=== PATIENT | male | born 1940 | race Caucasian/White ===

== ENCOUNTER 2018-01-30 00:08 | Outpatient (CLI) | payer MEDICARE, SELFPAY ==
--- NOTE | 2018-01-30 07:15 | MERGEMPI_ITS ---
*[facility]* *[facility]* [address] [place] [address] Myocardial Perfusion Imaging - SPECT Ifeanyi protocol Date of study: 01/30/2018 *PATIENT PRESENTATION* Height: 185.4cm (73in) Blood Pressure: Weight: 108.6kg (239lb) BSA: 2.39m^2 Referring physician: Antoni Esparza MD Ordering physician: Yovany Nichols Impressions: Normal perfusion by Tc99m Sestamibi Imaging. Summary: 1. Myocardial perfusion imaging: No myocardial perfusion defects noted. 2. The calculated left ventricular ejection fraction after stress: 54%. No left ventricular regional motion abnormality. 3. Stress: The target heart rate was achieved. Indication: R06.02. History: REASON FOR TESTING: SHORTNESS OF BREATH INCREASING OVER THE PAST MONTH WITH CHEST PRESSURE, DESCRIBED A BABY ELEPHANT ON CHEST. PAST MEDICAL HISTORY: HYPERTENSION, HYPERLIPIDEMIA, VALVE INSUFFICIENCY ASTHMA, COPD, RIGHT TOTAL KNEE X2, LEFT ANKLE SURGERY X2. FAMILY HISTORY: NONE SMOKIN PPD, QUIT 1981 EXERCISE: NONE OTHER THAN DAILY ACTIVITIES. PMH: COPD. Asthma. Risk factors: Hypertension. Cholesterol: 190mg/dl. HDL: 50mg/dl. LDL: 127mg/dl. Triglycerides: 118mg/dl. ALLERGIES: ATORVASTATIN. SIMVASTATIN. MEDICATIONS: CYANOCOBALAMIN DOSE UNKNOWN DAILY. ALBUTERAL SULFATE 2 PUFF IH Q4H PRN. ASPIRIN 325 MG DAILY. FERROUS SULFATE DOSE UNKNOWN DAILY. MULTIVITAMIN DOSE UNKNOWN DAILY. IBUPROFEN 600 MG PRN. BREO ELLIPTA IH DAILY. LORAZEPAM DOSE UNKNOWN PRN. STIOLTO RESPIMAT DAILY. IPRATROPIUM-ALBUTEROL UPD PRN. MECLIZINE DOSE UNKNOWN PRN.TRAZODONE DOSE UNKNOWN HS.FLUTICASONE 2 SPRAYS DAILY. HYDROCHLOROTHIAZIDE DOSE UNKNOWN DAILY. POTASSIUM CHLORIDE 10 MEQ THREE TIMES A WEEK.SERTRALINE 50 MG DAILY. LORATADINE 10 MG DAILY. OMEPRAZOLE 20 MG DAILY. TAMULOSIN DOSE UNKNOWN HS. PREDNISONE 10 MG DAILY. Imaging Technique: Protocol: Ifeanyi protocol. Acquisition: Gated SPECT; 1 day - rest/stress. The patient was imaged in the supine position. Attenuation correction used. Isotope administration: - Rest. Tc[99m]-sestamibi. Dose: 10.6mCi. Injection time: 11:20 AM. Injection to stress time: 00:45. - Stress. Tc[99m]-sestamibi. Dose: 33.1mCi. Injection time: 01:45 PM. 1-2 min before end of exercise Baseline ECG: FIRST DEGREE AV BLOCK. HEART RATE=65 BPM. Stress protocol: + +---+ + !Stage !HR !BP (mmHg) ! + +---+ + !Baseline supine !65 !142/70 (94) ! + +---+ + !Baseline standing !72 !140/68 (92) ! + +---+ + !Stage I; 1.7mph, 10degrees; 3 min !100!162/78 (106)! + +---+ + !Stage II; 2.5mph, 12degrees; 3 min!124!162/80 (107)! + +---+ + !Peak stress !130! ! + +---+ + !Recovery; 1 min !102!186/82 (117)! + +---+ + !Recovery; 3 min !92 !190/80 (117)! + +---+ + !Recovery; 6 min !75 !140/78 (99) ! + +---+ + * Stress results: Maximal heart rate during stress was 130bpm (90% of maximal predicted heart rate). The maximal predicted heart rate was 145bpm. The target heart rate was achieved. The rate-pressure product for the peak heart rate and blood pressure was 89540xm Hg/min. Stress ECG: EXERCISE TESTING ENDED IN 6 MINUTES 29 SECONDS DUE TO SHORTNESS OF BREATH AND FATIGUE. NORMAL HEART RATE RESPONSE. NORMAL BLOOD PRESSURE RESPONSE. MAX HEART RATE WAS 130 BPM. 89% OF TARGET. ECTOPY: OCCASIONAL PVC'S. OCCASIONAL COUPLETS. BIGEMINY PATTERN NOTED AT 2 MINUTES RECOVERY, RESOLVED BY 4 MINUTES RECOVERY. MET'S: 7.05 3/10 CHEST PAIN AT 1 MINUTE RECOVERY, RESOLVED BY [address] SEGMENT CHANGES. FUNCTIONAL CAPACITY: MILDLY DIMINISHED CAPACITY. Myocardial perfusion: Imaging information: gated. No myocardial perfusion defects noted. Ventricular Function (Wall Motion): The calculated left ventricular ejection fraction after stress: 54%. No left ventricular regional motion abnormality. Study data: Antoni Esparza MD supervised and was readily available during the procedure. This study was interpreted by [facility]. Study status: Routine. Consent: The risks, benefits, and alternatives to the procedure were explained to the patient and informed consent was obtained. Procedure: Initial setup. A baseline ECG was recorded. Surface ECG leads and manual cuff blood pressure measurements were monitored. Heart sounds: Normal. Lung sounds: Normal. Treadmill exercise testing was performed using the Ifeanyi protocol. Study completion: All catheters inserted during the procedure were removed. The patient tolerated the procedure well and was discharged from the lab. Discharge: The patient left the laboratory in stable condition. Birthdate: Patient birthdate: 1940. Sex: Gender: male. Study date: Study date: 01/30/2018. Study time: 07:15 AM. Electronically signed by Antoni Esparza MD 01/30/2018 17:54
== END 2018-01-30 00:28 ==
PROVIDERS: PCP Family Medicine; Visit Provider Family Medicine
DX: R06.02 Shortness of breath (principal); R07.89 Other chest pain; I10 Essential (primary) hypertension; E78.5 Hyperlipidemia, unspecified
CPT/HCPCS: 78452; 93016; 93018; 93017

== ENCOUNTER 2018-02-02 01:30 | Outpatient (CLI) | payer MEDICARE, SELFPAY ==
--- NOTE | 2018-02-02 07:30 | MERGE_ITS ---
*[facility]* *[facility]* [address] [place] [address] Date of study: 02/02/2018 Transthoracic Echocardiography M-mode, complete 2D, complete spectral Doppler, and color Doppler *STUDY CONCLUSIONS* Summary: 1. Left ventricle: The cavity size was normal. Wall thickness was increased in a pattern of mild LVH. Systolic function was normal. The estimated ejection fraction was 60-65%. Diastolic parameters were normal. There was no evidence of elevated ventricular filling pressure by Doppler parameters. 2. Ventricular septum: Septal motion showed paradoxical motion. 3. Mitral valve: There was mild regurgitation. 4. Pulmonary arteries: Pulmonary systolic pressure was >= 25mm Hg. 5. Inferior vena cava: Poorly visualized. *PATIENT PRESENTATION* Height: 182.9cm ((72in) ) S/D Pressure: 123 / 62 Weight: 108.4kg ((238.5lb) ) BSA: 2.38m^2 Test start time: 07:40 AM. Test stop time: 08:40 AM. ORDERING Ginny Raymundo REFERRING Ginny Raymundo PERFORMING Unknown PERFORMING [facility] LIVESTOCK SPECULATOR RT Hernandez RDCS (R CT) *PROCEDURE DATA* Procedure information: This study was interpreted by [facility]. Pertinent images and digital data are archived for permanent storage and are available for subsequent review. Comparison was made to the study of 07/09/2013. Study status: Routine. Transthoracic echocardiography. M-mode, complete 2D, complete spectral Doppler, and color Doppler. A Transthoracic Echocardiogram was performed. Scanning was performed from the parasternal, apical, subcostal, and suprasternal notch acoustic windows. Images were obtained using an [id number] cardiac ultrasound machine. Image quality was adequate. Study completion: The patient tolerated the procedure well. *CARDIAC ANATOMY* Left ventricle: The cavity size was normal. Wall thickness was increased in a pattern of mild LVH. Systolic function was normal. The estimated ejection fraction was 60-65%. The tissue Doppler parameters were normal. Diastolic parameters were normal. There was no evidence of elevated ventricular filling pressure by Doppler parameters. Aortic valve: Trileaflet. Doppler: There was no stenosis. There was no regurgitation. VTI ratio of LVOT to aortic valve: 0.45. Valve area (VTI): 2cm^2. Indexed valve area (VTI): 0.8cm^2/m^2. Peak velocity ratio of LVOT to aortic valve: 0.35. Valve area (Vmax): 1.6cm^2. Indexed valve area (Vmax): 0.7cm^2/m^2. Mean velocity ratio of LVOT to aortic valve: 0.42. Valve area (Vmean): 1.9cm^2. Indexed valve area (Vmean): 0.8cm^2/m^2. Mean gradient (S): 13.7mm Hg. Peak gradient (S): 28.4mm Hg. Aorta: Aortic root: The aortic root was normal in size. Ascending aorta: The ascending aorta was mildly dilated. Mitral valve: Doppler: There was no evidence for stenosis. There was mild regurgitation. Valve area by pressure half-time: 2.1cm^2. Indexed valve area by pressure half-time: 0.9cm^2/m^2. Left atrium: The atrium was normal in size. Atrial septum: Poorly visualized. Right ventricle: Poorly visualized. Ventricular septum: Septal motion showed paradoxical motion. Pulmonic valve: Doppler: There was no evidence for stenosis. There was mild regurgitation. Peak gradient (S): 6.9mm Hg. Tricuspid valve: Doppler: There was mild regurgitation. Pulmonary artery: Poorly visualized. Pulmonary systolic pressure was >= 25mm Hg. Right atrium: The atrium was normal in size. Pericardium: There was no significant pericardial effusion. Systemic veins: Inferior vena cava: Poorly visualized. The vessel was patent and mildly dilated. Baseline ECG: Normal sinus rhythm. Measurements Left ventricle Value Reference LV ID, ED, PLAX 5.9 cm 3.5 - 6.0 LV ID, ES, PLAX 4.0 cm 2.1 - 4.0 LV PW thickness, ED, PLAX 1.1 cm LV end-diastolic volume, 1-p A2C 144 ml LV ejection fraction, 1-p A2C 66 % LV end-diastolic volume, 1-p A4C 147 ml LV ejection fraction, 1-p A4C 61 % LV e', lateral 0.047 m/sec LV E/e', lateral 12 LV e', medial 0.051 m/sec LV E/e', medial 11 LV e', average 0.049 m/sec LV E/e', average 12 Ventricular septum Value Reference IVS thickness, ED, PLAX 1.1 cm LVOT Value Reference LVOT ID, A-P 2.4 cm LVOT area 4.4 cm^2 LVOT peak velocity, S 0.94 m/sec LVOT mean velocity, S 0.74 m/sec LVOT VTI, S 21.8 cm LVOT peak gradient, S 3.5 mm Hg LVOT mean gradient, S 2.3 mm Hg Stroke volume (SV), LVOT DP 96 ml Stroke index (SV/bsa), LVOT DP 41 ml/m^2 Aortic valve Value Reference Aortic valve peak velocity, S 2.7 m/sec Aortic valve mean velocity, S 1.75 m/sec Aortic valve VTI, S 49.0 cm Aortic mean gradient, S 13.7 mm Hg Aortic peak gradient, S 28.4 mm Hg VTI ratio, LVOT/AV 0.45 Aortic valve area, VTI 2 cm^2 Velocity ratio, peak, LVOT/AV 0.35 Aortic valve area, peak velocity 1.6 cm^2 Velocity ratio, mean, LVOT/AV 0.42 Aortic valve area, mean velocity 1.9 cm^2 Aortic valve area/bsa, mean velocity 0.8 cm^2/m^2 Aorta Value Reference Aortic root ID, ED 4.0 cm Ascending aorta ID, A-P, S 3.9 cm RVOT Value Reference RVOT VTI, S 18.2 cm Left atrium Value Reference LA ID, A-P, ES 3.7 cm LA ID/bsa, A-P 1.6 cm/m^2 <=2.2 LA area, ES, A4C 21.3 cm^2 8.8 - 23.4 LA area, ES, A2C 19 cm^2 LA volume/bsa, ES, 1-p A4C 30 ml/m^2 LA volume, ES, 2-p 59 ml LA volume/bsa, ES, 2-p 25 ml/m^2 LA/aortic root ratio 0.93 Mitral valve Value Reference Mitral E-wave peak velocity 0.58 m/sec Mitral A-wave peak velocity 0.91 m/sec Mitral deceleration time (H) 357 ms 150 - 230 Mitral pressure half-time 104 ms Mitral E/A ratio, peak 0.64 Mitral valve area, PHT, DP 2.1 cm^2 Pulmonary veins Value Reference Pulmonary vein peak velocity, S 0.63 m/sec Pulmonary vein peak velocity, D 0.41 m/sec Pulmonary vein velocity ratio, peak, 1.55 S/D Pulmonary vein A-wave reversal peak 0.81 m/sec velocity Tricuspid valve Value Reference Tricuspid regurg peak velocity 2.1 m/sec Tricuspid peak RV-RA gradient 17.1 mm Hg Right atrium Value Reference RA area, ES, A4C 18 cm^2 8.3 - 19.5 Pulmonic valve Value Reference Pulmonic peak gradient, S 6.9 mm Hg Legend: (L) and (H) miki values outside specified reference range. I have personally reviewed the images and have reviewed and edited the reported findings. Electronically signed by Antoni Esparza MD 02/02/2018 14:00
== END 2018-02-02 01:50 ==
PROVIDERS: PCP Family Medicine; Visit Provider Internal Medicine
DX: I34.0 Nonrheumatic mitral (valve) insufficiency (principal)
CPT/HCPCS: 93306

== ENCOUNTER 2018-02-03 12:01 | Emergency (ER) | payer MEDICARE, SELFPAY ==
[2018-02-03 12:09] VITALS: BP 157/68; PULSE 66; RESP 14; TEMP 37.1; O2SAT 94
--- NOTE | 2018-02-03 12:21 | DI.RAD_ITS ---
SYMPTOMS/DIAGNOSIS: SUBJECTIVE SHORTNESS OF BREATH, RIGHT SHOULDER PAIN PA AND LATERAL CHEST: The heart is at the upper limits of normal in size. The lungs are grossly clear and hyperinflated. Old compression fracture of lower thoracic vertebral body and mid thoracic vertebral body noted. No pleural effusions seen. CONCLUSION: No evidence of acute change.
[2018-02-03] MEDS: Albuterol/Ipratropium 3 ML UPD VIAL UPD (12:27)
[2018-02-03 12:40] VITALS: RESP 16
[2018-02-03 12:40] LABS: Abs Immature Grans 0.06 k/cumm (0.0-0.09); Absolute Basophil Count 0.04 k/cumm (0.0-0.2); Absolute Eosinophil Count 0.09 k/cumm (0.0-0.7); Absolute Lymphocyte Count 1.06 k/cumm (1.2-3.4); Absolute Monocyte Count 0.63 k/cumm (0.11-0.7); Absolute Neutrophil Count 7.31 k/cumm (1.2-6.7); Basophils % 0.4; Immature Grans % 0.7; Lymphocytes % 11.5; Mean Corp. HGB Concentration 34.8 g/dL (32.0-36.0); Mean Corpuscular Hemoglobin 31.1 pg (27.0-33.0); Mean Corpuscular Volume 89.3 fL (80-95); Mean Platelet Volume 10.2 fL (8.0-11.0); Monocytes % 6.9; Neutrophils % 79.5; Platelet Count 194 x1000/uL (130-400); RBC 5.15 m/cumm (4.50-6.00); RBC Distribution Width 13.4 % (11.8-14.1); White Blood Cell Count 9.19 k/cumm (4.4-10.8)
[2018-02-03 12:53] LABS: ALT 30 U/L (12-78); AST 15 U/L (15-37); Albumin 3.4 g/dL (3.4-5.0); Alkaline Phosphatase 99 U/L (46-116); Anion Gap 7.5 mmol/L (3-11); BUN 20 mg/dL (7-18); Bilirubin, Total 0.5 mg/dL (0.2-1.0); CO2 29.5 mmol/L (21.0-32.0); CREATININE 1.21 mg/dL (0.70-1.30); Calcium 8.8 mg/dL (8.5-10.1); Chloride 102 mmol/L (98-107); Estimated GFR 58.46 (mL/min/1.73m2); Glucose 101 mg/dL (70-100); Potassium 4.4 mmol/L (3.5-5.1); Sodium 139 mmol/L (136-145); Total Protein 6.6 g/dL (6.4-8.2)
[2018-02-03 12:54] LABS: Troponin I < 0.02 ng/mL (0.00-0.06)
--- NOTE | 2018-02-03 14:22 | ED.GENADUL_ITS ---
Discharge Plan Disposition Patient Disposition: HOME Condition: Good Discharge Details Chief Complaint: SOB Clinical Impression: Asthma exacerbation in COPD, Chronic chest pain, SOB (shortness of breath) Primary Care Provider: Yovany Nichols ED Provider: Valeriy Washington Home Meds and New Rx's Prescriptions: New prednisone 50 MG tablet 50 mg PO DAILY Qty: 5 RF: 0 azithromycin 250 mg tablet See Label Instructions .ROUTE .COMPLEX Qty: 6 RF: 0 No Action cyanocobalamin (vitamin B-12) [Vitamin B-12] 1,000 MCG tablet extended release 1 tab PO DAILY RF: 0 multivitamin 1 EACH tablet 1 tab PO DAILY RF: 0 aspirin 325 MG tablet 325 mg PO DAILY RF: 0 ferrous sulfate 325 MG tablet 1 tab PO DAILY RF: 0 lorazepam [Ativan] 0.5 MG tablet 1 tab PO Q8H PRNQty: 30 RF: 0 meclizine 12.5 MG tablet 1 - 2 tab PO Q6H PRN Qty: 50 RF: 1 trazodone 100 MG tablet 1 tab PO HS Qty: 90 RF: 3 hydrochlorothiazide 12.5 MG capsule 1 cap PO DAILY Qty: 90 RF: 4 fluticasone 16 GM spray,suspension 2 spry NS DAILY Qty: 1 RF: 3 sertraline 50 MG tablet 50 mg PO DAILY Qty: 90 RF: 3 potassium chloride 10 MEQ capsule, extended release 10 meq PO 3x a week Qty: 45 RF: 4 tamsulosin 0.4 MG capsule 1 - 2 cap PO HS Qty: 60 RF: 3 omeprazole 20 MG capsule,delayed release(DR/EC) 20 mg PO DAILY Qty: 90 RF: 4 loratadine [Claritin Liqui-Gel] 10 MG capsule 10 mg PO DAILY Qty: 90 RF: 4 ibuprofen [Ibuprofen IB] 200 MG tablet 600 mg PO PRN PRNRF: 0 ipratropium-albuterol 3 ML solution for nebulization 3 ml UPD Q4H PRN PRNRF: 0 azithromycin 250 mg Tablet See Label Instructions .ROUTE .COMPLEX RF: 0 cholecalciferol (vitamin D3) [Vitamin D3] 1,000 unit Capsule 1,000 unit PO DAILY RF: 0 prednisone 10 mg tablet 5 mg PO DAILY RF: 0 Discharge Instructions Instructions: COPD (Chronic Obstructive Pulmonary Disease) (ED) Additional Instructions: Please use your home oxygen set at 2-3 L at all times. Please follow-up with your family doctor soon as possible. Please take the medication as directed. If you notice any worsening of your symptoms, or any new symptoms such as vomiting, diarrhea, fever, chills, shortness of breath, chest pain, numbness, weakness, or fainting , please return immediately to the emergency department for reevaluation. Please follow up with your primary care provider as soon as possible for reassessment and reevaluation. As always, it was a pleasure participating in your medical care today. Referrals: Yovany Nichols MD [Primary Care Provider] - Discharge Data Discharge Date/Time-TO BE ENTERED AT DEPARTURE: 02/03/18 14:37 Medical Decision Making This is a pleasant 77-year-old male who presents for evaluation of shortness of breath some mild chest pain, and very mild pain down his right arm. He does have a notable history of COPD, and used to be on 2-3 L of home oxygen at all times, however over the last few months he has tried to titrate down. He has been noticing increased need for oxygen as of late, as well as continued shortness of breath. Because of this his primary care provider did get an echo and a stress test within the past week. These demonstrate no significant abnormalities concerning for severe ischemic heart disease. Patient on presentation demonstrates normal vital signs with no signs of hypoxemia, no tachycardia, no evidence of tachypnea. Patient was given 1 breathing treatment in the emergency department to see if this did not improve his symptoms and it did improve slightly. He does have a breathing machine and inhalers at home. Patient's laboratory workup was relatively benign with no significant leukocytosis, no bandemia, no electrolyte abnormalities. Troponin was normal, and EKG showed a first-degree AV block but no other significant abnormalities. With normal vital signs, normal EKG, normal stress test within the last 5 days, benign echocardiogram within the last 24 hours, no signs of hypoxemia or respiratory distress, I do feel that his symptoms more likely secondary to chronic lung disease and worsening chronic COPD than a cardiac etiology. I feel that the patient can be safely discharged home but does require close follow-up with his primary care provider. He does have home oxygen already at home, and we do recommend this that he uses this as needed for home use. In spite of the negative workup noted at this time, I did discuss with him the importance of return if he does have a change in his symptomatology. With the improvement that the patient had with the breathing treatment, I do feel that the COPD component would benefit from short course of 5 days of steroids, and azithromycin for the anti-inflammatory component with his chronic COPD. We discussed red flags which to return as well as the importance of follow-up and the patient understands. I have extensively reviewed the treatment plan and discharge instructions with the patient and their family. I have addressed all patient concerns at this time. The patient and family was made aware of what symptoms to monitor for that would warrant a return to the emergency department. Discussed the plan with the patient and family, they demonstrate verbal understanding and agreement with our assessment and plan at this time. EKG 12: 08 Rate 66, OH 240, QTc 411, QRS 96, sinus rhythm with first-degree AV block, no ST elevations or depressions, no T wave inversions except for V1. No Q waves. PA AND LATERAL CHEST: The heart is at the upper limits of normal in size. The lungs are grossly clear and hyperinflated. Old compression fracture of lower thoracic vertebral body and mid thoracic vertebral body noted. No pleural effusions seen. CONCLUSION: No evidence of acute change. 01/30/18 exercise stress test impressions: Normal perfusion by Tc 99m sestamibi imaging. Summary: #1 myocardial perfusion imaging: No myocardial perfusion defects noted. #2 calculated left ventricular ejection fraction after stress: 54% no left ventricular regional motion abnormality. #3 stress: The target heart rate was achieved Echocardiogram performed 02/02/18 #1 left ventricle: The cavity size was normal. Wall thickness was increased in a pattern of mild LVH. Systolic function was normal. The estimated EF was 65% . Diastolic parameters were normal. There was no evidence of elevated ventricular filling pressure by Doppler parameters. 2. Ventricular septum: Septal motion showed paradoxical motion. 3. Mitral valve: There was mild regurgitation. 4. Pulmonary arteries: Pulmonary systolic pressure was greater than or equal to 25 mg of mercury. 5. Inferior vena cava: Poorly visualized. HPI General Date/Time Provider Initiated Documentation: 02/03/18 12:19 . HPI Narrative: This is a pleasant 77-year-old male with a past medical history of COPD, hypertension, obstructive sleep apnea, who uses 2 L of home oxygen on his regular CPAP, and used to use 2-3 L of home oxygen regularly but has titrated down in the last few months. Patient recently had a stress test 4 days ago and an echocardiogram yesterday. These were both relatively benign. The patient presents today for evaluation of some chest pain and shortness of breath as well as some mild right arm pain. He states that the symptoms have been present for the last few days even before his stress test, however he had slight worsening of his symptoms today. Shortness of breath seems to be brought on by exerting himself and performing activities. It is improved with rest. The arm pain is very mild, and he states that it does not seem to be related to the exertion. It is worse with movement of the arm itself. Patient does admit to a mild cough, but denies any hemoptysis, or sputum production. He denies any significant numbness, tingling, weakness, tearing sensation in his chest, neck pain. He denies any other aggravating or relieving factors. He denies any previous cardiac history. He denies any other complaints at this time. Patient does not smoke. He denies any IV or illicit drug use. He denies any recent surgeries. denies PE risk factors such as recent long car rides, immobilization, recent surgery, prior history of DVT or PE, family history of PE or DVT, morbid obesity, exogenous estrogen and smoking, hemoptysis, history of cancer. Related Data Home Medications Medication Instructions Recorded Confirmed cyanocobalamin (vitamin B-12) 1 tab PO DAILY 07/14/12 02/03/18 [Vitamin B-12] aspirin 325 mg PO DAILY tab-cap 11/12/14 02/03/18 ferrous sulfate 1 tab PO DAILY 11/12/14 02/03/18 multivitamin 1 tab PO DAILY 11/12/14 02/03/18 ibuprofen [Ibuprofen IB] 600 mg PO PRN PRN 04/12/16 02/03/18 lorazepam [Ativan] 1 tab PO Q8H PRN #30 11/16/16 02/03/18 ipratropium-albuterol 3 ml UPD Q4H PRN PRN 01/18/17 02/03/18 meclizine 1 - 2 tab PO Q6H PRN #50 tab 02/22/17 02/03/18 trazodone 1 tab PO HS #90 tab-cap 04/20/17 02/03/18 fluticasone 2 spry NS DAILY #1 inhaler 05/26/17 02/03/18 hydrochlorothiazide 1 cap PO DAILY #90 tab-cap 05/26/17 02/03/18 potassium chloride 10 meq PO 3x a week #45 tab-cap 05/26/17 02/03/18 sertraline 50 mg PO DAILY #90 tab-cap 05/26/17 02/03/18 loratadine [Claritin] 10 mg PO DAILY #90 tab-cap 12/06/17 02/03/18 omeprazole 20 mg PO DAILY #90 tab-cap 12/06/17 02/03/18 tamsulosin 1 - 2 cap PO HS #60 tab-cap 12/06/17 02/03/18 azithromycin See Label Instructions .ROUTE 02/03/18 02/03/18 .COMPLEX azithromycin See Label Instructions .ROUTE 02/03/18 .COMPLEX #6 tab cholecalciferol (vitamin D3) 1,000 unit PO DAILY 02/03/18 02/03/18 [Vitamin D3] prednisone 5 mg PO DAILY 02/03/18 02/03/18 prednisone 50 mg PO DAILY #5 tab 02/03/18 Previous Rx's Medication Instructions Recorded meclizine 1 - 2 tab PO Q6H PRN #50 tab 02/22/17 trazodone 1 tab PO HS #90 tab-cap 04/20/17 fluticasone 2 spry NS DAILY #1 inhaler 05/26/17 hydrochlorothiazide 1 cap PO DAILY #90 tab-cap 05/26/17 potassium chloride 10 meq PO 3x a week #45 tab-cap 05/26/17 sertraline 50 mg PO DAILY #90 tab-cap 05/26/17 loratadine [Claritin] 10 mg PO DAILY #90 tab-cap 12/06/17 omeprazole 20 mg PO DAILY #90 tab-cap 12/06/17 tamsulosin 1 - 2 cap PO HS #60 tab-cap 12/06/17 azithromycin See Label Instructions .ROUTE 02/03/18 .COMPLEX #6 tab prednisone 50 mg PO DAILY #5 tab 02/03/18 Allergies Allergy/AdvReac Type Severity Reaction Status Date / Time atorvastatin AdvReac Mild MUSCLE Unverified 01/26/18 13:43 FATIGUE simvastatin AdvReac Mild MUSCLE Unverified 01/26/18 13:43 FATIGUE General Stated Complaint: SOB AMERICO: 2 Review of Systems Review of Systems All systems reviewed & are unremarkable except as noted in HPI and below PFSH Family History Mother Neoplasm Father Neoplasm Grandmother Neoplasm Son No problems noted. Son No problems noted. Daughter No problems noted. 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 3.ENT: Atraumatic external nose and ears. Moist MM. Neck: Symmetric, trachea midline, No thyromegaly. 4.CVS: +S1/S2, No murmurs or gallops. Peripheral pulses 2+ and equal in all extremities. Brisk capillary refill in all extremities. Radial pulses are +2 bilaterally. 5.RESP: Unlabored respiratory effort. Minimal crackles in the bases. No significant wheezes or rhonchi 6.GI: Soft, Nontender/Nondistended, No hepatosplenomegaly. No guarding or rebound. 7.MSK: Normocephalic/Atraumatic, Extremities w/o deformity or ttp No cyanosis or clubbing, Normal movement of all extremities 8.Skin: Warm, Dry. No rashes or lesions. 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 Sensation grossly intact, no focal neurologic deficits. 10.Psych: (AAO) x3. Appropriate mood and affect Course Vital Signs Temperature 37.1 C 02/03/18 12:09 Pulse 66 02/03/18 12:09 Respiratory Rate 14 02/03/18 12:09 Blood Pressure 157/68 H 02/03/18 12:09 Pulse Oximetry 94 L 02/03/18 12:09 Temperature 37.1 C 02/03/18 12:09 Temperature Source Skin 02/03/18 12:09 Pulse 66 02/03/18 12:09 Respiratory Rate 16 10/19/18 12:40 Respiratory Effort 02/03/18 12:40 Respiratory Depth Normal 02/03/18 12:40 Respiratory Pattern Normal 02/03/18 12:40 Blood Pressure 157/68 H 02/03/18 12:09 Blood Pressure Position Sitting 02/03/18 12:09 Pulse Oximetry 94 L 02/03/18 12:09 Oxygen Delivery Method Room Air 02/03/18 12:09 Oxygen Flow Rate 0 02/03/18 12:09 Pain Level 2 02/03/18 12:09 Lab/Test Results Lab/Test Results: Laboratory Tests Range/Units 02/03/18 02/03/18 12:20 12:20 WBC (4.4-10.8) k/cumm 9.19 RBC (4.50-6.00) m/cumm 5.15 Hgb (13.5-17.5) g/dL 16.0 Hct (40.0-50.0) % 46.0 MCV (80-95) fL 89.3 MCH (27.0-33.0) pg 31.1 MCHC (32.0-36.0) g/dL 34.8 RDW (11.8-14.1) % 13.4 Plt Count (130-400) x1000/uL 194 MPV (8.0-11.0) fL 10.2 Immature Gran % 0.7 Neutrophils % 79.5 Lymphocytes % 11.5 Monocytes % 6.9 Eosinophils % 1.0 Basophils % 0.4 Absolute Neutrophils (1.2-6.7) k/cumm 7.31 H Absolute Lymphocytes (1.2-3.4) k/cumm 1.06 L Absolute Monocytes (0.11-0.7) k/cumm 0.63 Absolute Eosinophils (0.0-0.7) k/cumm 0.09 Absolute Basophils (0.0-0.2) k/cumm 0.04 Sodium (136-145) mmol/L 139 Potassium (3.5-5.1) mmol/L 4.4 Chloride (98-107) mmol/L 102 Carbon Dioxide (21.0-32.0) mmol/L 29.5 Anion Gap (3-11) mmol/L 7.5 BUN (7-18) mg/dL 20 H Creatinine (0.70-1.30) mg/dL 1.21 Estimated GFR/1.73 m2 (mL/min/1.73m2) 58.46 Glucose (70-100) mg/dL 101 H Calcium (8.5-10.1) mg/dL 8.8 Total Bilirubin (0.2-1.0) mg/dL 0.5 AST (15-37) U/L 15 ALT (12-78) U/L 30 Alkaline Phosphatase (46-116) U/L 99 Troponin I (0.00-0.06) ng/mL < 0.02 Total Protein (6.4-8.2) g/dL 6.6 Albumin (3.4-5.0) g/dL 3.4
[2018-02-03 14:35] VITALS: BP 128/87; PULSE 67; RESP 18; TEMP 37; O2SAT 94
== END 2018-02-03 14:37 | disposition home or self-care (01) ==
PROVIDERS: Emergency Provider Student in an Organized Health Care Education/Training Program; PCP Family Medicine
DX: J44.1 Chronic obstructive pulmonary disease with (acute) exacerbation (principal); R06.02 Shortness of breath; R07.9 Chest pain, unspecified; G89.29 Other chronic pain; Z99.81 Dependence on supplemental oxygen; Z87.891 Personal history of nicotine dependence; I10 Essential (primary) hypertension
CPT/HCPCS: 36415; 80053; 93005; 94640; 99285; 71046; 84484; 85025; 93010; J7620

== ENCOUNTER 2018-12-28 10:56 | Emergency (ER) | payer MEDICARE, SELFPAY ==
[2018-12-28 11:04] VITALS: BP 167/81; PULSE 69; RESP 16; TEMP 37.2; O2SAT 96
--- NOTE | 2018-12-28 11:20 | DI.CT_ITS ---
SYMPTOM/DIAGNOSIS: LT FACIAL SWELLING, REDNESS FACIAL CT: CT examination of the facial region was performed with intravenous infusion of 100 cc's of Omnipaque 350. Visualized portions of the brain are unremarkable. Intracranial vasculature and extracranial vasculature appear intact. Laryngeal structures appear intact and hypopharynx appears intact. No evidence of a tonsillar abscess. The patient reportedly has clinical symptoms suggesting parotiditis and the left parotid gland is fairly homogeneous in appearance but perhaps slightly enlarged in comparison to the right. No gross adenopathy identified on either side. There are degenerative changes of both temporomandibular joints with small apparent joint effusion of the TMJ on the right and a large joint effusion of the TMJ on the left. Infected effusion not excluded on the basis of this examination and further clinical evaluation is suggested. CONCLUSION; Findings consistent with left parotiditis. Bilateral TMJ effusions, left greater than right, infectious process not excluded. Please correlate clinically.
--- NOTE | 2018-12-28 11:21 | ED.GENADUL_ITS ---
Discharge Plan Disposition Patient Disposition: HOME Condition: Stable Discharge Details Chief Complaint: FacialProb Clinical Impression: Acute parotitis Primary Care Provider: Yovany Nichols ED Provider: Antoni Lopez Moody Meds and New Rx's Prescriptions: New amoxicillin-pot clavulanate [Augmentin] 875-125 mg tablet 1 tab PO BID Qty: 14 RF: 0 oxycodone 5 mg tablet 5 mg PO Q6H PRN (Reason: pain) Qty: 12 RF: 0 sulfamethoxazole-trimethoprim [Bactrim DS] 800-160 mg tablet 1 tab PO BID Qty: 14 RF: 0 Continued fluticasone propionate 50 mcg/actuation spray,suspension 2 spray NS DAILY Qty: 1 RF: 3 hydrochlorothiazide 12.5 mg capsule 12.5 mg PO DAILY Qty: 90 RF: 4 potassium chloride 10 mEq capsule, extended release 10 meq PO 3x a week Qty: 45 RF: 4 sertraline 50 mg tablet 50 mg PO DAILY Qty: 90 RF: 3 lorazepam [Ativan] 0.5 mg tablet 0.5 mg PO Q8H PRN (Reason: anxiety) Qty: 30 RF: 1 omeprazole 20 mg capsule,delayed release(DR/EC) 20 mg PO DAILY Qty: 90 RF: 4 cyanocobalamin (vitamin B-12) [Vitamin B-12] 1,000 MCG tablet extended release 1 tab PO DAILY RF: 0 multivitamin 1 EACH tablet 1 tab PO DAILY RF: 0 aspirin 325 MG tablet 325 mg PO DAILY RF: 0 ferrous sulfate 325 MG tablet 1 tab PO DAILY RF: 0 meclizine 12.5 MG tablet 1 - 2 tab PO Q6H PRN Qty: 50 RF: 1 loratadine [Claritin Liqui-Gel] 10 MG capsule 10 mg PO DAILY Qty: 90 RF: 4 trazodone 100 mg tablet 100 mg PO HS Qty: 90 RF: 3 ipratropium-albuterol 0.5 mg-3 mg(2.5 mg base)/3 mL solution for nebulization 3 ml UPD QID PRN (Reason: shortness of breath or wheezing) Qty: 180 RF: 4 prednisone 5 mg tablet 5 mg PO DAILY Qty: 90 RF: 2 ibuprofen [Ibuprofen IB] 200 MG tablet 600 mg PO PRN PRNRF: 0 cholecalciferol (vitamin D3) [Vitamin D3] 1,000 unit Capsule 1,000 unit PO DAILY RF: 0 Discharge Instructions Instructions: Sialoadenitis (ED) Additional Instructions: drink fluids to stay hydrated buy lemon drops to increase your secretions follow up with your primary care provider in 1-2 weeks if you feel you are becoming more ill or have severe worsening pain return to the emergency department Medical Decision Making 78 yo male comes in with left face swelling and pain since last night. HE saw his pcp and had a temp in their office of 102 so was sent here, afebrile on arrival here. His left cheek over the parotid gland is swollen and red on exam. He had right lower teeth pulled a few weeks ago but has no swelling or pain on that side. HAs no throat pain or swelling. Given location of the redness and swelling suspect parotitis. Will obtain CT to evaluate for possible abscess and monitor patient remains stable, CT shows left parotitis without abscess or evidence of spreading cellulitis. Does have bilatearl tmj effusions but has no pain, warmth in these areas and full rom of the mouth. Labs reassuring. Given reassuring lab work and imaging discussed admission vs outpatient treatment for this as he is able to swallow pills here and he feels comfortable going home. Will prescribe antibiotics and short course of pain meds and have him start sialogogues. ADvised f/u with pcp and return precautions given Differential Diagnosis Differential Diagnosis: parotitis, cellulitis Medical Records Medical records reviewed: Yes I reviewed the patient's medical records. Imaging Data Radiologic Study: Attestation: I personally reviewed and interpreted this imaging study as follows: Imaging: CT Scan Radiologist's impression: CONCLUSION; Findings consistent with left parotiditis. Bilateral TMJ effusions, left greater than right, infectious process not excluded. Please correlate clinically. Lab Data Lab results reviewed: Yes I reviewed the patient's lab results. HPI General Mode of arrival: ambulatory . Date/Time Provider Initiated Documentation: 12/28/18 11:06 . Limitations to Documentation: no limitations . Information obtained by: patient . History of Present Illness 78 year old M presents to the emergency department with the chief complaint of left face swelling/pain, described as severe, Quality is described as aching, and is localized to the face. Patient reports no radiation. Patient started experiencing this day(s) (1) and it has been constant. No relieving factors improve symptom(s), No exacerbating factors reported . Patient did receive the following treatments prior to arrival, none Related Data Home Medications Medication Instructions Recorded Confirmed cyanocobalamin (vitamin B-12) 1 tab PO DAILY 07/14/12 12/28/18 [Vitamin B-12] aspirin 325 mg PO DAILY tab-cap 11/12/14 12/28/18 ferrous sulfate 1 tab PO DAILY 11/12/14 12/28/18 multivitamin 1 tab PO DAILY 11/12/14 12/28/18 ibuprofen [Ibuprofen IB] 600 mg PO PRN PRN 04/12/16 12/28/18 meclizine 1 - 2 tab PO Q6H PRN #50 tab 02/22/17 12/28/18 loratadine [Claritin Liqui-Gel] 10 mg PO DAILY #90 tab-cap 12/06/17 12/28/18 cholecalciferol (vitamin D3) 1,000 unit PO DAILY 02/03/18 12/28/18 [Vitamin D3] trazodone 100 mg tablet 100 mg PO HS #90 tab-cap 04/20/18 12/28/18 fluticasone propionate 50 2 spray NS DAILY #1 gm 05/30/18 12/28/18 mcg/actuation nasal spray,suspension hydrochlorothiazide 12.5 mg capsule 12.5 mg PO DAILY #90 tab-cap 05/30/18 12/28/18 lorazepam 0.5 mg tablet 0.5 mg PO Q8H PRN #30 tab 05/30/18 12/28/18 omeprazole 20 mg capsule,delayed 20 mg PO DAILY #90 tab-cap 05/30/18 12/28/18 release potassium chloride 10 mEq 10 meq PO 3x a week #45 tab-cap 05/30/18 12/28/18 capsule,extended release sertraline 50 mg tablet 50 mg PO DAILY #90 tab-cap 05/30/18 12/28/18 ipratropium-albuterol 0.5 mg-3 3 ml UPD QID PRN #180 ml 06/05/18 12/28/18 mg(2.5 mg base)/3 mL nebulization soln prednisone 5 mg tablet 5 mg PO DAILY #90 tab 09/27/18 12/28/18 amoxicillin-pot clavulanate 1 tab PO BID #14 tab 12/28/18 [Augmentin] oxycodone 5 mg PO Q6H PRN #12 tab 12/28/18 sulfamethoxazole-trimethoprim 1 tab PO BID #14 tab 12/28/18 [Bactrim DS] Previous Rx's Medication Instructions Recorded meclizine 1 - 2 tab PO Q6H PRN #50 tab 02/22/17 loratadine [Claritin Liqui-Gel] 10 mg PO DAILY #90 tab-cap 12/06/17 trazodone 100 mg tablet 100 mg PO HS #90 tab-cap 04/20/18 fluticasone propionate 50 2 spray NS DAILY #1 gm 05/30/18 mcg/actuation nasal spray,suspension hydrochlorothiazide 12.5 mg capsule 12.5 mg PO DAILY #90 tab-cap 05/30/18 lorazepam 0.5 mg tablet 0.5 mg PO Q8H PRN #30 tab 05/30/18 omeprazole 20 mg capsule,delayed 20 mg PO DAILY #90 tab-cap 05/30/18 release potassium chloride 10 mEq 10 meq PO 3x a week #45 tab-cap 05/30/18 capsule,extended release sertraline 50 mg tablet 50 mg PO DAILY #90 tab-cap 05/30/18 ipratropium-albuterol 0.5 mg-3 3 ml UPD QID PRN #180 ml 06/05/18 mg(2.5 mg base)/3 mL nebulization soln prednisone 5 mg tablet 5 mg PO DAILY #90 tab 09/27/18 amoxicillin-pot clavulanate 1 tab PO BID #14 tab 12/28/18 [Augmentin] oxycodone 5 mg PO Q6H PRN #12 tab 12/28/18 sulfamethoxazole-trimethoprim 1 tab PO BID #14 tab 12/28/18 [Bactrim DS] Allergies Allergy/AdvReac Type Severity Reaction Status Date / Time atorvastatin AdvReac Mild MUSCLE Unverified 12/28/18 11:08 FATIGUE simvastatin AdvReac Mild MUSCLE Unverified 12/28/18 11:08 FATIGUE General Stated Complaint: FacialProb AMERICO: 3 Review of Systems Review of Systems ROS Unobtainable: All systems reviewed & are unremarkable except as noted in HPI and below Constitutional Constitutional: Denies weakness ENT Ears, Nose, Mouth, and Throat: Denies change in voice Cardiovascular Cardiovascular: Denies chest pain and Denies dyspnea Respiratory Respiratory: Denies dyspnea Gastrointestinal Gastrointestinal: Denies abdominal pain, Denies nausea and Denies vomiting Musculoskeletal Musculoskeletal: Denies joint swelling Neurologic Neurologic: Denies weakness [facility] Medical History (Updated 12/28/18 @ 10:43 by Yovany Nichols MD) Abnormal EKG (Chronic 07/09/13) normal echo 06/29 COPD (chronic obstructive pulmonary disease) GERD (gastroesophageal reflux disease) HTN (hypertension) MASON (obstructive sleep apnea) SCC (squamous cell carcinoma) Spinal stenosis Surgical History (Updated 11/28/18 @ 10:09 by Yovany Nichols MD) Amputation (06/01/13) LEFT 3RD DISTAL TOE Arthroplasty of knee 05/21/14; DR. CLIFTON; RIGHT KNEE Biopsy, Soft Tissue (07/19/17) skin of postauricular region, right - dermal scar, no residual squamous cell carcinoma. Cholecystectomy Extraction of cataract (~01/2017) History of nasal septoplasty (Resolved) Nasal septoplasty (~1990) Open Carpal Tunnel release (~06/2009) LEFT Replacement of total knee joint RIGHT Status post carpal tunnel release (Resolved) Status post cholecystectomy (Resolved) Status post total knee replacement (Resolved) Family History (Updated 05/31/18 @ 10:35 by Luke Chauhan) Mother Cancer Father Cancer Maternal Grandmother Cancer Son No problems noted. Son No problems noted. Daughter No problems noted. Social History (Updated 05/31/18 @ 10:34 by Luke Chauhan) Smoking/Tobacco Use Status: Former Tobacco Use Alcohol Intake: never Drug use: Never Substance use type: does not use Household members: spouse and other Details: Daughter Housing: house Pets and animals: Yes Pets and animals: cat(s) Sexually active: No Do you think of yourself as: straight/heterosexual Current gender identity: male What is your relationship status?: How often do you talk on the phone with friends or family?: decline to answer How often do you get together with friends or relatives?: decline to answer How often do you attend yazdanism or jehovah's witness services?: decline to answer Do you belong to any clubs or organized social groups?: no Panel score (0-1 are the most socially isolated patients): 1 Duration: decline to answer Frequency: decline to answer Alexandrea/Yazidi: Mosque Special alexandrea needs: No Do you feel safe at home: Yes Do you feel safe in your relationship?: Yes Exam Const General: no acute distress Orientation: alert HENMT Head: normal to inspection Ears: external ears normal General nose exam: external nose normal Mouth: moist mucous membranes Eyes General: appearance normal, both eyes and all related structures Neck Neck: normal visual inspection Resp Effort & Inspection: normal respiratory effort and able to speak in complete sentences Cardio Rate: regular rate Skin General skin exam: no rashes or lesions noted Neuro General: alert and oriented x3 Extrem General: normal to inspection Psych Mental Status: mental status grossly normal Course Vital Signs Vital signs: Vital Signs Temperature 37.2 C 12/28/18 11:04 Pulse 69 12/28/18 11:04 Respiratory Rate 16 12/28/18 11:04 Blood Pressure 167/81 H 12/28/18 11:04 Pulse Oximetry 96 12/28/18 11:04 Temperature 37.2 C 12/28/18 11:04 Temperature Source Oral 12/28/18 11:04 Pulse 69 12/28/18 11:04 Respiratory Rate 16 12/28/18 11:04 Respiratory Effort Labored 12/28/18 11:07 Blood Pressure 167/81 H 12/28/18 11:04 Blood Pressure Position Sitting 12/28/18 11:04 Pulse Oximetry 96 12/28/18 11:04 Oxygen Delivery Method Room Air 12/28/18 11:04 Oxygen Flow Rate 0 12/28/18 11:04 Pain Level 9 12/28/18 11:04 Lab/Test Results Lab/Test Results: 12/28/18 11:06 Blood Blood Culture - Pending 12/28/18 11:06 Blood Blood Culture - Pending
[2018-12-28] MEDS: Lidocaine 2% Viscous 15 ML CUP PO (11:33)
[2018-12-28 11:36] LABS: Lactate 1.3 mmol/L (0.6-1.4)
[2018-12-28 11:40] LABS: Abs Immature Grans 0.05 k/cumm (0.0-0.09); Absolute Basophil Count 0.04 k/cumm (0.0-0.2); Absolute Eosinophil Count 0.07 k/cumm (0.0-0.7); Absolute Lymphocyte Count 1.38 k/cumm (1.2-3.4); Absolute Monocyte Count 1.11 k/cumm (0.11-0.7); Absolute Neutrophil Count 7.94 k/cumm (1.2-6.7); Basophils % 0.4; Eosinophils % 0.7; HCT 49.2 % (40.0-50.0); HGB 16.7 g/dL (13.5-17.5); Immature Grans % 0.5; Mean Corp. HGB Concentration 33.9 g/dL (32.0-36.0); Mean Corpuscular Hemoglobin 30.1 pg (27.0-33.0); Mean Corpuscular Volume 88.6 fL (80-95); Mean Platelet Volume 10.2 fL (8.0-11.0); Monocytes % 10.5; Neutrophils % 74.9; Platelet Count 231 x1000/uL (130-400); RBC 5.55 m/cumm (4.50-6.00); RBC Distribution Width 13.8 % (11.8-14.1); White Blood Cell Count 10.59 k/cumm (4.4-10.8)
[2018-12-28 11:52] LABS: ALT 30 U/L (16-63); AST 18 U/L (15-37); Albumin 3.7 g/dL (3.4-5.0); Alkaline Phosphatase 122 U/L (46-116); Anion Gap 11.3 mmol/L (3-11); BUN 19 mg/dL (7-18); Bilirubin, Total 1.1 mg/dL (0.2-1.0); CO2 25.7 mmol/L (21.0-32.0); CREATININE 1.35 mg/dL (0.70-1.30); Calcium 8.9 mg/dL (8.5-10.1); Chloride 103 mmol/L (98-107); Estimated GFR 51.38 (mL/min/1.73m2); Glucose 107 mg/dL (70-100); Magnesium 1.7 mg/dL (1.8-2.4); Potassium 3.8 mmol/L (3.5-5.1); Sodium 140 mmol/L (136-145); Total Protein 7.5 g/dL (6.4-8.2)
[2018-12-28 11:55] LABS: PTT Activated 26.3 sec (21.0-31.4); Prothrombin Time 10.3 sec (9.3-11.0)
[2018-12-28] MEDS: Omnipaque 350 MG/ML 100 ML BTL IV (12:03)
[2018-12-28 12:28] LABS: Procalcitonin < 0.1 ng/mL
[2018-12-28 12:37] VITALS: TEMP 37.6
[2018-12-28] MEDS: Amoxicillin 875/Clav. 125 TAB PO (12:56)
[2018-12-28] MEDS: Sulfameth/Trimeth DS TAB 1 TAB PO (12:57)
[2018-12-28] MEDS: oxyCODONE 5 MG TAB PO (13:00)
[2018-12-28 13:35] VITALS: BP 152/74; PULSE 92; RESP 16; TEMP 37.6; O2SAT 94
== END 2018-12-28 13:35 | disposition home or self-care (01) ==
PROVIDERS: Emergency Provider Emergency Medicine; PCP Family Medicine
DX: K11.21 Acute sialoadenitis (principal); J44.9 Chronic obstructive pulmonary disease, unspecified; Z87.891 Personal history of nicotine dependence; I10 Essential (primary) hypertension
CPT/HCPCS: 36410; 36415; 80053; 84145; 87040; 99285; 70487; 83605; 83735; 85025; 85610; 85730; 99284; J3490

== ENCOUNTER 2019-04-22 07:42 | Emergency (ER) | payer MEDICARE, SELFPAY ==
[2019-04-22 07:44] VITALS: BP 131/72; PULSE 80; RESP 16; TEMP 36.5; O2SAT 97
--- NOTE | 2019-04-22 08:11 | ED.GENADUL_ITS ---
Discharge Plan Disposition Patient Disposition: HOME Discharge Details Chief Complaint: Cellulitis Clinical Impression: Tinea pedis Primary Care Provider: Yovany Nichols ED Provider: Anthony Negrete Home Meds and New Rx's Prescriptions: No Action fluticasone propionate 50 mcg/actuation spray,suspension 2 spray NS DAILY Qty: 1 RF: 3 hydrochlorothiazide 12.5 mg capsule 12.5 mg PO DAILY Qty: 90 RF: 4 potassium chloride 10 mEq capsule, extended release 10 meq PO 3x a week Qty: 45 RF: 4 sertraline 50 mg tablet 50 mg PO DAILY Qty: 90 RF: 3 lorazepam [Ativan] 0.5 mg tablet 0.5 mg PO Q8H PRN (Reason: anxiety) Qty: 30 RF: 1 omeprazole 20 mg capsule,delayed release(DR/EC) 20 mg PO DAILY Qty: 90 RF: 4 cyanocobalamin (vitamin B-12) [Vitamin B-12] 1,000 MCG tablet extended release 1 tab PO DAILY RF: 0 multivitamin 1 EACH tablet 1 tab PO DAILY RF: 0 aspirin 325 MG tablet 325 mg PO DAILY RF: 0 ferrous sulfate 325 MG tablet 1 tab PO DAILY RF: 0 meclizine 12.5 MG tablet 1 - 2 tab PO Q6H PRN Qty: 50 RF: 1 ipratropium-albuterol 0.5 mg-3 mg(2.5 mg base)/3 mL solution for nebulization 3 ml UPD QID PRN (Reason: shortness of breath or wheezing) Qty: 180 RF: 4 prednisone 5 mg tablet 5 mg PO DAILY Qty: 90 RF: 2 loratadine 10 mg tablet 10 mg PO DAILY Qty: 90 RF: 3 trazodone 100 mg tablet 100 mg PO HS Qty: 90 RF: 3 oxycodone 5 mg tablet 5 mg PO Q6H PRN (Reason: pain) Qty: 12 RF: 0 ibuprofen [Ibuprofen IB] 200 MG tablet 600 mg PO PRN PRNRF: 0 cholecalciferol (vitamin D3) [Vitamin D3] 1,000 unit Capsule 1,000 unit PO DAILY RF: 0 Discharge Instructions Instructions: Tinea Pedis (ED) Additional Instructions: Adjust any evidence of infection involving your left foot at this time. You do have evidence of athlete's foot involving the fourth and fifth digit. This can sometimes be chronic and very difficult to treat. It is recommended that you start using Lotrimin ultra cream 1% twice per day for the next 4 to 6 weeks. Applying baby powder over the foot and into your socks will also help dry area out. I have recommended that you follow-up with your national sales consultant within the next 1 to 2 weeks. Referrals: Darell Ribeiro DPM [[facility] STAFF PHYSICIAN] - 3 days Discharge Data Discharge Date/Time-TO BE ENTERED AT DEPARTURE: 04/22/19 08:38 Medical Decision Making 08:30 This is a nontoxic-appearing 78-year-old male who presents to the emergency department with symptoms concerning for tinea pedis involving the fourth and fifth interdigital space. No evidence of secondary infection at this time. He has no tenderness throughout the entire foot. There is slight erythema along the peripheral borders of the suspected athlete's foot, however this is not streaking and nontender. No fever here. He denies any antipyretics prior to arrival. The area where he claims he stepped on the tach does not show any evidence of redness or swelling. No tenderness over that area. Injury occurred roughly 4 to 6 weeks ago therefore I do not suspect cellulitis at this time. I did discuss the use of [id number]-olzkuzd antifungal cream which he appears to be using, however, not to the recommended daily dosing which is twice daily. We discussed using Lotrimin ultra 1% cream twice daily for the next 4 weeks. He does have established care with Dr. Ribeiro here at [facility] podiatry for which I recommended he follows up with in the next 2 to 3 days. We discussed worrisome features including fever with which he should be monitoring at home. If he develops significant pain or redness she should also return to the emergency department. HPI General Date/Time Provider Initiated Documentation: 04/22/19 08:06 . 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 Patient states that he stepped on attack roughly 6 weeks prior to arrival. He states that he has had pain over the plantar aspect of the foot which is slowly subsided since the initial injury 4 to 6 weeks ago. His biggest complaint right now is the area between his fourth and fifth digit has become reddened with some pruritus and pain. His has been applying a cream once daily for the last 2 to 3 weeks. He had chills and sweats last night therefore with his history of MRSA he wanted to be evaluated. He has not taken anything for fever. He denies any pain or swelling in the ankle or hand or knees. No nausea vomiting. Related Data Home Medications Medication Instructions Recorded Confirmed cyanocobalamin (vitamin B-12) 1 tab PO DAILY 07/14/12 04/22/19 [Vitamin B-12] aspirin 325 mg PO DAILY tab-cap 11/12/14 04/22/19 ferrous sulfate 1 tab PO DAILY 11/12/14 04/22/19 multivitamin 1 tab PO DAILY 11/12/14 04/22/19 ibuprofen [Ibuprofen IB] 600 mg PO PRN PRN 04/12/16 04/22/19 meclizine 1 - 2 tab PO Q6H PRN #50 tab 02/22/17 04/22/19 cholecalciferol (vitamin D3) 1,000 unit PO DAILY 02/03/18 04/22/19 [Vitamin D3] fluticasone propionate 50 2 spray NS DAILY #1 gm 05/30/18 02/27/19 mcg/actuation nasal spray,suspension hydrochlorothiazide 12.5 mg capsule 12.5 mg PO DAILY #90 tab-cap 05/30/18 04/22/19 lorazepam 0.5 mg tablet 0.5 mg PO Q8H PRN #30 tab 05/30/18 04/22/19 omeprazole 20 mg capsule,delayed 20 mg PO DAILY #90 tab-cap 05/30/18 04/22/19 release potassium chloride 10 mEq 10 meq PO 3x a week #45 tab-cap 05/30/18 04/22/19 capsule,extended release sertraline 50 mg tablet 50 mg PO DAILY #90 tab-cap 05/30/18 04/22/19 ipratropium-albuterol 0.5 mg-3 3 ml UPD QID PRN #180 ml 06/05/18 04/22/19 mg(2.5 mg base)/3 mL nebulization soln prednisone 5 mg tablet 5 mg PO DAILY #90 tab 09/27/18 04/22/19 oxycodone 5 mg PO Q6H PRN #12 tab 12/28/18 04/22/19 loratadine 10 mg tablet 10 mg PO DAILY #90 tab 01/19/19 04/22/19 trazodone 100 mg tablet 100 mg PO HS #90 tab-cap 04/20/19 04/22/19 Previous Rx's Medication Instructions Recorded meclizine 1 - 2 tab PO Q6H PRN #50 tab 02/22/17 fluticasone propionate 50 2 spray NS DAILY #1 gm 05/30/18 mcg/actuation nasal spray,suspension hydrochlorothiazide 12.5 mg capsule 12.5 mg PO DAILY #90 tab-cap 05/30/18 lorazepam 0.5 mg tablet 0.5 mg PO Q8H PRN #30 tab 05/30/18 omeprazole 20 mg capsule,delayed 20 mg PO DAILY #90 tab-cap 05/30/18 release potassium chloride 10 mEq 10 meq PO 3x a week #45 tab-cap 05/30/18 capsule,extended release sertraline 50 mg tablet 50 mg PO DAILY #90 tab-cap 05/30/18 ipratropium-albuterol 0.5 mg-3 3 ml UPD QID PRN #180 ml 06/05/18 mg(2.5 mg base)/3 mL nebulization soln prednisone 5 mg tablet 5 mg PO DAILY #90 tab 09/27/18 oxycodone 5 mg PO Q6H PRN #12 tab 12/28/18 loratadine 10 mg tablet 10 mg PO DAILY #90 tab 01/19/19 trazodone 100 mg tablet 100 mg PO HS #90 tab-cap 04/20/19 Allergies Allergy/AdvReac Type Severity Reaction Status Date / Time atorvastatin AdvReac Mild MUSCLE Unverified 04/22/19 07:49 FATIGUE simvastatin AdvReac Mild MUSCLE Unverified 04/22/19 07:49 FATIGUE General Stated Complaint: Cellulitis AMERICO: 4 Review of Systems Constitutional Constitutional: Denies body ache(s), Reports chills, Denies fatigue, Denies fever(s), Denies lethargy, Denies malaise and Reports night sweats Cardiovascular Cardiovascular: Denies pedal edema, Denies edema, Denies claudication, Denies leg ulcers and Denies leg edema Gastrointestinal Gastrointestinal: Denies nausea and Denies vomiting Musculoskeletal Musculoskeletal: Denies arthralgias, Denies joint swelling and Denies muscle cramps Integumentary/Breasts Skin/Breast: Reports pruritus, Reports lesions, Denies new lesions, Reports erythema and Reports rash Endocrine Endocrine: Denies fatigue [facility] Medical History Abnormal EKG (Chronic 07/09/13) normal echo 06/29 COPD (chronic obstructive pulmonary disease) GERD (gastroesophageal reflux disease) HTN (hypertension) MASON (obstructive sleep apnea) SCC (squamous cell carcinoma) Spinal stenosis Surgical History Amputation (06/01/13) LEFT 3RD DISTAL TOE Arthroplasty of knee 05/21/14; DR. CLIFTON; RIGHT KNEE Biopsy, Soft Tissue (07/19/17) skin of postauricular region, right - dermal scar, no residual squamous cell carcinoma. Cholecystectomy Extraction of cataract (~01/2017) History of nasal septoplasty (Resolved) Nasal septoplasty (~1990) Open Carpal Tunnel release (~06/2009) LEFT Replacement of total knee joint RIGHT Status post carpal tunnel release (Resolved) Status post cholecystectomy (Resolved) Status post total knee replacement (Resolved) Family History Mother Cancer Father Cancer Maternal Grandmother Cancer Son No problems noted. Son No problems noted. Daughter No problems noted. Social History Smoking/Tobacco Use Status: Former Tobacco Use Alcohol Intake: never Drug use: Never Substance use type: does not use Household members: spouse and other Details: Daughter Housing: house Pets and animals: Yes Pets and animals: cat(s) Sexually active: No Do you think of yourself as: straight/heterosexual Current gender identity: male What is your relationship status?: How often do you talk on the phone with friends or family?: decline to answer How often do you get together with friends or relatives?: decline to answer How often do you attend mandaeism or gnosticism services?: decline to answer Do you belong to any clubs or organized social groups?: no Panel score (0-1 are the most socially isolated patients): 1 Duration: decline to answer Frequency: decline to answer Alexandrea/Buddhism: Congregation Special alexandrea needs: No Do you feel safe at home: Yes Do you feel safe in your relationship?: Yes Course Vital Signs Vital signs: Vital Signs Temperature 36.5 C 04/22/19 07:44 Pulse 80 04/22/19 07:44 Respiratory Rate 16 04/22/19 07:44 Blood Pressure 131/72 04/22/19 07:44 Pulse Oximetry 97 04/22/19 07:44 Temperature 36.5 C 04/22/19 07:44 Temperature Source Temporal Artery Scan 04/22/19 07:44 Pulse 80 04/22/19 07:44 Respiratory Rate 16 04/22/19 07:44 Respiratory Effort Non-Labored 04/22/19 07:47 Blood Pressure 131/72 04/22/19 07:44 Blood Pressure Position Sitting 04/22/19 07:44 Pulse Oximetry 97 04/22/19 07:44 Oxygen Delivery Method Room Air 04/22/19 07:44 Oxygen Flow Rate 0 04/22/19 07:44 Pain Level 2 04/22/19 07:44
== END 2019-04-22 08:38 | disposition home or self-care (01) ==
PROVIDERS: Emergency Provider Physician Assistant; PCP Family Medicine
DX: B35.3 Tinea pedis (principal); I10 Essential (primary) hypertension; J44.9 Chronic obstructive pulmonary disease, unspecified; Z87.891 Personal history of nicotine dependence
CPT/HCPCS: 99282

== ENCOUNTER 2019-05-18 14:25 | Outpatient (CLI) | payer MEDICARE, SELFPAY | END 2019-05-18 14:45 | PROVIDERS: PCP Family Medicine; Visit Provider Internal Medicine | DX: R69 Illness, unspecified (principal) | CPT/HCPCS: 36415; 82728; 83540; 84443 ==

== ENCOUNTER 2019-05-22 11:03 | Outpatient (CLI) | payer MEDICARE, SELFPAY ==
[2019-05-22 13:25] LABS: Iron 129 ug/dL (65-175); Total Iron Binding Capacity 227 ug/dL (250-450); Transferrin Sat 57 % (20-55)
[2019-05-22 13:37] LABS: Ferritin 113 ng/mL (26-388); TSH 1.82 uIU/mL (0.36-3.74)
== END 2019-05-22 11:23 ==
PROVIDERS: PCP Family Medicine; Visit Provider Internal Medicine
DX: D64.9 Anemia, unspecified (principal)
CPT/HCPCS: 36415; 82728; 83540; 83550; 84443

== ENCOUNTER 2019-06-05 10:18 | Outpatient (CLI) | payer MEDICARE, SELFPAY ==
[2019-06-05 13:11] LABS: Anion Gap 7.4 mmol/L (3-11); BUN 20 mg/dL (7-18); CO2 30.6 mmol/L (21.0-32.0); CREATININE 1.26 mg/dL (0.70-1.30); Calcium 8.9 mg/dL (8.5-10.1); Chloride 104 mmol/L (98-107); Estimated GFR 55.64 (mL/min/1.73m2); Glucose 104 mg/dL (74-106); Potassium 3.8 mmol/L (3.5-5.1); Sodium 142 mmol/L (136-145)
== END 2019-06-05 10:38 ==
PROVIDERS: PCP Family Medicine; Visit Provider Family Medicine
DX: I10 Essential (primary) hypertension (principal)
CPT/HCPCS: 36415; 80048

== ENCOUNTER 2019-08-20 10:11 | Outpatient (CLI) | payer MEDICARE, SELFPAY ==
--- NOTE | 2019-08-20 10:30 | DI.RAD_ITS ---
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 COMPARISON: LEFT FOOT COMPLETE from 12/10/2011 FINDINGS: Status post amputation of the 1st toe. There is some soft tissue swelling around the 1st metatarsal head but no evidence of bony destruction. Hardware is seen in the foot and ankle. There is a fract ure of the fixation plate which appears unchanged. IMPRESSION: No plain film evidence of osteomyelitis.
== END 2019-08-20 10:31 ==
PROVIDERS: PCP Family Medicine; Visit Provider Nurse Practitioner Family
DX: L97.529 Non-pressure chronic ulcer of other part of left foot with unspecified severity (principal); Z89.412 Acquired absence of left great toe
CPT/HCPCS: 73630

== ENCOUNTER 2019-08-20 19:39 | Outpatient (REF) | payer MEDICARE, SELFPAY | END 2019-08-20 19:59 | LOC: LBN 19:39 | PROVIDERS: PCP Family Medicine; Visit Provider Nurse Practitioner Family | DX: L97.529 Non-pressure chronic ulcer of other part of left foot with unspecified severity (principal) | CPT/HCPCS: 87070; 87205 ==

== ENCOUNTER 2020-01-18 13:09 | Outpatient (CLI) | payer MEDICARE, SELFPAY ==
--- NOTE | 2020-01-18 | DI.US_ITS ---
EXAM: US EXTREMITY VENOUS BI CLINICAL HISTORY: DYSPNEA, R06.00, EDEMA, R60.9. TECHNIQUE: Lower extremity venous ultrasound performed using grayscale, color-flow, and spectral Dop pler analysis. COMPARISON: No exams were available for comparison FINDINGS: The common femoral, femoral and popliteal veins demonstrate normal compressibility, augmentation, and color Doppler. The posterior tibial veins are patent. The saphenous vein appears free of thrombus. There is a complex popliteal fossa cyst measuring 4.7 x 1.4 x 4 2 cm. IMPRESSION: No evidence of DVT. Tamayo's cyst. DATA REPOSITORY:
[2020-01-18 12:11] LABS: Anion Gap 1.5 mmol/L (3-11); BUN 25 mg/dL (7-18); CO2 33.5 mmol/L (21.0-32.0); CREATININE 1.25 mg/dL (0.70-1.30); Calcium 8.7 mg/dL (8.5-10.1); Chloride 105 mmol/L (98-107); Estimated GFR 56.01 (mL/min/1.73m2); Glucose 102 mg/dL (74-106); Potassium 3.9 mmol/L (3.5-5.1); Sodium 140 mmol/L (136-145)
[2020-01-18 12:35] LABS: D-Dimer 1454 ng/mlFEU (<500)
--- NOTE | 2020-01-18 12:40 | DI.CT_ITS ---
EXAM: CT CHEST PE CTA CLINICAL HISTORY: DYSPNEA, R06.00, EDEMA, R60.9. TECHNIQUE: Imaging Protocol: Axial CT angiography was performed with multi-slice acquisition and mu lti-planar and/or 3D reconstructions. CONTRAST MATERIAL: Intravenous: Omnipaque 350 Contrast volume 100 ml COMPARISON: CT CHEST FOR PULMONARY EMBOLUS from 04/12/2016 CR XR CHEST 2V PA LATERAL from 02/03/2018 FINDINGS: Pulmonary Arteries: No evidence of filling defect to suggest pulmonary emboli. Tracheobronchial tree: Patent where visualized. Mediastinum and Zaina: No dominant adenopathy or fluid collection. Pulmonary parenchyma: No consolidation or dominant measurable mass. Limited evaluation due to respira tory motion and expiratory changes. Pleura: No effusion or pneumothorax. Heart: The heart is not dilated. coronary artery calcifications are seen. Aorta: Thoracic aorta non-dilated. Upper abdomen: Status post cholecystectomy. Atrophic pancreas. Bones: Stable T8 and T11 compression fractures. IMPRESSION: No evidence of pulmonary embolism. RADIATION DOSE DELIVERED: 485.12mGy.cm Total DLP DATA REPOSITORY: All CT scans at this facility are submitted to the National Radiology Data Registry (NRDR) Dose Index Registry (DIR) with the [employer] (ACR). RADIATION OPTIMIZATION: All CT scans at this facility use at least one of these dose optimization te chniques: automated exposure control; mA and/or kV adjustment per patient size (includes targeted exa ms where dose is matched to clinical indication); or iterative reconstruction.
[2020-01-18] MEDS: Omnipaque 350 MG/ML 100 ML BTL IJ (12:56)
[2020-01-18] MEDS: Normal Saline - Diluent 50 ML VIAL IV (12:57)
== END 2020-01-18 13:29 ==
PROVIDERS: PCP Nurse Practitioner Family; Visit Provider Internal Medicine
DX: R60.9 Edema, unspecified (principal); R06.00 Dyspnea, unspecified; M71.20 Synovial cyst of popliteal space [Baker], unspecified knee
CPT/HCPCS: 36415; 71275; 80048; 85379; 93970; J3490

== ENCOUNTER 2020-03-17 13:16 | Outpatient (CLI) | payer MEDICARE, SELFPAY ==
--- NOTE | 2020-03-17 10:30 | DI.US_ITS ---
APPROVED REPORT EXAM: Comprehensive 2D, Doppler, and color-flow Echocardiogram Patient Location: [facility] Instructor: Adore De Guzman RDCS (AE) Indications: SOB Other Information Study Quality: Adequate Conclusion Normal left ventricular wall thickness and chamber size. Estimated ejection fraction is 60 to 65%. There are no segmental wall motion abnormalities Normal right ventricular size and systolic function Both atria are normal in size The aortic valve is trileaflet and sclerotic with trace regurgitation. There is no significant aorti c stenosis Mild mitral annular calcification. Trace mitral regurgitation Tricuspid valve is structurally normal with trace regurgitation. Normal estimated right ventricular systolic pressure, less than 20 mmHg Structurally normal pulmonic valve with trace regurgitation Mildly dilated ascending aorta, measuring 3.66 cm Wall motion Left Ventricle The left ventricle is normal size. The left ventricular systolic function is normal. The left ventric ular ejection fraction is within the normal range. There is normal left ventricular wall thickness. T here is normal LV segmental wall motion. There is no ventricular septal defect visualized. LVEF is 60 -65%. Right Ventricle The right ventricle is normal size. The right ventricular systolic function is normal. The RVSP is 13 .4 mmHg. Atria The left atrium size is normal. The right atrium size is normal. The interatrial septum is intact wit h no evidence for an atrial septal defect. Aortic Valve Aortic valve is calcified. Aortic valve is trileaflet. Mild aortic stenosis. Peak aortic valve gradie nt is 26.6mmHg. Highest mean aortic valve gradient is 15.7mmHg. Calculated SALENA by the continuity equa tion is 1.58cm2. Trace aortic regurgitation. Mitral Valve Mild mitral annular calcification. No evidence of mitral valve stenosis. Trace mitral regurgitation. Tricuspid Valve The tricuspid valve is normal in structure. There is no tricuspid valve stenosis. Trace tricuspid reg urgitation. Pulmonic Valve The pulmonary valve is normal in structure. There is no pulmonic valvular stenosis. Trace pulmonic re gurgitation. Great Vessels The aortic root is normal in size. The ascending aorta is mildly dilated.3.66 cm Aortic arch is ashley l in caliber. IVC is normal in size and collapses >50% with inspiration. Pericardium There is no pericardial effusion. 2D Dimensions IVSD d PLAX 1.15 cm M: 0.6-1.2 LV Vol A2C d MOD 124.4 mL LVPW d PLAX 1.13 cm M: 0.6 - 1.2 LV Vol A4C d MOD 158.4 mL LVID d PLAX 5.13 cm M: 4.2 - 5.8 LA vol/ BSA A2C s A-L 28.4 mL/m2 LVDs 3.50 cm M: 2.5 - 4.0 LA vol/ BSA A4C s A-L 21.9 mL/m2 Ao Root d 3.68 cm M: 3.1 - 3.7 LA Vol/ BSA Biplane s A-L 25.0 mL/m2 RA Area A4C 10.48 cm2 LA Area A4C s MOD 17.75 cm2 RA Vol/ BSA A4C s A-L 8.6 mL/m2 LA Area A2C s MOD 20.28 cm2 Ao Asc Diam d 3.66 cm M: 2.6 - 3.4 LV EF A4C MOD 57.6 % LV EF Teichholz 58.8 % LV EF A2C MOD 57.0 % LVEF (Barbosa's) 58.30 % M: 52 - 72 LV EF Biplane MOD 58.3 % LV Volume 103.73 mL M: 62 - 150 SV 84.46 mL LV Volume Index 44.90 mL/m2 M: 34 - 74 SV Index 36.49 mL/m2 LV Vol Biplane MOD 144.9 mL FS 31.25 % M-Mode TAPSE 2.24 cm (M/F) >1.7 LV Diastology MV E' medial 0.062 (>0.07 m/s) E/A Ratio 0.6 LV E/e MED 10.10 (<14) MV E Vmax 0.63 (0.4-1.3 m/s) MV E' lateral 0.064 (>0.1 m/s) MV A Vmax 1.00 (0.4-1.3 m/s) LV E/e LAT 9.90 (<14) MV E/A Ratio 0.60 MV E/E' medial 10.11 MV E/E' lateral 9.91 Aortic Valve LVOT Area 4.19 cm2 AoV Area Vmax 1.58 cm2 LVOT Vmax 0.97 m/s AoV Area/ BSA (Vmax) 0.68 cm2/m2 LVOT Mean Javed. 0.66 m/s SALENA Mean Javed. 1.45 cm2 LVOT Peak Grad 3.8 mmHg SALENA Mean Javed. Index 0.63 cm2/m2 LVOT Mean Grad 2.0 mmHg LVOT VTI 0.211 m LVOT Diam s 2.30 cm AoV Vmax 2.58 m/s Velocity Ratio 0.37 AoV Mean Javed. 1.91 m/s AoV Peak Grad 26.6 mmHg LVOT SV 88.29 mL AoV Mean Grad 15.7 mmHg AoV VTI 0.529 m AoV Area VTI 1.67 cm2 AoV Area/ BSA (VTI) 0.72 cm/m2 Mitral Valve MV DT 191 (160-240 msec) MV PHT 55 msec MV Area PHT 3.98 cm2 Pulmonary Valve PV Vmax 1.14 (0.5-1.5 m/s) RVOT Peak Gr. 2.70 mmHg PV Peak Grad 5.2 mmHg RVOT Mean Gr. 1.50 mmHg PV Mean Grad 2.9 mmHg RVOT VTI 0.152 m PV VTI 0.214 m RVOT Vmax 0.82 m/s Tricuspid Valve TR Peak Grad 10.4 mmHg TR Vmax 1.61 m/s RA Pressure 3.00 mmHg RVSP (TR) 13.4 mmHg
== END 2020-03-17 13:36 ==
PROVIDERS: PCP Nurse Practitioner Family; Visit Provider Internal Medicine
DX: R06.02 Shortness of breath (principal); I77.810 Thoracic aortic ectasia
CPT/HCPCS: 93306

== ENCOUNTER 2020-05-23 14:31 | Outpatient (CLI) | payer MEDICARE, SELFPAY ==
--- NOTE | 2020-05-23 14:30 | RT.EKG_ITS ---
APPROVED REPORT Exam: Resting ECG Patient Location: O HR:82 bpm ECG Measurements Heart Rate 82 AXIS WI 311 P 40 QRSd 92 QRS -14 QT 373 T 58 QTc 437 Conclusion Sinus rhythm...normal P axis, V-rate 60- 99 Prolonged WI interval...WI >220, V-rate 50- 90
== END 2020-05-23 14:32 | disposition home or self-care (01) ==
LOC: DI.CM 14:31
PROVIDERS: PCP Nurse Practitioner Family; Visit Provider Nurse Practitioner Family
DX: I47.2 Ventricular tachycardia (principal); I48.0 Paroxysmal atrial fibrillation
CPT/HCPCS: 93010

== ENCOUNTER 2020-05-27 02:29 | Outpatient (CLI) | payer MEDICARE, SELFPAY ==
[2020-05-27 08:41] LABS: Abs Immature Grans 0.06 10^3/uL (0.0-0.06); Absolute Basophil Count 0.06 10^3/uL (0.0-0.2); Absolute Eosinophil Count 0.14 10^3/uL (0.0-0.7); Absolute Lymphocyte Count 1.63 10^3/uL (1.2-3.4); Absolute Neutrophil Count 6.06 10^3/uL (1.2-6.7); Basophils % 0.7; Eosinophils % 1.6; HCT 48.8 % (40.0-50.0); HGB 16.3 g/dL (13.5-17.5); Immature Grans % 0.7; Lymphocytes % 19.1; MCH 30.4 pg (27.0-33.0); MCHC 33.4 % (32.0-36.0); Neutrophils % 70.9; Nucleated RBC 0 %; Platelet Count 191 10^3/uL (130-400); RBC 5.36 10^6/uL (4.36-5.78); RDW 12.9 % (11.8-14.1); RDW-SD 42.8 fL; WBC 8.55 10^3/uL (4.4-10.8)
[2020-05-27 09:07] LABS: Hemoglobin A1C 5.8 % (<5.7)
[2020-05-27 10:04] LABS: ALT 33 U/L (16-63); AST 20 U/L (15-37); Albumin 3.6 g/dL (3.4-5.0); Alkaline Phosphatase 102 U/L (46-116); Anion Gap 7.7 mmol/L (3-11); BUN 24 mg/dL (7-18); Bilirubin, Total 0.5 mg/dL (0.2-1.0); CO2 30.3 mmol/L (21.0-32.0); CREATININE 1.3 mg/dL (0.70-1.30); Calcium 8.9 mg/dL (8.5-10.1); Calculated LDL 129 mg/dL (<100); Chloride 104 mmol/L (98-107); Cholesterol 198 mg/dL (<200); Estimated GFR 53.53 (mL/min/1.73m2); Glucose 95 mg/dL (74-106); HDL Cholesterol 47 mg/dL (40-60); Potassium 3.7 mmol/L (3.5-5.1); Sodium 142 mmol/L (136-145); Total Protein 6.7 g/dL (6.4-8.2); Triglyceride 113 mg/dL (<150)
== END 2020-05-27 02:30 | disposition home or self-care (01) ==
LOC: LBO 02:29
PROVIDERS: PCP Nurse Practitioner Family; Visit Provider Nurse Practitioner Family
DX: R73.01 Impaired fasting glucose (principal); E78.5 Hyperlipidemia, unspecified; Z01.818 Encounter for other preprocedural examination
CPT/HCPCS: 36415; 80053; 80061; 83036; 85025

== ENCOUNTER 2020-09-08 12:55 | Outpatient (CLI) | payer MEDICARE, SELFPAY ==
--- NOTE | 2020-09-08 13:23 | DI.RAD_ITS ---
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 TECHNIQUE: 2D digital imaging was performed. COMPARISON: CR XR CHEST 2V PA LATERAL from 02/03/2018 FINDINGS: Heart size upper normal, unchanged. The mediastinum is not widened. There are no confluent infiltrates nor pleural effusions in the left lung. There is platelike atelec tasis in the right lung base. No pleural effusions. There is a 7 millimeter noncalcified nodular de nsity over the lower 3rd of the right lung field which is possibly the breast nipple. Again noted is a high-grade compression fracture of a lower thoracic vertebral body, unchanged from 2 018 IMPRESSION: Increasing markings right lung base are either atelectasis or early infiltrate. No pleural effusions . There is a 7 millimeter noncalcified nodular density over the lower 3rd of the right lung field. The re is a possibly that this represents breast nipple. Recommend repeating the frontal view with bilat eral metallic nipple markers in place. DATA REPOSITORY: RADIATION DOSE DELIVERED:
== END 2020-09-08 13:15 ==
PROVIDERS: PCP Nurse Practitioner Family; Visit Provider Nurse Practitioner Family
DX: R05 Cough (principal); J43.1 Panlobular emphysema; J98.4 Other disorders of lung
CPT/HCPCS: 71046

== ENCOUNTER 2020-09-11 01:17 | Outpatient (CLI) | payer MEDICARE, SELFPAY ==
--- NOTE | 2020-09-11 06:45 | DI.RAD_ITS ---
Exam(s) XR CHEST 2V PA LATERAL EXAM: XR CHEST 2V PA LATERAL CLINICAL HISTORY: F/U from last x-ray,COPD,J43.1 TECHNIQUE: COMPARISON: CR XR CHEST 2V PA LATERAL from 09/08/2020 FINDINGS: PA and lateral view were obtained with nipple markers. A nodular radiodensity projected over the rig ht lower lung field on prior examination of September 08 is seen to correspond to right nipple shadow. N o intrapulmonary nodule identified. Mild platelike atelectasis noted at the right lung base. No ple ural effusion seen senile pulmonary changes noted. IMPRESSION: No evidence of acute process. No pulmonary nodule by radiographic criteria. A nodular radiodensity seen overlying right lung on ex amination of September 08 is seen to correspond to nipple shadow. RADIATION DOSE DELIVERED: Total DLP
== END 2020-09-11 01:37 ==
PROVIDERS: PCP Nurse Practitioner Family; Visit Provider Nurse Practitioner Family
DX: J43.1 Panlobular emphysema (principal); J44.9 Chronic obstructive pulmonary disease, unspecified
CPT/HCPCS: 71046

== ENCOUNTER 2020-09-30 05:51 | Inpatient (IN) | payer MEDICARE, SELFPAY ==
[2020-09-30] VITALS (25 sets, daily range): BP systolic 112–137; BP diastolic 61–65; PULSE 79–122; RESP 18–33; TEMP 36.4–40.3; O2SAT 92–97
--- NOTE | 2020-09-30 | DI.CT_ITS ---
Exam(s) CT CHEST WO EXAM: CT CHEST WO CLINICAL HISTORY: cough, fever. TECHNIQUE: Imaging protocol: Axial computed tomography images were obtained and coronal and sagittal reformatted images were created and reviewed. COMPARISON: CT CHEST HIGH RESOLUTION from 08/08/2015 CT CHEST FOR PULMONARY EMBOLUS from 04/12/2016 CT CHEST FOR PULMONARY EMBOLUS from 04/12/2016 CR,XR XR PORTABLE CHEST AP from 09/30/2020 CR,XR XR PORTABLE CHEST AP from 09/30/2020 FINDINGS: Tracheobronchial tree: Patent where visualized. Pulmonary parenchyma: There are stable areas of scarring in the lower lobes, right middle lobe and le ft lingula compared to the examination from 04/12/2016. No focal areas of consolidation are seen. N o pulmonary nodules are present. The lungs appear hyperlucent suggesting air trapping. Mediastinum and Zaina: No dominant adenopathy or fluid collection. Small hiatal hernia. Pleura: No effusion or pneumothorax. Heart: The heart is not dilated. Mild coronary artery calcification. No pericardial effusion. Aorta: Thoracic aorta non-dilated. Atherosclerosis. Upper abdomen: Status post cholecystectomy. Fatty liver. Lymph nodes: Within normal limits. Soft tissues: There is fatty atrophy of the paraspinal muscles. Bones:Degenerative changes are seen in the spine. Old compression fracture deformities of T7 and T10 are noted. IMPRESSION: 1. No focal consolidating infiltrates. 2. Stable scarring in the lungs. 3. Old T7 and T10 vertebral body compression deformities. RADIATION DOSE DELIVERED: 661.26mGy.cm Total DLP 661.26mGy.cm Total DLP DATA REPOSITORY: All CT scans at this facility are submitted to the National Radiology Data Registry (NRDR) Dose Index Registry (DIR) with the [employer] (ACR). RADIATION OPTIMIZATION: All CT scans at this facility use at least one of these dose optimization te chniques: automated exposure control; mA and/or kV adjustment per patient size (includes targeted exa ms where dose is matched to clinical indication); or iterative reconstruction.
--- NOTE | 2020-09-30 05:45 | RT.EKG_ITS ---
APPROVED REPORT Exam: Resting ECG Reason for Exam: difficulty breathing Patient Location: E HR:115 bpm ECG Measurements Heart Rate 115 AXIS ND [id number] P [id number] QRSd 95 QRS -25 QT 324 T 79 QTc 450 Conclusion Atrial fibrillation...? atrial activity Anteroseptal infarct, old...Q >40mS, V1-V2
--- NOTE | 2020-09-30 06:00 | DI.RAD_ITS ---
Exam(s) XR PORTABLE CHEST AP EXAM: XR PORTABLE CHEST AP CLINICAL HISTORY: shortness of breath TECHNIQUE: 2D digital imaging was performed. COMPARISON: CR XR CHEST 2V PA LATERAL from 09/11/2020 CR XR CHEST 2V PA LATERAL from 09/11/2020 FINDINGS: MEDIASTINUM: Normal. HEART: Normal. PULMONARY VASCULATURE: Normal. LUNGS: Streaky densities in the lungs may reflect poor inspiration compared to the prior examination. Pneumonia or pulmonary edema cannot be excluded. No focal consolidating infiltrates are seen. PLEURAL SPACE: No pleural effusion or pneumothorax. BONE:Within normal limits for the patient's age. OTHER FINDINGS:Normal. IMPRESSION: 1. Poor inspiratory effort. 2. Streaky densities in the lungs which may reflect poor inspiration. Pneumonia or pulmonary edema c annot be excluded. Please correlate clinically. DATA REPOSITORY: RADIATION DOSE DELIVERED:
--- NOTE | 2020-09-30 06:01 | W.ED.GENAD ---
Discharge Plan Disposition Patient Disposition: [facility] Condition: Stable Discharge Details Chief Complaint: SOB Clinical Impression: Shortness of breath, Fever, Chronic obstructive pulmonary disease with (acute) exacerbation Primary Care Provider: Alexandrea Trevino ED Provider: Antoni Lopez Home Meds and New Rx's Prescriptions: No Action sertraline 25 mg tablet 25 mg PO DAILY Qty: 20 RF: 4 prednisone 20 mg tablet 40 mg PO DAILY Qty: 20 RF: 0 albuterol sulfate 90 mcg/actuation HFA aerosol inhaler 2 inh inhalation Q6H PRN (Reason: shortness of breath or wheezing) Qty: 3 RF: 4 polymyxin B sulf-trimethoprim 10,000 unit- 1 mg/mL drops 1 drp ophthalmic (eye) QID Qty: 10 RF: 0 Trelegy Ellipta 100-62.5-25 mcg blister with device 1 inh inhalation DAILY Qty: 90 RF: 4 multivitamin 1 EACH tablet 1 tab PO DAILY RF: 0 trazodone 100 mg tablet 100 mg PO HS Qty: 90 RF: 4 tamsulosin 0.4 mg capsule See Rx Instructions PO HS Qty: 180 RF: 4 potassium chloride 10 mEq capsule, extended release 10 meq PO 3x a week Qty: 45 RF: 4 omeprazole 20 mg capsule,delayed release(DR/EC) 20 mg PO DAILY Qty: 90 RF: 4 loratadine 10 mg tablet 10 mg PO DAILY Qty: 90 RF: 4 hydrochlorothiazide 12.5 mg capsule 12.5 mg PO DAILY Qty: 90 RF: 4 ipratropium-albuterol 0.5 mg-3 mg(2.5 mg base)/3 mL solution for nebulization 3 ml UPD QID PRN (Reason: shortness of breath or wheezing) Qty: 180 RF: 4 prednisone 5 mg tablet 5 mg PO DAILY Qty: 90 RF: 2 Medical Decision Making 80 yo male former smoker with hx of copd, hld, htn, bph, gerd, who comes in with complaints of worsening shortness of breath since Tuesday morning that has slowly been worsening. He states he had a fever last and on arrival here is noted to have a temperature of 104. He has noted general weakness as well as a productive cough, no chest pain or pressure. He arrives appearing fatigued and is tachypneic with wheezing in all lung bailey bilaterally. No jvd or leg swelling or calf tenderness. Given the dyspnea and fever I suspect copd with likely pneumonia, will treat with nebs, steroids and obtain labs including cultures along with chest xray. Will cover for the worsening cough as copd exacerbation and possible CAP with antibiotics while testing is being done. He is fully vaccinated for covid so doubt this. He is noted to be in afib on arrival which appears to be a new diagnosis for him and is likely secondary to his underlying respiratory illness pt remains stable, wbc of 7 reassuring lactate. Xray unremarkable on my read. Rojas requires further care in the hospital while cultures are pending and treatment for his copd, discussed with Dr. Morton who accepts for admission Differential Diagnosis Differential Diagnosis: copd, pneumonia, nstemi Medical Records Medical records reviewed: Yes I reviewed the patient's medical records. Imaging Data Radiologic Study: Attestation: I personally reviewed and interpreted this imaging study as follows: Imaging: X-Ray My impression: no acute findings Lab Data Lab results reviewed: Yes I reviewed the patient's lab results. ECG Data Attestation: I personally reviewed and interpreted this ECG (s) as follows: Prior ECG tracings: not available for review Interpretation: afib rate of 115, qtc 450, no acute st t wave ischemic findings HPI General Mode of arrival: wheelchair. Date/Time Provider Initiated Documentation: 09/30/20 05:52. Limitations to Documentation: no limitations. Information obtained by: patient. History of Present Illness 80 year old M presents to the emergency department with the chief complaint of shortness of breath, described as moderate, Patient started experiencing this day(s) (2) and it has been constant. Rest improves symptom(s), Movement worsens symptoms . Patient notes cough and weakness. Patient did receive the following treatments prior to arrival, none Related Data Home Medications Medication Instructions Recorded Confirmed multivitamin 1 tab PO DAILY 11/12/14 09/30/20 hydrochlorothiazide 12.5 mg capsule 12.5 mg PO DAILY #90 tab-cap 04/15/20 09/30/20 loratadine 10 mg tablet 10 mg PO DAILY #90 tab 04/15/20 09/30/20 omeprazole 20 mg capsule,delayed 20 mg PO DAILY #90 tab-cap 04/15/20 09/30/20 release potassium chloride 10 mEq 10 meq PO 3x a week #45 tab-cap 04/15/20 09/30/20 capsule,extended release tamsulosin 0.4 mg capsule See Rx Instructions PO HS #180 04/15/20 09/30/20 tab-cap trazodone 100 mg tablet 100 mg PO HS #90 tab-cap 04/15/20 09/30/20 ipratropium 0.5 mg-albuterol 3 mg 3 ml UPD QID PRN #180 ml 04/16/20 09/30/20 (2.5 mg base)/3 mL nebulization soln prednisone 5 mg tablet 5 mg PO DAILY #90 tab 05/28/20 09/30/20 sertraline 25 mg tablet 25 mg PO DAILY #20 tab-cap 08/22/20 09/30/20 albuterol sulfate 90 mcg/actuation 2 inh INHALATION Q6H PRN #3 ea 09/12/20 09/30/20 aerosol inhaler polymyxin B sulfate 10,000 1 drp OPHTHALMIC (EYE) QID #10 ml 09/12/20 09/30/20 unit-trimethoprim 1 mg/mL eye drops prednisone 20 mg tablet 40 mg PO DAILY #20 tab 09/12/20 09/30/20 fluticasone fur. 100 mcg-umeclid 1 inh INHALATION DAILY #90 ea 09/19/20 09/30/20 62.5 mcg-vilant 25 mcg inhalat.powder Previous Rx's Medication Instructions Recorded hydrochlorothiazide 12.5 mg capsule 12.5 mg PO DAILY #90 tab-cap 04/15/20 loratadine 10 mg tablet 10 mg PO DAILY #90 tab 04/15/20 omeprazole 20 mg capsule,delayed 20 mg PO DAILY #90 tab-cap 04/15/20 release potassium chloride 10 mEq 10 meq PO 3x a week #45 tab-cap 04/15/20 capsule,extended release tamsulosin 0.4 mg capsule See Rx Instructions PO HS #180 04/15/20 tab-cap trazodone 100 mg tablet 100 mg PO HS #90 tab-cap 04/15/20 ipratropium 0.5 mg-albuterol 3 mg 3 ml UPD QID PRN #180 ml 04/16/20 (2.5 mg base)/3 mL nebulization soln prednisone 5 mg tablet 5 mg PO DAILY #90 tab 05/28/20 sertraline 25 mg tablet 25 mg PO DAILY #20 tab-cap 08/22/20 albuterol sulfate 90 mcg/actuation 2 inh INHALATION Q6H PRN #3 ea 09/12/20 aerosol inhaler polymyxin B sulfate 10,000 1 drp OPHTHALMIC (EYE) QID #10 ml 09/12/20 unit-trimethoprim 1 mg/mL eye drops prednisone 20 mg tablet 40 mg PO DAILY #20 tab 09/12/20 fluticasone fur. 100 mcg-umeclid 1 inh INHALATION DAILY #90 ea 09/19/20 62.5 mcg-vilant 25 mcg inhalat.powder Allergies Allergy/AdvReac Type Severity Reaction Status Date / Time atorvastatin AdvReac Mild MUSCLE Verified 09/30/20 06:07 FATIGUE simvastatin AdvReac Mild MUSCLE Verified 09/30/20 06:07 FATIGUE General AMERICO: 4 Review of Systems All systems reviewed & are unremarkable except as noted in HPI and below Constitutional Constitutional: Denies chills Cardiovascular Cardiovascular: Denies chest pain Respiratory Respiratory: Denies cough Gastrointestinal Gastrointestinal: Denies abdominal pain, Denies nausea and Denies vomiting Musculoskeletal Musculoskeletal: Denies joint swelling Psychiatric Psychiatric: Denies depression [facility] Medical History Allergic rhinitis BPH w urinary obs/LUTS COPD (chronic obstructive pulmonary disease) Followed by [facility] Pulmonology Essential hypertension Essential tremor First degree AV block Gastroesophageal reflux disease Morris de la Tourette's syndrome History of tobacco use Insomnia Major depressive disorder MASON (obstructive sleep apnea) Osteoarthritis Osteomyelitis of left foot Status post hallux amputation Pes valgus of left foot 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 Son No problems noted. Daughter No problems noted. Paternal Grandfather No problems noted. Paternal Grandmother No problems noted. Maternal Grandfather No problems noted. Maternal Grandmother Cancer Social History Smoking/Tobacco Use Status: Former Tobacco Use Quit Date: 04/18/79 Second Hand Exposure: Yes Smoking risk assessment performed?: Yes Alcohol Intake: never Drug use: Never Substance use type: does not use Caregiver/Support person: No Household members: spouse and children Housing: house Communication Needs: Hard of Hearing Do you need help understanding health information?: Never Pets and animals: Yes Pets and animals: cat(s) Sexually active: No Do you think of yourself as: straight/heterosexual Current gender identity: male What is your relationship status?: How often do you talk on the phone with friends or family?: three or more times per week How often do you get together with friends or relatives?: once per week How often do you attend alevism or islam services?: 1-3 times per year Do you belong to any clubs or organized social groups?: no Panel score (0-1 are the most socially isolated patients): 2 What type of physical activity do you participate in: walking Duration: 15-30 minutes/day Frequency: daily Alexandrea/Synagogue: None Special alexandrea needs: No Seatbelt use: always Helmet use: No Drive intox or ride w/intox local city driver: No Do you feel safe at home: Yes Do you feel safe in your relationship?: Yes Exam Const General: no acute distress Orientation: alert HENMT Head: normal to inspection Ears: external ears normal General nose exam: external nose normal Mouth: moist mucous membranes Eyes General: appearance normal, both eyes and all related structures Neck Neck: normal visual inspection Resp Effort & Inspection: tachypneic Cardio Rate: tachycardic Skin General skin exam: no rashes or lesions noted Neuro General: patient alert and patient oriented x3 Extrem General: normal to inspection Psych Mental Status: mental status grossly normal
[2020-09-30 06:17] LABS: Abs Immature Grans 0.04 10^3/uL (0.0-0.06); Absolute Basophil Count 0.03 10^3/uL (0.0-0.2); Absolute Eosinophil Count 0.01 10^3/uL (0.0-0.7); Absolute Lymphocyte Count 0.42 10^3/uL (1.2-3.4); Absolute Monocyte Count 0.21 10^3/uL (0.1-0.8); Absolute Neutrophil Count 6.29 10^3/uL (1.2-6.7); Basophils % 0.4; Eosinophils % 0.1; HCT 47.3 % (40.0-50.0); HGB 16.2 g/dL (13.5-17.5); Immature Grans % 0.6; Lactate 1.9 mmol/L (0.6-1.4); MCH 30.2 pg (27.0-33.0); MCHC 34.2 % (32.0-36.0); MCV 88.1 fL (80-95); MPV 10.7 fL (8.0-11.0); Neutrophils % 89.9; Nucleated RBC 0 %; RBC 5.37 10^6/uL (4.36-5.78); RDW 13.4 % (11.8-14.1); RDW-SD 43.7 fL
[2020-09-30] MEDS: Albuterol/Ipratropium 3 ML UPD VIAL UPD ×2 (06:31→07:21)
[2020-09-30] MEDS: methylPREDNISolone SUCC 125 MG VIAL IVP (06:32)
[2020-09-30 06:33] LABS: INR 1.2 (0.9-1.1); PTT Activated 30.5 sec (21.0-27.5)
[2020-09-30 06:38] LABS: ALT 46 U/L (16-63); AST 42 U/L (15-37); Alkaline Phosphatase 90 U/L (46-116); Anion Gap 10.2 mmol/L (3-11); BUN 22 mg/dL (7-18); Bilirubin, Total 1.4 mg/dL (0.2-1.0); CO2 25.8 mmol/L (21.0-32.0); CREATININE 1.2 mg/dL (0.70-1.30); Calcium 8.4 mg/dL (8.5-10.1); Chloride 98 mmol/L (98-107); Estimated GFR 58.56 (mL/min/1.73m2); Glucose 181 mg/dL (74-106); Potassium 3.2 mmol/L (3.5-5.1); Sodium 134 mmol/L (136-145); Total Protein 6.9 g/dL (6.4-8.2)
[2020-09-30 06:41] LABS: Magnesium 1.7 mg/dL (1.8-2.4); Troponin I < 0.05 ng/mL (<0.06)
[2020-09-30] MEDS: cefTRIAXone 2 GM/50 ML BAG IVPB (06:41)
[2020-09-30 06:45] LABS: Diff Comment PLT Morph Reviewed; Platelet Count 71 10^3/uL (130-400); RBC Morphology Normal
[2020-09-30] MEDS: Acetaminophen 500 MG TAB 1000 MG PO (06:52)
[2020-09-30] MEDS: AZITHROMYCIN 500 MG in Normal Saline 250 ML 250 MG IVPB (06:55)
[2020-09-30 07:11] LABS: Source Nasal/Nares
--- NOTE | 2020-09-30 07:35 | HPE_ITS ---
Date of service: 09/30/20 Time of Service: 07:35 History of Present Illness History of Present Illness Chief Complaint: Shortness of breath Narrative: This is a 80 yo male with a h/o COPD, previous tobacco use, HTN, HLD, MASON, prediabetes, depression, BPH with obstruction, essential tremor, OA. allergic rhinitis. He presented to the ED with s/o shortness of breath for appx 2 days with productive cough and weakness. He describes being in a field that had been sprayed with herbicide as a possible inciting factor. He endorsed having noted a fever last week on . In the ED he had a temp of 104F. He was tachypneic and wheezing. WBC count normal. VBG lactate of 1.9. Na 134, K 3.2. Mg 1.7. BUN 22. Creatinine 1.2 (baseline). He was given Duoneb treatments and a dose of methyprednisonone 125mg IV in the ED. 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 Son No problems noted. Daughter No problems noted. Paternal Grandfather No problems noted. Paternal Grandmother No problems noted. Maternal Grandfather No problems noted. Maternal Grandmother Cancer Social History (Reviewed 09/19/20 @ 10:56 by ZACARIAS Arteaga Smoking/Tobacco Use Status: Former Tobacco Use Quit Date: 04/18/79 Second Hand Exposure: Yes Smoking risk assessment performed?: Yes Alcohol Intake: never Drug use: Never Substance use type: does not use Caregiver/Support person: No Household members: spouse and children Housing: house Communication Needs: Hard of Hearing Do you need help understanding health information?: Never Pets and animals: Yes Pets and animals: cat(s) Sexually active: No Do you think of yourself as: straight/heterosexual Current gender identity: male What is your relationship status?: How often do you talk on the phone with friends or family?: three or more times per week How often do you get together with friends or relatives?: once per week How often do you attend druze or orthodox services?: 1-3 times per year Do you belong to any clubs or organized social groups?: no Panel score (0-1 are the most socially isolated patients): 2 What type of physical activity do you participate in: walking Duration: 15-30 minutes/day Frequency: daily Alexandrea/Orthodoxy: None Special alexandrea needs: No Seatbelt use: always Helmet use: No Drive intox or 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: No Do you feel safe at home: Yes Do you feel safe in your relationship?: Yes Meds Allergies and Home Medications Allergies Allergy/AdvReac Type Severity Reaction Status Date / Time atorvastatin AdvReac Mild MUSCLE Verified 09/30/20 06:07 FATIGUE simvastatin AdvReac Mild MUSCLE Verified 09/30/20 06:07 FATIGUE Home Medications Medication Instructions Recorded Confirmed Type multivitamin 1 tab PO DAILY 11/12/14 09/30/20 History hydrochlorothiazide 12.5 mg capsule 12.5 mg PO DAILY #90 tab-cap 04/15/20 09/30/20 Rx loratadine 10 mg tablet 10 mg PO DAILY #90 tab 04/15/20 09/30/20 Rx omeprazole 20 mg capsule,delayed 20 mg PO DAILY #90 tab-cap 04/15/20 09/30/20 Rx release potassium chloride 10 mEq 10 meq PO 3x a week #45 tab-cap 04/15/20 09/30/20 Rx capsule,extended release tamsulosin 0.4 mg capsule See Rx Instructions PO HS #180 04/15/20 09/30/20 Rx tab-cap trazodone 100 mg tablet 100 mg PO HS #90 tab-cap 04/15/20 09/30/20 Rx ipratropium 0.5 mg-albuterol 3 mg 3 ml UPD QID PRN #180 ml 04/16/20 09/30/20 Rx (2.5 mg base)/3 mL nebulization soln prednisone 5 mg tablet 5 mg PO DAILY #90 tab 05/28/20 09/30/20 Rx sertraline 25 mg tablet 25 mg PO DAILY #20 tab-cap 08/22/20 09/30/20 Rx albuterol sulfate 90 mcg/actuation 2 inh INHALATION Q6H PRN #3 ea 09/12/20 09/30/20 Rx aerosol inhaler polymyxin B sulfate 10,000 1 drp OPHTHALMIC (EYE) QID #10 ml 09/12/20 09/30/20 Rx unit-trimethoprim 1 mg/mL eye drops prednisone 20 mg tablet 40 mg PO DAILY #20 tab 09/12/20 09/30/20 Rx fluticasone fur. 100 mcg-umeclid 1 inh INHALATION DAILY #90 ea 09/19/20 09/30/20 Rx 62.5 mcg-vilant 25 mcg inhalat.powder Results Labs Result diagrams: 09/30/20 06:00 09/30/20 06:00 Labs: Laboratory Results - last 24 hr 09/30/20 09/30/20 09/30/20 06:00 06:00 06:00 WBC 7.00 RBC 5.37 Hgb 16.2 Hct 47.3 MCV 88.1 MCH 30.2 MCHC 34.2 RDW 13.4 Plt Count 71 L MPV 10.7 Immature Gran % 0.6 Neutrophils % 89.9 Lymphocytes % 6.0 Monocytes % 3.0 Eosinophils % 0.1 Basophils % 0.4 Nucleated RBC % 0 Absolute Neutrophils 6.29 Absolute Lymphocytes 0.42 L Absolute Monocytes 0.21 Absolute Eosinophils 0.01 Absolute Basophils 0.03 RBC Morphology Normal PT INR APTT VBG Lactate 1.9 H Sodium Potassium Chloride Carbon Dioxide Anion Gap BUN Creatinine Estimated GFR/1.73 m2 Glucose Calcium Magnesium 1.7 L Total Bilirubin AST ALT Alkaline Phosphatase Troponin I < 0.05 Total Protein Albumin COVID-19 Source 09/30/20 09/30/20 09/30/20 06:00 06:00 07:00 WBC RBC Hgb Hct MCV MCH MCHC RDW Plt Count MPV Immature Gran % Neutrophils % Lymphocytes % Monocytes % Eosinophils % Basophils % Nucleated RBC % Absolute Neutrophils Absolute Lymphocytes Absolute Monocytes Absolute Eosinophils Absolute Basophils RBC Morphology PT 12.0 H INR 1.2 H APTT 30.5 H VBG Lactate Sodium 134 L Potassium 3.2 L Chloride 98 Carbon Dioxide 25.8 Anion Gap 10.2 BUN 22 H Creatinine 1.2 Estimated GFR/1.73 m2 58.56 Glucose 181 H Calcium 8.4 L Magnesium Total Bilirubin 1.4 H AST 42 H ALT 46 Alkaline Phosphatase 90 Troponin I Total Protein 6.9 Albumin 3.0 L COVID-19 Source Nasal/nares Last Vital Signs Temp 37.7 C H 09/30/20 07:25 Pulse 89 09/30/20 06:16 Resp 18 09/30/20 07:00 BP 112/61 09/30/20 06:16 Pulse Ox 92 09/30/20 07:00 COVID-19 Screening Have you, or household traveled for leisure in last 14 days?: No Had IN PERSON contact w/suspected or confirmed C-19 person: No
--- NOTE | 2020-09-30 08:00 | DI.VRAD_ITS ---
PROCEDURE INFORMATION: Exam: XR Chest Exam date and time: 09/30/2020 6:02 AM Age: 80 years old Clinical indication: Pain; Other: Shortness of breath TECHNIQUE: Imaging protocol: XR of the chest. Views: 1 view. COMPARISON: CR XR CHEST 2V PA LATERAL 09/11/2020 8:40 AM FINDINGS: Lungs: Patchy pulmonary opacities may reflect a nonspecific pulmonary infectious process. CT imaging could be performed as needed for more accurate characterization. Pleural spaces: Unremarkable. No pleural effusion. No pneumothorax. Heart/Mediastinum: Unremarkable. No cardiomegaly. Bones/joints: Unremarkable. IMPRESSION: Patchy pulmonary opacities may reflect a nonspecific pulmonary infectious process. CT imaging could be performed as needed for more accurate characterization. Dictated and Authenticated by: Erich Torres MD. Ordering:HUMPHREY Corrales MD
[2020-09-30] MEDS: Normal Saline 500 ML IV (08:32)
[2020-09-30] MEDS: Potassium Chloride 20 MEQ TABCR PO ×2 (09:05→19:37)
[2020-09-30] MEDS: hydroCHLOROthiazide 12.5 MG TAB PO (09:05)
[2020-09-30] MEDS: Omeprazole 20 MG CAPCR PO (09:05)
[2020-09-30] MEDS: Loratidine 10 MG TAB PO (09:05)
[2020-09-30] MEDS: Sertraline 25 MG TAB PO (09:05)
[2020-09-30] MEDS: Multivitamin TAB 1 TAB PO (09:05)
[2020-09-30] MEDS: POTASSIUM CHLORIDE 10 MEQ/100 ML BAG 100 MEQ IVPB ×2 (09:07→10:09)
--- NOTE | 2020-09-30 09:35 | INITIAL_ITS ---
- If Service Date Differs Date of service: 09/30/20 Time of Service: 09:35 Care Management Initial Assess REASON FOR HOSPITALIZATION:: COPD exacerbation. PAST MEDICAL HISTORY/PAST SURGICAL HISTORY:: Medical History: Allergic rhinitis, BPH w urinary obs/LUTS, COPD (chronic obstructive pulmonary disease) - [facility], Essential hypertension, Essential tremor, First degree AV block, Gastroesophageal reflux disease, Morris de la Tourette's syndrome, History of tobacco use,. Insomnia, Major depressive disorder, MASON (obstructive sleep apnea),. Osteoarthritis, Osteomyelitis of left foot - Status post hallux amputation,. Pes valgus of left foot - Pes valgus planus deformity, Posterior tibial tendon dysfunction, left, Prediabetes, and Squamous cell carcinoma, face. Surgical History: History of carpal tunnel surgery of left wrist, History of revision of total replacement of right knee joint, S/P cholecystectomy,. S/P nasal septoplasty, Status post amputation of great toe - Left foot,. Status post cholecystectomy, Status post left foot surgery - Flatfoot correction, and Status post total knee replacement, right. PREVIOUS FUNCTIONAL STATUS/SOCIAL/FAMILY SUPPORTS:: Ifeanyi is a 80 year old man who lives in [place] with his , Marlin. Their three adult children live locally and are a source of support for the couple. 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 Ifeanyi is independent at baseline and he occupies his time fixing things around the house, playing with his cats, and visiting with family. CURRENT FUNCTIONAL STATUS:: Ifeanyi is sitting up in bed eating his dinner when CM comes to meet with him. He is pleasant and easily engages in conversation. He talks about his 's medical issues and shares that she was a nurse at [employer] for many years before retiring. CM will continue to follow. ADVANCE DIRECTIVES:: On file, his Marlin Narvaez is appointed as Health Care Agent. Has patient been provided with info about the portal/API?: Yes Did the patient sign up for the portal?: No CODE STATUS:: Full Code INSURANCE COVERAGE / FINANCIAL ISSUES:: [employer] and Medicare. CURRENT HOME/COMMUNITY SERVICES/EQUIPMENT:: Ifeanyi has no in-home services. He has a CPAP machine, nebulizer, and uses oyxgen at night time. PRIMARY CARE PHYSICIAN:: Alexandrea Trevino NP. POTENTIAL DISCHARGE NEEDS:: Follow up appointment with PCP and discharge plan of care. PATIENT/FAMILY EDUCATION NEEDS:: Discharge instructions, limitations, and follow up plan of care, including Ask Me Three and self management. ANTICIPATED BARRIERS TO DISCHARGE:: None anticipated at this time. TRANSPORTATION:: Via private vehicle with family. PLAN:: Anticipate Ifeanyi will be discharged home with no services when medically cleared by provider. He will follow up with his PCP and discharge plan of care as directed. Family will drive him home via private vehicle when ready. CM will continue to support Ifeanyi and discharge planning needs.
[2020-09-30] MEDS: Magnesium Oxide 400 MG TAB PO ×2 (10:09→21:25)
[2020-09-30 10:22] LABS: COVID-19 PCR Negative (Negative)
[2020-09-30 10:33] LABS: Troponin I < 0.05 ng/mL (<0.06)
[2020-09-30] MEDS: Budesonide/Formoterol 80/4.5 6.9 GM 60 PUFF INH IH ×2 (11:07→19:37)
[2020-09-30] MEDS: Umeclidinium 7 CAP INHALER 1 CAP IH (11:07)
--- NOTE | 2020-09-30 13:27 | W.PM.HP.N ---
Date of service: 09/30/20 Time of Service: 13:27 Assessment and Plan Assessment and plan (1) Chronic obstructive pulmonary disease with (acute) exacerbation: Status: Acute Assessment and plan: admitted to med/surg doxy, steroids updrafts continue home inhalers (2) Fever: Status: Acute Assessment and plan: blood cultures pending, add UA received ceftriaxone in ED. will hold off for now. vital signs stable. fever work up unrevealing, ? viral. No abd pain, no gallbladder, no rashes or lesions. no joint pain or redness. (3) Essential hypertension: Status: Chronic Assessment and plan: continue home medication (4) MASON (obstructive sleep apnea): Status: Chronic Assessment and plan: home cpap (5) BPH w urinary obs/LUTS: Status: Chronic Assessment and plan: continue tamsulosin monitor for retention (6) New onset a-fib: Status: Acute Assessment and plan: rate has been controlled. likely d/t resp illness. potassium and magnesium replaced. last echo Feb 2020: Conclusion Normal left ventricular wall thickness and chamber size. Estimated ejection fraction is 60 to 65%. There are no segmental wall motion abnormalities Normal right ventricular size and systolic function Both atria are normal in size The aortic valve is trileaflet and sclerotic with trace regurgitation. There is no significant aortic stenosis Mild mitral annular calcification. Trace mitral regurgitation Tricuspid valve is structurally normal with trace regurgitation. Normal estimated right ventricular systolic pressure, less than 20 mmHg Structurally normal pulmonic valve with trace regurgitation Mildly dilated ascending aorta, measuring 3.66 cm (7) Hypokalemia: Status: Acute Assessment and plan: ? due to albuterol use repleat and follow. mag replaced as well. History of Present Illness History of Present Illness Chief Complaint: shortness of breath Narrative: This is a 80 yo male former smoker with hx of copd, hld, htn, bph, gerd, who comes in with complaints of worsening shortness of breath since Tuesday morning that has slowly been worsening. He states he had a fever last and on arrival here is noted to have a temperature of 104. He has noted general weakness as well as a productive cough, no chest pain or pressure. He arrives appearing fatigued and is tachypneic with wheezing in all lung bailey bilaterally. No jvd or leg swelling or calf tenderness. He was noted to be in afib on arrival which appears to be a new diagnosis for him and is likely secondary to his underlying respiratory illness Review of Systems All systems reviewed & are unremarkable except as noted in HPI and below Constitutional Constitutional: Denies chills Cardiovascular Cardiovascular: Denies chest pain Respiratory Respiratory: Denies cough Gastrointestinal Gastrointestinal: Denies abdominal pain, Denies nausea and Denies vomiting Musculoskeletal Musculoskeletal: Denies joint swelling Psychiatric Psychiatric: Denies depression [facility] Medical History Allergic rhinitis BPH w urinary obs/LUTS COPD (chronic obstructive pulmonary disease) Followed by [facility] Pulmonology Essential hypertension Essential tremor First degree AV block Gastroesophageal reflux disease Morris de la Tourette's syndrome History of tobacco use Insomnia Major depressive disorder MASON (obstructive sleep apnea) Osteoarthritis Osteomyelitis of left foot Status post hallux amputation Pes valgus of left foot 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 Son No problems noted. Daughter No problems noted. Paternal Grandfather No problems noted. Paternal Grandmother No problems noted. Maternal Grandfather No problems noted. Maternal Grandmother Cancer Social History Smoking/Tobacco Use Status: Former Tobacco Use Quit Date: 04/18/79 Second Hand Exposure: Yes Smoking risk assessment performed?: Yes Alcohol Intake: never Drug use: Never Substance use type: does not use Caregiver/Support person: No Household members: spouse and children Housing: house Communication Needs: Hard of Hearing Do you need help understanding health information?: Never Pets and animals: Yes Pets and animals: cat(s) Sexually active: No Do you think of yourself as: straight/heterosexual Current gender identity: male What is your relationship status?: How often do you talk on the phone with friends or family?: three or more times per week How often do you get together with friends or relatives?: once per week How often do you attend latter-day or restoration services?: 1-3 times per year Do you belong to any clubs or organized social groups?: no Panel score (0-1 are the most socially isolated patients): 2 What type of physical activity do you participate in: walking Duration: 15-30 minutes/day Frequency: daily Alexandrea/Hoahaoism: None Special alexandrea needs: No Seatbelt use: always Helmet use: No Drive intox or ride w/intox driver/guide: No Do you feel safe at home: Yes Do you feel safe in your relationship?: Yes Meds Allergies and Home Medications Allergies Allergy/AdvReac Type Severity Reaction Status Date / Time atorvastatin AdvReac Mild MUSCLE Verified 09/30/20 06:07 FATIGUE simvastatin AdvReac Mild MUSCLE Verified 09/30/20 06:07 FATIGUE Home Medications Medication Instructions Recorded Confirmed Type multivitamin 1 tab PO DAILY 11/12/14 09/30/20 History hydrochlorothiazide 12.5 mg capsule 12.5 mg PO DAILY #90 tab-cap 04/15/20 09/30/20 Rx loratadine 10 mg tablet 10 mg PO DAILY #90 tab 04/15/20 09/30/20 Rx omeprazole 20 mg capsule,delayed 20 mg PO DAILY #90 tab-cap 04/15/20 09/30/20 Rx release potassium chloride 10 mEq 10 meq PO 3x a week #45 tab-cap 04/15/20 09/30/20 Rx capsule,extended release tamsulosin 0.4 mg capsule See Rx Instructions PO HS #180 04/15/20 09/30/20 Rx tab-cap trazodone 100 mg tablet 100 mg PO HS #90 tab-cap 04/15/20 09/30/20 Rx ipratropium 0.5 mg-albuterol 3 mg 3 ml UPD QID PRN #180 ml 04/16/20 09/30/20 Rx (2.5 mg base)/3 mL nebulization soln prednisone 5 mg tablet 5 mg PO DAILY #90 tab 05/28/20 09/30/20 Rx sertraline 25 mg tablet 25 mg PO DAILY #20 tab-cap 08/22/20 09/30/20 Rx albuterol sulfate 90 mcg/actuation 2 inh INHALATION Q6H PRN #3 ea 09/12/20 09/30/20 Rx aerosol inhaler polymyxin B sulfate 10,000 1 drp OPHTHALMIC (EYE) QID #10 ml 09/12/20 09/30/20 Rx unit-trimethoprim 1 mg/mL eye drops prednisone 20 mg tablet 40 mg PO DAILY #20 tab 09/12/20 09/30/20 Rx fluticasone fur. 100 mcg-umeclid 1 inh INHALATION DAILY #90 ea 09/19/20 09/30/20 Rx 62.5 mcg-vilant 25 mcg inhalat.powder Exam Const General: no acute distress Orientation: alert HENMT Head: normal to inspection Ears: external ears normal General nose exam: external nose normal Mouth: moist mucous membranes Eyes General: appearance normal, both eyes and all related structures Neck Neck: normal visual inspection Resp Effort & Inspection: normal respiratory effort and able to speak in complete sentences Auscultation: diminished lung sounds (bases, no wheezes or rhonchi) Cardio Rate: regular rate Rhythm: regular rhythm Skin General skin exam: no rashes or lesions noted Neuro General: patient alert and patient oriented x3 Extrem General: normal to inspection Psych Mental Status: mental status grossly normal Results Labs Result diagrams: 09/30/20 06:00 09/30/20 06:00 Labs: Laboratory Results - last 24 hr 09/30/20 09/30/20 09/30/20 06:00 06:00 06:00 WBC 7.00 RBC 5.37 Hgb 16.2 Hct 47.3 MCV 88.1 MCH 30.2 MCHC 34.2 RDW 13.4 Plt Count 71 L MPV 10.7 Immature Gran % 0.6 Neutrophils % 89.9 Lymphocytes % 6.0 Monocytes % 3.0 Eosinophils % 0.1 Basophils % 0.4 Nucleated RBC % 0 Absolute Neutrophils 6.29 Absolute Lymphocytes 0.42 L Absolute Monocytes 0.21 Absolute Eosinophils 0.01 Absolute Basophils 0.03 RBC Morphology Normal PT INR APTT VBG Lactate 1.9 H Sodium Potassium Chloride Carbon Dioxide Anion Gap BUN Creatinine Estimated GFR/1.73 m2 Glucose Calcium Magnesium 1.7 L Total Bilirubin AST ALT Alkaline Phosphatase Troponin I < 0.05 Total Protein Albumin COVID-19 Source SARS-CoV-2 (PCR) 09/30/20 09/30/2009/30/21 06:00 06:00 07:00 WBC RBC Hgb Hct MCV MCH MCHC RDW Plt Count MPV Immature Gran % Neutrophils % Lymphocytes % Monocytes % Eosinophils % Basophils % Nucleated RBC % Absolute Neutrophils Absolute Lymphocytes Absolute Monocytes Absolute Eosinophils Absolute Basophils RBC Morphology PT 12.0 H INR 1.2 H APTT 30.5 H VBG Lactate Sodium 134 L Potassium 3.2 L Chloride 98 Carbon Dioxide 25.8 Anion Gap 10.2 BUN 22 H Creatinine 1.2 Estimated GFR/1.73 m2 58.56 Glucose 181 H Calcium 8.4 L Magnesium Total Bilirubin 1.4 H AST 42 H ALT 46 Alkaline Phosphatase 90 Troponin I Total Protein 6.9 Albumin 3.0 L COVID-19 Source Nasal/nares SARS-CoV-2 (PCR) Negative 09/30/20 10:10 WBC RBC Hgb Hct MCV MCH MCHC RDW Plt Count MPV Immature Gran % Neutrophils % Lymphocytes % Monocytes % Eosinophils % Basophils % Nucleated RBC % Absolute Neutrophils Absolute Lymphocytes Absolute Monocytes Absolute Eosinophils Absolute Basophils RBC Morphology PT INR APTT VBG Lactate Sodium Potassium Chloride Carbon Dioxide Anion Gap BUN Creatinine Estimated GFR/1.73 m2 Glucose Calcium Magnesium Total Bilirubin AST ALT Alkaline Phosphatase Troponin I < 0.05 Total Protein Albumin COVID-19 Source SARS-CoV-2 (PCR) Last Vital Signs Temp 37.7 C H 09/30/20 09:16 Pulse 88 09/30/20 09:16 Resp 19 09/30/20 09:16 BP 124/62 09/30/20 09:16 Pulse Ox 93 09/30/20 09:16 COVID-19 Screening Have you, or household traveled for leisure in last 14 days?: No Had IN PERSON contact w/suspected or confirmed C-19 person: No
[2020-09-30] MEDS: methylPREDNISolone SUCC 125 MG VIAL 60 MG IVP ×2 (13:38→21:24)
[2020-09-30] MEDS: Normal Saline Flush 10 ML SYR IVP ×2 (13:40→21:23)
[2020-09-30] MEDS: Normal Saline 1,000 ML 80 ML IV (16:46)
[2020-09-30] MEDS: Tamsulosin 0.4 MG CAPCR 0.8 MG PO (21:25)
[2020-09-30] MEDS: traZODone 100 MG TAB PO (21:25)
--- NOTE | 2020-09-30 22:00 | NUR.NOTE ---
pt noted that he had a tick behind his right ear- he reports that he pulls 3-4 a day off per day at home. tick was removed with removal tool from ER- it appeared to be a wood tick. Dr. Agarwal notified. Nursing Note:
[2020-10-01] VITALS (9 sets, daily range): BP systolic 102–134; BP diastolic 53–72; PULSE 74–95; RESP 18–25; TEMP 36.1–37.5; O2SAT 92–95
[2020-10-01] MEDS: methylPREDNISolone SUCC 125 MG VIAL 60 MG IVP ×3 (06:34→23:28)
[2020-10-01] MEDS: Normal Saline Flush 10 ML SYR IVP ×5 (06:35→23:28)
[2020-10-01] MEDS: Omeprazole 20 MG CAPCR PO (06:35)
[2020-10-01 07:22] LABS: HCT 43.5 % (40.0-50.0); HGB 14.9 g/dL (13.5-17.5); MCHC 34.3 % (32.0-36.0); MCV 87.5 fL (80-95); MPV 12.3 fL (8.0-11.0); Nucleated RBC 0 %; Platelet Count 51 10^3/uL (130-400); RBC 4.97 10^6/uL (4.36-5.78); RDW 13.3 % (11.8-14.1); RDW-SD 42.6 fL; WBC 8.94 10^3/uL (4.4-10.8)
[2020-10-01 07:46] LABS: ALT 42 U/L (16-63); AST 30 U/L (15-37); Albumin 2.5 g/dL (3.4-5.0); Alkaline Phosphatase 94 U/L (46-116); Anion Gap 12.1 mmol/L (3-11); BUN 25 mg/dL (7-18); Bilirubin, Total 0.7 mg/dL (0.2-1.0); CO2 22.9 mmol/L (21.0-32.0); CREATININE 1.5 mg/dL (0.70-1.30); Calcium 8.4 mg/dL (8.5-10.1); Chloride 105 mmol/L (98-107); Estimated GFR 45.26 (mL/min/1.73m2); Glucose 260 mg/dL (74-106); Magnesium 1.9 mg/dL (1.8-2.4); Potassium 3.4 mmol/L (3.5-5.1); Sodium 140 mmol/L (136-145); Total Protein 6.3 g/dL (6.4-8.2)
[2020-10-01] MEDS: Umeclidinium 7 CAP INHALER 1 CAP IH (07:48)
[2020-10-01] MEDS: Budesonide/Formoterol 80/4.5 6.9 GM 60 PUFF INH IH ×2 (07:48→20:21)
[2020-10-01 08:09] LABS: Absolute Lymphocyte Count 0.27 10^3/uL (1.2-3.4); Absolute Monocyte Count 0.36 10^3/uL (0.1-0.8); Absolute Neutrophil Count 8.31 10^3/uL (1.2-6.7); Bands % 10; Diff Comment Manual Differential; RBC Morphology Normal
[2020-10-01] MEDS: Doxycycline Hyclate 100 MG CAP PO ×2 (08:10→20:21)
[2020-10-01] MEDS: Potassium Chloride 20 MEQ TABCR PO (08:10)
[2020-10-01] MEDS: Multivitamin TAB 1 TAB PO (08:10)
[2020-10-01] MEDS: Polyethylene Glycol 3350 17 GM PACKET PO (08:11)
[2020-10-01] MEDS: Loratidine 10 MG TAB PO (08:11)
[2020-10-01] MEDS: hydroCHLOROthiazide 12.5 MG TAB PO (08:11)
[2020-10-01] MEDS: Sertraline 25 MG TAB PO (08:11)
--- NOTE | 2020-10-01 08:30 | CMPROGNOTE_ITS ---
- If Service Date Differs Date of service: 10/01/20 Time of Service: 16:42 Care Management Progress Note S/O: Ifeanyi continues to be closely monitored and treated, he was sitting up in his chair when CM met with him. 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 CM reviewed patient education binder available for COPD, [facility] was in room and reported she would be recommending Ifeanyi attend Pulmonary Rehab, which he did in the past with good result, per his report. He reported he would transport himself to and from the appointments. He spoke in depth about his 's current care needs. No change to plan at this time, CM continues to follow. A: 80 year old male admitted to [facility] 09/30/20 for COPD exacerbation. P: Anticipate Ifeanyi will be discharged home with no services when medically cleared by provider. He will follow up with his PCP, and Pulmonary Rehab. CM reviewed options for intervention regarding Ifeanyi's , Marlin including Palliative Care, Options Counseling and LTM. He will follow up with his PCP and discharge plan of care as directed. Family will drive him home via private vehicle when ready. CM will continue to support Ifeanyi and discharge planning needs.
[2020-10-01] MEDS: Potassium Chloride 20 MEQ TABCR 40 MEQ PO ×3 (09:28→20:22)
--- NOTE | 2020-10-01 11:24 | W.PM.PROGNOT ---
Date of Service Date of service: 10/01/20 Time of Service: 11:24 Assessment and Plan Assessment and plan (1) Chronic obstructive pulmonary disease with (acute) exacerbation: Status: Acute Assessment and plan: increased SOB today continue doxy, steroids updrafts continue home inhalers given lasix 40 mg IVP and will check echo (2) Shortness of breath: Status: Acute Assessment and plan: worsened today. see above will diurese and check echo last echo in feb 2020 Conclusion Normal left ventricular wall thickness and chamber size. Estimated ejection fraction is 60 to 65%. There are no segmental wall motion abnormalities Normal right ventricular size and systolic function Both atria are normal in size The aortic valve is trileaflet and sclerotic with trace regurgitation. There is no significant aortic stenosis Mild mitral annular calcification. Trace mitral regurgitation Tricuspid valve is structurally normal with trace regurgitation. Normal estimated right ventricular systolic pressure, less than 20 mmHg Structurally normal pulmonic valve with trace regurgitation Mildly dilated ascending aorta, measuring 3.66 cm (3) Fever: Status: Resolved Assessment and plan: blood cultures negative to date, no further fevers, no source of infection (4) Essential hypertension: Status: Chronic Assessment and plan: continue home medication (5) MASON (obstructive sleep apnea): Status: Chronic Assessment and plan: home cpap (6) BPH w urinary obs/LUTS: Status: Chronic Assessment and plan: continue tamsulosin monitor for retention (7) New onset a-fib: Status: Acute Assessment and plan: rate has been controlled. likely d/t resp illness. potassium and magnesium replaced. last echo Feb 2020: Conclusion Normal left ventricular wall thickness and chamber size. Estimated ejection fraction is 60 to 65%. There are no segmental wall motion abnormalities Normal right ventricular size and systolic function Both atria are normal in size The aortic valve is trileaflet and sclerotic with trace regurgitation. There is no significant aortic stenosis Mild mitral annular calcification. Trace mitral regurgitation Tricuspid valve is structurally normal with trace regurgitation. Normal estimated right ventricular systolic pressure, less than 20 mmHg Structurally normal pulmonic valve with trace regurgitation Mildly dilated ascending aorta, measuring 3.66 cm (8) Hypokalemia: Status: Acute Assessment and plan: continue to replete and follow. mag replaced as well. (9) DVT prophylaxis: Status: Acute Assessment and plan: enoxaparin (10) Discharge planning issues: Status: Acute Assessment and plan: plan to discharge home when medically stable, +/- home health case management following discussed with Dr Morton Subjective Subjective Patient reports: tolerating liquids well, tolerating a regular diet, shortness of breath and afebrile Interval history since last seen: worsening shortness of breath today, no fever, continues to cough, no chest pain, no increased edema Exam Const General: no acute distress Orientation: alert HENTX Head: normal to inspection Ears: external ears normal General nose exam: external nose normal Mouth: moist mucous membranes Eyes General: appearance normal, both eyes and all related structures Neck Neck: normal visual inspection Resp Effort & Inspection: normal respiratory effort and able to speak in complete sentences Auscultation: diminished lung sounds (bases, no wheezes or rhonchi) Cardio Rate: regular rate Rhythm: regular rhythm Skin General skin exam: no rashes or lesions noted Neuro General: patient alert and patient oriented x3 Extrem General: normal to inspection Psych Mental Status: mental status grossly normal Objective Last Vital Signs Temp 36.8 C 10/01/20 11:04 Pulse 77 10/01/20 11:04 Resp 19 10/01/20 11:04 BP 134/72 10/01/20 11:04 Pulse Ox 94 10/01/20 11:05 Laboratory Results - last 24 hr 10/01/20 10/01/20 06:33 06:33 WBC 8.94 RBC 4.97 Hgb 14.9 Hct 43.5 MCV 87.5 MCH 30.0 MCHC 34.3 RDW 13.3 Plt Count 51 L MPV 12.3 H Immature Gran % 0.0 Neutrophils % 83.0 Band Neutrophils % 10 Lymphocytes % 3.0 Monocytes % 4.0 Eosinophils % 0.0 Basophils % 0.0 Nucleated RBC % 0 Absolute Neutrophils 8.31 H Absolute Lymphocytes 0.27 L Absolute Monocytes 0.36 Absolute Eosinophils 0.00 Absolute Basophils 0.00 RBC Morphology Normal Sodium 140 Potassium 3.4 L Chloride 105 Carbon Dioxide 22.9 Anion Gap 12.1 H BUN 25 H Creatinine 1.5 H Estimated GFR/1.73 m2 45.26 Glucose 260 H Calcium 8.4 L Magnesium 1.9 Total Bilirubin 0.7 AST 30 ALT 42 Alkaline Phosphatase 94 Total Protein 6.3 L Albumin 2.5 L
[2020-10-01] MEDS: Levalbuterol HFA 15 GM INH 2 PUFF IH (11:31)
[2020-10-01] MEDS: Furosemide 40 MG/4 ML VIAL IVP (12:11)
--- NOTE | 2020-10-01 14:00 | CHAPLAIN ---
I had a brief visit with Ifeanyi as nursing arrived to check his symptoms. He said he is breathing easier and was interested in what his blood pressure and temperature were when the SENIOR OPERATIONS MANAGER took them.
[2020-10-01] MEDS: traZODone 100 MG TAB PO (21:21)
[2020-10-01] MEDS: Tamsulosin 0.4 MG CAPCR 0.8 MG PO (21:21)
[2020-10-02 03:22] VITALS: BP 125/66; PULSE 68; RESP 20; TEMP 36.2; O2SAT 94
[2020-10-02 07:28] LABS: Abs Immature Grans 0.06 10^3/uL (0.0-0.06); HCT 42.4 % (40.0-50.0); HGB 14.6 g/dL (13.5-17.5); MCHC 34.4 % (32.0-36.0); MCV 87.2 fL (80-95); MPV 13.5 fL (8.0-11.0); Nucleated RBC 0 %; RBC 4.86 10^6/uL (4.36-5.78); RDW 13.4 % (11.8-14.1); RDW-SD 43.3 fL; WBC 8.65 10^3/uL (4.4-10.8)
[2020-10-02 07:32] VITALS: BP 125/71; PULSE 72; RESP 18; TEMP 36.4; O2SAT 92
[2020-10-02 07:33] LABS: BUN 40 mg/dL (7-18); CREATININE 1.4 mg/dL (0.70-1.30); Calcium 8.4 mg/dL (8.5-10.1); Chloride 104 mmol/L (98-107); Estimated GFR 49.01 (mL/min/1.73m2); Glucose 196 mg/dL (74-106); Sodium 139 mmol/L (136-145)
[2020-10-02 07:55] LABS: Platelet Count 46 10^3/uL (130-400)
[2020-10-02 07:56] LABS: Absolute Lymphocyte Count 1.04 10^3/uL (1.2-3.4); Absolute Monocyte Count 0.43 10^3/uL (0.1-0.8); Absolute Neutrophil Count 7.18 10^3/uL (1.2-6.7); Atypical Lymphocytes % 6; Bands % 9
[2020-10-02 07:57] LABS: Diff Comment Manual Differential; RBC Morphology Normal
[2020-10-02 08:08] VITALS: PULSE 72
[2020-10-02] MEDS: Omeprazole 20 MG CAPCR PO (08:15)
[2020-10-02] MEDS: methylPREDNISolone SUCC 125 MG VIAL 60 MG IVP ×2 (08:15→14:28)
[2020-10-02] MEDS: hydroCHLOROthiazide 12.5 MG TAB PO (08:16)
[2020-10-02] MEDS: Sertraline 25 MG TAB PO (08:16)
[2020-10-02] MEDS: Loratidine 10 MG TAB PO (08:16)
[2020-10-02] MEDS: Normal Saline Flush 10 ML SYR IVP ×2 (08:16→14:28)
[2020-10-02] MEDS: Doxycycline Hyclate 100 MG CAP PO (08:16)
[2020-10-02] MEDS: Multivitamin TAB 1 TAB PO (08:16)
[2020-10-02] MEDS: Potassium Chloride 20 MEQ TABCR 40 MEQ PO ×2 (08:17→13:42)
[2020-10-02] MEDS: Budesonide/Formoterol 80/4.5 6.9 GM 60 PUFF INH IH (08:52)
[2020-10-02] MEDS: Umeclidinium 7 CAP INHALER 1 CAP IH (08:53)
--- NOTE | 2020-10-02 10:00 | CMPROGNOTE_ITS ---
- If Service Date Differs Date of service: 10/02/20 Time of Service: 16:25 Care Management Progress Note S/O: Ifeanyi remains inpatient, CM continues to follow. A: 80 year old male admitted to [facility] 09/30/20 for COPD exacerbation. P: Anticipate Ifeanyi will be discharged home with no services when medically cleared by provider. He will follow up with his PCP, and Pulmonary Rehab. CM reviewed options for intervention regarding Ifeanyi's , Marlin including Palliative Care, Options Counseling and LTM. He will follow up with his PCP and discharge plan of care as directed. Family will drive him home via private vehicle when ready. CM will continue to support Ifeanyi and discharge planning n eeds.
--- NOTE | 2020-10-02 14:04 | DSE_ITS ---
Date of service: 10/02/20 Time of Service: 14:04 DS: Diagnosis Discharge Diagnosis (1) Chronic obstructive pulmonary disease with (acute) exacerbation: Status: Acute (2) Shortness of breath: Status: Acute (3) Fever: Status: Resolved (4) Essential hypertension: Status: Chronic (5) MASON (obstructive sleep apnea): Status: Chronic (6) BPH w urinary obs/LUTS: Status: Chronic (7) Hypokalemia: Status: Acute Discharge Plan Disposition Patient Disposition: HOME Condition: Stable Discharge Details Reason For Visit: COPD Exacerbation Admit Date/Time: 09/30/20 07:13 Admit Provider: Masoud Morton Attending Provider: Masoud Morton Primary Care Provider: Alexandrea Trevino Hospital Course Hospital Course: This is a 80 yo male former smoker with hx of copd, hld, htn, bph, gerd, who comes in with complaints of worsening shortness of breath since Tuesday morning that has slowly been worsening. He states he had a fever last and on arrival here is noted to have a temperature of 104. He has noted general weakness as well as a productive cough, no chest pain or pressure. He arrives appearing fatigued and is tachypneic with wheezing in all lung bailey bilaterally. No jvd or leg swelling or calf tenderness. He was noted to be in afib on arrival which appears to be a new diagnosis for him and is likely secondary to his underlying respiratory illness. He was admitted to the med/surg unit for inpatient treatment of copd exac. he was placed on IV steroids and treated wth doxcycline. A chest CT showed no evidence of pneumonia. His symptoms improved with treatment. He remained in SR 1 degree AV block on telemetry. He is oxygenating well on room air. He remained afebrile while hospitalized. His platelets dropped, thought due to viral illness. this should be monitored outpatient with further work up if does not rebound. He had no evidence of bleeding. his potassium was replaced, initially thought due to albuterol use. an echocardiogram showed EF 60% with no WMA's, no significant valvular disease and PASP 22 mmHg. he is stable and reports his breathing has improved to the place that he would like to be discharged. He will complete 5 more days of doxycycline and a steroid burst. all other medications should be resumed as previously ordered. discharge discussed with Dr Morton. Home Meds and New Rx's Prescriptions: New doxycycline hyclate 100 mg Capsule 100 mg PO BID Qty: 11 RF: 0 Continued sertraline 25 mg tablet 25 mg PO DAILY Qty: 20 RF: 4 albuterol sulfate 90 mcg/actuation HFA aerosol inhaler 2 inh inhalation Q6H PRN (Reason: shortness of breath or wheezing) Qty: 3 RF: 4 polymyxin B sulf-trimethoprim 10,000 unit- 1 mg/mL drops 1 drp ophthalmic (eye) QID Qty: 10 RF: 0 Trelegy Ellipta 100-62.5-25 mcg blister with device 1 inh inhalation DAILY Qty: 90 RF: 4 multivitamin 1 EACH tablet 1 tab PO DAILY RF: 0 trazodone 100 mg tablet 100 mg PO HS Qty: 90 RF: 4 tamsulosin 0.4 mg capsule See Rx Instructions PO HS Qty: 180 RF: 4 omeprazole 20 mg capsule,delayed release(DR/EC) 20 mg PO DAILY Qty: 90 RF: 4 loratadine 10 mg tablet 10 mg PO DAILY Qty: 90 RF: 4 hydrochlorothiazide 12.5 mg capsule 12.5 mg PO DAILY Qty: 90 RF: 4 ipratropium-albuterol 0.5 mg-3 mg(2.5 mg base)/3 mL solution for nebulization 3 ml UPD QID PRN (Reason: shortness of breath or wheezing) Qty: 180 RF: 4 prednisone 5 mg tablet 5 mg PO DAILY Qty: 90 RF: 2 prednisone 20 mg tablet 40 mg PO DAILY Qty: 20 RF: 0 Changed potassium chloride 10 mEq capsule, extended release 20 meq PO DAILY Qty: 45 RF: 4 Discharge Instructions Instructions: COPD (Chronic Obstructive Pulmonary Disease) (DC) Stand Alone Forms: Nursing Discharge Form Referrals: Alexandrea Trevino NP [Primary Care Provider] - 10/09/20 8:40 am Activity:: Activity as Tolerated Equipment/Supplies:: No Equipment Needed Diet:: As Tolerated Discharge Orders Discharge Orders: Discharge Order (Routine); Ordered 10/02/20 Ordered By: Deb Durán DS: Summary Time Spent with Patient providing and/or coordinating discharge services: Greater than 30 minutes Status at Discharge Functional status at discharge: independent ambulation Overall status at discharge: patient is progressing back to baseline Mental Status: mental status grossly normal Speech and Movement: speech and movement normal Mood: congruent mood Affect: normal affect Exam Const General: no acute distress Orientation: alert HENMT Head: normal to inspection Ears: external ears normal General nose exam: external nose normal Mouth: moist mucous membranes Eyes General: appearance normal, both eyes and all related structures Neck Neck: normal visual inspection Resp Effort & Inspection: normal respiratory effort and able to speak in complete sentences Auscultation: diminished lung sounds (bases, no wheezes or rhonchi) Cardio Rate: regular rate Rhythm: regular rhythm Skin General skin exam: no rashes or lesions noted Neuro General: patient alert and patient oriented x3 Extrem General: normal to inspection Psych Mental Status: mental status grossly normal Speech and Movement: speech and movement normal Mood: congruent mood Affect: normal affect DS: Data Vitals/I&O Vitals and I&O: Vital Signs Temperature 36.4 C L 10/02/20 07:32 Temperature Source Tympanic 10/02/20 07:32 Pulse 72 10/02/20 08:08 Pulse Rhythm Irregular 10/02/20 08:00 Pulse 108 H 09/30/20 07:40 Respiratory Rate 18 10/02/20 07:32 Respiratory Effort Non-Labored 10/02/20 08:00 Respiratory Depth Normal 10/02/20 08:00 Respiratory Pattern Normal 10/02/20 08:00 Blood Pressure 125/71 10/02/20 07:32 Blood Pressure Mean 74 09/30/20 07:31 Pulse Oximetry 92 10/02/20 07:32 Oxygen Delivery Method Nasal Cannula 10/02/20 07:32 Oxygen Flow Rate 1 10/02/20 07:32 Fraction of Inspired Oxygen (FIO2) 21 10/01/20 20:15 Pain Level 0 10/02/20 07:32 Comment 10/02/20 03:22 Intake & Output 10/01/20 10/02/20 10/02/20 23:59 11:59 23:59 Intake Total 1230 / 1600 10 / 250 240 / 250 Output Total 1950 / 0 625 / 625 Balance -720 / -750 -615 / -375 240 / -375 Weight 105.9 kg Intake: IV Oral 1230 / 1590 240 / 240 Output: Urine 19490 625 / 625 Other: Urine Color Straw Yellow Urine Appearance Clear Clear Urine Odor None Normal Voiding Methods Urinal Toilet Urinal Data Completed and Pending Labs on day of discharge: Labs from last 24 hours 10/02/20 10/02/20 06:50 06:50 WBC 8.65 RBC 4.86 Hgb 14.6 Hct 42.4 MCV 87.2 MCH 30.0 MCHC 34.4 RDW 13.4 Plt Count 46 L MPV 13.5 H Immature Gran % 0.0 Neutrophils % 74.0 Band Neutrophils % 9 Lymphocytes % 6.0 Atypical Lymphs % 6 Monocytes % 5.0 Eosinophils % 0.0 Basophils % 0.0 Nucleated RBC % 0 Absolute Neutrophils 7.18 H Absolute Lymphocytes 1.04 L Absolute Monocytes 0.43 Absolute Eosinophils 0.00 Absolute Basophils 0.00 RBC Morphology Normal Sodium 139 Potassium 4.0 Chloride 104 Carbon Dioxide 23.0 Anion Gap 12.0 H BUN 40 H D Creatinine 1.4 H Estimated GFR/1.73 m2 49.01 Glucose 196 H Calcium 8.4 L Preliminary micro results at discharge 09/30/20 06:20 Blood Culture - Preliminary Blood NO GROWTH 48 HOURS 09/30/20 06:00 Blood Culture - Preliminary Blood NO GROWTH 48 HOURS [facility] Medical History Allergic rhinitis BPH w urinary obs/LUTS COPD (chronic obstructive pulmonary disease) [facility] Pulmonology Essential hypertension Essential tremor First degree AV block Gastroesophageal reflux disease Morris de la Tourette's syndrome History of tobacco use Insomnia Major depressive disorder MASON (obstructive sleep apnea) Osteoarthritis Osteomyelitis of left foot Status post hallux amputation Pes valgus of left foot 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 Son No problems noted. Daughter No problems noted. Paternal Grandfather No problems noted. Paternal Grandmother No problems noted. Maternal Grandfather No problems noted. Maternal Grandmother Cancer Social History Smoking/Tobacco Use Status: Former Tobacco Use Quit Date: 04/18/79 Second Hand Exposure: Yes Smoking risk assessment performed?: Yes Alcohol Intake: never Drug use: Never Substance use type: does not use Caregiver/Support person: No Household members: spouse and children Housing: house Communication Needs: Hard of Hearing Do you need help understanding health information?: Never Pets and animals: Yes Pets and animals: cat(s) Sexually active: No Do you think of yourself as: straight/heterosexual Current gender identity: male What is your relationship status?: How often do you talk on the phone with friends or family?: three or more times per week How often do you get together with friends or relatives?: once per week How often do you attend buddhism or baptist services?: 1-3 times per year Do you belong to any clubs or organized social groups?: no Panel score (0-1 are the most socially isolated patients): 2 What type of physical activity do you participate in: walking Duration: 15-30 minutes/day Frequency: daily Alexandrea/Rastafari: None Special alexandrea needs: No Seatbelt use: always Helmet use: No Drive intox or ride w/intox bus driver/monitor: No Do you feel safe at home: Yes Do you feel safe in your relationship?: Yes
[2020-10-02 14:45] VITALS: PULSE 73
== END 2020-10-02 14:59 | disposition home or self-care (01) | DRG 191 ==
LOC: ER 07:17 → MS 07:57
PROVIDERS: Nurse Practitioner Acute Care; Admitting Provider Family Medicine; Emergency Provider Emergency Medicine; PCP Nurse Practitioner Family; Visit Provider Family Medicine
DX: J44.1 Chronic obstructive pulmonary disease with (acute) exacerbation (principal); N13.8 Other obstructive and reflux uropathy; Z20.822 Contact with and (suspected) exposure to COVID-19; G47.33 Obstructive sleep apnea (adult) (pediatric); Z87.891 Personal history of nicotine dependence; I10 Essential (primary) hypertension; E78.5 Hyperlipidemia, unspecified; R73.03 Prediabetes; F32.9 Major depressive disorder, single episode, unspecified; N40.1 Benign prostatic hyperplasia with lower urinary tract symptoms; G25.0 Essential tremor; J30.9 Allergic rhinitis, unspecified; I44.0 Atrioventricular block, first degree; K21.9 Gastro-esophageal reflux disease without esophagitis; G47.00 Insomnia, unspecified; I48.91 Unspecified atrial fibrillation; E87.6 Hypokalemia
CPT/HCPCS: 36415; 71250; 80048; 80053; 87040; 87635; 93005; 94640; 96365; 96368; 96375; 99285; 71045; 83605; 83735; 84484; 85025; 85610; 85730; 93010; 93306; 99223; 99233; 99239; 99284; J0456; J1940; J2930; J3480; J7620

== ENCOUNTER 2020-10-07 10:38 | Outpatient (CLI) | payer MEDICARE, SELFPAY ==
--- NOTE | 2020-10-07 10:30 | RT.EKG_ITS ---
APPROVED REPORT Exam: Resting ECG Reason for Exam: SOB Patient Location: O HR:73 bpm ECG Measurements Heart Rate 73 AXIS MT 227 P -37 QRSd 99 QRS -17 QT 392 T 35 QTc 432 Conclusion Sinus rhythm...normal P axis, V-rate 50- 99 Prolonged MT interval...MT >220, V-rate 50- 90 Borderline left axis deviation...QRS axis (-15,-29) Low voltage, precordial leads...precordial leads <1.0mV Abnormal R-wave progression, early transition...QRS area>0 in V2
== END 2020-10-07 10:39 | disposition home or self-care (01) ==
LOC: DI.CARD 11:17
PROVIDERS: PCP Nurse Practitioner Family; Referring Provider Nurse Practitioner Family; Visit Provider Internal Medicine Cardiovascular Disease
DX: I48.91 Unspecified atrial fibrillation (principal)
CPT/HCPCS: 93010

== ENCOUNTER → 2020-10-07 10:38 | Outpatient (BNVA) | payer MEDICARE, SELFPAY ==
--- NOTE | 2020-10-27 14:53 | W.ZIOMONITOR ---
Date of service: 10/27/20 Time of Service: 14:53 14 Day Franchise Manager Referring Provider:: Jose Indications:: Palps Note: There is a 14-day monitor order for indication of palpitations. ?The patient was in normal sinus rhythm for the majority of the recording with an average heart rate of 78 bpm. ?There were frequent episodes of SVT with the longest lasting 43 beats. There were occasional (5%) PACs. ?There were 66 episodes of NSVT with the longest lasting 15 beats. There were frequent (7%) PVCs. ?There are no episodes of atrial fibrillation, no pauses greater than 3 seconds and no evidence of high degree heart block. ?There were 0 patient triggered events.
== END ==
PROVIDERS: PCP Nurse Practitioner Family; Referring Provider Nurse Practitioner Family; Visit Provider Internal Medicine Cardiovascular Disease
DX: I48.0 Paroxysmal atrial fibrillation (principal); I35.1 Nonrheumatic aortic (valve) insufficiency; J44.9 Chronic obstructive pulmonary disease, unspecified; I10 Essential (primary) hypertension; G47.33 Obstructive sleep apnea (adult) (pediatric)
CPT/HCPCS: 93005; 99203; 99214

== ENCOUNTER 2020-10-09 12:00 | Outpatient (CLI) | payer MEDICARE, SELFPAY | END 2020-10-09 12:01 | disposition home or self-care (01) | LOC: RT 10-31 12:12 | PROVIDERS: PCP Nurse Practitioner Family; Visit Provider Nurse Practitioner Family | DX: I48.0 Paroxysmal atrial fibrillation (principal) | CPT/HCPCS: 93246 ==

== ENCOUNTER 2020-10-10 09:30 | Outpatient (CLI) | payer MEDICARE, SELFPAY ==
[2020-10-10 11:51] LABS: Abs Immature Grans 0.81 10^3/uL (0.0-0.06); Absolute Monocyte Count 0.49 10^3/uL (0.1-0.8); HCT 45.8 % (40.0-50.0); MCH 29.8 pg (27.0-33.0); MCHC 32.8 % (32.0-36.0); MCV 91.1 fL (80-95); MPV 9.7 fL (8.0-11.0); Nucleated RBC 0 %; RBC 5.03 10^6/uL (4.36-5.78); RDW 14.4 % (11.8-14.1); WBC 16.26 10^3/uL (4.4-10.8)
[2020-10-10 12:08] LABS: Hemoglobin A1C 6.6 % (<5.7)
[2020-10-10 12:11] LABS: Absolute Lymphocyte Count 0.81 10^3/uL (1.2-3.4); Absolute Neutrophil Count 14.31 10^3/uL (1.2-6.7); Bands % 2; Metamyelocytes % 3; Myelocytes % 1
[2020-10-10 12:12] LABS: Diff Comment Manual Differential; Platelet Count 268 10^3/uL (130-400); Polychromasia Present
[2020-10-10 13:18] LABS: ALT 45 U/L (16-63); AST 18 U/L (15-37); Alkaline Phosphatase 121 U/L (46-116); Anion Gap 10.2 mmol/L (3-11); BUN 26 mg/dL (7-18); Bilirubin, Total 0.6 mg/dL (0.2-1.0); CO2 25.8 mmol/L (21.0-32.0); CREATININE 1.5 mg/dL (0.70-1.30); Calcium 8.8 mg/dL (8.5-10.1); Chloride 103 mmol/L (98-107); Estimated GFR 45.26 (mL/min/1.73m2); FREE T4 0.71 ng/dL (0.76-1.46); Glucose 172 mg/dL (74-106); Potassium 4.8 mmol/L (3.5-5.1); Sodium 139 mmol/L (136-145); TSH 0.79 uIU/mL (0.36-3.74); Total Protein 6.4 g/dL (6.4-8.2)
== END 2020-10-10 09:31 | disposition home or self-care (01) ==
LOC: LBO 09:32
PROVIDERS: PCP Nurse Practitioner Family; Visit Provider Nurse Practitioner Family
DX: I48.0 Paroxysmal atrial fibrillation (principal); R73.03 Prediabetes; G47.33 Obstructive sleep apnea (adult) (pediatric)
CPT/HCPCS: 36415; 80053; 83036; 84439; 84443; 85025

== ENCOUNTER 2020-10-27 14:53 | Outpatient (CLI) | payer MEDICARE, SELFPAY | END 2020-10-27 14:54 | LOC: CARDO 12-02 10:47 | PROVIDERS: PCP Nurse Practitioner Family; Referring Provider Nurse Practitioner Family; Visit Provider Internal Medicine Cardiovascular Disease | DX: I48.0 Paroxysmal atrial fibrillation (principal); R00.2 Palpitations; I47.1 Supraventricular tachycardia; I49.1 Atrial premature depolarization; I49.3 Ventricular premature depolarization; I47.2 Ventricular tachycardia | CPT/HCPCS: 93248 ==

== ENCOUNTER 2020-11-14 03:11 | Outpatient (CLI) | payer MEDICARE, SELFPAY ==
[2020-11-14 12:46] LABS: ALT 29 U/L (16-63); AST 17 U/L (15-37); Albumin 3.5 g/dL (3.4-5.0); Alkaline Phosphatase 103 U/L (46-116); Anion Gap 9.2 mmol/L (3-11); BUN 20 mg/dL (7-18); Bilirubin, Total 0.4 mg/dL (0.2-1.0); CO2 26.8 mmol/L (21.0-32.0); CREATININE 1.3 mg/dL (0.70-1.30); Calcium 8.8 mg/dL (8.5-10.1); Chloride 105 mmol/L (98-107); Estimated GFR 53.39 (mL/min/1.73m2); Glucose 137 mg/dL (74-106); Magnesium 1.9 mg/dL (1.8-2.4); Potassium 4.1 mmol/L (3.5-5.1); Sodium 141 mmol/L (136-145); Total Protein 6.6 g/dL (6.4-8.2)
== END 2020-11-14 03:12 | disposition home or self-care (01) ==
LOC: LBO 03:12
PROVIDERS: PCP Nurse Practitioner Family; Visit Provider Nurse Practitioner Family
DX: I47.2 Ventricular tachycardia (principal)
CPT/HCPCS: 36415; 80053; 83735

== ENCOUNTER 2020-11-19 21:55 | Outpatient (REF) | payer MEDICARE, SELFPAY ==
[2020-11-21 09:13] LABS: IgE 33 IU/mL (<158)
== END 2020-11-19 21:56 | disposition home or self-care (01) ==
LOC: LBN 21:55
PROVIDERS: PCP Nurse Practitioner Family; Visit Provider Student in an Organized Health Care Education/Training Program
DX: J44.9 Chronic obstructive pulmonary disease, unspecified (principal)
CPT/HCPCS: 82785

== ENCOUNTER 2020-11-24 04:12 | Outpatient (CLI) | payer MEDICARE, SELFPAY ==
[2020-11-24] MEDS: Albuterol HFA 18 GM 200 PUFF INH IH (13:46)
[2020-11-24] MEDS: Inhaler, Assist Device 1 EACH MC (13:47)
--- NOTE | 2020-11-24 14:36 | PFT_ITS ---
Date of service: 11/24/20 Time of Service: 13:03 Pulmonary Function Test Result Interpretation Spirometry: Although the FEV1 over FVC ratio was above the lower limit of normal mild obstruction is likely present based on the flow volume loop and the volume- time curve. There was no significant bronchodilator response. Impression Likely mild obstruction with no significant bronchodilator response. Clinical Correlation therefore is recommended.
== END 2020-11-24 04:13 | disposition home or self-care (01) ==
LOC: RT 04:12
PROVIDERS: PCP Nurse Practitioner Family; Visit Provider Student in an Organized Health Care Education/Training Program
DX: J44.9 Chronic obstructive pulmonary disease, unspecified (principal); J45.909 Unspecified asthma, uncomplicated
CPT/HCPCS: 94060

== ENCOUNTER 2020-12-24 10:40 | Inpatient (IN) | payer MEDICARE, SELFPAY ==
[2020-12-24] VITALS (64 sets, daily range): BP systolic 106–135; BP diastolic 38–81; PULSE 72–87; RESP 2–29; TEMP 36.4–36.7; O2SAT 87–98
--- NOTE | 2020-12-24 10:45 | RT.EKG_ITS ---
APPROVED REPORT Exam: Resting ECG Reason for Exam: SOB. Patient Location: E HR:84 bpm ECG Measurements Heart Rate 84 AXIS MI 293 P 54 QRSd 92 QRS -1 QT 376 T 62 QTc 443 Conclusion Sinus rhythm...normal P axis, V-rate 60- 99 Prolonged MI interval...MI >220, V-rate 50- 90 Anteroseptal infarct, old...Q >40mS, V1-V2 sinus rhythm at 84, normal axis, no acute ischemic changes, anteroseptal Q waves not present on prior 10/07/2020, nondiagnostic EKG
--- NOTE | 2020-12-24 11:15 | ED.GENADUL_ITS ---
Discharge Plan Disposition Patient Disposition: [facility] INPATIENT Condition: Stable Discharge Details Chief Complaint: SOB Clinical Impression: Pneumonia, Hypoxia Admit Date/Time: 12/24/20 18:18 Admit Provider: Masoud Mroton Attending Provider: Masoud Morton Primary Care Provider: Alexandrea Trevino ED Provider: Antoni Lopez Discharge Instructions Activity:: Activity as Tolerated Equipment/Supplies:: No Equipment Needed Diet:: Heart healthy/low carb soft moist bite sized Discharge Orders Discharge Orders: Discharge Order (Routine); Ordered 12/26/20 Ordered By: Tiffanie Chau Discharge Data Discharge Date/Time-TO BE ENTERED AT DEPARTURE: 12/24/20 19:14 Medical Decision Making Ifeanyi Narvaez is a 80-year-old man with a history of paroxysmal atrial fibrillation, asthma/COPD, hypertension, GERD, diabetes presenting to the emergency department with shortness of breath. Patient 89% oxygen saturation on room air without history of daytime hypoxia. On exam patient is acutely nontoxic appearing, auscultation of lung shows diminished breath sounds bila terally without rales/rhonchi/wheeze. There is no posterior calf tenderness to palpation and no lower extremity edema. Concern for Covid versus bacterial pneumonia versus COPD exacerbation, possible ACS given recent jaw pain with exertion, other. Exam/history at this time is not consistent with acute aortic pathology, sepsis, acute emergent intra-abdominal process. EKG obtained, shows new Q waves, no STEMI. Plan for telemetry, IV placement, DuoNeb, screening labs, Covid testing, imaging pending D-dimer. Patient received DuoNeb, reports no change in symptoms. That 94% on 1 L nasal cannula oxygen. Labs reviewed, D-dimer elevated, troponin negative. Plan for CT chest. CT chest shows bilateral infiltrate concerning for pneumonia. Covid negative. Plan for IV ceftriaxone, azithromycin. Will admit given pneumonia, hypoxia, plan for cardiac rule out. Medical Records Medical records reviewed: Yes I reviewed the patient's medical records. Imaging Data Radiologic Study: Attestation: I personally reviewed and interpreted this imaging study as follows: Radiologist's impression: EXAM: CT CHEST PE CTA CLINICAL HISTORY: SOB. TECHNIQUE: Imaging Protocol: CT angiography of the chest was performed using pulmonary embolus protocol. Multi planar reconstructions were performed. CONTRAST MATERIAL: Intravenous: Omnipaque 350 Contrast volume: 100 cc COMPARISON: CT CT CHEST WO from 09/30/2020 FINDINGS: CHEST: PULMONARY ARTERIES: There are no intraluminal filling defects to suggest acute pulmonary emboli. LUNGS: There is confluent infiltrate in the right lower lobe lateral basal and posterior basal segments. No pleural effusion. Mild nodular infiltrate is seen in the anterior segment of the right upper lobe. Ground-glass infiltrate in the sub apical left upper lobe and some mild infiltrate is noted in the apical posterior segment of the left upper lobe. Mild infiltrate is noted in the left lower lobe basal segments. No pleural effusion on either side. No focal findings in the trachea and mainstem bronchi. MEDIASTINUM: There is no hilar nor mediastinal adenopathy. Visualized thyroid unremarkable. CARDIAC: Heart size is upper normal. There is no pericardial effusion.Caliber of the thoracic aorta is within normal limits. No evidence of aortic dissection. There is no significant shift of the interventricular septum. PARTIALLY VISUALIZED UPPERMOST ABDOMEN: Hepatic steatosis. No adrenal masses. OSSEOUS: Partially healed right rib fractures 11 and 12. No acute fractures evident.Previously described compression fractures in thoracic spine are unchanged. IMPRESSION: 1. Multifocal bilateral pulmonary infiltrates. No pleural effusions nor intrathoracic adenopathy.. 2. No evidence of aortic dissection 3. No obvious pulmonary emboli, realizing that injection bolus was suboptimal. 4. Partially healed right rib fractures. Lab Data Lab results reviewed: Yes I reviewed the patient's lab results. ECG Data Attestation: I personally reviewed and interpreted this ECG (s) as follows: Interpretation: EKG shows sinus rhythm at 84, normal axis, no acute ischemic changes, anteroseptal Q waves not present on prior 10/07/2020, nondiagnostic EKG HPI General Mode of arrival: ambulatory . Date/Time Provider Initiated Documentation: 12/24/20 10:45 . Limitations to Documentation: no limitations . Information obtained by: patient, RN notes reviewed and old records reviewed . HPI Narrative: Ifeanyi Narvaez is a 80-year-old man with a history of atrial fibrillation, diabetes, COPD, hypertension, hyperlipidemia, GERD presenting to emergency department with chief complaint shortness of breath. Patient reports that he has increasing shortness of breath over the past month or so. He reports he has been seeing pulmonology and cardiology for the, and has been told that his shortness of breath is not related to a cardiac cause. Patient reports that over the past 2 days his shortness of breath seems significantly worse than usual. Patient reports that he also had a cough, somewhat worse than usual, although he does have a cough at baseline. He denies fevers, any pain, vomiting, diarrhea, numbness, weakness, rash, swelling. Patient reports that 2 days ago he experienced jaw pain while walking up a hill, but has not had jaw pain or any other pain since then. Patient does report that his shortness of breath over the last day or 2 has become so significant that he is having a hard time getting around the past care itself. He reports that using his albuterol inhalers and nebulizer is not helping at all. Patient reports that he uses 1 L nasal cannula oxygen at night, but is not on any daytime oxygen. Related Data Home Medications Medication Instructions Recorded Confirmed multivitamin 1 tab PO DAILY 11/12/14 12/24/20 hydrochlorothiazide 12.5 mg capsule 12.5 mg PO DAILY #90 tab-cap 04/15/20 12/24/20 loratadine 10 mg tablet 10 mg PO DAILY #90 tab 04/15/20 12/24/20 omeprazole 20 mg capsule,delayed 20 mg PO DAILY #90 tab-cap 04/15/20 12/24/20 release tamsulosin 0.4 mg capsule See Rx Instructions PO HS #180 04/15/20 12/24/20 tab-cap trazodone 100 mg tablet 100 mg PO HS #90 tab-cap 04/15/20 12/24/20 ipratropium 0.5 mg-albuterol 3 mg 3 ml UPD QID PRN #180 ml 04/16/20 12/24/20 (2.5 mg base)/3 mL nebulization soln prednisone 5 mg tablet 5 mg PO DAILY #90 tab 05/28/20 12/24/20 sertraline 25 mg tablet 25 mg PO DAILY #20 tab-cap 08/22/20 12/24/20 albuterol sulfate 90 mcg/actuation 2 inh INHALATION Q6H PRN #3 ea 09/12/20 aerosol inhaler fluticasone fur. 100 mcg-umeclid 1 inh INHALATION DAILY #90 ea 09/19/20 12/24/20 62.5 mcg-vilant 25 mcg inhalat.powder potassium chloride 20 meq PO DAILY #45 tab-cap 10/02/20 12/24/20 blood sugar diagnostic #100 ea 10/17/20 12/04/20 blood-glucose meter #1 ea 10/17/20 12/04/20 lancets 33 gauge #100 ea 10/17/20 12/04/20 dupilumab 200 mg/1.14 mL 200 mg SUBCUT Q2W #1.14 ml 11/19/20 12/04/20 subcutaneous pen injector azithromycin 250 mg tablet 250 mg PO .M, W, F #36 tab 12/04/20 12/24/20 cefpodoxime 100 mg PO BID #10 tab 12/26/20 Previous Rx's Medication Instructions Recorded hydrochlorothiazide 12.5 mg capsule 12.5 mg PO DAILY #90 tab-cap 04/15/20 loratadine 10 mg tablet 10 mg PO DAILY #90 tab 04/15/20 omeprazole 20 mg capsule,delayed 20 mg PO DAILY #90 tab-cap 04/15/20 release tamsulosin 0.4 mg capsule See Rx Instructions PO HS #180 04/15/20 tab-cap trazodone 100 mg tablet 100 mg PO HS #90 tab-cap 04/15/20 ipratropium 0.5 mg-albuterol 3 mg 3 ml UPD QID PRN #180 ml 04/16/20 (2.5 mg base)/3 mL nebulization soln prednisone 5 mg tablet 5 mg PO DAILY #90 tab 05/28/20 sertraline 25 mg tablet 25 mg PO DAILY #20 tab-cap 08/22/20 albuterol sulfate 90 mcg/actuation 2 inh INHALATION Q6H PRN #3 ea 09/12/20 aerosol inhaler fluticasone fur. 100 mcg-umeclid 1 inh INHALATION DAILY #90 ea 09/19/20 62.5 mcg-vilant 25 mcg inhalat.powder potassium chloride 20 meq PO DAILY #45 tab-cap 10/02/20 blood sugar diagnostic #100 ea 10/17/20 blood-glucose meter #1 ea 10/17/20 lancets 33 gauge #100 ea 10/17/20 dupilumab 200 mg/1.14 mL 200 mg SUBCUT Q2W #1.14 ml 11/19/20 subcutaneous pen injector azithromycin 250 mg tablet 250 mg PO .M, W, F #36 tab 12/04/20 cefpodoxime 100 mg PO BID #10 tab 12/26/20 Allergies Allergy/AdvReac Type Severity Reaction Status Date / Time atorvastatin AdvReac Mild MUSCLE Verified 12/24/20 10:56 FATIGUE simvastatin AdvReac Mild MUSCLE Verified 12/24/20 10:56 FATIGUE General Stated Complaint: SOB AMERICO: 2 Review of Systems Narrative: Constitutional: denies fevers Eyes: denies eye pain ENT: denies ear pain, dental pain, sore throat Cardiovascular: denies chest pain, edema Respiratory: Reports SOB, cough GI: denies abdominal pain, vomiting, diarrhea : denies flank pain MSK: denies back pain, neck pain, arthralgias, myalgias Skin: denies rash Neuro: denies headaches, numbness, weakness [facility] Medical History Allergic rhinitis Asthma-COPD overlap syndrome Followed by [facility] pulmonology BPH w urinary obs/LUTS Essential hypertension Essential tremor First degree AV block Gastroesophageal reflux disease Morris de la Tourette's syndrome History of tobacco use Insomnia Major depressive disorder Nonsustained ventricular tachycardia Asymptomatic, 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 MASON (obstructive sleep apnea) Osteoarthritis Osteomyelitis of left foot Status post hallux amputation Paroxysmal atrial fibrillation Pes valgus of left foot 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 Son No problems noted. Daughter No problems noted. Paternal Grandfather No problems noted. Paternal Grandmother No problems noted. Maternal Grandfather No problems noted. Maternal Grandmother Cancer Social History Smoking/Tobacco Use Status: Former Tobacco Use Quit Date: 04/18/79 Second Hand Exposure: Yes Smoking risk assessment performed?: Yes Alcohol Intake: never Drug use: Never Substance use type: does not use Caregiver/Support person: No Household members: spouse and children Housing: house Communication Needs: Hard of Hearing Do you need help understanding health information?: Never Pets and animals: Yes Pets and animals: cat(s) Sexually active: No Do you think of yourself as: straight/heterosexual Current gender identity: male What is your relationship status?: How often do you talk on the phone with friends or family?: three or more times per week How often do you get together with friends or relatives?: once per week How often do you attend episcopalian or mormonism services?: 1-3 times per year Do you belong to any clubs or organized social groups?: no Panel score (0-1 are the most socially isolated patients): 2 What type of physical activity do you participate in: walking Duration: 15-30 minutes/day Frequency: daily Alexandrea/Bahai: None Special alexandrea needs: No Seatbelt use: always Helmet use: No Drive intox or ride w/intox livery car driver: No Do you feel safe at home: Yes Do you feel safe in your relationship?: Yes Exam Narrative Exam Narrative: Constitutional: well and [id number], pleasant, conversing normally HENT: head atraumatic/normocephalic/normal inspection, mucous membranes moist Eyes: conjunctiva normal, sclera normal, pupils 3mm b/l Neck: no stridor, normal ROM, trachea midline Chest: normal inspection Resp: normal work of breathing, decreased breath sounds b/l, no rales/wheeze/rhonchi Cardio: normal rate, normal rhythm, no murmur appreciated GI: abdomen soft, non-tender, non-distended Back: normal inspection, no rash Skin: warm, dry, normal color, no rash Neuro: alert, not altered, grossly non-focal, normal tone Ext: no edema, no posterior calf tenderness to palpation Psych: normal mood, normal affect, normal behavior Course Vital Signs Vital signs: Vital Signs Temperature 36.5 C 12/24/20 10:49 Pulse 85 12/24/20 10:49 Respiratory Rate 17 12/24/20 10:49 Blood Pressure 124/74 12/24/20 10:49 Pulse Oximetry 91 L 12/24/20 10:49 Temperature 36.5 C 12/24/20 10:49 Temperature Source Oral 12/24/20 10:49 Pulse 85 12/24/20 10:49 Respiratory Rate 17 12/24/20 10:49 Respiratory Effort Non-Labored 12/24/20 10:55 Blood Pressure 124/74 12/24/20 10:49 Blood Pressure Position Supine 12/24/20 10:49 Pulse Oximetry 91 L 12/24/20 10:49 Oxygen Delivery Method Room Air 12/24/20 10:49 Oxygen Flow Rate 0 12/24/20 10:49 Pain Level 0 12/24/20 10:49 Sign Out Sign Out Data: Sign Out Comment: Pt signed out to Dr. Lopez at time of shift change with admission pending. Last updated by Karen Zheng MD at 12/24/20 16:58
[2020-12-24] MEDS: methylPREDNISolone SUCC 125 MG VIAL IVP (11:50)
[2020-12-24] MEDS: Albuterol/Ipratropium 3 ML UPD VIAL UPD ×2 (11:50→21:26)
[2020-12-24 12:03] LABS: Source Nasal/Nares
[2020-12-24 12:05] LABS: Abs Immature Grans 0.04 10^3/uL (0.0-0.06); Absolute Basophil Count 0.05 10^3/uL (0.0-0.2); Absolute Eosinophil Count 0.25 10^3/uL (0.0-0.7); Absolute Lymphocyte Count 0.94 10^3/uL (1.2-3.4); Absolute Neutrophil Count 5.94 10^3/uL (1.2-6.7); Basophils % 0.6; Eosinophils % 3.1; HCT 42.2 % (40.0-50.0); HGB 14.2 g/dL (13.5-17.5); Immature Grans % 0.5; Lymphocytes % 11.7; MCH 30.6 pg (27.0-33.0); MCHC 33.6 % (32.0-36.0); MCV 90.9 fL (80-95); MPV 10.4 fL (8.0-11.0); Neutrophils % 74.1; Nucleated RBC 0 %; Platelet Count 183 10^3/uL (130-400); RBC 4.64 10^6/uL (4.36-5.78); RDW 13.3 % (11.8-14.1); RDW-SD 44.8 fL; WBC 8.02 10^3/uL (4.4-10.8)
[2020-12-24 12:28] LABS: ALT 28 U/L (16-63); AST 18 U/L (15-37); Albumin 3.1 g/dL (3.4-5.0); Alkaline Phosphatase 95 U/L (46-116); Anion Gap 7.4 mmol/L (3-11); BUN 24 mg/dL (7-18); Bilirubin, Total 0.6 mg/dL (0.2-1.0); CO2 28.6 mmol/L (21.0-32.0); CREATININE 1.3 mg/dL (0.70-1.30); Calcium 8.9 mg/dL (8.5-10.1); Chloride 104 mmol/L (98-107); Estimated GFR 53.39 (mL/min/1.73m2); Glucose 139 mg/dL (74-106); NT-proBNP 235 pg/mL (<300); Potassium 3.7 mmol/L (3.5-5.1); Sodium 140 mmol/L (136-145); Total Protein 6.6 g/dL (6.4-8.2); Troponin I < 0.05 ng/mL (<0.06)
[2020-12-24 12:35] LABS: D-Dimer 1307 ng/mlFEU (<500)
--- NOTE | 2020-12-24 12:45 | DI.CT_ITS ---
Exam(s) CT CHEST PE CTA EXAM: CT CHEST PE CTA CLINICAL HISTORY: SOB. TECHNIQUE: Imaging Protocol: CT angiography of the chest was performed using pulmonary embolus erin col. Multi planar reconstructions were performed. CONTRAST MATERIAL: Intravenous: Omnipaque 350 Contrast volume: 100 cc COMPARISON: CT CT CHEST WO from 09/30/2020 FINDINGS: CHEST: PULMONARY ARTERIES: There are no intraluminal filling defects to suggest acute pulmonary emboli. LUNGS: There is confluent infiltrate in the right lower lobe lateral basal and posterior basal segmen ts. No pleural effusion. Mild nodular infiltrate is seen in the anterior segment of the right upper lobe. Ground-glass infiltrate in the sub apical left upper lobe and some mild infiltrate is noted i n the apical posterior segment of the left upper lobe. Mild infiltrate is noted in the left lower lo be basal segments. No pleural effusion on either side. No focal findings in the trachea and mainste m bronchi. MEDIASTINUM: There is no hilar nor mediastinal adenopathy. Visualized thyroid unremarkable. CARDIAC: Heart size is upper normal. There is no pericardial effusion.Caliber of the thoracic aorta is within normal limits. No evidence of aortic dissection. There is no significant shift of the inte rventricular septum. PARTIALLY VISUALIZED UPPERMOST ABDOMEN: Hepatic steatosis. No adrenal masses. OSSEOUS: Partially healed right rib fractures 11 and 12. No acute fractures evident.Previously descr ibed compression fractures in thoracic spine are unchanged. IMPRESSION: 1. Multifocal bilateral pulmonary infiltrates. No pleural effusions nor intrathoracic adenopathy.. 2. No evidence of aortic dissection 3. No obvious pulmonary emboli, realizing that injection bolus was suboptimal. 4. Partially healed right rib fractures. Report called by myself to ER physician. RADIATION DOSE DELIVERED: Total DLP DATA REPOSITORY: All CT scans at this facility are submitted to the National Radiology Data Registry (NRDR) Dose Index Registry (DIR) with the [employer] (ACR). RADIATION OPTIMIZATION: All CT scans at this facility use at least one of these dose optimization te chniques: automated exposure control; mA and/or kV adjustment per patient size (includes targeted exa ms where dose is matched to clinical indication); or iterative reconstruction.
[2020-12-24 13:00] LABS: COVID-19 PCR Negative (Negative)
[2020-12-24 14:35] LABS: Troponin I < 0.05 ng/mL (<0.06)
[2020-12-24] MEDS: Omnipaque 350 MG/ML 100 ML BTL IV (15:15)
[2020-12-24] MEDS: cefTRIAXone 1 GM/50 ML BAG IVPB (16:50)
[2020-12-24] MEDS: AZITHROMYCIN 500 MG in Normal Saline 250 ML 250 MG IVPB (17:40)
[2020-12-24] MEDS: traZODone 100 MG TAB PO (21:27)
[2020-12-24] MEDS: Tamsulosin 0.4 MG CAPCR 0.8 MG PO (21:27)
[2020-12-24] MEDS: Heparin 5,000 UNITS/ML VIAL 5000 UNITS SC (21:28)
[2020-12-25] VITALS (7 sets, daily range): BP systolic 117–132; BP diastolic 63–74; PULSE 76–90; RESP 1–19; TEMP 35.7–37; O2SAT 90–95
[2020-12-25] MEDS: Albuterol/Ipratropium 3 ML UPD VIAL UPD ×3 (05:33→18:05)
[2020-12-25] MEDS: Heparin 5,000 UNITS/ML VIAL 5000 UNITS SC ×3 (05:36→22:07)
[2020-12-25] MEDS: Normal Saline Flush 10 ML SYR IVP ×2 (05:36→09:19)
--- NOTE | 2020-12-25 06:02 | HPE_ITS ---
Date of service: 12/24/20 Time of Service: 19:30 Assessment and Plan Assessment and plan (1) Asthma-COPD overlap syndrome: Status: Chronic Assessment and plan: Cont Duonebs and prn albuterol updrafts Cont Trilegy Given methylprednisolone 125mg IV in ED; cont dosing at 40mg IV Q12H. He is on chronic prednisone 5 mg daily. (2) Type 2 diabetes mellitus: Status: Chronic Assessment and plan: Initial random glucose of 163. Pt not on any diabetic meds. Diabetic diet. Glucose monitoring with SS correction insulin dosing. (3) Paroxysmal atrial fibrillation: Status: Acute Assessment and plan: Not on anticoagulation or rate controlling medication. Monitor. (4) Essential hypertension: Status: Chronic Assessment and plan: Cont HCTZ Monitor (5) MASON (obstructive sleep apnea): Status: Chronic Assessment and plan: Uses CPAP (6) Morris de la Tourette's syndrome: Status: Chronic (7) CAP (community acquired pneumonia): Status: Acute Assessment and plan: Cont Rocephin and Azithromycin. Supplemental O2 as needed. COVID neg. History of Present Illness History of Present Illness Chief Complaint: Shortness of breath. Narrative: This is a 80 yo male with a PMH of PAF, DM2, COPD/asthma overlap, MASON, HTN, HLD, GERD, Tourettes. He presented to the ED with c/o shortness of breath that has been increasing over the past appx 1 month. He was seen by pulmonary medicine on 11/19/20 with PFTS performed on 11/24/20. His SOA has been particularly worse over the 2 days prior to admission. He has a chronic cough that is somewhat worse than usual. No F/C, CP/palpitation. No N/V/abd pain. He did endorse jaw pain while walking up a hill 2 days prior to admission. He states his nebulizer treatments don't seem to be helping with his SOA. He does use a CPAP machine and 1L supplemental O2 at night only. Initial RA O2 saturations were 87-91%. With 2L supplemental O2 his saturations are in the 93-94 range predominately. His WBC count was normal. Hgb normal. Electrolytes normal. Creatinine 1.3 (baseline). COVID-[address] chest results: 1. Multifocal bilateral pulmonary infiltrates. No pleural effusions nor intrathoracic adenopathy.. 2. No evidence of aortic dissection 3. No obvious pulmonary emboli, realizing that injection bolus was suboptimal. 4. Partially healed right rib fractures. Ceftriaxone and Azithromycin administered in the ED. Review of Systems All systems reviewed & are unremarkable except as noted in HPI and below PFSH Medical History Allergic rhinitis Asthma-COPD overlap syndrome Followed by [facility] pulmonology BPH w urinary obs/LUTS Essential hypertension Essential tremor First degree AV block Gastroesophageal reflux disease Morris de la Tourette's syndrome History of tobacco use Insomnia Major depressive disorder Nonsustained ventricular tachycardia Asymptomatic, noted on playground monitor October 2020 MASON (obstructive sleep apnea) Osteoarthritis Osteomyelitis of left foot Status post hallux amputation Paroxysmal atrial fibrillation Pes valgus of left foot 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 Son No problems noted. Daughter No problems noted. Paternal Grandfather No problems noted. Paternal Grandmother No problems noted. Maternal Grandfather No problems noted. Maternal Grandmother Cancer Social History Smoking/Tobacco Use Status: Former Tobacco Use Quit Date: 04/18/79 Second Hand Exposure: Yes Smoking risk assessment performed?: Yes Alcohol Intake: never Drug use: Never Substance use type: does not use Caregiver/Support person: No Household members: spouse and children Housing: house Communication Needs: Hard of Hearing Do you need help understanding health information?: Never Pets and animals: Yes Pets and animals: cat(s) Sexually active: No Do you think of yourself as: straight/heterosexual Current gender identity: male What is your relationship status?: How often do you talk on the phone with friends or family?: three or more times per week How often do you get together with friends or relatives?: once per week How often do you attend sikhism or pentecostalism services?: 1-3 times per year Do you belong to any clubs or organized social groups?: no Panel score (0-1 are the most socially isolated patients): 2 What type of physical activity do you participate in: walking Duration: 15-30 minutes/day Frequency: daily Alexandrea/Yarsanism: None Special alexandrea needs: No Seatbelt use: always Helmet use: No Drive intox or ride w/intox pickup driver: No Do you feel safe at home: Yes Do you feel safe in your relationship?: Yes Meds Allergies and Home Medications Allergies Allergy/AdvReac Type Severity Reaction Status Date / Time atorvastatin AdvReac Mild MUSCLE Verified 12/24/20 10:56 FATIGUE simvastatin AdvReac Mild MUSCLE Verified 12/24/20 10:56 FATIGUE Home Medications Medication Instructions Recorded Confirmed Type multivitamin 1 tab PO DAILY 11/12/14 12/24/20 History hydrochlorothiazide 12.5 mg capsule 12.5 mg PO DAILY #90 tab-cap 04/15/20 12/24/20 Rx loratadine 10 mg tablet 10 mg PO DAILY #90 tab 04/15/20 12/24/20 Rx omeprazole 20 mg capsule,delayed 20 mg PO DAILY #90 tab-cap 04/15/20 12/24/20 Rx release tamsulosin 0.4 mg capsule See Rx Instructions PO HS #180 04/15/20 12/24/20 Rx tab-cap trazodone 100 mg tablet 100 mg PO HS #90 tab-cap 04/15/20 12/24/20 Rx ipratropium 0.5 mg-albuterol 3 mg 3 ml UPD QID PRN #180 ml 04/16/20 12/24/20 Rx (2.5 mg base)/3 mL nebulization soln prednisone 5 mg tablet 5 mg PO DAILY #90 tab 05/28/20 12/24/20 Rx sertraline 25 mg tablet 25 mg PO DAILY #20 tab-cap 08/22/20 12/24/20 Rx albuterol sulfate 90 mcg/actuation 2 inh INHALATION Q6H PRN #3 ea 09/12/20 12/24/20 Rx aerosol inhaler fluticasone fur. 100 mcg-umeclid 1 inh INHALATION DAILY #90 ea 09/19/20 12/24/20 Rx 62.5 mcg-vilant 25 mcg inhalat.powder potassium chloride 20 meq PO DAILY #45 tab-cap 10/02/20 12/24/20 Rx blood sugar diagnostic #100 ea 10/17/20 12/04/20 Rx blood-glucose meter #1 ea 10/17/20 12/04/20 Rx lancets 33 gauge #100 ea 10/17/20 12/04/20 Rx dupilumab 200 mg/1.14 mL 200 mg SUBCUT Q2W #1.14 ml 11/19/20 12/04/20 Rx subcutaneous pen injector azithromycin 250 mg tablet 250 mg PO .M, W, F #36 tab 12/04/20 12/24/20 Rx Exam Const General: cooperative and no acute distress Nutritional Appearance: obese Orientation: alert and oriented x3 HENMT Head: normocephalic and atraumatic Eyes General: appearance normal, both eyes and all related structures Sclera: sclerae normal Resp Effort & Inspection: normal respiratory effort Auscultation: clear to auscultation bilaterally and diminished lung sounds Cardio Rate: regular rate Rhythm: regular rhythm Heart Sounds: S1 normal and S2 normal GI Palpation: soft and nontender Auscultation: normal bowel sounds Skin General skin exam: no rashes or lesions noted Neuro General: no focal motor deficits Cranial Nerves: facial strength normal Cognition: normal cognition Speech: speech normal Motor: other (Intermittent facial tic) Extrem General: no pedal edema and no calf tenderness Psych Appearance: grossly normal Mental Status: mental status grossly normal Speech and Movement: speech and movement normal Affect: normal affect Results Labs Result diagrams: 12/25/20 06:45 12/25/20 06:45 Labs: Laboratory Results - last 24 hr 12/24/20 12/24/20 12/24/20 11:25 11:25 11:25 WBC 8.02 RBC 4.64 Hgb 14.2 Hct 42.2 MCV 90.9 MCH 30.6 MCHC 33.6 RDW 13.3 Plt Count 183 MPV 10.4 Immature Gran % 0.5 Neutrophils % 74.1 Lymphocytes % 11.7 Monocytes % 10.0 Eosinophils % 3.1 Basophils % 0.6 Nucleated RBC % 0 Absolute Neutrophils 5.94 Absolute Lymphocytes 0.94 L Absolute Monocytes 0.80 Absolute Eosinophils 0.25 Absolute Basophils 0.05 D-Dimer 1307 H Sodium 140 Potassium 3.7 Chloride 104 Carbon Dioxide 28.6 Anion Gap 7.4 BUN 24 H Creatinine 1.3 Estimated GFR/1.73 m2 53.39 Glucose 139 H Calcium 8.9 Total Bilirubin 0.6 AST 18 ALT 28 Alkaline Phosphatase 95 Troponin I < 0.05 NT-Pro-B Natriuret Pep 235 Total Protein 6.6 Albumin 3.1 L COVID-19 Source SARS-CoV-2 (PCR) 12/24/20 12/24/20 11:47 14:10 WBC RBC Hgb Hct MCV MCH MCHC RDW Plt Count MPV Immature Gran % Neutrophils % Lymphocytes % Monocytes % Eosinophils % Basophils % Nucleated RBC % Absolute Neutrophils Absolute Lymphocytes Absolute Monocytes Absolute Eosinophils Absolute Basophils D-Dimer Sodium Potassium Chloride Carbon Dioxide Anion Gap BUN Creatinine Estimated GFR/1.73 m2 Glucose Calcium Total Bilirubin AST ALT Alkaline Phosphatase Troponin I < 0.05 NT-Pro-B Natriuret Pep Total Protein Albumin COVID-19 Source Nasal/Nares SARS-CoV-2 (PCR) Negative Last Vital Signs Temp 36.7 C 12/25/20 02:55 Pulse 76 12/25/20 02:55 Resp 19 12/25/20 05:33 BP 132/67 12/25/20 02:55 Pulse Ox 93 12/25/20 02:55
[2020-12-25 07:44] LABS: Abs Immature Grans 0.07 10^3/uL (0.0-0.06); Absolute Basophil Count 0.01 10^3/uL (0.0-0.2); Absolute Lymphocyte Count 0.95 10^3/uL (1.2-3.4); Basophils % 0.1; HCT 41.8 % (40.0-50.0); HGB 14.2 g/dL (13.5-17.5); Immature Grans % 0.5; Lymphocytes % 6.9; MCH 30.2 pg (27.0-33.0); MCV 88.9 fL (80-95); MPV 10.5 fL (8.0-11.0); Monocytes % 3.4; Neutrophils % 89.1; Nucleated RBC 0 %; Platelet Count 207 10^3/uL (130-400); RDW 13.2 % (11.8-14.1); RDW-SD 43.1 fL; WBC 13.73 10^3/uL (4.4-10.8)
[2020-12-25 07:46] LABS: Absolute Monocyte Count 0.47 10^3/uL (0.1-0.8); Absolute Neutrophil Count 12.23 10^3/uL (1.2-6.7)
[2020-12-25 08:01] LABS: Anion Gap 12.4 mmol/L (3-11); BUN 25 mg/dL (7-18); CO2 24.6 mmol/L (21.0-32.0); CREATININE 1.5 mg/dL (0.70-1.30); Chloride 103 mmol/L (98-107); Estimated GFR 45.26 (mL/min/1.73m2); Glucose 163 mg/dL (74-106); Potassium 3.8 mmol/L (3.5-5.1); Sodium 140 mmol/L (136-145)
[2020-12-25 08:02] LABS: Magnesium 2.1 mg/dL (1.8-2.4)
[2020-12-25] MEDS: cefTRIAXone 1 GM/50 ML BAG IVPB (08:31)
[2020-12-25] MEDS: Azithromycin 250 MG TAB 500 MG PO (08:32)
[2020-12-25] MEDS: Potassium Chloride 10 MEQ CAPCR 20 MEQ PO (08:32)
[2020-12-25] MEDS: hydroCHLOROthiazide 12.5 MG TAB PO (08:32)
[2020-12-25] MEDS: predniSONE 5 MG TAB PO (08:32)
[2020-12-25] MEDS: Omeprazole 20 MG CAPCR PO (08:32)
[2020-12-25] MEDS: Loratidine 10 MG TAB PO (08:32)
[2020-12-25] MEDS: Sertraline 25 MG TAB PO (08:32)
--- NOTE | 2020-12-25 08:50 | PDOC.CMIN ---
- If Service Date Differs Date of service: 12/25/20 Time of Service: 08:50 Care Management Initial Assess REASON FOR HOSPITALIZATION:: asthma, COPD PAST MEDICAL HISTORY/PAST SURGICAL HISTORY:: Medical History . Allergic rhinitis. Asthma-COPD overlap syndrome. Followed by [facility] pulmonology. BPH w urinary obs/LUTS. Essential hypertension. Essential tremor. First degree AV block. Gastroesophageal reflux disease. Morris de la Tourette's syndrome. History of tobacco use. Insomnia. Major depressive disorder. Nonsustained ventricular tachycardia. Asymptomatic, noted on dye reel operator helper October 2020. MASON (obstructive sleep apnea). Osteoarthritis. Osteomyelitis of left foot. Status post hallux amputation. Paroxysmal atrial fibrillation. Pes valgus of left foot. Pes valgus planus deformity. Posterior tibial tendon dysfunction, left. Prediabetes. Squamous cell carcinoma, face. Type 2 diabetes mellitus. Surgical History . History of carpal tunnel surgery of left wrist. History of revision of total replacement of right knee joint. S/P cholecystectomy. S/P nasal septoplasty. Status post amputation of great toe. Left foot. Status post cholecystectomy. Status post left foot surgery. Flatfoot correction. Status post total knee replacement, right PREVIOUS FUNCTIONAL STATUS/SOCIAL/FAMILY SUPPORTS:: Ifeanyi is a 80 year old man who lives in [place] with his , Marlin and daughter Karen. Ifeanyi also has 2 sons who live in the area. He describes his family as very close and supportive. 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 He is independent at baseline and he occupies his time going to doctor's appointments, fixing things around the house, and visiting with family. CURRENT FUNCTIONAL STATUS:: Ifeanyi was sitting up in a chair when CM met with him. He was pleasant in interaction and engaged well with CM. Ifeanyi informed CM that he is feeling much better than when he first arrived. He talked freely about his family and about his career as a heat engineering teacher. When asked if he missed it he admitted he misses the haying but not the cows. ADVANCE DIRECTIVES:: On file, his Marlin Narvaez is appointed as Health Care Agent. Has patient been provided with info about the portal/API?: Yes Did the patient sign up for the portal?: No CODE STATUS:: Full Code INSURANCE COVERAGE / FINANCIAL ISSUES:: [facility] and Medicare. CURRENT HOME/COMMUNITY SERVICES/EQUIPMENT:: Ifeanyi has no in-home services. He has a CPAP machine, nebulizer, and uses oyxgen at night time. PRIMARY CARE PHYSICIAN:: Alexandrea Trevino NP. POTENTIAL DISCHARGE NEEDS:: Follow up appointment with PCP and discharge plan of care. PATIENT/FAMILY EDUCATION NEEDS:: Discharge instructions, limitations, and follow up plan of care, including Ask Me Three and self management. TRANSPORTATION:: Via private vehicle with family. PLAN:: Ifeanyi will likely be discharged home with no new services when medically cleared. He will follow up with his PCP and discharge plan of care and his family will drive him home via private vehicle. CM will continue to support Ifeanyi and his discharge planning needs.
[2020-12-25] MEDS: methylPREDNISolone SUCC 40 MG VIAL IVP (09:19)
[2020-12-25] MEDS: Insulin Aspart 300 UNITS/3 ML PEN SC ×2 (11:45→16:57)
--- NOTE | 2020-12-25 17:42 | W.PM.PROGNOT ---
Date of Service Date of service: 12/25/20 Time of Service: 17:43 Assessment and Plan Assessment and plan (1) Asthma-COPD overlap syndrome: Start date: 12/25/20 Start time: 16:30 Status: Chronic Assessment and plan: Cont Duonebs and prn albuterol updrafts Cont Trilegy Prednisone changed to 40 mg daily with 5 mg of his chronic dosing LSC diminished (2) Type 2 diabetes mellitus: Start date: 12/25/20 Start time: 16:30 Status: Chronic Assessment and plan: Initial random glucose of 163. Pt not on any diabetic meds. Diabetic diet. Glucose monitoring with SS correction insulin dosing. (3) Paroxysmal atrial fibrillation: Start date: 12/25/20 Start time: 16:30 Status: Acute Assessment and plan: Not on anticoagulation or rate controlling medication. Monitor. (4) Essential hypertension: Start date: 12/25/20 Start time: 16:30 Status: Chronic Assessment and plan: Cont HCTZ Monitor (5) MASON (obstructive sleep apnea): Start date: 12/25/20 Start time: 16:30 Status: Chronic Assessment and plan: Uses CPAP (6) CAP (community acquired pneumonia): Start date: 12/25/20 Start time: 16:30 Status: Acute Assessment and plan: Multifocal bilateral pulmonary infiltrates Cont Rocephin and Azithromycin. Supplemental O2 as needed. COVID neg. (7) Dysphagia: Start date: 12/25/20 Start time: 16:30 Status: Acute Assessment and plan: NPO meds with pudding or thickened liquids until ST consult IV hydration (8) Discharge planning issues: Start date: 12/25/20 Start time: 16:30 Status: Acute Assessment and plan: Home when medically ready discussed with Dr. Calhoun Subjective Subjective Patient reports: feels better Interval history since last seen: No new complaints. Given IS and acapella. LS diminished. He is requiring oxygen. He did require oxygen in the past. Though has been [facility] to [facility]. Will do exercise oximetry tomorrow. Per nursing coughing and choking with swallowing, will make NPO, IVF initiated.and speech consult placed. Denies CP, SOB worsening, n/v/d Exam Const General: cooperative and no acute distress Nutritional Appearance: obese Orientation: alert and oriented x3 HENMT Head: normocephalic and atraumatic Eyes General: appearance normal, both eyes and all related structures Sclera: sclerae normal Resp Effort & Inspection: normal respiratory effort Auscultation: clear to auscultation bilaterally and diminished lung sounds Cardio Rate: regular rate Rhythm: regular rhythm Heart Sounds: S1 normal and S2 normal GI Palpation: soft and nontender Auscultation: normal bowel sounds Skin General skin exam: no rashes or lesions noted Neuro General: no focal motor deficits Cranial Nerves: facial strength normal Cognition: normal cognition Speech: speech normal Motor: other (Intermittent facial tic) Extrem General: no pedal edema and no calf tenderness Psych Appearance: grossly normal Mental Status: mental status grossly normal Speech and Movement: speech and movement normal Affect: normal affect Objective Last Vital Signs Temp 36.8 C 12/25/20 15:48 Pulse 83 12/25/20 15:48 Resp 18 12/25/20 15:48 BP 119/63 12/25/20 15:48 Pulse Ox 90 L 12/25/20 15:48 Laboratory Results - last 24 hr 12/25/20 12/25/20 12/25/20 06:45 06:45 06:45 WBC 13.73 H D RBC 4.70 Hgb 14.2 Hct 41.8 MCV 88.9 MCH 30.2 MCHC 34.0 RDW 13.2 Plt Count 207 MPV 10.5 Immature Gran % 0.5 Neutrophils % 89.1 Lymphocytes % 6.9 Monocytes % 3.4 Eosinophils % 0.0 Basophils % 0.1 Nucleated RBC % 0 Absolute Neutrophils 12.23 H Absolute Lymphocytes 0.95 L Absolute Monocytes 0.47 Absolute Eosinophils 0.00 Absolute Basophils 0.01 Sodium 140 Potassium 3.8 Chloride 103 Carbon Dioxide 24.6 Anion Gap 12.4 H BUN 25 H Creatinine 1.5 H Estimated GFR/1.73 m2 45.26 Glucose 163 H Calcium 9.0 Magnesium 2.1
--- NOTE | 2020-12-25 18:14 | CHAPLAIN ---
Ifeanyi was sitting up in his chair when I visited. 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 He's been able to be in touch with family by phone. Ifeanyi asked for cranberry juice which I got for him.
[2020-12-25] MEDS: Normal Saline 1,000 ML 150 ML IV (18:44)
[2020-12-25] MEDS: AZITHROMYCIN 250 MG in Normal Saline 250 ML IVPB (18:44)
[2020-12-25] MEDS: traZODone 100 MG TAB PO (22:06)
[2020-12-25] MEDS: Tamsulosin 0.4 MG CAPCR 0.8 MG PO (22:06)
[2020-12-26] MEDS: Normal Saline 1,000 ML 150 ML IV ×2 (02:28→08:44)
[2020-12-26 03:00] VITALS: BP 130/73; PULSE 71; RESP 18; TEMP 36.5; O2SAT 93
[2020-12-26] MEDS: Heparin 5,000 UNITS/ML VIAL 5000 UNITS SC (06:31)
[2020-12-26 07:18] LABS: Abs Immature Grans 0.05 10^3/uL (0.0-0.06); Absolute Basophil Count 0.01 10^3/uL (0.0-0.2); Absolute Eosinophil Count 0.04 10^3/uL (0.0-0.7); Absolute Lymphocyte Count 1.39 10^3/uL (1.2-3.4); Absolute Monocyte Count 0.67 10^3/uL (0.1-0.8); Absolute Neutrophil Count 8.96 10^3/uL (1.2-6.7); Basophils % 0.1; Eosinophils % 0.4; HCT 39.6 % (40.0-50.0); HGB 13.2 g/dL (13.5-17.5); Immature Grans % 0.4; Lymphocytes % 12.5; MCH 30.4 pg (27.0-33.0); MCHC 33.3 % (32.0-36.0); MCV 91.2 fL (80-95); MPV 10.2 fL (8.0-11.0); Neutrophils % 80.6; Nucleated RBC 0 %; Platelet Count 172 10^3/uL (130-400); RBC 4.34 10^6/uL (4.36-5.78); RDW 13.2 % (11.8-14.1); RDW-SD 44.4 fL; WBC 11.12 10^3/uL (4.4-10.8)
[2020-12-26 07:35] LABS: Anion Gap 6.1 mmol/L (3-11); BUN 33 mg/dL (7-18); CO2 28.9 mmol/L (21.0-32.0); CREATININE 1.2 mg/dL (0.70-1.30); Calcium 8.4 mg/dL (8.5-10.1); Chloride 106 mmol/L (98-107); Estimated GFR 58.56 (mL/min/1.73m2); Glucose 94 mg/dL (74-106); Sodium 141 mmol/L (136-145)
[2020-12-26 07:59] VITALS: BP 138/79; PULSE 68; RESP 18; TEMP 36.7; O2SAT 94
[2020-12-26] MEDS: cefTRIAXone 1 GM/50 ML BAG IVPB (08:44)
[2020-12-26] MEDS: predniSONE 5 MG TAB PO (08:45)
[2020-12-26] MEDS: Loratidine 10 MG TAB PO (08:45)
[2020-12-26] MEDS: Potassium Chloride 10 MEQ CAPCR 20 MEQ PO (08:45)
[2020-12-26] MEDS: Sertraline 25 MG TAB PO (08:45)
[2020-12-26] MEDS: hydroCHLOROthiazide 12.5 MG TAB PO (08:45)
[2020-12-26] MEDS: Omeprazole 20 MG CAPCR PO (08:45)
[2020-12-26] MEDS: predniSONE 20 MG TAB 40 MG PO (08:45)
--- NOTE | 2020-12-26 09:17 | RESPIRATORY ---
Pt brought in his home c-pap unit to use at night. Upon inspection unit is a respironics unit on the current recall list. Pt is notified of this, and that we will provide a hospital unit for the duration of his stay. He was also given the phone number to call and register his home unit with the [employer] .
[2020-12-26 10:05] VITALS: PULSE 84; PULSE 85; PULSE 86; RESP 16; O2SAT 93; O2SAT 96
--- NOTE | 2020-12-26 10:05 | PUCON_ITS ---
General Date Of Service Date of service: 12/26/20 Time of Service: 09:30 Assessment and Plan Assessment and plan (1) Asthma-COPD overlap syndrome: Status: Chronic (2) MASON (obstructive sleep apnea): Status: Chronic (3) Aspiration into airway: Status: Acute Assessment and plan: This is a 80-year-old male who has asthma COPD overlap syndrome who I see in my clinic and no well. Based on speaking with him and his imaging findings I feel as though he had an aspiration event resulting in an aspiration pneumonitis however does not exhibit signs of pneumonia for me at this time. He also does not have a COPD exacerbation currently and is breathing well on room air. His CPAP machine is also the recalled unit, RT gave him the phone number to call the company to register device so he can get a new one. Given that he is smelling burning upon using the CPAP I recommended he no longer use it if he is able to get through the night without it. ACOS - continue Trelegy - continue 5mg prednisone, no need to taper - continue Duonebs as needed - continue chronic azithromycin - ambulating pulse ox or 89% - no need for O2 - I will follow up with him as an outpatient Aspiration - patient discharged on cefpo for 5 days, which is fine - swallow study as outpatient MASON - recommend not using unit as it is recalled Qualifiers: Encounter type: subsequent encounter Qualified Code(s): T17.908D - Unspecified foreign body in respiratory tract, part unspecified causing other injury, subsequent encounter History of Present Illness Narrative: This is a 80-year-old man who previously followed with Dr. Fox for Asthma-COPD overlap syndrome. He is currently maintained on Trelegy, chronic azithromycin, and prednisone 5 mg daily. He also has MASON and wears BiPAP at night. He states Trelegy has been ok but startes for the last 6 month he has been much more winded. He will stop and break when this happens, recovers relatively quickly. 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 At her last visit on 11/19/2020 I recommended him get PFT's as well as an IgE level (which was not elevated) and we began working on his Dupixent PA as he was prednisone dependent. His Dupixent has been approved however his co-pay is still quite significant so we are actively working on making this more affordable for him. He called our clinic on Tuesday and stated he was having a harder and harder time breathing and that he was experiencing jaw pain with exertion. My nurse was rightly concerned for a possible [place] and instructed him to go to the emergency department which he did. His cardiac work-up was nonrevealing however his chest CT did show a consolidation on the right side consistent with pneumonia. There has been serious concerns with his ability to swallow properly and so FINISHER OPERATOR was consulted. FINISHER OPERATOR gave him tools for swallowing to avoid aspiration and he will have an outpatient swallow study completed with ASHLEY Florian. He states he is feeling much better overnight and is sitting comfortably on room air. He denies no increase in his shortness of breath, cough or sputum production from baseline. He states he has been having a hard time swallowing things without choking. He also states that he just learned his CPAP machine is one of the recalled machines. On further investigation of this he has smelled a burning smell when wearing his mask. Review of Systems All systems reviewed & are unremarkable except as noted in HPI and below [facility] Medical History Allergic rhinitis Asthma-COPD overlap syndrome Followed by [facility] pulmonology BPH w urinary obs/LUTS Essential hypertension Essential tremor First degree AV block Gastroesophageal reflux disease Morris de la Tourette's syndrome History of tobacco use Insomnia Major depressive disorder Nonsustained ventricular tachycardia Asymptomatic, noted on cardiac sonographer October 2020 MASON (obstructive sleep apnea) Osteoarthritis Osteomyelitis of left foot Status post hallux amputation Paroxysmal atrial fibrillation Pes valgus of left foot 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 Son No problems noted. Daughter No problems noted. Paternal Grandfather No problems noted. Paternal Grandmother No problems noted. Maternal Grandfather No problems noted. Maternal Grandmother Cancer Social History Smoking/Tobacco Use Status: Former Tobacco Use Quit Date: 04/18/79 Second Hand Exposure: Yes Smoking risk assessment performed?: Yes Alcohol Intake: never Drug use: Never Substance use type: does not use Caregiver/Support person: No Household members: spouse and children Housing: house Communication Needs: Hard of Hearing Do you need help understanding health information?: Never Pets and animals: Yes Pets and animals: cat(s) Sexually active: No Do you think of yourself as: straight/heterosexual Current gender identity: male What is your relationship status?: How often do you talk on the phone with friends or family?: three or more times per week How often do you get together with friends or relatives?: once per week How often do you attend orthodoxy or taoism services?: 1-3 times per year Do you belong to any clubs or organized social groups?: no Panel score (0-1 are the most socially isolated patients): 2 What type of physical activity do you participate in: walking Duration: 15-30 minutes/day Frequency: daily Alexandrea/Episcopalian: None Special alexandrea needs: No Seatbelt use: always Helmet use: No Drive intox or ride w/intox dolly driver: No Do you feel safe at home: Yes Do you feel safe in your relationship?: Yes Visit Medication and Allergies Active Medications Generic Name Dose Route Start Last Admin Trade Name Freq PRN Reason Stop Dose Admin Al Hydrox/Mg Hydrox/Simethicone 30 ml 12/24/20 18:25 Mylanta Suspension 30 Ml Cup PO Q2H PRN PRN Albuterol Sulfate 2.5 mg 12/24/20 18:25 Albuterol 2.5 Mg/3 Ml Inh Soln Vial UPD Q2H PRN PRN Albuterol/Ipratropium 3 ml 12/25/20 06:00 12/26/20 06:34 Albuterol/Ipratropium 3 Ml Upd Vial UPD Not Given Q6H RYAN Dextrose 0 gm 12/25/20 08:22 Glucose 40% Oral Solution 15 Gm/37.5 Gm Tube PO DIRECTED PRN Dextrose/Water 0 gm 12/25/20 08:22 Dextrose 50%-Water 25 Gm/50 Ml Syr IVP DIRECTED PRN Dimethicone/Zinc Oxide 0 gm 12/24/20 18:18 Umer Protect Cream 142 Gm Tube TP PRN PRN Heparin Sodium (Porcine) 5,000 units 12/25/20 06:00 12/26/20 06:31 Heparin 5,000 Units/Ml Vial SC 5,000 units Q8H RYAN Administration Hydrochlorothiazide 12.5 mg 12/25/20 08:30 12/26/20 08:45 Hydrochlorothiazide 12.5 Mg Tab PO 12.5 mg DAILY RYAN Administration Ceftriaxone Sodium/Dextrose 1 gm in 50 mls @ 100 mls/hr 12/25/20 08:30 12/26/20 08:44 Rocephin IVPB 100 mls/hr DAILY RYAN Administration Sodium Chloride 1,000 mls @ 150 mls/hr 12/25/20 17:45 12/26/20 08:44 Saline 1000ml Bag IV 150 mls/hr INFUSION RYAN Administration Azithromycin 250 mg/ Sodium 250 mls @ 250 mls/hr 12/25/20 18:00 12/25/20 1 9:45 Chloride IVPB Infused Q24H RYAN Infusion IV Miscellaneous Supplies 1 each 12/24/20 11:30 Iv Access IV DIRECTED [facility] Insulin Aspart 0 units 12/25/20 12:00 12/26/20 08:43 Insulin Aspart 300 Units/3 Ml Pen SC Not Given 0800,1200,1700 [facility] Protocol Loratadine 10 mg 12/25/20 08:30 12/26/20 08:45 Loratidine 10 Mg Tab PO 10 mg DAILY RYAN Administration Omeprazole 20 mg 12/25/20 08:30 12/26/20 08:45 Omeprazole 20 Mg Capcr PO 20 mg DAILY RYAN Administration Fluticasone- 1 each 12/25/20 08:30 12/26/20 08:45 Umeclidin-Vilanter [ IH Not Given Trelegy Ellipta] 100 DAILY RYAN Polyethylene Glycol 17 gm 12/24/20 18:25 Polyethylene Glycol 3350 17 Gm Packet PO DAILY PRN PRN Constipation Potassium Chloride 20 meq 12/25/20 08:30 12/26/20 08:45 Potassium Chloride 10 Meq Capcr PO 20 meq DAILY RYAN Administration Prednisone 5 mg 12/25/20 08:30 09/10/21 08:45 Prednisone 5 Mg Tab PO 5 mg DAILY RYAN Administration Prednisone 40 mg 12/26/20 08:30 12/26/20 08:45 Prednisone 20 Mg Tab PO 40 mg DAILY RYAN Administration Sertraline HCl 25 mg 12/25/20 08:30 12/26/20 08:45 Sertraline 25 Mg Tab PO 25 mg DAILY RYAN Administration Sodium Chloride 0 ml 12/24/20 11:28 12/25/20 09:19 Normal Saline Flush 10 Ml Syr IVP 30 ml PRN PRN Administration Tamsulosin HCl 0.8 mg 12/24/20 22:00 12/25/20 22:06 Tamsulosin 0.4 Mg Capcr PO 0.8 mg HS RYAN Administration Trazodone HCl 100 mg 12/24/20 22:00 12/25/20 22:06 Trazodone 100 Mg Tab PO 100 mg HS RYAN Administration Allergies atorvastatin Adverse Reaction (Mild, Verified 12/24/20 10:56) MUSCLE FATIGUE simvastatin Adverse Reaction (Mild, Verified 12/24/20 10:56) MUSCLE FATIGUE Exam Const General: no acute distress Nutritional Appearance: well nourished [facility] Head: normocephalic Ears: external ears normal General nose exam: nasal mucous membranes and turbinates normal Face and sinus: sinuses nontender Mouth: oropharynx normal and moist mucous membranes Teeth and gingiva: dentition normal Eyes General: appearance normal, both eyes and all related structures Pupils: PERRL Neck Neck: normal visual inspection and no lymphadenopathy Chest Chest: normal inspection of the chest Resp Effort & Inspection: normal respiratory effort Auscultation: clear to auscultation bilaterally, no rales, no rhonchi and no wheezes Cardio Rate: regular rate Rhythm: regular rhythm Heart Sounds: S1 normal, S2 normal and no murmurs Pulses: radial pulses present bilaterally GI Inspection: normal to inspection Palpation: soft Skin General skin exam: no rashes or lesions noted Neuro General: patient alert, patient awake and patient oriented x3 Extrem General: no clubbing, cyanosis or edema Psych Mental Status: mental status grossly normal Affect: normal affect Attitude: cooperative Results Last Vital Signs Temp 36.7 C 12/26/20 07:59 Pulse 68 12/26/20 07:59 Resp 18 12/26/20 07:59 BP 138/79 12/26/20 07:59 Pulse Ox 94 12/26/20 07:59 Labs Result diagrams: 12/26/20 06:50 12/26/20 06:50 Labs: Laboratory Results - last 24 hr 12/26/20 12/26/20 06:50 06:50 WBC 11.12 H RBC 4.34 L Hgb 13.2 L Hct 39.6 L MCV 91.2 MCH 30.4 MCHC 33.3 RDW 13.2 Plt Count 172 MPV 10.2 Immature Gran % 0.4 Neutrophils % 80.6 Lymphocytes % 12.5 Monocytes % 6.0 Eosinophils % 0.4 Basophils % 0.1 Nucleated RBC % 0 Absolute Neutrophils 8.96 H Absolute Lymphocytes 1.39 Absolute Monocytes 0.67 Absolute Eosinophils 0.04 Absolute Basophils 0.01 Sodium 141 Potassium 4.0 Chloride 106 Carbon Dioxide 28.9 Anion Gap 6.1 BUN 33 H Creatinine 1.2 Estimated GFR/1.73 m2 58.56 Glucose 94 D Calcium 8.4 L
--- NOTE | 2020-12-26 10:59 | PDOC.CMDIS ---
- If Service Date Differs Date of service: 12/26/20 Time of Service: 10:59 LACE Index Scoring Tool - Questions: Length of Stay (in days): 2 Acuity (Admit via E.D.?): Yes Comorbidities: Diabetes w/o Complication, Chronic Pulmonary Disease E.D. Visits: 2 - Answers: Total Score: 10 Risk of Readmission: High Risk Care Management Discharge Reason for Hospitalization: asthma, COPD Discharge Plan: Ifeanyi will be discharged home with no new services. He will follow up with his PCP and discharge plan of care and his family will drive him home via private vehicle. Patient/Family Education Needs: Discharge instructions, limitations, and follow up plan of care, including Ask Me Three and self management.
--- NOTE | 2020-12-26 11:56 | W.INDIABCONS ---
Date of service: 12/26/20 Time of Service: 11:56 Diabetes Inpatient Consult DESCRIPTION/ASSESSMENT: 80 yea rold male admitted with COPD with long standing hx of DM2, HTN, HLD, obesityand asthma. Most recent A1C: 6.6% indicates well controlled DM. Following diabetic diet with excellent intake. Not considered at nutritional risk. PLAN: will monitor wt, po intake, labs and be available prn. Time Spent in Nutritional Counseling and Treatment: 0
[2020-12-26 12:09] VITALS: PULSE 70; PULSE 76; RESP 1; RESP 17; RESP 18; RESP 8; O2SAT 95; O2SAT 99
[2020-12-26] MEDS: Albuterol/Ipratropium 3 ML UPD VIAL UPD (12:09)
--- NOTE | 2020-12-26 13:31 | DSE_ITS ---
Date of service: 12/26/20 Time of Service: 13:43 DS: Diagnosis Discharge Diagnosis (1) Asthma-COPD overlap syndrome: Start date: 12/26/20 Start time: 13:43 Status: Chronic Asessment and Plan: Improved symptoms. Not requiring oxygen. ambulatory oxygen patient did not require oxygen, Saturations were above 89%, therefore he is being discharged. He is not requiring a prednisone taper per Pulmonary, will place on cefpodxime x 5 days and azithromycin x 3 days. Not requiring any antimucolytic. f/u with pulmonary as needed. (2) Type 2 diabetes mellitus: Start date: 12/26/20 Start time: 14:09 Status: Chronic Asessment and Plan: continue carb counting diet and outpatient regimen Per speech he will need soft bite size moist diet with outpatient speech f/u (3) Paroxysmal atrial fibrillation: Start date: 12/26/20 Start time: 14:10 Status: Acute Asessment and Plan: RRR at this time not on anticoagulation (4) Essential hypertension: Start date: 12/26/20 Start time: 14:11 Status: Chronic Asessment and Plan: continue HH diet, (5) MASON (obstructive sleep apnea): Start date: 12/26/20 Start time: 14:12 Status: Chronic Asessment and Plan: Continue CPAP (6) CAP (community acquired pneumonia): Start date: 12/26/20 Start time: 14:12 Status: Acute Asessment and Plan: Multifocal bilateral pulmonary infiltrates revealed by CT imaging as above (7) Dysphagia: Start date: 12/26/20 Start time: 14:13 Status: Acute Asessment and Plan: seen by speech recommends outpatient f/u with soft bite sized food and moist he can have thin liquids. discussed with Dr. Hahn Discharge Plan Disposition Patient Disposition: HOME Condition: Good Discharge Details Reason For Visit: Pneumonia Admit Date/Time: 12/24/20 18:18 Admit Provider: Masoud Morton Attending Provider: Masoud Morton Primary Care Provider: Alexandrea Trevino Hospital Course Hospital Course: This is a 80 yo male with a PMH of PAF, DM2, COPD/asthma overlap, MASON, HTN, HLD, GERD, Tourettes, presented to the ED with c/o shortness of breath that has been increasing over the past appx 1 month. He was seen by pulmonary medicine on 11/19/20 with PFTS performed on 11/24/20. His SOB has been particularly worse 2 days prior to admission. He has a chronic cough that is somewhat worse than usual. No F/C, CP/palpitation. No N/V/abd pain. He did endorse jaw pain while walking up a hill 2 days prior to admission. He states his nebulizer treatments don't seem to be helping with his SOB. He does use a CPAP machine and 1L supplemental O2 at night only. Initial RA O2 saturations were 87-91%. With 2L supplemental O2 his saturations are in the 93-94 range predominately. His WBC count was normal. Hgb normal. Electrolytes normal. Creatinine 1.3 (baseline). COVID-19 negative. He was admitted to [facility] for further management. Over course of treatment her received IV ceftriaxone and azithromycin. He was placed on 40 po steroids daily. Nursing was concerned that he was choking on all his food and liquid so he was made NPO and ST consult placed. Today he is feeling better. He denies CP, SOB. LSC, diminished. He has no wheezing rhonchi, he does endorse cough that is chronic. He was made NPO for swallow eval. ST recommends soft small bite sized diet moistened with thin liquids. Follow up as an outpatient with Speech therapy as well. Pulmonary does not feel steroid taper is needed. He will be discharged home on short course steroid taper as chest CT revealed multifocal bilateral pulmonary infiltrates. Will give cefepidoxime x 5 days and azithromycin x 3 days. He can follow up with PCP in 2 weeks with repeat CXR in 6 weeks and f/u with Dr. Schwab as scheduled. Home Meds and New Rx's Prescriptions: New azithromycin 250 mg tablet 250 mg PO DAILY 3 Days Qty: 3 RF: 0 cefpodoxime 100 mg tablet 100 mg PO BID Qty: 10 RF: 0 Continued azithromycin 250 mg tablet 250 mg PO .M, W, F Qty: 36 RF: 4 sertraline 25 mg tablet 25 mg PO DAILY Qty: 20 RF: 4 albuterol sulfate 90 mcg/actuation HFA aerosol inhaler 2 inh inhalation Q6H PRN (Reason: shortness of breath or wheezing) Qty: 3 RF: 4 Trelegy Ellipta 100-62.5-25 mcg blister with device 1 inh inhalation DAILY Qty: 90 RF: 4 Dupixent Pen 200 mg/1.14 mL pen injector 200 mg subcut Q2W Qty: 1.14 RF: 5 multivitamin 1 EACH tablet 1 tab PO DAILY RF: 0 trazodone 100 mg tablet 100 mg PO HS Qty: 90 RF: 4 tamsulosin 0.4 mg capsule See Rx Instructions PO HS Qty: 180 RF: 4 omeprazole 20 mg capsule,delayed release(DR/EC) 20 mg PO DAILY Qty: 90 RF: 4 loratadine 10 mg tablet 10 mg PO DAILY Qty: 90 RF: 4 hydrochlorothiazide 12.5 mg capsule 12.5 mg PO DAILY Qty: 90 RF: 4 ipratropium-albuterol 0.5 mg-3 mg(2.5 mg base)/3 mL solution for nebulization 3 ml UPD QID PRN (Reason: shortness of breath or wheezing) Qty: 180 RF: 4 prednisone 5 mg tablet 5 mg PO DAILY Qty: 90 RF: 2 potassium chloride 10 mEq capsule, extended release 20 meq PO DAILY Qty: 45 RF: 4 No Action (DME) blood-glucose meter [OneTouch Ultra2 Meter] Kit See Rx Instructions .MEDSUPPLY Qty: 1 RF: 2 (DME) lancets [OneTouch Delica Plus Lancet] 33 gauge misc See Rx Instructions .MEDSUPPLY Qty: 100 RF: 4 (DME) OneTouch Ultra Blue Test Strip Strip See Rx Instructions .MEDSUPPLY Qty: 100 RF: 4 Discharge Instructions Instructions: COPD (Chronic Obstructive Pulmonary Disease) (GEN), Community Acquired Pneumonia (DC) Additional Instructions: Take cefepdoxime x 5 days Take 3 more days of azithromycin in addition to MWF dosing Continue your original dosing of 5 mg prednisone F/u with your PCP in 2 weeks you will need repeat cxr in 6 weeks f/u with Dr. Schwab as scheduled. Stand Alone Forms: Nursing Discharge Form Activity:: Activity as Tolerated Equipment/Supplies:: No Equipment Needed Diet:: Heart healthy/low carb soft moist bite sized Discharge Orders Discharge Orders: Discharge Order (Routine); Ordered 12/26/20 Ordered By: Tiffanie Chau DS: Summary Time Spent with Patient providing and/or coordinating discharge services: Less than 30 minutes Status at Discharge Functional status at discharge: independent ambulation Overall status at discharge: patient is back to baseline Mental Status: mental status grossly normal Speech and Movement: speech and movement normal Mood: congruent mood Affect: normal affect Exam Const General: cooperative and no acute distress Nutritional Appearance: obese Orientation: alert and oriented x3 HENMT Head: normocephalic and atraumatic Eyes General: appearance normal, both eyes and all related structures Sclera: sclerae normal Resp Effort & Inspection: normal respiratory effort Auscultation: clear to auscultation bilaterally and diminished lung sounds Cardio Rate: regular rate Rhythm: regular rhythm Heart Sounds: S1 normal and S2 normal GI Palpation: soft and nontender Auscultation: normal bowel sounds Skin General skin exam: no rashes or lesions noted Neuro General: no focal motor deficits Cranial Nerves: facial strength normal Cognition: normal cognition Speech: speech normal Motor: other (Intermittent facial tic) Extrem General: no pedal edema and no calf tenderness Psych Appearance: grossly normal Mental Status: mental status grossly normal Speech and Movement: speech and movement normal Mood: congruent mood Affect: normal affect DS: Data Vitals/I&O Vitals and I&O: Vital Signs Temperature 36.7 C 12/26/20 07:59 Temperature Source Tympanic 12/26/20 07:59 Pulse 76 12/26/20 12:09 Pulse Rhythm Regular 12/26/20 11:44 Pulse 85 12/24/20 18:20 Respiratory Rate 17 12/26/20 12:09 Respiratory Effort 12/26/20 11:44 Respiratory Depth Normal 12/26/20 11:44 Respiratory Pattern Normal 12/26/20 11:44 Blood Pressure 138/79 12/26/20 07:59 Blood Pressure Mean 84 12/24/20 18:15 Blood Pressure Position Supine 12/24/20 10:49 Pulse Oximetry 99 12/26/20 12:09 Oxygen Delivery Method Room Air 12/26/20 12:09 Oxygen Flow Rate 0 12/26/20 12:09 Pain Level 0 12/26/20 07:59 Comment 12/25/20 08:26 Intake & Output 12/25/20 12/26/20 12/26/20 23:59 11:59 23:59 Intake Total 350 / 850 1939 Output Total 1225 / 1225 Balance 350 / 650 715 / 715 Weight 106.3 kg Intake: IV 250 / 300 1940 / 1940 Oral 100 / 550 Output: Urine 1225 / 1225 Other: Urine Color Pale Urine Appearance Clear Clear Urine Odor Normal Comment independent void to the toilet Voiding Methods Urinal Data Completed and Pending Completed studies during hospitalization [Text1]: Exam(s) a CT:CT chest PE CTA Exam(s) CT CHEST PE CTA EXAM: CT CHEST PE CTA CLINICAL HISTORY: SOB. TECHNIQUE: Imaging Protocol: CT angiography of the chest was performed using pulmonary embolus protocol. Multi planar reconstructions were performed. CONTRAST MATERIAL: Intravenous: Omnipaque 350 Contrast volume: 100 cc COMPARISON: CT CT CHEST WO from 09/30/2020 FINDINGS: CHEST: PULMONARY ARTERIES: There are no intraluminal filling defects to suggest acute pulmonary emboli. LUNGS: There is confluent infiltrate in the right lower lobe lateral basal and posterior basal segments. No pleural effusion. Mild nodular infiltrate is seen in the anterior segment of the right upper lobe. Ground-glass infiltrate in the sub apical left upper lobe and some mild infiltrate is noted in the apical posterior segment of the left upper lobe. Mild infiltrate is noted in the left lower lobe basal segments. No pleural effusion on either side. No focal findings in the trachea and mainstem bronchi. MEDIASTINUM: There is no hilar nor mediastinal adenopathy. Visualized thyroid unremarkable. CARDIAC: Heart size is upper normal. There is no pericardial effusion.Caliber of the thoracic aorta is within normal limits. No evidence of aortic dissection. There is no significant shift of the interventricular septum. PARTIALLY VISUALIZED UPPERMOST ABDOMEN: Hepatic steatosis. No adrenal masses. OSSEOUS: Partially healed right rib fractures 11 and 12. No acute fractures evident.Previously described compression fractures in thoracic spine are unchanged. IMPRESSION: 1. Multifocal bilateral pulmonary infiltrates. No pleural effusions nor intrathoracic adenopathy.. 2. No evidence of aortic dissection 3. No obvious pulmonary emboli, realizing that injection bolus was suboptimal. 4. Partially healed right rib fractures. Labs on day of discharge: Labs from last 24 hours 12/26/20 12/26/20 06:50 06:50 WBC 11.12 H RBC 4.34 L Hgb 13.2 L Hct 39.6 L MCV 91.2 MCH 30.4 MCHC 33.3 RDW 13.2 Plt Count 172 MPV 10.2 Immature Gran % 0.4 Neutrophils % 80.6 Lymphocytes % 12.5 Monocytes % 6.0 Eosinophils % 0.4 Basophils % 0.1 Nucleated RBC % 0 Absolute Neutrophils 8.96 H Absolute Lymphocytes 1.39 Absolute Monocytes 0.67 Absolute Eosinophils 0.04 Absolute Basophils 0.01 Sodium 141 Potassium 4.0 Chloride 106 Carbon Dioxide 28.9 Anion Gap 6.1 BUN 33 H Creatinine 1.2 Estimated GFR/1.73 m2 58.56 Glucose 94 D Calcium 8.4 L PFS Medical History Allergic rhinitis Asthma-COPD overlap syndrome Followed by [facility] pulmonology BPH w urinary obs/LUTS Essential hypertension Essential tremor First degree AV block Gastroesophageal reflux disease Morris de la Tourette's syndrome History of tobacco use Insomnia Major depressive disorder Nonsustained ventricular tachycardia Asymptomatic, noted on broadcast systems engineer October 2020 MASON (obstructive sleep apnea) Osteoarthritis Osteomyelitis of left foot Status post hallux amputation Paroxysmal atrial fibrillation Pes valgus of left foot 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 Son No problems noted. Daughter No problems noted. Paternal Grandfather No problems noted. Paternal Grandmother No problems noted. Maternal Grandfather No problems noted. Maternal Grandmother Cancer Social History Smoking/Tobacco Use Status: Former Tobacco Use Quit Date: 04/18/79 Second Hand Exposure: Yes Smoking risk assessment performed?: Yes Alcohol Intake: never Drug use: Never Substance use type: does not use Caregiver/Support person: No Household members: spouse and children Housing: house Communication Needs: Hard of Hearing Do you need help understanding health information?: Never Pets and animals: Yes Pets and animals: cat(s) Sexually active: No Do you think of yourself as: straight/heterosexual Current gender identity: male What is your relationship status?: How often do you talk on the phone with friends or family?: three or more times per week How often do you get together with friends or relatives?: once per week How often do you attend mandaen or baptism services?: 1-3 times per year Do you belong to any clubs or organized social groups?: no Panel score (0-1 are the most socially isolated patients): 2 What type of physical activity do you participate in: walking Duration: 15-30 minutes/day Frequency: daily Alexandrea/Cheondoism: None Special alexandrea needs: No Seatbelt use: always Helmet use: No Drive intox or ride w/intox road train driver: No Do you feel safe at home: Yes Do you feel safe in your relationship?: Yes
--- NOTE | 2020-12-26 13:41 | W.SPSTE ---
Date of service: 12/26/20 Time of Service: 12:12 Subjective Patient referred for swallow evaluation from Tiffanie Chau NP, given ?choking with all swallowing of foods and liquids.? Patient received alert/awake, upright in his room, agreeable to evaluation, able to communicate wants/needs effectively; able to demonstrate comprehension of recommendations for safe p.o. intake upon discharge once deemed medically stable. Appears a reliable advanced practice nurse. Patient perception of the problem: coughs when drinking, has trouble with dry/lightweight foods that cause coughing (cake, crackers, rice, hamburg meat). Recent increased shortness of breath. Denies: voice changes, pain with swallowing. Endorses: Taking Prilosec, severe heartburn if he forgets. Objective Objective Precautions: Standard HPI: Pt is a 80 year old M admitted with notably increased SOB. Recent hospitalization (September) for COPD exacerbation. Nursing noting patient with notable coughing during yesterday's breakfast and patient has been NPO ever since, though taking medications with pudding per MD orders. 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 OBJECTIVE: Predisposing dysphagia risk factors: COPD, GERD, MASON Clinical signs of possible chronic dysphagia: Multifocal bilateral pulmonary infiltrates possibly suggesting chronic mild aspiration. Precipitating dysphagia risk factors / triggering event: COPD exacerbation, on 2L oxygen ([place]) during this stay. Sp02: 99% RR: 17 / Room air - noting occasional wheezing/mild cough at baseline. Cranial nerve exam / Oral Motor: CN V: facial sensation intact to light touch labial protrusion symmetrical labial coordination/ROM WFL Jaw excursion/lateralization intact mastication intact lingual/labial sensation did not test suspect superior hyoid movement is reduced although cannot rule out at bedside CN VII: lateral sulcus residue absent anterior spillage not observed salivation difficult to assess due to NPO status CN IX/X: palatal elevation - symmetrical Vocal Quality - WFL before and after PO intake taste - WFL onset of swallow - suspect possible delay pharyngeal residue - likely present given frequent throat clear nasopharyngeal regurgitation - none observed, though pt reports occasional with solids such as rice CN XII: bolus preparation/manipulation/control - WFL AP transit - appears WFL lingual protrusion WFL/symmetrical lingual coordination/ROM WFL lingual residue absent Dentition/Oral Structures/Hygiene: partially edentulous - pt chews on his L side. oral hygiene appears adequate, reports 1x daily Language: WFL Hearing: functional for conversation at close distance Mental Status: AAOx[3], recall of current events intact Speech: WFL Laryngeal function exam: Secretions: WFL Vocal quality: WFL Cough: (volitional) perceptually WFL PO intake [Ice: x2 - mildly delayed throat clear (reflexive) IDDSI 0: water via tsp, single sip, consecutive delayed throat clear (reflexive) IDDSI 4: pudding x3 - no s/sx aspiration or pharyngeal residue IDDSI 7: cracker - no s/sx aspiration or pharyngeal residue Education provided Anatomy/physiology of swallowing mechanism Overt s/sx aspiration Rationale for improved oral care and instructions Relationship between respiratory fxn and deglutition Rationale for recommended strategies as below Assessment Patient is at mod increased risk for aspiration-related pulmonary complication in context of increased WOB secondary to chronic COPD, as well as possible chronic changes in setting of GERD. Given pt's report of difficulty coughing with dry/small pieces of food such as rice while chewing, and difficulty with thin liquids at bedside, suspect increased risk of aspiration with poor coordination of respiration and swallowing in both oral and pharyngeal phases. Pt would benefit from diet modification to reduce work of chewing and improve bolus cohesion. Further inpatient EQUIPMENT OPERATING ENGINEER services not recommended at this time. Pt agreeable to current recommendations re: reflux & oral care precautions as well as diet modifications and swallow strategies as outlined below. Recommend outpatient MBS swallow study after discharge to further characterize swallow deficits and treatment plan, pt is agreeable. Recommendations: Diet Texture Modification(s): IDDSI Level(s) 6-Soft & Bite-Sized Solids with added moisture/sauces for bolus cohesion at home 0-Thin Liquids with risk management precautions as below Medication Intake: Whole with 4-Extremely Thick Liquids (pudding) Alter medications only as advised by MD or Pharmacist Level of assistance: Independent RISK MANAGEMENT STRATEGIES PROVIDED IN WRITING TO PATIENT: -SMALL bites and sips -Take it slow, leave extra time for breathing -Avoid distractions -Soft/bite size foods (minimize chewing work, save energy for breathing) -Add sauce/gravy to hold dry foods together (hamburger, rice, crackers, cake) -HARD/EFFORTFULL swallows -Continue to gently clear your throat especially when drinking liquids -Take pills in a spoonful of pudding, yogurt, applesauce. -Reduce risk of aspirating reflux at night: oFollow prescription instructions for reflux medication oRemain upright for 30+ minutes after eating, 1-2 hours before bedtime -Oral care 2+ times daily to reduce oral bacteria oTeeth, tongue, gums, roof of mouth Specialist referrals: N/A Ancillary tests: Outpatient VFSS/MBSS with EQUIPMENT OPERATING ENGINEER Therapy: TBD Goal: N/A Plan Pt to d/c home today, will return for outpatient swallow study (MBSS) - [facility] will follow up to schedule. Char Filter Operator Helper Goals: TBD Short Term Goals: Patient will participate in instrumental swallow evaluation to further characterize swallow deficits and appropriate f/u plan. Coding
== END 2020-12-26 15:57 | disposition home or self-care (01) | DRG 190 ==
LOC: ER 17:00 → MS 19:28
PROVIDERS: Nurse Practitioner Family; Student in an Organized Health Care Education/Training Program; Admitting Provider Family Medicine; Emergency Provider Emergency Medicine; PCP Nurse Practitioner Family; Visit Provider Family Medicine
DX: J44.0 Chronic obstructive pulmonary disease with (acute) lower respiratory infection (principal); J18.9 Pneumonia, unspecified organism; I48.0 Paroxysmal atrial fibrillation; E11.9 Type 2 diabetes mellitus without complications; I10 Essential (primary) hypertension; G47.33 Obstructive sleep apnea (adult) (pediatric); R13.10 Dysphagia, unspecified; E78.5 Hyperlipidemia, unspecified; K21.9 Gastro-esophageal reflux disease without esophagitis; F95.2 Tourette's disorder; G25.0 Essential tremor; Z87.891 Personal history of nicotine dependence; G47.00 Insomnia, unspecified; F32.9 Major depressive disorder, single episode, unspecified; Z20.822 Contact with and (suspected) exposure to COVID-19; I44.0 Atrioventricular block, first degree
CPT/HCPCS: 36415; 71275; 80048; 80053; 87635; 92610; 93005; 94618; 94640; 96365; 96367; 96375; 99285; 83735; 83880; 84484; 85025; 85379; 93010; 99223; 99232; 99238; J0456; J0696; J1644; J2930; J3490; J7512; J7620

== ENCOUNTER 2021-01-26 01:56 | Outpatient (CLI) | payer MEDICARE, SELFPAY ==
[2021-01-26 11:26] LABS: Source Nasal/Nares
[2021-01-26 18:07] LABS: COVID-19 PCR Negative (Negative)
== END 2021-01-26 01:57 | disposition home or self-care (01) ==
LOC: LBO 01:57
PROVIDERS: PCP Nurse Practitioner Family; Visit Provider Family Medicine
DX: Z20.822 Contact with and (suspected) exposure to COVID-19 (principal); Z01.818 Encounter for other preprocedural examination
CPT/HCPCS: 87635

== ENCOUNTER 2021-01-28 02:09 | Outpatient (CLI) | payer MEDICARE, SELFPAY ==
--- NOTE | 2021-01-28 09:30 | DI.RAD_ITS ---
Exam(s) RF MODIFIED SPEECH BA SWALLOW TECHNIQUE: Modified barium swallow was performed in conjunction with speech pathology. CONTRAST MATERIAL: Oral barium Oral water soluble contrast was administered. COMPARISON: No exams were available for comparison FINDINGS: Fluoroscopy was provided during swallowing mechanism study performed our department in conjunction wi the speech therapist. Please see separate report for details. There is no obvious aspiration on this study. IMPRESSION: No evidence of aspiration . RADIATION DOSE DELIVERED: alex Irizarry=15.5 mGy
--- NOTE | 2021-01-28 12:41 | ST.MBS_ITS ---
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 He reported to [facility] ED for progressively worsening SOB and change in cough. Chest CT demonstrated bilateral pulmonary infiltrates so he was on IV abx while hospitalized and transitioned to cefpodoxime x 5 days and azithromycin x 3 days upon discharge which he has completed already. No prednisone taper recommended by his interior design director. COAL WEIGHER consulted during hospitalization given concerns for aspiration, recommended outpatient followup. Previous Imaging: N/A SUBJECTIVE: Patient currently denies choking episodes since being home and reports chewing his food slowly, and that his cough seems to be back to his baseline; reports history of 'blowing food out of nose' (ORANGE PICKER regurgitation ?), questions if he had been 'inhaling his food', and difficulties with particulate food textures at times (references hamburger, cake as specific examples). Patient has multiple questions re: A&P of swallowing mechanism, risks of aspiration pna and relation to breathing changes after study today. OBJECTIVE: Videofluoroscopic Swallow Evaluation (VFSE/MBSS) was conducted in the lateral and [id number] projections by Speech-Language Pathologist, in collaboration with Radiologist, to evaluate oropharyngeal swallow function. Anatomic view under fluoroscopy: WFL PO Barium Contrast Trials Oral barium water-soluble contrast was administered as follows: IDDSI Level 0 Varibar thin liquid (40% w/v) IDDSI Level 2 Varibar nectar thick/mildly thick liquid (40% w/v) IDDSI Level 3 Varibar thin honey/liquidised/moderately-thick (40% w/v) IDDSI Level 4 Varibar pudding/pureed/extremely thick (40% w/v) IDDSI Level 7 Regular Solid: 1/2 zach cracker coated in 3 mL Varibar pudding PHYSIOLOGIC FINDINGS (1) Oral Impairment 1 Lip Closure 0-No labial escape 2 Tongue Control 0- Cohesive bolus between tongue to shivani isaiah seal 3 Bolus Preparation/Mastication 0- Timely and efficient chewing/mashing 4 Bolus Transport/Lingual Motion 0- Brisk tongue motion 5 Oral residue 1- Trace residue lining oral structures Location palate, tongu e *cleared with secondary swallow 6 Initiation of pharyngeal swallow 0- Bolus head at posterior angle of marlyn s; first hyoid excursion Sequential swallows: 1- Bolus head in valleculae Pharyngeal Impairment 7 Velar Elevation 0-No bolus between soft palate and phary ngeal wall 8 Laryngeal Elevation 0- Complete superior movement of thyroid cartilage with complete approximation of arytenoids to epiglottic petiole 9 Anterior Hyoid Excursion 0- Complete anterior movement 10 Epiglottic Movement 0- Complete inversion 11 Laryngeal Vestibule Closure 1- Incomplete; narrow column of air/cont rast in laryngeal vestibule Penetration brief; observed during swallow (x1 during sequential swallow task only) Aspiration not observed PAS / Overall 8-Point Penetration-Aspiration Scale (2) 2 - Material enters the airway, remains above the vocal folds and is ejected from the airway Clinical Indicator(s) of Prandial/Postprandial Aspiration N/A 12 Pharyngeal Stripping Wave 1- Present; diminished 13 Pharyngeal Contraction 1- Incomplete; pseudodiverticulae 14 PES/UES Opening 0- Complete distension and complete dura tion; no obstruction of flow 15 Tongue Base Retraction 1- Trace column of contrast between tong ue base and posterior pharyngeal wall 16 Pharyngeal residue 1- Trace residue within or on pharyngeal structures Location Radha Pharyngeal Residue Severity Rating Scale(3) Tongue base Valleculae II Trace 1-5% Trace coating Pyriform sinuses II Trace 1-5% Trace coating Esophageal Impairment 17 Esophageal Clearance in Upright Position 0-Complete clearance; esophageal coating Notes - Hypertrophy noted at level of cervical esophagus (C4), does not appear to impede bolus flow This study was performed for interpretation only of the oropharyngeal and pharyngoesophageal domains of swallowing, and is not intended to diagnose any other radiologic abnormalities or substitute for a formal esophagram study. FRANCHESKA: (4) Severity LEVEL 7 - Full PO: normal diet - Normal in all situations Trialed Compensatory Strategies & Outcome: Maneuvers Successful/Unsuccessful (+/-) Postures Successful/Unsuccessful (+/-) Bolus Modifications Successful/Unsuccessful (+/-) 3 second Preparatory Set + Chin Tuck Posture Delivery/Alternating Consistencies - Wash with [] Cough Posterior Head tilt Delivery/Via Straw Reflexive Cued Throat Clear Head Tilt to Reduced Volume + Reflexive Left Cued Right Saliva swallow x[#] Head Turn/Rotation to Reduced Rate of Intake + Supraglottic Swallow Left Increased Viscosity Super-supraglottic Swallow Right IMPRESSIONS: Swallow safety is preserved; swallow efficiency is mildly impaired. Mild pharyngeal dysphagia, likely chronic, characterized by mild delay in swallow ons et timing/incomplete laryngeal vestibule closure (only observed with sequential swallows), and mildly reduced pharyngeal contraction/stripping wave/tongue base retraction, resulting in trace vallecular and pyriform sinus residue with increased volume; hypertrophy is noted at level of cervical esophagus (C4), however this does not appear to impede bolus flow. Suspect dysphagia presentation is correlated with swallow-breath coordination difficulties, likely exacerbated during COPD / asthma episodes; patient also reports more difficulties with fatigue during full meals. Patient appears to be at low-moderate risk for potential aspiration PNA and/or pulmonary compromise, particularly in context of COPD / asthma exacerbation hx, and low risk for malnutrition/dehydration. Diet modification is not indicated; non-oral nutrition is not indicated. Swallow prognosis is excellent, given prognostic factors and pending patient/caregiver training in risk management as outlined. Patient appears to be a good candidate for behavioral swallow rehabilitation. Specialist referrals: N/A at this time; may consider GI consult if patient reports esophageal symptoms given hypertrophy at level of cervical esophagus (C4), does not appear to effect patient function at this time Ancillary tests: N/A Diet texture recommendation: IDDSI Level 7-Regular Solids, 0-Thin Liquids Please see further details at www.iddsi.org Diet texture modification is per patient's preference; please adjust diet textures at patient's discretion & collaboration with care team. Risk Management: Reduce rate of intake Small sips (avoid sequential swallows), small bites Alternate solids/liquids as able Control risk factors for aspiration pneumonia via (a) thorough oral hygiene & (b) maintaining physical mobility as tolerated PLAN: Therapy: Recommend subsequent outpatient session with COAL WEIGHER to review results of today's exam and develop treatment plan as appropriate. May consider the following: - Review oropharyngeal swallowing anatomy & physiology - Risk management in context of COPD/asthma / potential for aspiration and risk mgmt strategies to reduce risks of asp pna - RMST - Energy conservation during mealtimes Goal: TBD pending patient/caregiver interview Follow-up exam: N/A Thank you for allowing me to take part in this patient's care. Please feel free to contact me with any questions/concerns. Julieth Santiago MA [facility] Speech Language Pathologist [phone] Coding CPT Codes MOTION FLUOROSCOPY/SWALLOW - [id number] ([id number]) 1: Oxana Ruelas et al. ?MBS measurement tool for swallow impairment--MBSImp: establishing a standard.? Dysphagia vol. 23,4 (2008): 392-405. doi:10.1007/y33026-237-2703-6 2: (Camelia et al, 1996) 3: (Scott et al, 2015) 4: The Dysphagia Outcome and Severity Scale is a 7-point scale developed to systematically rate the functional severity of dysphagia based on objective assessment and make recommendations for diet level, independence level, and type of nutrition.
== END 2021-01-28 02:29 ==
PROVIDERS: PCP Nurse Practitioner Family; Visit Provider Speech-Language Pathologist
DX: R13.19 Other dysphagia (principal)
CPT/HCPCS: 92610; 74221

== ENCOUNTER → 2021-03-19 12:55 | Outpatient (BNVA) | payer MEDICARE, SELFPAY | PROVIDERS: PCP Nurse Practitioner Family; Referring Provider Nurse Practitioner Family; Visit Provider Internal Medicine Cardiovascular Disease | DX: I48.0 Paroxysmal atrial fibrillation (principal); I10 Essential (primary) hypertension; J44.9 Chronic obstructive pulmonary disease, unspecified | CPT/HCPCS: 99213 ==

== ENCOUNTER 2021-06-01 01:57 | Emergency (ER) | payer OTHER, SELFPAY ==
[2021-06-01 02:04] VITALS: BP 140/78; PULSE 117; RESP 24; TEMP 36.6; O2SAT 94
--- NOTE | 2021-06-01 02:18 | W.ED.GENAD ---
Discharge Plan Disposition Patient Disposition: HOME Condition: Improving Discharge Details Clinical Impression: Acute dehydration, Gastroenteritis Primary Care Provider: Alexandrea Trevino ED Provider: Fabian Camargo Home Meds and New Rx's Prescriptions: Continued sertraline 25 mg tablet 25 mg PO DAILY Qty: 20 4RF albuterol sulfate 90 mcg/actuation HFA aerosol inhaler 2 inh inhalation Q6H PRN (Reason: shortness of breath or wheezing) Qty: 3 4RF Trelegy Ellipta 100-62.5-25 mcg blister with device 1 inh inhalation DAILY Qty: 90 4RF azithromycin 250 mg tablet 250 mg PO DAILY Qty: 30 12RF ipratropium-albuterol 0.5 mg-3 mg(2.5 mg base)/3 mL solution for nebulization 3 ml UPD QID PRN (Reason: shortness of breath or wheezing) Qty: 180 4RF multivitamin 1 EACH tablet 1 tab PO DAILY 0RF tamsulosin 0.4 mg capsule See Rx Instructions PO HS Qty: 180 4RF Rx Instructions: 1-2 caps PO bedtime; omeprazole 20 mg capsule,delayed release(DR/EC) 20 mg PO DAILY Qty: 90 4RF loratadine 10 mg tablet 10 mg PO DAILY Qty: 90 4RF prednisone 5 mg tablet 5 mg PO DAILY Qty: 90 4RF trazodone 100 mg tablet 100 mg PO HS Qty: 90 4RF Dupixent Pen 200 mg/1.14 mL pen injector 200 mg subcut Q2W Qty: 2.28 12RF prednisone 10 mg tablet See Rx Instructions PO .COMPLEX Qty: 38 0RF Rx Instructions: 4 tabs daily for 5 days, then 3 tabs daily for 3 days, then 2 tabs daily for 3 days, then 1 tab daily for 3 days, then return to prednisone 5mg daily PO; potassium chloride 10 mEq capsule, extended release 20 meq PO DAILY Qty: 45 4RF Label Comments: now taking 20 MEQ No Action hydrochlorothiazide 12.5 mg capsule 12.5 mg PO DAILY Qty: 90 4RF (DME) blood-glucose meter [ralaliuch Ultra2 Meter] Kit See Rx Instructions .MEDSUPPLY Qty: 1 2RF Rx Instructions: Check blood sugar daily (DME) lancets [OneTouch Delica Plus Lancet] 33 gauge misc See Rx Instructions .MEDSUPPLY Qty: 100 4RF Rx Instructions: Check blood sugar daily (DME) OneTouch Ultra Blue Test Strip Strip See Rx Instructions .MEDSUPPLY Qty: 100 4RF Rx Instructions: Check blood sugar daily Discharge Instructions Instructions: Dehydration (ED), Gastroenteritis (ED) Additional Instructions: Please hold your hydrochlorothiazide today. We will ask our care management team to arrange a follow-up for you to recheck blood work. Small, frequent sips of fluids today so that you maintain hydration. Home to rest. Return to the emergency department for any acute concerns. Medical Decision Making 80-year-old male presents from home with nausea, vomiting, diarrhea. States his has a similar illness. Feels lightheaded but has not had syncope. Denies to me abdominal pain. Patient is tachycardic and dehydrated in appearance. IV access established, screening labs obtained patient given 1 L normal saline and Zofran. Patient is hemoconcentrated with a white blood cell count of 20, hematocrit of 60, platelets 299. Sodium 135, potassium 3.3, chloride 100, but 21, BUN 38, creatinine 2.4. Patient improved following 2 L of fluid and laboratories rechecked. He appears less hemoconcentrated but still has some mild acute renal insufficiency over baseline. Subjectively the patient feels better. His abdomen is reexamined and remains soft and nontender. Consistent with dehydration and probable gastroenteritis. Discussed with patient home management. He is stable and improving. HPI General Mode of arrival: ambulatory. Date/Time Provider Initiated Documentation: 06/01/21 02:13. Limitations to Documentation: no limitations. Information obtained by: patient. History of Present Illness 80 year old M presents to the emergency department with the chief complaint of Nausea, vomiting, diarrhea today, described as moderate, and is localized to the abdomen. Patient reports no radiation. Patient started experiencing this hour(s) and it has been intermittent. improves with No relieving factors improve symptom(s), No exacerbating factors reported . Patient notes nausea/vomiting and weakness; denies syncope. Patient did receive the following treatments prior to arrival, none Related Data Home Medications Medication Instructions Recorded Confirmed multivitamin 1 tab PO DAILY 11/12/14 03/19/21 hydrochlorothiazide 12.5 mg capsule 12.5 mg PO DAILY #90 tab-cap 04/15/20 03/19/21 loratadine 10 mg tablet 10 mg PO DAILY #90 tab 04/15/20 03/19/21 omeprazole 20 mg capsule,delayed 20 mg PO DAILY #90 tab-cap 04/15/20 03/19/21 release tamsulosin 0.4 mg capsule See Rx Instructions PO HS #180 04/15/20 03/19/21 tab-cap sertraline 25 mg tablet 25 mg PO DAILY #20 tab-cap 08/22/20 03/19/21 albuterol sulfate 90 mcg/actuation 2 inh INHALATION Q6H PRN #3 ea 09/12/20 03/19/21 aerosol inhaler fluticasone fur. 100 mcg-umeclid 1 inh INHALATION DAILY #90 ea 09/19/20 03/19/21 62.5 mcg-vilant 25 mcg inhalat.powder (Trelegy Ellipta) potassium chloride 10 mEq 20 meq PO DAILY #45 tab-cap 10/02/20 03/19/21 capsule,extended release blood sugar diagnostic (OneTouch #100 ea 10/17/20 03/19/21 Ultra Blue Test Strip) blood-glucose meter (OneTouch #1 ea 10/17/20 03/19/21 Ultra2 Meter) lancets 33 gauge (OneTouch Delica #100 ea 10/17/20 03/19/21 Plus Lancet) azithromycin 250 mg tablet 250 mg PO DAILY #30 tab 03/10/21 03/19/21 ipratropium 0.5 mg-albuterol 3 mg 3 ml UPD QID PRN #180 ml 03/10/21 03/19/21 (2.5 mg base)/3 mL nebulization soln prednisone 5 mg tablet 5 mg PO DAILY #90 tab 04/03/21 trazodone 100 mg tablet 100 mg PO HS #90 tab-cap 04/24/21 dupilumab 200 mg/1.14 mL 200 mg (1.14 mL) SUBCUT Q2W #2.28 05/05/21 subcutaneous pen injector ml (Dupixent) prednisone 10 mg tablet See Rx Instructions PO .COMPLEX 05/22/21 #38 tab Previous Rx's Medication Instructions Recorded hydrochlorothiazide 12.5 mg capsule 12.5 mg PO DAILY #90 tab-cap 04/15/20 loratadine 10 mg tablet 10 mg PO DAILY #90 tab 04/15/20 omeprazole 20 mg capsule,delayed 20 mg PO DAILY #90 tab-cap 04/15/20 release tamsulosin 0.4 mg capsule See Rx Instructions PO HS #180 04/15/20 tab-cap sertraline 25 mg tablet 25 mg PO DAILY #20 tab-cap 08/22/20 albuterol sulfate 90 mcg/actuation 2 inh INHALATION Q6H PRN #3 ea 09/12/20 aerosol inhaler fluticasone fur. 100 mcg-umeclid 1 inh INHALATION DAILY #90 ea 09/19/20 62.5 mcg-vilant 25 mcg inhalat.powder (Trelegy Ellipta) potassium chloride 10 mEq 20 meq PO DAILY #45 tab-cap 10/02/20 capsule,extended release blood sugar diagnostic (OneTouch #100 ea 10/17/20 Ultra Blue Test Strip) blood-glucose meter (OneTouch #1 ea 10/17/20 Ultra2 Meter) lancets 33 gauge (OneTouch Delica #100 ea 10/17/20 Plus Lancet) azithromycin 250 mg tablet 250 mg PO DAILY #30 tab 03/10/21 ipratropium 0.5 mg-albuterol 3 mg 3 ml UPD QID PRN #180 ml 03/10/21 (2.5 mg base)/3 mL nebulization soln prednisone 5 mg tablet 5 mg PO DAILY #90 tab 04/03/21 trazodone 100 mg tablet 100 mg PO HS #90 tab-cap 04/24/21 dupilumab 200 mg/1.14 mL 200 mg (1.14 mL) SUBCUT Q2W #2.28 05/05/21 subcutaneous pen injector ml (Dupixent) prednisone 10 mg tablet See Rx Instructions PO .COMPLEX 05/22/21 #38 tab Allergies Allergy/AdvReac Type Severity Reaction Status Date / Time atorvastatin AdvReac Mild MUSCLE Verified 03/19/21 13:24 FATIGUE simvastatin AdvReac Mild MUSCLE Verified 03/19/21 13:24 FATIGUE General Stated Complaint: Nausea/Vomit/Diar AMERICO: 3 Review of Systems Narrative: Denies abdominal pain. No fever. No travel. No suspicious food exposures. 6 systems reviewed and otherwise negative PFSH All Active Problems (Updated 06/01/21 @ 05:36 by Fabian Camargo MD) Acute dehydration (Acute) Gastroenteritis (Acute) Dysphagia (Chronic) Asthma-COPD overlap syndrome (Chronic) Followed by [facility] pulmonology Nonsustained ventricular tachycardia (Acute) Asymptomatic, noted on monitor and storage bin tender October 2020 Type 2 diabetes mellitus (Chronic) Paroxysmal atrial fibrillation (Acute) Chronic obstructive pulmonary disease with (acute) exacerbation (Acute) Essential hypertension (Chronic) Hyperlipidemia (Chronic) MASON (obstructive sleep apnea) (Chronic) Prediabetes (Chronic) Major depressive disorder (Chronic) First degree AV block (Chronic) Insomnia (Chronic) BPH w urinary obs/LUTS (Chronic) Essential tremor (Chronic) Gastroesophageal reflux disease (Chronic) Morris de la Tourette's syndrome (Chronic) Osteoarthritis (Chronic) Pes valgus of left foot (Chronic) Pes valgus planus deformity Posterior tibial tendon dysfunction, left (Chronic) Allergic rhinitis (Chronic) Medical History History of tobacco use Osteomyelitis of left foot Status post hallux amputation Severe persistent asthma dependent on systemic steroids Squamous cell carcinoma, face Surgical History History of carpal tunnel surgery of left wrist History of revision of total replacement of right knee joint S/P cholecystectomy S/P nasal septoplasty Status post amputation of great toe Left foot Status post cholecystectomy Status post left foot surgery Flatfoot correction Status post total knee replacement, right Family History Mother , age 82 Cancer Father , age 60 Skin cancer Cancer Son No problems noted. Son No problems noted. Daughter No problems noted. Paternal Grandfather No problems noted. Paternal Grandmother No problems noted. Maternal Grandfather No problems noted. Maternal Grandmother Cancer Social History Smoking/Tobacco Use Status: Former Tobacco Use Quit Date: 04/18/79 Second Hand Exposure: Yes Smoking risk assessment performed?: Yes Alcohol Intake: never Drug use: Never Substance use type: does not use Caregiver/Support person: No Household members: spouse and children Housing: house Communication Needs: Hard of Hearing Do you need help understanding health information?: Never Pets and animals: Yes Pets and animals: cat(s) Sexually active: No Do you think of yourself as: straight/heterosexual Current gender identity: male What is your relationship status?: How often do you talk on the phone with friends or family?: three or more times per week How often do you get together with friends or relatives?: once per week How often do you attend buddhist or jainism services?: 1-3 times per year Do you belong to any clubs or organized social groups?: no Panel score (0-1 are the most socially isolated patients): 2 What type of physical activity do you participate in: walking Duration: 15-30 minutes/day Frequency: daily Alexandrea/Shinto: None Special alexandrea needs: No Seatbelt use: always Helmet use: No Drive intox 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 Pleasant, well groomed, interactive. HEAD: Normocephalic, atraumatic ENT: Mucous membranes dry, oropharynx unremarkable, External ear exam unremarkable EYES: PERRL, EOMI NECK: Full ROM, no REJI, no menigismus CHEST/RESP: Nontender, clear to auscultation bilateral, no wheeze/rhonchi/rales CARDIOVASCULAR: Regular and tachycardic. 2+ Rad pulse bilateral ABDOMEN: Soft, nontender, no mass. +Bowel sounds EXT: Full ROM, no edema, no rash Neuro: Grossly normal neurologic exam, conversant, interactive. Psych: Speech fluent, thoughts congruent, affect normal Course Vital Signs Vital signs: Vital Signs Temperature 36.6 C 06/01/21 02:04 Pulse 117 H 06/01/21 02:04 Respiratory Rate 24 06/01/21 02:04 Blood Pressure 140/78 06/01/21 02:04 Pulse Oximetry 94 06/01/21 02:04 Temperature 36.6 C 06/01/21 02:04 Pulse 117 H 06/01/21 02:04 Respiratory Rate 24 06/01/21 02:04 Respiratory Effort 06/01/21 02:16 Blood Pressure 140/78 06/01/21 02:04 Blood Pressure Position Sitting 06/01/21 02:04 Pulse Oximetry 94 06/01/21 02:04 Oxygen Delivery Method Room Air 06/01/21 02:04 Oxygen Flow Rate 0 06/01/21 02:04 Pain Level 0 06/01/21 02:04
[2021-06-01] MEDS: Ondansetron 4 MG/2 ML VIAL IVP (02:23)
[2021-06-01] MEDS: Normal Saline 1,000 ML 1000 ML IV ×2 (02:23→03:15)
[2021-06-01 02:25] LABS: Abs Immature Grans 0.24 10^3/uL (0.0-0.06); Absolute Basophil Count 0.14 10^3/uL (0.0-0.2); Basophils % 0.7; Immature Grans % 1.2; Lymphocytes % 3.4; MCH 30.2 pg (27.0-33.0); MCHC 33.8 % (32.0-36.0); MCV 89.3 fL (80-95); Monocytes % 8.8; Neutrophils % 85.9; Nucleated RBC 0 %; Platelet Count 299 10^3/uL (130-400); RBC 6.72 10^6/uL (4.36-5.78); RDW 13.2 % (11.8-14.1); RDW-SD 42.1 fL; WBC 20.44 10^3/uL (4.4-10.8)
[2021-06-01 02:34] LABS: Absolute Lymphocyte Count 0.69 10^3/uL (1.2-3.4); Absolute Neutrophil Count 17.56 10^3/uL (1.2-6.7)
[2021-06-01 02:36] LABS: HGB 20.3 g/dL (13.5-17.5)
[2021-06-01 02:37] LABS: ALT 38 U/L (16-63); AST 20 U/L (15-37); Albumin 4.3 g/dL (3.4-5.0); Alkaline Phosphatase 126 U/L (46-116); Anion Gap 13.9 mmol/L (3-11); BUN 38 mg/dL (7-18); Bilirubin, Total 1.2 mg/dL (0.2-1.0); CO2 21.1 mmol/L (21.0-32.0); CREATININE 2.4 mg/dL (0.70-1.30); Calcium 9.3 mg/dL (8.5-10.1); Chloride 100 mmol/L (98-107); Diff Comment Agrees w/ Instrument; Estimated GFR 26.31 (mL/min/1.73m2); Glucose 164 mg/dL (74-106); Potassium 3.3 mmol/L (3.5-5.1); Sodium 135 mmol/L (136-145); Total Protein 8.8 g/dL (6.4-8.2)
[2021-06-01 03:53] VITALS: BP 116/62; PULSE 105; RESP 20; O2SAT 99
[2021-06-01 04:39] LABS: HCT 52.4 % (40.0-50.0); HGB 17.5 g/dL (13.5-17.5); MCH 30.3 pg (27.0-33.0); MCHC 33.4 % (32.0-36.0); MCV 90.7 fL (80-95); MPV 9.8 fL (8.0-11.0); Platelet Count 201 10^3/uL (130-400); RBC 5.78 10^6/uL (4.36-5.78); RDW 13.1 % (11.8-14.1); RDW-SD 43.5 fL
[2021-06-01 04:46] LABS: Anion Gap 9.3 mmol/L (3-11); BUN 41 mg/dL (7-18); CO2 23.7 mmol/L (21.0-32.0); CREATININE 2.3 mg/dL (0.70-1.30); Calcium 7.6 mg/dL (8.5-10.1); Chloride 105 mmol/L (98-107); Estimated GFR 27.64 (mL/min/1.73m2); Glucose 130 mg/dL (74-106); Potassium 3.7 mmol/L (3.5-5.1); Sodium 138 mmol/L (136-145)
[2021-06-01] MEDS: Normal Saline 500 ML IV (04:58)
[2021-06-01 04:59] VITALS: BP 124/64; PULSE 100; RESP 20
--- NOTE | 2021-06-01 05:42 | NUR.NOTE ---
Referral faxed to [facility] to f/u in 1-2 days for dehydration.Nursing Note:
[2021-06-01 06:47] VITALS: BP 110/65; PULSE 100; RESP 20; O2SAT 98
[2021-06-01 06:57] LABS: Bilirubin Negative (Negative); Blood Trace-lysed (Negative); Clarity Clear (Clear); Glucose Negative (Negative); Ketones Negative (Negative); Leukocyte Esterase Negative (Negative); Nitrite Negative (Negative); Specific Gravity 1.025 (1.005-1.025); Urobilinogen 0.2 EU/dL (Up TO 0.2); pH 5.5 (5-8)
--- NOTE | 2021-06-01 06:58 | NUR.NOTE ---
Nursing Note: Report given to Khalida NOVAK
[2021-06-01 07:06] LABS: Bacteria Rare HPF (Negative); C & S Indicated? No; Casts 3-5 Hyaline LPF (Negative); Crystals Negative HPF (Negative); Epithelial Cells Few HPF (Negative); Mucus Trace (Negative); WBC 0-2 HPF (0-5)
[2021-06-01 07:27] VITALS: BP 113/58; PULSE 60; RESP 16; TEMP 36.6; O2SAT 95
== END 2021-06-01 08:41 | disposition home or self-care (01) ==
PROVIDERS: Emergency Provider Emergency Medicine; PCP Nurse Practitioner Family
DX: E86.0 Dehydration (principal); K52.9 Noninfective gastroenteritis and colitis, unspecified; R19.7 Diarrhea, unspecified; R42 Dizziness and giddiness; R00.0 Tachycardia, unspecified; N28.9 Disorder of kidney and ureter, unspecified
CPT/HCPCS: 80048; 80053; 85027; 96361; 96374; 99284; 81003; 81015; 83735; 85025; J2405

== ENCOUNTER 2021-06-11 01:53 | Outpatient (CLI) | payer OTHER, SELFPAY ==
[2021-06-11 12:36] LABS: Abs Immature Grans 0.23 10^3/uL (0.0-0.06); Absolute Basophil Count 0.07 10^3/uL (0.0-0.2); Absolute Eosinophil Count 0.05 10^3/uL (0.0-0.7); Absolute Lymphocyte Count 1.14 10^3/uL (1.2-3.4); Absolute Monocyte Count 0.62 10^3/uL (0.1-0.8); Absolute Neutrophil Count 10.33 10^3/uL (1.2-6.7); Basophils % 0.6; Eosinophils % 0.4; HCT 45.7 % (40.0-50.0); HGB 15.5 g/dL (13.5-17.5); Immature Grans % 1.8; Lymphocytes % 9.2; MCH 30.5 pg (27.0-33.0); MCHC 33.9 % (32.0-36.0); MPV 9.7 fL (8.0-11.0); Nucleated RBC 0 %; Platelet Count 207 10^3/uL (130-400); RBC 5.08 10^6/uL (4.36-5.78); RDW 13.2 % (11.8-14.1); RDW-SD 43.8 fL; WBC 12.44 10^3/uL (4.4-10.8)
[2021-06-11 12:54] LABS: Hemoglobin A1C 5.9 % (<5.7)
[2021-06-11 13:18] LABS: Anion Gap 8.9 mmol/L (3-11); BUN 21 mg/dL (7-18); CO2 27.1 mmol/L (21.0-32.0); CREATININE 1.3 mg/dL (0.70-1.30); Calcium 8.7 mg/dL (8.5-10.1); Chloride 103 mmol/L (98-107); Estimated GFR 53.39 (mL/min/1.73m2); Glucose 148 mg/dL (74-106); Potassium 4.5 mmol/L (3.5-5.1); Sodium 139 mmol/L (136-145)
== END 2021-06-11 01:54 | disposition home or self-care (01) ==
LOC: LBO 01:53
PROVIDERS: PCP Nurse Practitioner Family; Visit Provider Nurse Practitioner Family
DX: E86.0 Dehydration (principal); K52.9 Noninfective gastroenteritis and colitis, unspecified; E11.9 Type 2 diabetes mellitus without complications
CPT/HCPCS: 36415; 80048; 83036; 85025

== ENCOUNTER 2021-06-26 01:49 | Outpatient (CLI) | payer OTHER, SELFPAY ==
--- NOTE | 2021-06-26 06:45 | DI.DEXA_ITS ---
Exam(s) XR DEXA BONE DENSITY W/WO ELHAM EXAM: XR DEXA BONE DENSITY W/WO ELHAM CLINICAL HISTORY: on chronic prednisone,z79.52,assisted use TECHNIQUE: Routine DEXA evaluation of the lumbar spine, hip, or forearm. COMPARISON: CR XR CHEST 2V PA LATERAL from 09/11/2020 FINDINGS: Performed on a Hologic unit. Lateral image: Slight loss of height of superior endplate of what is either L2 or L3. Age indetermin ate. Lumbar Spine total T-score: 0.8. Hip total T-score:-1.1. Independent reading at the level of the femoral neck yields at T-score of -1.5. Forearm total T-score: -1.7 IMPRESSION: Bone mineral density measures in the osteopenia range. Fracture risk is moderate. Note: Any spine fracture indicates 5x risk for subsequent spine fracture and 2x risk for subsequent h ip fracture. World Health Organization criteria for BMD interpretation classify patients: Normal...... T- Score at or above -1.0 Osteopenic... T- Score between -1.0 and -2.5 Osteoporosis... T-Score at or below -2.5
--- NOTE | 2021-06-26 06:45 | DI.RAD_ITS ---
Exam(s) XR CHEST 2V PA LATERAL EXAM: XR CHEST 2V PA LATERAL CLINICAL HISTORY: continued SOB despite pred course,dyspnea,r06.00. TECHNIQUE: 2D digital imaging was performed. COMPARISON: CR XR CHEST 2V PA LATERAL from 09/11/2020 CR,XR XR PORTABLE CHEST AP from 09/30/2020 FINDINGS: Heart size is normal. The mediastinum is not widened. Hyperinflation noted. Left lung is clear. There is platelike atelectasis in the right lung base. T his is unchanged from 09/11/2020. It was not evident on the single portable view of 09/30/2020. No pleural effusions. No pulmonary edema. No pneumothorax. There is vertebra plana compression fracture of a lower thoracic vertebral body but this is unchanged from 09/11/2020 IMPRESSION: There is platelike atelectasis or scarring in the right lung base. This is unchangedfrom 09/11/2020. DATA REPOSITORY: RADIATION DOSE DELIVERED:
== END 2021-06-26 02:09 ==
PROVIDERS: PCP Nurse Practitioner Family; Visit Provider Student in an Organized Health Care Education/Training Program
DX: Z79.52 Long term (current) use of systemic steroids (principal); R06.00 Dyspnea, unspecified; R91.8 Other nonspecific abnormal finding of lung field; Z13.820 Encounter for screening for osteoporosis; M85.89 Other specified disorders of bone density and structure, multiple sites
CPT/HCPCS: 77080; 71046

== ENCOUNTER 2021-07-14 11:57 | Outpatient (CLI) | payer OTHER, SELFPAY ==
--- NOTE | 2021-07-14 10:00 | DI.RAD_ITS ---
Exam(s) XR KNEE LT 3V AP,LAT,BLAKE EXAM: XR KNEE LT 3V AP,LAT,BLAKE CLINICAL HISTORY: Left knee pain, M25.562. TECHNIQUE: 2D digital imaging was performed of the left knee. Three images were obtained. AP, late ral and PA tunnel views were obtained. COMPARISON: CR LEFT KNEE LIMITED 1 OR 2 VIEWS from 03/15/2012 FINDINGS: BONES: No acute fracture is present. No bony destructive lesion is seen. JOINTS: The knee is normally aligned. No joint effusion is seen. Marked degenerative changes are seen in the left knee with joint space narrowing mild subchondral sclerosis and periarticular spurring in volving all 3 joint compartments. The findings are most marked in the medial femoral tibial joint. SOFT TISSUE: Atherosclerosis. IMPRESSION: Marked osteoarthritis of the knee. DATA REPOSITORY: RADIATION DOSE DELIVERED:
== END 2021-07-14 12:17 ==
PROVIDERS: PCP Nurse Practitioner Family; Visit Provider Nurse Practitioner Family
DX: M25.562 Pain in left knee (principal); M17.12 Unilateral primary osteoarthritis, left knee
CPT/HCPCS: 73562

== ENCOUNTER 2021-07-30 09:11 | Emergency (ER) | payer OTHER, SELFPAY ==
[2021-07-30 09:15] VITALS: BP 128/64; PULSE 90; RESP 16; TEMP 36.8; O2SAT 94
[2021-07-30] MEDS: Doxycycline Hyclate 100 MG CAP PO (09:28)
--- NOTE | 2021-07-30 09:35 | W.ED.GENAD ---
Discharge Plan Disposition Patient Disposition: HOME Condition: Stable Discharge Details Clinical Impression: Tick bite of neck Primary Care Provider: Alexandrea Trevino ED Provider: Scarlett Moyer Meds and New Rx's Prescriptions: New doxycycline hyclate 100 mg tablet 100 mg PO BID 10 Days Qty: 20 0RF No Action sertraline 25 mg tablet 25 mg PO DAILY Qty: 90 4RF tamsulosin 0.4 mg capsule 0.8 mg PO HS Qty: 180 4RF hydrochlorothiazide 12.5 mg capsule 12.5 mg PO DAILY Qty: 90 4RF azithromycin 250 mg tablet 250 mg PO DAILY Qty: 90 4RF varicella-zoster gE-AS01B (PF) 50 mcg/0.5 mL suspension for reconstitution 0.5 ml IM ONCE Qty: 1 0RF Rx Instructions: 2 doses 2 months apart albuterol sulfate 90 mcg/actuation HFA aerosol inhaler 2 inh inhalation Q6H PRN (Reason: shortness of breath or wheezing) Qty: 3 4RF Trelegy Ellipta 100-62.5-25 mcg blister with device 1 inh inhalation DAILY Qty: 90 4RF ipratropium-albuterol 0.5 mg-3 mg(2.5 mg base)/3 mL solution for nebulization 3 ml UPD QID PRN (Reason: shortness of breath or wheezing) Qty: 180 4RF amoxicillin-pot clavulanate [Augmentin] 500-125 mg tablet 1 tab PO BID Qty: 10 0RF multivitamin 1 EACH tablet 1 tab PO DAILY 0RF (DME) blood-glucose meter [OneTouch Ultra2 Meter] Kit See Rx Instructions .MEDSUPPLY Qty: 1 2RF Rx Instructions: Check blood sugar daily (DME) lancets [OneTouch Delica Plus Lancet] 33 gauge misc See Rx Instructions .MEDSUPPLY Qty: 100 4RF Rx Instructions: Check blood sugar daily (DME) OneTouch Ultra Blue Test Strip Strip See Rx Instructions .MEDSUPPLY Qty: 100 4RF Rx Instructions: Check blood sugar daily prednisone 5 mg tablet 5 mg PO DAILY Qty: 90 4RF trazodone 100 mg tablet 100 mg PO HS Qty: 90 4RF Dupixent Pen 200 mg/1.14 mL pen injector 200 mg subcut Q2W Qty: 2.28 12RF omeprazole 20 mg capsule,delayed release(DR/EC) 20 mg PO DAILY Qty: 90 3RF loratadine 10 mg tablet 10 mg PO DAILY Qty: 90 4RF potassium chloride 10 mEq capsule, extended release 10 meq PO DAILY Qty: 90 4RF Label Comments: now taking 20 MEQ Discharge Instructions Instructions: Tick Bite (ED) Additional Instructions: At this time it does appear that this is a tick bite with possible embedded head of the tick. I was able to remove some of it but cannot rule out that there is still partially retained insect parts. Take the antibiotic as directed twice daily for 10 days. Eat with yogurt or probiotic please take with food. Keep the area clean and dry. Please be seen by your PCP is development of rash, body ache, fever or any concerns. Follow up with primary care provider in 3-5 days. Return to ED sooner if any worsening or concerns. Increase oral fluids. Please take Tylenol with food every 4-6 hours as needed for pain and swelling. Referrals: Alexandrea Trevino NP [Primary Care Provider] - 3 days Medical Decision Making 81-year-old male presents to the ER with chief complaint of tick bite to the left side of his neck which he noticed couple days ago. He reports that his cat likes to lay near his head. He does have a raised area which is erythemic and indurated with a central possible head of a tick. He denies any other associate symptoms or complaints. Does have a past medical history of hyperlipidemia, hypertension, A. fib, COPD and asthma. Patient given first dose of doxycycline 100 mg here in the department prescribe doxycycline twice daily for 10 days. Attempted I&D with 1% lidocaine and single incision with 11 blade. Please see procedure note. Nonadhesive bandage applied post procedure. No obvious removal of the head of the tick. Will treat for 10 days of antibiotics since it has been couple of days. Discussed home care patient verbalized understanding. This text was generated using Numblebeeation system, please disregard any oddities of phrase or misspellings. HPI General Mode of arrival: ambulatory. Date/Time Provider Initiated Documentation: 07/30/21 09:18. Limitations to Documentation: no limitations. Information obtained by: patient, RN notes reviewed and old records reviewed. HPI Narrative: 81-year-old male presents to the ER with chief complaint of tick bite to the left side of his neck which he noticed couple days ago. He reports that his cat likes to lay near his head. He does have a raised area which is erythemic and indurated with a central possible head of a tick. He denies any other associate symptoms or complaints. Does have a past medical history of hyperlipidemia, hypertension, A. fib, COPD and asthma. Related Data Home Medications Medication Instructions Recorded Confirmed multivitamin 1 tab PO DAILY 11/12/14 07/30/21 albuterol sulfate 90 mcg/actuation 2 inh INHALATION Q6H PRN #3 ea 09/12/20 07/30/21 aerosol inhaler fluticasone fur. 100 mcg-umeclid 1 inh INHALATION DAILY #90 ea 09/19/20 07/30/21 62.5 mcg-vilant 25 mcg inhalat.powder (Trelegy Ellipta) blood sugar diagnostic ([employer])Touch #100 ea 10/17/20 07/13/21 Ultra Blue Test Strip) blood-glucose meter (OneTouch #1 ea 10/17/20 07/13/21 Ultra2 Meter) lancets 33 gauge (OneTouch Delica #100 ea 10/17/20 07/13/21 Plus Lancet) ipratropium 0.5 mg-albuterol 3 mg 3 ml UPD QID PRN #180 ml 03/10/21 07/30/21 (2.5 mg base)/3 mL nebulization soln prednisone 5 mg tablet 5 mg PO DAILY #90 tab 04/03/21 07/30/21 trazodone 100 mg tablet 100 mg PO HS #90 tab-cap 04/24/21 07/30/21 dupilumab 200 mg/1.14 mL 200 mg (1.14 mL) SUBCUT Q2W #2.28 05/05/21 07/30/21 subcutaneous pen injector ml (Dupixent) omeprazole 20 mg capsule,delayed 20 mg PO DAILY #90 tab-cap 06/01/21 07/30/21 release azithromycin 250 mg tablet 250 mg PO DAILY #90 tab 06/08/21 07/30/21 hydrochlorothiazide 12.5 mg capsule 12.5 mg PO DAILY #90 tab-cap 06/08/21 07/30/21 sertraline 25 mg tablet 25 mg PO DAILY #90 tab-cap 06/08/21 07/30/21 tamsulosin 0.4 mg capsule 0.8 mg PO HS #180 tab-cap 06/08/21 07/30/21 varicella-zoster glycoE vacc-AS01B 0.5 ml IM ONCE #1 ea 06/08/21 07/30/21 adj(PF) 50 mcg/0.5 mL IM susp, kit loratadine 10 mg tablet 10 mg PO DAILY #90 tab 06/10/21 07/30/21 amoxicillin 500 mg-potassium 1 tab PO BID #10 tab 06/15/21 07/30/21 clavulanate 125 mg tablet (Augmentin) potassium chloride 10 mEq 10 meq PO DAILY #90 tab-cap 06/22/21 07/30/21 capsule,extended release doxycycline hyclate 100 mg tablet 100 mg PO BID 10 Days #20 tab 07/30/21 Previous Rx's Medication Instructions Recorded albuterol sulfate 90 mcg/actuation 2 inh INHALATION Q6H PRN #3 ea 09/12/20 aerosol inhaler fluticasone fur. 100 mcg-umeclid 1 inh INHALATION DAILY #90 ea 09/19/20 62.5 mcg-vilant 25 mcg inhalat.powder (Trelegy Ellipta) blood sugar diagnostic (OneTouch #100 ea 10/17/20 Ultra Blue Test Strip) blood-glucose meter (OneTouch #1 ea 10/17/20 Ultra2 Meter) lancets 33 gauge (OneTouch Delica #100 ea 10/17/20 Plus Lancet) ipratropium 0.5 mg-albuterol 3 mg 3 ml UPD QID PRN #180 ml 03/10/21 (2.5 mg base)/3 mL nebulization soln prednisone 5 mg tablet 5 mg PO DAILY #90 tab 04/03/21 trazodone 100 mg tablet 100 mg PO HS #90 tab-cap 04/24/21 dupilumab 200 mg/1.14 mL 200 mg (1.14 mL) SUBCUT Q2W #2.28 05/05/21 subcutaneous pen injector ml (Dupixent) omeprazole 20 mg capsule,delayed 20 mg PO DAILY #90 tab-cap 06/01/21 release azithromycin 250 mg tablet 250 mg PO DAILY #90 tab 06/08/21 hydrochlorothiazide 12.5 mg capsule 12.5 mg PO DAILY #90 tab-cap 06/08/21 sertraline 25 mg tablet 25 mg PO DAILY #90 tab-cap 06/08/21 tamsulosin 0.4 mg capsule 0.8 mg PO HS #180 tab-cap 06/08/21 varicella-zoster glycoE vacc-AS01B 0.5 ml IM ONCE #1 ea 06/08/21 adj(PF) 50 mcg/0.5 mL IM bozena krishna loratadine 10 mg tablet 10 mg PO DAILY #90 tab 06/10/21 amoxicillin 500 mg-potassium 1 tab PO BID #10 tab 06/15/21 clavulanate 125 mg tablet (Augmentin) potassium chloride 10 mEq 10 meq PO DAILY #90 tab-cap 06/22/21 capsule,extended release doxycycline hyclate 100 mg tablet 100 mg PO BID 10 Days #20 tab 07/30/21 Allergies Allergy/AdvReac Type Severity Reaction Status Date / Time atorvastatin AdvReac Mild MUSCLE Verified 07/30/21 09:18 FATIGUE simvastatin AdvReac Mild MUSCLE Verified 07/30/21 09:18 FATIGUE General Stated Complaint: RashLesion AMERICO: 4 Review of Systems All systems reviewed & are unremarkable except as noted in HPI and below Integumentary/Breasts Skin/Breast: Reports as per HPI, Reports rash and Reports wounds (Tick bite left neck) PFSH All Active Problems (Updated 07/30/21 @ 09:42 by Scarlett Moyer) Tick bite of neck (Acute) Primary osteoarthritis of left knee (Acute) Asthma-COPD overlap syndrome (Chronic) Followed by [facility] pulmonology Nonsustained ventricular tachycardia (Chronic) Asymptomatic, noted on cardiac monitor technician October 2020 Paroxysmal atrial fibrillation (Chronic) Essential hypertension (Chronic) Hyperlipidemia (Chronic) MASON (obstructive sleep apnea) (Chronic) Major depressive disorder (Chronic) First degree AV block (Chronic) Prediabetes (Chronic) Insomnia (Chronic) BPH w urinary obs/LUTS (Chronic) Essential tremor (Chronic) Gastroesophageal reflux disease (Chronic) Morris de la Tourette's syndrome (Chronic) Dysphagia (Chronic) Osteoarthritis (Chronic) Pes valgus of left foot (Chronic) Pes valgus planus deformity Posterior tibial tendon dysfunction, left (Chronic) Allergic rhinitis (Chronic) Onychogryphosis (Chronic) Medical History (Updated 07/30/21 @ 09:42 by Scarlett Moyer) Chronic obstructive pulmonary disease with (acute) exacerbation (09/2020) History of tobacco use 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 Son No problems noted. Daughter No problems noted. Paternal Grandfather No problems noted. Paternal Grandmother No problems noted. Maternal Grandfather No problems noted. Maternal Grandmother Cancer Social History (Updated 06/10/21 @ 13:54 by Yanni Baumann) Smoking/Tobacco Use Status: Former Tobacco Use tobacco type: cigarettes, pipe and cigars Quit Date: 04/18/79 Second Hand Exposure: Yes Smoking risk assessment performed?: Yes Alcohol Intake: never Drug use: Never Substance use type: does not use Household members: spouse and children Do you need help understanding health information?: Never Pets and animals: Yes Pets and animals: cat(s) Sexually active: No Do you think of yourself as: straight/heterosexual Current gender identity: male What is your relationship status?: How often do you talk on the phone with friends or family?: once per week How often do you get together with friends or relatives?: once per week How often do you attend anglican or mormon services?: decline to answer Do you belong to any clubs or organized social groups?: no Panel score (0-1 are the most socially isolated patients): 1 What type of physical activity do you participate in: walking Duration: 15-30 minutes/day Frequency: 1-2 times per week Alexandrea/Advent: None Special alexandrea needs: No Seatbelt use: always Drive intox 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 Area of induration, swelling and erythema with a central black possible tick head. Course Vital Signs Vital signs: Vital Signs Temperature 36.8 C 07/30/21 09:15 Pulse 90 07/30/21 09:15 Respiratory Rate 16 07/30/21 09:15 Blood Pressure 128/64 07/30/21 09:15 Pulse Oximetry 94 07/30/21 09:15 Temperature 36.8 C 07/30/21 09:15 Temperature Source Skin 07/30/21 09:15 Pulse 90 07/30/21 09:15 Respiratory Rate 16 07/30/21 09:15 Respiratory Effort 07/30/21 09:23 Blood Pressure 128/64 07/30/21 09:15 Blood Pressure Position Sitting 07/30/21 09:15 Pulse Oximetry 94 07/30/21 09:15 Oxygen Delivery Method Room Air 07/30/21 09:15 Oxygen Flow Rate 0 07/30/21 09:15 Pain Level 2 07/30/21 09:15 Procedures Foreign Body Removal Time Out Performed: no Site: left and face (Neck) Description of foreign body: insect (Tick) Sedation/Analgesia: other (Lidocaine 1 %) Technique: removal with forceps and incision made to facilitate removal Confirmed by:: direct visualization, patient report and palpation Complications: none and bleeding Post-procedure exam: awake, alert Neurovascular: normal capillary fill and other (Incomplete removal of Foreign body)
== END 2021-07-30 09:51 | disposition home or self-care (01) ==
PROVIDERS: Emergency Provider Registered Nurse Emergency; PCP Nurse Practitioner Family
DX: S10.86XA Insect bite of other specified part of neck, initial encounter (principal); W57.XXXA Bitten or stung by nonvenomous insect and other nonvenomous arthropods, initial encounter
CPT/HCPCS: 10060

== ENCOUNTER → 2021-08-04 10:26 | Outpatient (BNVA) | payer OTHER, SELFPAY | PROVIDERS: PCP Nurse Practitioner Family; Referring Provider Nurse Practitioner Family | DX: M17.12 Unilateral primary osteoarthritis, left knee (principal) | CPT/HCPCS: 99213 ==

== ENCOUNTER 2021-09-18 01:50 | Outpatient (CLI) | payer OTHER, SELFPAY ==
[2021-09-18 07:57] LABS: HCT 45.1 % (40.0-50.0); HGB 15.2 g/dL (13.5-17.5); MCHC 33.7 % (32.0-36.0); MCV 89 fL (80-95); MPV 9.5 fL (8.0-11.0); Platelet Count 204 10^3/uL (130-400); RBC 5.06 10^6/uL (4.36-5.78); RDW 12.8 % (11.8-14.1); RDW-SD 41.6 fL; WBC 7.23 10^3/uL (4.4-10.8)
[2021-09-18 09:09] LABS: ALT 33 U/L (16-63); AST 21 U/L (15-37); Albumin 3.5 g/dL (3.4-5.0); Alkaline Phosphatase 123 U/L (46-116); Anion Gap 8.7 mmol/L (3-11); BUN 25 mg/dL (7-18); Bilirubin, Total 0.7 mg/dL (0.2-1.0); CO2 27.3 mmol/L (21.0-32.0); CREATININE 1.5 mg/dL (0.70-1.30); Calcium 8.7 mg/dL (8.5-10.1); Calculated LDL 145 mg/dL (<100); Chloride 101 mmol/L (98-107); Cholesterol 216 mg/dL (<200); Estimated GFR 45.14 (mL/min/1.73m2); Glucose 101 mg/dL (74-106); HDL Cholesterol 46 mg/dL (40-60); Potassium 3.9 mmol/L (3.5-5.1); Sodium 137 mmol/L (136-145); TSH (W/Ref FT4) 3.77 uIU/mL (0.36-3.74); Total Protein 6.6 g/dL (6.4-8.2); Triglyceride 126 mg/dL (<150)
[2021-09-18 09:13] LABS: Hemoglobin A1C 5.7 % (<5.7)
[2021-09-21 09:59] LABS: Lyme Ab w Rflx to Lyme Confirm Negative (Negative)
== END 2021-09-18 01:51 | disposition home or self-care (01) ==
LOC: LBO 01:50
PROVIDERS: PCP Nurse Practitioner Family; Visit Provider Family Medicine
DX: E11.9 Type 2 diabetes mellitus without complications (principal); I10 Essential (primary) hypertension; R53.83 Other fatigue
CPT/HCPCS: 36415; 80053; 80061; 85027; 83036; 84439; 84443; 86618

== ENCOUNTER 2021-10-01 09:36 | Outpatient (CLI) | payer OTHER, SELFPAY ==
--- NOTE | 2021-10-01 09:30 | DI.RAD_ITS ---
Exam(s) XR KNEE RT 3V AP,LAT,BLAKE EXAM: XR KNEE RT 3V AP,LAT,BLAKE CLINICAL HISTORY: pain. TECHNIQUE: 2D digital imaging was performed. COMPARISON: CR XR KNEE LT 3V AP,LAT,BLAKE from 07/14/2021 FINDINGS: Two views Position alignment of the components of the right knee prosthesis appears satisfactory. No fracture or loosening evident. IMPRESSION: DATA REPOSITORY: RADIATION DOSE DELIVERED:
== END 2021-10-01 09:37 | disposition home or self-care (01) ==
LOC: DIORS 09:36
PROVIDERS: PCP Nurse Practitioner Family; Referring Provider Nurse Practitioner Family; Visit Provider Physician Assistant Surgical
DX: Z96.651 Presence of right artificial knee joint (principal); M17.12 Unilateral primary osteoarthritis, left knee
CPT/HCPCS: 20610; 73562; J1040

== ENCOUNTER 2021-10-01 12:46 | Outpatient (REF) | payer OTHER, SELFPAY ==
[2021-10-01 13:42] LABS: Clarity Clear; Nucleated Cells 350 uL (0)
[2021-10-01 14:17] LABS: Mononuclear Cells 60 %; Polynuclear Cells 40 %
== END 2021-10-01 12:47 | disposition home or self-care (01) ==
LOC: LBN 12:46
PROVIDERS: PCP Nurse Practitioner Family; Visit Provider Student in an Organized Health Care Education/Training Program
DX: M25.461 Effusion, right knee; M25.561 Pain in right knee; Z96.651 Presence of right artificial knee joint
CPT/HCPCS: 87070; 87205; 89051

== ENCOUNTER 2021-10-05 16:59 | Outpatient (REF) | payer OTHER, SELFPAY | END 2021-10-05 17:00 | disposition home or self-care (01) | LOC: LBN 16:59 | PROVIDERS: PCP Nurse Practitioner Family; Visit Provider Student in an Organized Health Care Education/Training Program ==

== ENCOUNTER 2021-10-06 00:08 | Outpatient (CLI) | payer OTHER, SELFPAY ==
--- NOTE | 2021-10-06 07:15 | DI.NM_ITS ---
APPROVED REPORT Exam: Pharmacologic Patient Location: Out-Patient Room/Bed: Stress Nurse: Molly Wasserman RN Ordering Provider:MISAEL CHANDLER, Contact Number: [phone] BMI: 30.78 Baseline Rhythm: Sinus Rhythm Comment: 1DHB w/ multifocal PVCs and couplet Indications: Concern for CAD, dyspnea and fatigue Medical History Medical History: Hypertension, hyperlipidemia, diabetes type 2, asthma, COPD, smoker (former), MASON w/ Bipap, CKD stage 3, osteoarthritis, gerd, Morris de la Tourette syndrome Cardiac Medications: Albuterol sulfate, trelegy ellipta, ipratropium, omeprazole, hydrochlorothiazide , potassium chloride, prednisone Allergies: Atorvastatin, simvastatin Cardiac Risk Factors: Hypertension, hyperlipidemia, diabetes type 2, asthma, COPD, smoker (former) Previous Cardiac Procedures: None Pretest Chest Pain Characteristics: Baseline mild SOB Exercise History: Sedentary Physical Disabilities: Uses cane Lung Sounds: Clear to auscultation Heart Sounds: Regular Stress Test Details Test: Exercise stress converted to pharmacologic stress due to failure to obtain a diagnostic stress test. Reason for pharmacologic stress test: changed from exercise stress test due to inability to reach t arget heart rate and physical limitation.. Nuclear Acquisition: Rest Tc-99m/Stress Tc-99m 1 day Rest Isotope: Tc-99m Sestamibi. Dose: 11.4 Date: 10/06/2021 Injection Time: 0845 Stress Isotope: Tc-99m Sestamibi. Dose: 37.0 Date: 10/06/2021 Injection Time: 1016 HR Resting HR Supine: 78 bpm Max Heart Rate (APMHR): 141.097595 bpm Resting HR Standin bpm Target HR (85% APMHR): 119.491155 bpm Max HR Achieved: 129 bpm % of APMHR: 91.49 Recovery HR: 88 bpm BP Resting BP Supine: 138/82 mmHg Resting BP Standin/78 mmHg Max BP: 142/62 mmHg Recovery BP: 112/70 mmHg ECG Resting ECG: Sinus Rhythm, 1DHB Ectopy: Multifocal PVCs, couplet Stress ECG: Sinus Tachycardia, 1DHB ST Change: No significant ST segment changes noted Arrhythmia: PACs, frequent multifocal PVCs, triplet Recovery ECG: Sinus Rhythm, 1DHB Recovery ST Change: No significant ST segment changes noted Recovery Arrhythmia: PACs, multifocal PVCs, triplet, trigeminy, 7 beat run SVT at min 1:11 in recover y Clinical Stress Symptoms: General Fatigue, Dyspnea Exercise capacity: 1.73 METs Angina Score: None Rate Pressure Product: 72079 Stress ECG Conclusion 1. 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 The patient underwent stress testing using a combination of low-level exercise and regadenoson 3. Peak heart rate achieved was 91% of predicted for age 4. There was no electrocardiographic evidence of myocardial ischemia 5. Premature ventricular contractions were noted Stress Test Summary STAGE Time (mins) Speed (mph) Grade (%) HR BP SYMPTOMS METS Supine 78 138/82 Standing 97 122/78 Baseline mild SOB, Sp02 89% 1 min post Lexiscan injection 108 142/62 Moderate SOB, Sp02 89% 3 min post Lexiscan injection 92 118/72 Mild SOB, Sp02 96% 6 min post Lexiscan injection 88 112/70 SOB resolved, Sp02 96% Pt started test with Modified Ifeanyi protocol. After ambulating for 30 seconds at 1.7 mph and 0% grade , test changed to walking Lexiscan due to physical limitation and inability to reach THR. Patient amb ulated at 1.1 mph and 0% grade during Lexiscan administration. Tolerated testing well. MPI Conclusion Myocardial perfusion is normal without evidence of ischemia or prior infarction EF 47%, wall motion is normal Radiologist Interpretation Radiologist agrees with Ruling Technician's Interpretation. Radiologist Interpretation by: Keyona Echevarria MD Interpretation Date/Time: 10/06/2021 16:39:50
[2021-10-06] MEDS: Regadenoson 0.4 MG/5 ML SYR IVP (10:48)
== END 2021-10-06 00:28 ==
LOC: DI 00:08
PROVIDERS: PCP Nurse Practitioner Family; Visit Provider Student in an Organized Health Care Education/Training Program
DX: R06.00 Dyspnea, unspecified (principal)
CPT/HCPCS: 78452; 93016; 93018; 93017; J2785

== ENCOUNTER 2021-10-12 17:43 | Outpatient (REF) | payer OTHER, SELFPAY ==
[2021-10-14 08:50] LABS: Anaplasma phagocytophilum Negative (Negative); Babesia divergens/MO-1 Negative (Negative); Babesia duncani Negative (Negative); Babesia microti Negative (Negative); Ehrlichia chaffeensis Negative (Negative); Ehrlichia ewingii/canis Negative (Negative); Ehrlichia muris eauclairensis Negative (Negative)
== END 2021-10-12 17:44 | disposition home or self-care (01) ==
LOC: LBN 17:43
PROVIDERS: PCP Nurse Practitioner Family; Visit Provider Student in an Organized Health Care Education/Training Program
DX: R53.83 Other fatigue (principal); R06.02 Shortness of breath; J44.9 Chronic obstructive pulmonary disease, unspecified
CPT/HCPCS: 82533; 87798

== ENCOUNTER 2021-11-12 15:00 | Outpatient (RCR) | payer OTHER, SELFPAY | END 2021-11-15 23:59 | disposition home or self-care (01) | LOC: PRC 15:00 | PROVIDERS: PCP Nurse Practitioner Family; Visit Provider Student in an Organized Health Care Education/Training Program | DX: Z51.89 Encounter for other specified aftercare (principal); J45.909 Unspecified asthma, uncomplicated; J44.9 Chronic obstructive pulmonary disease, unspecified | CPT/HCPCS: G0424 ==

== ENCOUNTER 2021-11-20 01:56 | Outpatient (CLI) | payer OTHER, SELFPAY ==
[2021-11-20 13:27] LABS: Hemoglobin A1C 5.9 % (<5.7)
[2021-11-20 13:55] LABS: Anion Gap 5.4 mmol/L (3-11); BUN 24 mg/dL (7-18); CO2 29.6 mmol/L (21.0-32.0); CREATININE 1.4 mg/dL (0.70-1.30); Chloride 100 mmol/L (98-107); Estimated GFR 48.89 (mL/min/1.73m2); FREE T4 0.82 ng/dL (0.76-1.46); Glucose 119 mg/dL (74-106); Potassium 3.6 mmol/L (3.5-5.1); Sodium 135 mmol/L (136-145); TSH 2.53 uIU/mL (0.36-3.74)
[2021-11-20 22:17] LABS: T3,Free 3.6 pg/mL (2.8-5.3)
== END 2021-11-20 01:57 | disposition home or self-care (01) ==
LOC: LBO 01:56
PROVIDERS: Family Medicine; PCP Nurse Practitioner Family; Visit Provider Nurse Practitioner Family
DX: R53.83 Other fatigue (principal); N18.30 Chronic kidney disease, stage 3 unspecified; R79.89 Other specified abnormal findings of blood chemistry; M54.2 Cervicalgia
CPT/HCPCS: 36415; 80048; 83036; 84439; 84443; 84481

== ENCOUNTER → 2021-11-23 16:03 | Outpatient (CLI) | payer OTHER, SELFPAY ==
--- NOTE | 2021-11-23 13:30 | DI.RAD_ITS ---
Exam(s) XR WRIST RT COMPLETE EXAM: XR WRIST RT COMPLETE CLINICAL HISTORY: r/o fx, WRIST PAIN, M25.539. TECHNIQUE: 2D digital imaging was performed. COMPARISON: No exams were available for comparison FINDINGS: 3 views No evidence of acute fracture nor carpal dislocation. However, there is significant narrowing of the radiocarpal joint and widening scapholunate distance implying scapholunate ligament instability. Mi ld degenerative changes noted 1st carpometacarpal IMPRESSION: DATA REPOSITORY: RADIATION DOSE DELIVERED:
== END ==
PROVIDERS: PCP Nurse Practitioner Family; Visit Provider Nurse Practitioner Family
DX: M18.11 Unilateral primary osteoarthritis of first carpometacarpal joint, right hand; M24.231 Disorder of ligament, right wrist
CPT/HCPCS: 73110

== ENCOUNTER → 2021-11-27 00:13 | Outpatient (CLI) | payer OTHER, SELFPAY ==
--- NOTE | 2021-11-27 07:30 | DI.NM_ITS ---
Exam(s) NM BONE SCAN 3 PHASE EXAM: NM BONE SCAN 3 PHASE CLINICAL HISTORY: ? loosening, h/o revision of total rt knee,z96.651. TECHNIQUE: Injected Dose: 25 mCi Tc-99m MDP COMPARISON: CR XR KNEE LT 3V AP,LAT,BLAKE from 07/14/2021 CR XR KNEE RT 3V AP,LAT,BLAKE from 10/01/2021 CR XR WRIST RT COMPLETE from 11/23/2021 FINDINGS: Perfusion: Mild hyperemia to the right knee. Blood Pool: Mild increased soft tissue activity in the lateral and anterior aspects of the right knee . Delayed: Increased activity seen at the patella. Mildly increased activity seen at the margins of th e femoral and tibial components of the prosthesis. Increased activity is also noted in the medial fe moral tibial joint and left ankle. Areas of increased activity are also noted in both shoulders, wri sts and sternoclavicular joints. IMPRESSION: 1. Mild hyperemia and soft tissue activity around the right knee. Mildly increased activity around t he prosthesis on delayed images. Findings could be postsurgical or represent loosening.. 2. Increased activity is also noted of the medial femoral tibial joint of the left knee corresponding to severe degenerative changes. DATA REPOSITORY:
== END ==
PROVIDERS: PCP Nurse Practitioner Family; Visit Provider Student in an Organized Health Care Education/Training Program
DX: Z96.651 Presence of right artificial knee joint (principal); M17.11 Unilateral primary osteoarthritis, right knee
CPT/HCPCS: 78315

== ENCOUNTER 2021-12-03 11:40 | Outpatient (CLI) | payer OTHER, SELFPAY ==
--- NOTE | 2021-12-03 10:00 | DI.RAD_ITS ---
Exam(s) XR SHOULDER RT COMPLETE 2+V EXAM: XR SHOULDER RT COMPLETE 2+V CLINICAL HISTORY: eval R ;shoulder pain and weakness. TECHNIQUE: 2D digital imaging was performed. Two views. COMPARISON: CR XR SHOULDER LT COMPLETE 2+V from 12/03/2021 FINDINGS: BONES: No acute fracture is present. No bony destructive lesion is seen.Multiple subchondral cysts ar e seen in the humeral head. There is prominent spurring at the lesser tuberosity. JOINTS: No dislocation present. There is superior subluxation of the humeral head with respect to th e glenoid consistent with chronic rock rotator cuff tear. The humeral head appears to articulate wit h the undersurface of the acromion which show spurring. There prominent hypertrophic changes of the AC joint. SOFT TISSUE: Normal. 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 Degenerative changes at the glenohumeral joint A C joint DATA REPOSITORY: RADIATION DOSE DELIVERED:
--- NOTE | 2021-12-03 10:00 | DI.RAD_ITS ---
Exam(s) XR SHOULDER LT COMPLETE 2+V EXAM: XR SHOULDER LT COMPLETE 2+V CLINICAL HISTORY: left shoulder pain and weakness. TECHNIQUE: 2D digital imaging was performed. Three views. COMPARISON: CR RIGHT SHOULDER COMPLETE from 09/13/2012 FINDINGS: BONES: No acute fracture is present. No bony destructive lesion is seen. Spurring at the tip of the acromion and lesser tuberosity. JOINTS: No dislocation present. Glenohumeral joint space is well maintained. There is spurring at t he glenoid. Spurring at the AC joint. Humeral head normally positioned. SOFT TISSUE: Normal. IMPRESSION: Degenerative changes of the AC joint and glenohumeral joint. DATA REPOSITORY: RADIATION DOSE DELIVERED:
== END 2021-12-03 11:41 | disposition home or self-care (01) ==
LOC: DIORS 11:41
PROVIDERS: PCP Nurse Practitioner Family; Referring Provider Nurse Practitioner Family; Visit Provider Student in an Organized Health Care Education/Training Program
DX: M25.511 Pain in right shoulder (principal); M25.512 Pain in left shoulder
CPT/HCPCS: 20610; 73030; J1040

== ENCOUNTER 2021-12-15 15:00 | Outpatient (RCR) | payer OTHER, SELFPAY | END 2021-12-16 23:59 | disposition home or self-care (01) | LOC: PRC 15:00 | PROVIDERS: PCP Nurse Practitioner Family; Visit Provider Student in an Organized Health Care Education/Training Program | DX: Z51.89 Encounter for other specified aftercare (principal); J45.909 Unspecified asthma, uncomplicated; J44.9 Chronic obstructive pulmonary disease, unspecified | CPT/HCPCS: 94626; G0424 ==

== ENCOUNTER 2021-12-24 15:00 | Outpatient (RCR) | payer OTHER, SELFPAY ==
--- NOTE | 2022-01-14 12:32 | PRPHASE3_ITS ---
Date of service: 12/24/21 Cardiopulmonary Rehabilitation Note Narrative: Pulmonary Rehab Discharge The patient completed the prescribed pulmonary rehab program at [facility]. Below is a summary of the patients pre program and post program data. Category Initial Discharge Weight 231 231 ELIJAH index 3 4 6MWT Distance 500 ft 775 ft 6MWT METs 1.7 2.1 Peak METs during [place] 2 2.1 mMRC 2 3 [place] RQ 48 55 PHQ9 4 6 The patient has been offered to take part in the maintenance program of pulmonary rehab if they are interested in continuing.
== END 2022-01-15 23:59 | disposition home or self-care (01) ==
LOC: PRC 15:00
PROVIDERS: PCP Nurse Practitioner Family; Visit Provider Student in an Organized Health Care Education/Training Program
DX: Z51.89 Encounter for other specified aftercare (principal); J44.9 Chronic obstructive pulmonary disease, unspecified; J45.909 Unspecified asthma, uncomplicated
CPT/HCPCS: 94618; G0237; G0424

== ENCOUNTER 2022-01-31 09:06 | Emergency (ER) | payer OTHER, SELFPAY ==
[2022-01-31 09:10] VITALS: BP 99/61; PULSE 91; RESP 18; TEMP 36.5; O2SAT 96
--- NOTE | 2022-01-31 09:15 | DI.RAD_ITS ---
Exam(s) XR HAND RT COMPLETE XR WRIST RT COMPLETE EXAM: XR WRIST RT COMPLETE and XR and RT complete CLINICAL HISTORY: wrist pain, atraumatic. TECHNIQUE: 2D digital imaging was performed of the right wrist. Six views were obtained. PA, later al and oblique views were obtained. COMPARISON: CR XR WRIST RT COMPLETE from 11/23/2021 FINDINGS: BONES: No acute fracture is present. No bony destructive lesion is seen. JOINTS: There is again seen marked widening of the scapholunate joint which appears more pronounced c ompared to the prior examination. This is consistent with scapholunate ligament tear. There is also been proximal migration of the capitate. Degenerative changes are seen in the hand and wrist partic ularly involving the interphalangeal joints and the radiocarpal joint. SOFT TISSUE: Normal. IMPRESSION: 1. Findings consistent with a scapholunate tear with widening of the scapholunate joint and proximal migration of the capitate. 2. Degenerative changes of the hand and wrist. 3. No acute fracture or dislocation. DATA REPOSITORY: RADIATION DOSE DELIVERED:
--- NOTE | 2022-01-31 09:24 | W.ED.GENAD ---
Discharge Plan Disposition Patient Disposition: HOME Condition: Stable Discharge Details Chief Complaint: Orthopedic Clinical Impression: Scapho-lunate dissociation, Chronic wrist pain Primary Care Provider: Alexandrea Trevino ED Provider: Masoud Gonzalez Home Meds and New Rx's Prescriptions: No Action tamsulosin 0.4 mg capsule 0.8 mg PO HS Qty: 180 4RF hydrochlorothiazide 12.5 mg capsule 12.5 mg PO DAILY Qty: 90 4RF azithromycin 250 mg tablet 250 mg PO DAILY Qty: 90 4RF varicella-zoster gE-AS01B (PF) 50 mcg/0.5 mL suspension for reconstitution 0.5 ml IM ONCE Qty: 1 0RF Rx Instructions: 2 doses 2 months apart albuterol sulfate 90 mcg/actuation HFA aerosol inhaler 2 inh inhalation Q6H PRN (Reason: shortness of breath or wheezing) Qty: 3 4RF Trelegy Ellipta 100-62.5-25 mcg blister with device 1 inh inhalation DAILY Qty: 90 4RF morphine 10 mg/5 mL solution 5 mg PO TID PRN MDD 15mg PRN (Reason: air hunger) Qty: 100 0RF Rx Instructions: Take 2.5mL as needed up to 3 times a day for air hunger sertraline 25 mg tablet 25 mg PO DAILY Qty: 90 3RF methocarbamol 500 mg tablet 500 mg PO TID PRN (Reason: muscle pain) Qty: 30 0RF multivitamin 1 EACH tablet 1 tab PO DAILY (DME) blood-glucose meter [OneTouch Ultra2 Meter] Kit See Rx Instructions .MEDSUPPLY Qty: 1 2RF Rx Instructions: Check blood sugar daily (DME) lancets [OneTouch Delica Plus Lancet] 33 gauge misc See Rx Instructions .MEDSUPPLY Qty: 100 4RF Rx Instructions: Check blood sugar daily (DME) OneTouch Ultra Blue Test Strip Strip See Rx Instructions .MEDSUPPLY Qty: 100 4RF Rx Instructions: Check blood sugar daily trazodone 100 mg tablet 100 mg PO HS Qty: 90 4RF Dupixent Pen 200 mg/1.14 mL pen injector 200 mg subcut Q2W Qty: 2.28 12RF omeprazole 20 mg capsule,delayed release(DR/EC) 20 mg PO DAILY Qty: 90 3RF loratadine 10 mg tablet 10 mg PO DAILY Qty: 90 4RF potassium chloride 10 mEq capsule, extended release 10 meq PO DAILY Qty: 90 4RF Label Comments: now taking 20 MEQ ipratropium-albuterol 0.5 mg-3 mg(2.5 mg base)/3 mL solution for nebulization See Rx Instructions .ROUTE .COMPLEX Qty: 180 0RF Dose Instruction: USE 3 ML IN NEBULIZER 4 TIMES DAILY NEEDED FOR SHORTNESS OF BREATH AND FOR WHEEZING Rx Instructions: USE 3 ML IN NEBULIZER 4 TIMES DAILY NEEDED FOR SHORTNESS OF BREATH AND FOR WHEEZING Discharge Instructions Instructions: Arthralgia (ED) Additional Instructions: Please follow-up with orthopedic surgery. Please continue with anti-inflammatories ice and elevation at home and splinting as needed. 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 Will obtain screening x-ray of hand and wrist, will provide symptomatic treatment with Toradol. Will encourage close follow-up with orthopedic team 10: 11 patient resting comfortably. Evidence of chronic scapholunate dissociation. Patient given instructions to continue with anti-inflammatories ice elevation we will follow-up with orthopedic surgery. HPI General Date/Time Provider Initiated Documentation: 01/31/22 09:15. HPI Narrative: 81-year-old male presents with atraumatic right wrist discomfort for the past several weeks to months, currently being evaluated by orthopedic services for chronic shoulder pain, denies fevers chills nausea vomiting however has noted some swelling to his right wrist Related Data Home Medications Medication Instructions Recorded Confirmed multivitamin 1 tab PO DAILY 11/12/14 01/22/22 albuterol sulfate 90 mcg/actuation 2 inh inhalation Q6H PRN shortness 09/12/20 01/22/22 aerosol inhaler of breath or wheezing #3 ea fluticasone fur. 100 mcg-umeclid 1 inh inhalation DAILY #90 ea 09/19/20 01/22/22 62.5 mcg-vilant 25 mcg inhalat.powder (Trelegy Ellipta) blood sugar diagnostic (OneTouch #100 ea 10/17/20 01/22/22 Ultra Blue Test Strip) blood-glucose meter (OneTouch #1 ea 10/17/20 01/22/22 Ultra2 Meter kit) lancets 33 gauge (OneTouch Delica #100 ea 10/17/20 01/22/22 Plus Lancet) trazodone 100 mg tablet 100 mg PO HS #90 tab-caps 04/24/21 01/22/22 dupilumab 200 mg/1.14 mL 200 mg (1.14 mL) subcut Q2W Asthma 05/05/21 01/22/22 subcutaneous pen injector #2.28 mL ([employer]) omeprazole 20 mg capsule,delayed 20 mg PO DAILY #90 tab-caps 06/01/21 01/22/22 release azithromycin 250 mg tablet 250 mg PO DAILY #90 tabs 06/08/21 01/22/22 hydrochlorothiazide 12.5 mg capsule 12.5 mg PO DAILY #90 tab-caps 06/08/21 01/22/22 tamsulosin 0.4 mg capsule 0.8 mg PO HS #180 tab-caps 06/08/21 01/22/22 varicella-zoster glycoE vacc-AS01B 0.5 ml IM ONCE #1 ea 06/08/21 01/22/22 adj(PF) 50 mcg/0.5 mL IM susp, kit loratadine 10 mg tablet 10 mg PO DAILY #90 tabs 06/10/21 01/22/22 potassium chloride 10 mEq 10 meq PO DAILY #90 tab-caps 06/22/21 01/22/22 capsule,extended release methocarbamol 500 mg tablet 500 mg PO TID PRN muscle pain #30 10/12/21 01/22/22 tabs sertraline 25 mg tablet 25 mg PO DAILY #90 tab-caps 10/12/21 01/22/22 ipratropium 0.5 mg-albuterol 3 mg See Rx Instructions .Route 11/23/21 01/22/22 (2.5 mg base)/3 mL nebulization .COMPLEX #180 mL soln morphine 10 mg/5 mL oral solution 5 mg (2.5 mL) PO TID PRN PRN air 01/22/22 01/22/22 hunger #100 mL Previous Rx's Medication Instructions Recorded albuterol sulfate 90 mcg/actuation 2 inh inhalation Q6H PRN shortness 09/12/20 aerosol inhaler of breath or wheezing #3 ea fluticasone fur. 100 mcg-umeclid 1 inh inhalation DAILY #90 ea 09/19/20 62.5 mcg-vilant 25 mcg inhalat.powder (Trelegy Ellipta) blood sugar diagnostic (OneTouch #100 ea 10/17/20 Ultra Blue Test Strip) blood-glucose meter (OneTouch #1 ea 10/17/20 Ultra2 Meter kit) lancets 33 gauge (OneTouch Delica #100 ea 10/17/20 Plus Lancet) trazodone 100 mg tablet 100 mg PO HS #90 tab-caps 04/24/21 dupilumab 200 mg/1.14 mL 200 mg (1.14 mL) subcut Q2W Asthma 05/05/21 subcutaneous pen injector #2.28 mL ([employer]) omeprazole 20 mg capsule,delayed 20 mg PO DAILY #90 tab-caps 06/01/21 release azithromycin 250 mg tablet 250 mg PO DAILY #90 tabs 06/08/21 hydrochlorothiazide 12.5 mg capsule 12.5 mg PO DAILY #90 tab-caps 06/08/21 tamsulosin 0.4 mg capsule 0.8 mg PO HS #180 tab-caps 06/08/21 varicella-zoster glycoE vacc-AS01B 0.5 ml IM ONCE #1 ea 06/08/21 adj(PF) 50 mcg/0.5 mL IM susp, kit loratadine 10 mg tablet 10 mg PO DAILY #90 tabs 06/10/21 potassium chloride 10 mEq 10 meq PO DAILY #90 tab-caps 06/22/21 capsule,extended release methocarbamol 500 mg tablet 500 mg PO TID PRN muscle pain #30 10/12/21 tabs sertraline 25 mg tablet 25 mg PO DAILY #90 tab-caps 10/12/21 ipratropium 0.5 mg-albuterol 3 mg See Rx Instructions .Route 11/23/21 (2.5 mg base)/3 mL nebulization .COMPLEX #180 mL soln morphine 10 mg/5 mL oral solution 5 mg (2.5 mL) PO TID PRN PRN air 01/22/22 hunger #100 mL Allergies Allergy/AdvReac Type Severity Reaction Status Date / Time atorvastatin AdvReac Mild MUSCLE Verified 01/22/22 11:28 FATIGUE simvastatin AdvReac Mild MUSCLE Verified 01/22/22 11:28 FATIGUE General Stated Complaint: Orthopedic AMERICO: 4 Review of Systems Narrative: Review of Systems Constitutional: negative Eyes: negative ENT: negative Cardiovascular: negative Respiratory: negative Gastrointestinal: negative : negative Musculoskeletal: Wrist pain Skin: negative Neurologic: negative Psych: negative PFSH All Active Problems (Updated 01/31/22 @ 10:13 by Masoud Gonzalez MD) Scapho-lunate dissociation (Acute) Chronic wrist pain (Acute) Skin lesion of face (Acute) Chronic kidney disease (Chronic) Atypical pigmented skin lesion (Chronic) 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) Osteopenia (Chronic) Primary osteoarthritis of left knee (Chronic) Asthma-COPD overlap syndrome (Chronic) [facility]ed [facility] pulmonology Paroxysmal atrial fibrillation (Chronic) Essential hypertension (Chronic) Hyperlipidemia (Chronic) MASON (obstructive sleep apnea) (Chronic) Major depressive disorder (Chronic) First degree AV block (Chronic) Prediabetes (Chronic) Insomnia (Chronic) BPH w urinary obs/LUTS (Chronic) Essential tremor (Chronic) Gastroesophageal reflux disease (Chronic) Morris de la Tourette's syndrome (Chronic) Dysphagia (Chronic) Osteoarthritis (Chronic) Pes valgus of left foot (Chronic) Pes valgus planus deformity Posterior tibial tendon dysfunction, left (Chronic) Allergic rhinitis (Chronic) Onychogryphosis (Chronic) Medical History Chronic obstructive pulmonary disease with (acute) exacerbation (09/2020) History of tobacco use Nonsustained ventricular tachycardia Asymptomatic, noted on court recording monitor October 2020 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 Son No problems noted. Daughter No problems noted. Paternal Grandfather No problems noted. Paternal Grandmother No problems noted. Maternal Grandfather No problems noted. Maternal Grandmother Cancer Social History Smoking/Tobacco Use Status: Former Tobacco Use tobacco type: cigarettes, pipe and cigars Quit Date: 04/18/79 Second Hand Exposure: Yes Smoking risk assessment performed?: Yes Alcohol Intake: never Drug use: Never Substance use type: does not use Household members: spouse and children Do you need help understanding health information?: Never Pets and animals: Yes Pets and animals: cat(s) Sexually active: No Do you think of yourself as: straight/heterosexual Current gender identity: male What is your relationship status?: How often do you talk on the phone with friends or family?: once per week How often do you get together with friends or relatives?: once per week How often do you attend pentecostalism or taoist services?: decline to answer Do you belong to any clubs or organized social groups?: no Panel score (0-1 are the most socially isolated patients): 1 What type of physical activity do you participate in: walking Duration: 15-30 minutes/day Frequency: 1-2 times per week Alexandrea/Congregation: None Special alexandrea needs: No Seatbelt use: always Drive intox or ride w/intox tow driver: No Do you feel safe at home: Yes Do you feel safe in your relationship?: Yes Exam Narrative Exam Narrative: Physical Examination General: alert, awake, cooperative, resting comfortably, no acute distress HEENT: normocephalic, atraumatic; PERRL, EOM intact, conjunctiva normal; no nasal discharge; moist mucous membranes, oral and pharyngeal mucosa normal, tolerating secretions Neck: supple, trachea midline; full ROM Chest: normal to inspection Respiratory: normal respiratory effort, speaking in full sentences, clear to auscultation, no wheezing, rales or rhonchi Cardiac: regular rate, regular rhythm, S1S2 intact, no murmurs rubs or gallops GI: abdomen soft, non-tender, non-distended; no palpable mass or hepatosplenomegaly Skin: no lesions, rashes or trauma appreciated Neuro: AAOx3, normal speech, moving all extremities Extremities: Discomfort over ulnar aspect of right wrist, flexion extension of the fingers intact sensation median radial and ulnar nerve intact, radial pulse intact, soft compartments, warm well perfused extremity no external signs of trauma Psych: Appropriate mood and affect Course Vital Signs Vital signs: Vital Signs Temperature 36.5 C 01/31/22 09:10 Pulse 91 H 01/31/22 09:10 Respiratory Rate 18 01/31/22 09:10 Blood Pressure 99/61 L 01/31/22 09:10 Pulse Oximetry 96 01/31/22 09:10 Temperature 36.5 C 01/31/22 09:10 Temperature Source Tympanic 01/31/22 09:10 Pulse 91 H 01/31/22 09:10 Respiratory Rate 18 01/31/22 09:10 Respiratory Effort 01/31/22 09:13 Blood Pressure 99/61 L 01/31/22 09:10 Pulse Oximetry 96 01/31/22 09:10 Oxygen Delivery Method Room Air 01/31/22 09:10 Oxygen Flow Rate 0 01/31/22 09:10 Pain Level 5 01/31/22 09:10
--- NOTE | 2022-01-31 10:01 | DI.VRAD_ITS ---
PROCEDURE INFORMATION: Exam: XR Right Wrist Exam date and time: 01/31/2022 9:49 AM Age: 81 years old Clinical indication: Other: Wrist pain atraumatic TECHNIQUE: Imaging protocol: Radiologic exam of the Right wrist. Views: 3 or more views. COMPARISON: CR XR WRIST RT COMPLETE 11/23/2021 2:03 PM FINDINGS: Bones/joints: Scapholunate dissociation with proximal migration of the capitate. Degenerative arthritis in the radioscaphoid and radiolunate articulation. Degenerate arthritis in the STT and 1st CMC joint. Degenerative arthritis in the distal radioulnar joint. Findings appears similar to 11/23/2021. Soft tissues: Soft tissue swelling Other findings: . 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 Dictated and Authenticated by: Grisel Coughlin MD. Ordering:RASHEEDA Meredith MD
--- NOTE | 2022-01-31 10:02 | DI.VRAD_ITS ---
PROCEDURE INFORMATION: Exam: XR Right Hand Exam date and time: 01/31/2022 9:51 AM Age: 81 years old Clinical indication: Other: Wrist pain atraumatic; Additional info: Hand pain atraumatic TECHNIQUE: Imaging protocol: Radiologic exam of the Right hand. Views: 3 or more views. COMPARISON: CR XR WRIST RT COMPLETE 01/31/2022 9:49 AM FINDINGS: Bones/joints: The scapholunate dissociation with degenerative arthritis in the right wrist. Degenerative arthritis in the IP joints with joint space narrowing. Soft tissues: Normal. 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 Ordering:RASHEEDA Meredith MD
[2022-01-31] MEDS: Ketorolac 15 MG/ML VIAL IM (10:17)
== END 2022-01-31 10:21 | disposition home or self-care (01) ==
PROVIDERS: Emergency Provider Emergency Medicine; PCP Nurse Practitioner Family
DX: G89.29 Other chronic pain (principal); M25.531 Pain in right wrist; M89.8X8 Other specified disorders of bone, other site; E11.9 Type 2 diabetes mellitus without complications; J44.9 Chronic obstructive pulmonary disease, unspecified
CPT/HCPCS: 96372; 99284; 73110; 73130; J1885

== ENCOUNTER 2022-02-23 19:11 | Emergency (ER) | payer OTHER, SELFPAY ==
[2022-02-23 19:49] VITALS: BP 144/71; PULSE 72; RESP 20; TEMP 36.7; O2SAT 96
--- NOTE | 2022-02-23 20:47 | W.ED.GENAD ---
Discharge Plan Disposition Patient Disposition: STILL A PATIENT Discharge Details Chief Complaint: Abd Prob Primary Care Provider: Alexandrea Trevino ED Provider: Kg Zheng [place] Meds and New Rx's Prescriptions: No Action tamsulosin 0.4 mg capsule 0.8 mg PO HS Qty: 180 4RF hydrochlorothiazide 12.5 mg capsule 12.5 mg PO DAILY Qty: 90 4RF azithromycin 250 mg tablet 250 mg PO DAILY Qty: 90 4RF varicella-zoster gE-AS01B (PF) 50 mcg/0.5 mL suspension for reconstitution 0.5 ml IM ONCE Qty: 1 0RF Rx Instructions: 2 doses 2 months apart albuterol sulfate 90 mcg/actuation HFA aerosol inhaler 2 inh inhalation Q6H PRN (Reason: shortness of breath or wheezing) Qty: 3 4RF Trelegy Ellipta 100-62.5-25 mcg blister with device 1 inh inhalation DAILY Qty: 90 4RF morphine 10 mg/5 mL solution 5 mg PO TID PRN MDD 15mg PRN (Reason: air hunger) Qty: 100 0RF Rx Instructions: Take 2.5mL as needed up to 3 times a day for air hunger sertraline 25 mg tablet 25 mg PO DAILY Qty: 90 3RF multivitamin 1 EACH tablet 1 tab PO DAILY (DME) blood-glucose meter [OneTouch Ultra2 Meter] Kit See Rx Instructions .MEDSUPPLY Qty: 1 2RF Rx Instructions: Check blood sugar daily (DME) lancets [OneTouch Delica Plus Lancet] 33 gauge misc See Rx Instructions .MEDSUPPLY Qty: 100 4RF Rx Instructions: Check blood sugar daily (DME) OneTouch Ultra Blue Test Strip Strip See Rx Instructions .MEDSUPPLY Qty: 100 4RF Rx Instructions: Check blood sugar daily trazodone 100 mg tablet 100 mg PO HS Qty: 90 4RF Dupixent Pen 200 mg/1.14 mL pen injector 200 mg subcut Q2W Qty: 2.28 12RF omeprazole 20 mg capsule,delayed release(DR/EC) 20 mg PO DAILY Qty: 90 3RF loratadine 10 mg tablet 10 mg PO DAILY Qty: 90 4RF potassium chloride 10 mEq capsule, extended release 10 meq PO DAILY Qty: 90 4RF Label Comments: now taking 20 MEQ ipratropium-albuterol 0.5 mg-3 mg(2.5 mg base)/3 mL solution for nebulization See Rx Instructions .ROUTE .COMPLEX Qty: 180 0RF Dose Instruction: USE 3 ML IN NEBULIZER 4 TIMES DAILY NEEDED FOR SHORTNESS OF BREATH AND FOR WHEEZING Rx Instructions: USE 3 ML IN NEBULIZER 4 TIMES DAILY NEEDED FOR SHORTNESS OF BREATH AND FOR WHEEZING methocarbamol 500 mg tablet 500 mg PO TID PRN (Reason: muscle pain) Qty: 30 0RF Medical Decision Making 1999 --81-year-old male presents with constipation over the past 2 days. Patient requesting enema. He attempted digital disimpaction that was unsuccessful. Abdominal exam is benign. Rectal exam deferred until patient can be placed in room. Plan to check labs to assess for electrode abnormalities. Will give IV fluid bolus. Plan for enema. HPI General Mode of arrival: ambulatory. Date/Time Provider Initiated Documentation: 02/23/22 19:56. Limitations to Documentation: no limitations. Information obtained by: patient. HPI Narrative: 81-year-old male presents with chief complaint of constipation. Patient notes he is no bowel movement in the past 2 days. Patient feels need to have a bowel movement and is unable to. Patient attempted digital disimpaction unsuccessfully. He has no associated abdominal pain. Discomfort is localized to rectum, moderate to severe with no modifiers. Patient denies bright red blood per rectum. Related Data Home Medications Medication Instructions Recorded Confirmed multivitamin 1 tab PO DAILY 11/12/14 01/22/22 albuterol sulfate 90 mcg/actuation 2 inh inhalation Q6H PRN shortness 09/12/20 01/22/22 aerosol inhaler of breath or wheezing #3 ea fluticasone fur. 100 mcg-umeclid 1 inh inhalation DAILY #90 ea 09/19/20 01/22/22 62.5 mcg-vilant 25 mcg inhalat.powder (Trelegy Ellipta) blood sugar diagnostic ([employer] #100 ea 10/17/20 01/22/22 Ultra Blue Test Strip) blood-glucose meter ([employer] #1 ea 10/17/20 01/22/22 Ultra2 Meter kit) lancets 33 gauge ([employer] Delica #100 ea 10/17/20 01/22/22 Plus Lancet) trazodone 100 mg tablet 100 mg PO HS #90 tab-caps 04/24/21 01/22/22 dupilumab 200 mg/1.14 mL 200 mg (1.14 mL) subcut Q2W Asthma 05/05/21 01/22/22 subcutaneous pen injector #2.28 mL (Dupixent) omeprazole 20 mg capsule,delayed 20 mg PO DAILY #90 tab-caps 06/01/21 01/22/22 release azithromycin 250 mg tablet 250 mg PO DAILY #90 tabs 06/08/21 01/22/22 hydrochlorothiazide 12.5 mg capsule 12.5 mg PO DAILY #90 tab-caps 06/08/21 01/22/22 tamsulosin 0.4 mg capsule 0.8 mg PO HS #180 tab-caps 06/08/21 01/22/22 varicella-zoster glycoE vacc-AS01B 0.5 ml IM ONCE #1 ea 06/08/21 01/22/22 adj(PF) 50 mcg/0.5 mL IM susp, kit loratadine 10 mg tablet 10 mg PO DAILY #90 tabs 06/10/21 01/22/22 potassium chloride 10 mEq 10 meq PO DAILY #90 tab-caps 06/22/21 01/22/22 capsule,extended release sertraline 25 mg tablet 25 mg PO DAILY #90 tab-caps 10/12/21 01/22/22 ipratropium 0.5 mg-albuterol 3 mg See Rx Instructions .Route 11/23/21 01/22/22 (2.5 mg base)/3 mL nebulization .COMPLEX #180 mL soln morphine 10 mg/5 mL oral solution 5 mg (2.5 mL) PO TID PRN PRN air 01/22/22 01/22/22 hunger #100 mL methocarbamol 500 mg tablet 500 mg PO TID PRN muscle pain #30 02/10/22 tabs Previous Rx's Medication Instructions Recorded albuterol sulfate 90 mcg/actuation 2 inh inhalation Q6H PRN shortness 09/12/20 aerosol inhaler of breath or wheezing #3 ea fluticasone fur. 100 mcg-umeclid 1 inh inhalation DAILY #90 ea 09/19/20 62.5 mcg-vilant 25 mcg inhalat.powder (Trelegy Ellipta) blood sugar diagnostic (OneTouch #100 ea 10/17/20 Ultra Blue Test Strip) blood-glucose meter (OneTouch #1 ea 10/17/20 Ultra2 Meter kit) lancets 33 gauge (OneTouch Delica #100 ea 10/17/20 Plus Lancet) trazodone 100 mg tablet 100 mg PO HS #90 tab-caps 04/24/21 dupilumab 200 mg/1.14 mL 200 mg (1.14 mL) subcut Q2W Asthma 05/05/21 subcutaneous pen injector #2.28 mL (Dupixent) omeprazole 20 mg capsule,delayed 20 mg PO DAILY #90 tab-caps 06/01/21 release azithromycin 250 mg tablet 250 mg PO DAILY #90 tabs 06/08/21 hydrochlorothiazide 12.5 mg capsule 12.5 mg PO DAILY #90 tab-caps 06/08/21 tamsulosin 0.4 mg capsule 0.8 mg PO HS #180 tab-caps 06/08/21 varicella-zoster glycoE vacc-AS01B 0.5 ml IM ONCE #1 ea 06/08/21 adj(PF) 50 mcg/0.5 mL IM susp, kit loratadine 10 mg tablet 10 mg PO DAILY #90 tabs 06/10/21 potassium chloride 10 mEq 10 meq PO DAILY #90 tab-caps 06/22/21 capsule,extended release sertraline 25 mg tablet 25 mg PO DAILY #90 tab-caps 10/12/21 ipratropium 0.5 mg-albuterol 3 mg See Rx Instructions .Route 11/23/21 (2.5 mg base)/3 mL nebulization .COMPLEX #180 mL soln morphine 10 mg/5 mL oral solution 5 mg (2.5 mL) PO TID PRN PRN air 01/22/22 hunger #100 mL methocarbamol 500 mg tablet 500 mg PO TID PRN muscle pain #30 02/10/22 tabs Allergies Allergy/AdvReac Type Severity Reaction Status Date / Time atorvastatin AdvReac Mild MUSCLE Verified 02/03/22 11:27 FATIGUE simvastatin AdvReac Mild MUSCLE Verified 02/03/22 11:27 FATIGUE General Stated Complaint: Abd Prob AMERICO: 4 PFSH All Active Problems CKD (chronic kidney disease) stage 3, GFR 30-59 ml/min (Chronic) 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 pulmonology Paroxysmal atrial fibrillation (Chronic) Essential hypertension (Chronic) Hyperlipidemia (Chronic) MASON (obstructive sleep apnea) (Chronic) Major depressive disorder (Chronic) First degree AV block (Chronic) Prediabetes (Chronic) Insomnia (Chronic) BPH w urinary obs/LUTS (Chronic) Essential tremor (Chronic) Gastroesophageal reflux disease (Chronic) Morris de la Tourette's syndrome (Chronic) Dysphagia (Chronic) Osteoarthritis (Chronic) Pes valgus of left foot (Chronic) Pes valgus planus deformity Posterior tibial tendon dysfunction, left (Chronic) Allergic rhinitis (Chronic) Onychogryphosis (Chronic) Medical History Chronic obstructive pulmonary disease with (acute) exacerbation (09/2020) History of tobacco use Nonsustained ventricular tachycardia Asymptomatic, noted on hall monitor October 2020 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 Son No problems noted. Daughter No problems noted. Paternal Grandfather No problems noted. Paternal Grandmother No problems noted. Maternal Grandfather No problems noted. Maternal Grandmother Cancer Social History Smoking/Tobacco Use Status: Former Tobacco Use tobacco type: cigarettes, pipe and cigars Quit Date: 04/18/79 Second Hand Exposure: Yes Smoking risk assessment performed?: Yes Alcohol Intake: never Drug use: Never Substance use type: does not use Household members: spouse and children Do you need help understanding health information?: Never Pets and animals: Yes Pets and animals: cat(s) Sexually active: No Do you think of yourself as: straight/heterosexual Current gender identity: male What is your relationship status?: How often do you talk on the phone with friends or family?: once per week How often do you get together with friends or relatives?: once per week How often do you attend jew or orthodox services?: decline to answer Do you belong to any clubs or organized social groups?: no Panel score (0-1 are the most socially isolated patients): 1 What type of physical activity do you participate in: walking Duration: 15-30 minutes/day Frequency: 1-2 times per week Alexandrea/Latter-Day: None Special alexandrea needs: No Seatbelt use: always 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 Do you feel safe at home: Yes Do you feel safe in your relationship?: Yes Exam Const General: cooperative and no acute distress HENMT Mouth: moist mucous membranes Eyes Conjunctivae: normal conjunctivae Sclera: normal sclerae Resp Auscultation: clear to auscultation bilaterally, no rales, no rhonchi and no wheezes Cardio Rate: regular rate and not tachycardic Rhythm: regular rhythm GI Palpation: soft, not firm, no guarding, no masses, not rigid and nontender Skin General skin exam: no rashes or lesions noted Neuro General: patient alert, patient awake and tone normal Psych Appearance: grossly normal Mental Status: mental status grossly normal Course Vital Signs Vital signs: Vital Signs Temperature 36.7 C 02/23/22 19:49 Pulse 72 02/23/22 19:49 Respiratory Rate 20 02/23/22 19:49 Blood Pressure 144/71 H 02/23/22 19:49 Pulse Oximetry 96 02/23/22 19:49 Temperature 36.7 C 02/23/22 19:49 Temperature Source Oral 02/23/22 19:49 Pulse 72 02/23/22 19:49 Respiratory Rate 20 02/23/22 19:49 Blood Pressure 144/71 H 02/23/22 19:49 Blood Pressure Position Sitting 02/23/22 19:49 Pulse Oximetry 96 02/23/22 19:49 Oxygen Delivery Method Room Air 02/23/22 19:49 Oxygen Flow Rate 0 02/23/22 19:49 Pain Level 0 02/23/22 19:49
[2022-02-23 22:21] LABS: Abs Immature Grans 0.04 10^3/uL (0.0-0.06); Absolute Basophil Count 0.07 10^3/uL (0.0-0.2); Absolute Lymphocyte Count 1.64 10^3/uL (1.2-3.4); Absolute Monocyte Count 0.89 10^3/uL (0.1-0.8); Absolute Neutrophil Count 9.28 10^3/uL (1.2-6.7); Basophils % 0.6; Eosinophils % 1.2; HCT 45.9 % (40.0-50.0); HGB 15.8 g/dL (13.5-17.5); Immature Grans % 0.3; Lymphocytes % 13.6; MCH 29.9 pg (27.0-33.0); MCHC 34.4 % (32.0-36.0); MCV 87 fL (80-95); MPV 9.6 fL (8.0-11.0); Monocytes % 7.4; Neutrophils % 76.9; Platelet Count 270 10^3/uL (130-400); RBC 5.28 10^6/uL (4.36-5.78); WBC 12.07 10^3/uL (4.4-10.8)
[2022-02-23 22:22] LABS: Absolute Eosinophil Count 0.14 10^3/uL (0.0-0.7)
[2022-02-23 22:50] LABS: Lipase 63 U/L (73-393); Magnesium 1.4 mg/dL (1.8-2.4)
[2022-02-23 22:56] LABS: ALT 21 U/L (16-63); AST 28 U/L (15-37); Albumin 3.7 g/dL (3.4-5.0); Alkaline Phosphatase 132 U/L (46-116); Anion Gap 10.6 mmol/L (3-11); BUN 19 mg/dL (7-18); CO2 28.4 mmol/L (21.0-32.0); CREATININE 1.3 mg/dL (0.70-1.30); Calcium 10.5 mg/dL (8.5-10.1); Chloride 103 mmol/L (98-107); Estimated GFR 55.88 (mL/min/1.73m2); Glucose 128 mg/dL (74-106); Potassium 4.8 mmol/L (3.5-5.1); Sodium 142 mmol/L (136-145); Total Protein 7.5 g/dL (6.4-8.2)
--- NOTE | 2022-02-24 00:01 | ED.PROG_ITS ---
Date of service: 02/24/22 Time of Service: 00:01 Medical Decision Making labs show mild leukocytosis, mag of 1.4 and otherwise no significant changes from baseline. He has not been taking any stool softeners per his history. His abdomen is nontender and non distended so do not feel he requires CT. I performed a digitial disimpaction and removed a significant amount of soft stool, will have nursing provide enema and reassess. pt had large bowel movement and feels better requesting d/c, still no abdominal tenderness. Advised to use otc therapies and follow up with pcp, return precautions given Sign Out Sign Out Data: Sign Out Comment: Patient with constipation, labs pending. Plan for IV fluid bolus and soapsuds enema and reassessment. Last updated by Kg Zheng MD at 02/23/22 20:57 Discharge Plan Disposition Patient Disposition: HOME Condition: Stable Discharge Details Clinical Impression: Constipation Primary Care Provider: Alexandrea Trevino ED Provider: Antoni Lopez [place] Meds and New Rx's Prescriptions: Continued tamsulosin 0.4 mg capsule 0.8 mg PO HS Qty: 180 4RF hydrochlorothiazide 12.5 mg capsule 12.5 mg PO DAILY Qty: 90 4RF azithromycin 250 mg tablet 250 mg PO DAILY Qty: 90 4RF varicella-zoster gE-AS01B (PF) 50 mcg/0.5 mL suspension for reconstitution 0.5 ml IM ONCE Qty: 1 0RF Rx Instructions: 2 doses 2 months apart albuterol sulfate 90 mcg/actuation HFA aerosol inhaler 2 inh inhalation Q6H PRN (Reason: shortness of breath or wheezing) Qty: 3 4RF Trelegy Ellipta 100-62.5-25 mcg blister with device 1 inh inhalation DAILY Qty: 90 4RF morphine 10 mg/5 mL solution 5 mg PO TID PRN MDD 15mg PRN (Reason: air hunger) Qty: 100 0RF Rx Instructions: Take 2.5mL as needed up to 3 times a day for air hunger sertraline 25 mg tablet 25 mg PO DAILY Qty: 90 3RF multivitamin 1 EACH tablet 1 tab PO DAILY (DME) blood-glucose meter [[employer] Ultra2 Meter] Kit See Rx Instructions .MEDSUPPLY Qty: 1 2RF Rx Instructions: Check blood sugar daily (DME) lancets [OneTouch Delica Plus Lancet] 33 gauge misc See Rx Instructions .MEDSUPPLY Qty: 100 4RF Rx Instructions: Check blood sugar daily (DME) OneTouch Ultra Blue Test Strip Strip See Rx Instructions .MEDSUPPLY Qty: 100 4RF Rx Instructions: Check blood sugar daily trazodone 100 mg tablet 100 mg PO HS Qty: 90 4RF Dupixent Pen 200 mg/1.14 mL pen injector 200 mg subcut Q2W Qty: 2.28 12RF omeprazole 20 mg capsule,delayed release(DR/EC) 20 mg PO DAILY Qty: 90 3RF loratadine 10 mg tablet 10 mg PO DAILY Qty: 90 4RF potassium chloride 10 mEq capsule, extended release 10 meq PO DAILY Qty: 90 4RF Label Comments: now taking 20 MEQ ipratropium-albuterol 0.5 mg-3 mg(2.5 mg base)/3 mL solution for nebulization See Rx Instructions .ROUTE .COMPLEX Qty: 180 0RF Dose Instruction: USE 3 ML IN NEBULIZER 4 TIMES DAILY NEEDED FOR SHORTNESS OF BREATH AND FOR WHEEZING Rx Instructions: USE 3 ML IN NEBULIZER 4 TIMES DAILY NEEDED FOR SHORTNESS OF BREATH AND FOR WHEEZING methocarbamol 500 mg tablet 500 mg PO TID PRN (Reason: muscle pain) Qty: 30 0RF Discharge Instructions Instructions: Constipation (ED), Hypomagnesemia (ED) Additional Instructions: stat taking the stool softener colace and you can also take over the counter milk of magnesia, follow dosing instructions on packaging follow up with your primary care provider within 1 week if you feel more ill, have severe worsening pain or persistent vomiting return to the emergency department
== END 2022-02-24 00:53 | disposition home or self-care (01) ==
PROVIDERS: Student in an Organized Health Care Education/Training Program; Emergency Provider Emergency Medicine; PCP Nurse Practitioner Family
DX: K59.00 Constipation, unspecified (principal); D72.829 Elevated white blood cell count, unspecified
CPT/HCPCS: 36415; 80053; 83690; 99283; 83735; 85025

== ENCOUNTER → 2022-03-04 09:51 | Outpatient (BNVA) | payer OTHER, SELFPAY | PROVIDERS: PCP Nurse Practitioner Family; Referring Provider Nurse Practitioner Family; Visit Provider Student in an Organized Health Care Education/Training Program | DX: M75.101 Unspecified rotator cuff tear or rupture of right shoulder, not specified as traumatic (principal); M75.102 Unspecified rotator cuff tear or rupture of left shoulder, not specified as traumatic; M12.811 Other specific arthropathies, not elsewhere classified, right shoulder; M12.812 Other specific arthropathies, not elsewhere classified, left shoulder | CPT/HCPCS: 20610; J1040 ==

== ENCOUNTER → 2022-03-24 09:55 | Outpatient (BNVA) | payer OTHER, SELFPAY | PROVIDERS: PCP Nurse Practitioner Family; Referring Provider Nurse Practitioner Family; Visit Provider Student in an Organized Health Care Education/Training Program | DX: M75.101 Unspecified rotator cuff tear or rupture of right shoulder, not specified as traumatic (principal); M12.811 Other specific arthropathies, not elsewhere classified, right shoulder; J44.9 Chronic obstructive pulmonary disease, unspecified | CPT/HCPCS: 99214 ==

== ENCOUNTER 2022-04-21 03:11 | Outpatient (CLI) | payer OTHER, SELFPAY ==
--- NOTE | 2022-04-21 07:30 | DI.CT_ITS ---
Exam(s) CT UPPER EXTREMITY RT WO EXAM: CT UPPER EXTREMITY RT WO CLINICAL HISTORY: Surgery planning,ROTATOR CUFF ARTHROPATHY,ROTATOR CUFF TEAR,M12.811,M75.101 TECHNIQUE: Imaging Protocol: Axial computed tomography images with coronal and sagittal reformatted images were created and reviewed. CONTRAST MATERIAL: Noncontrast COMPARISON: CR XR CHEST 2V PA LATERAL from 06/26/2021 CR XR SHOULDER RT COMPLETE 2+V from 12/03/2021 FINDINGS: Bones: There is a moderate compression fracture of of T7. This is stable from prior chest x-ray There are degenerative changes at the AC joint with inferior spurring. The humeral head is high ridi ng, articulating with the undersurface of the acromion, consistent with chronic rotator cuff tear.. There is subchondral cyst in the humeral head. There is narrowing of the glenohumeral joint space an d moderate periarticular spurring. There is severe atrophy of the supraspinatus muscle. Atrophy is also noted of the infraspinatus, subscapularis and teres minor muscles. A joint effusion is present. There are no suspicious findings in the visualized portions of the right lung. IMPRESSION: Severe degenerative changes of the AC joint and glenohumeral joint. Chronic rotator cuff tear and se liana muscle atrophy. RADIATION DOSE DELIVERED: 929.55mGy.cm Total DLP DATA REPOSITORY: All CT scans at this facility are submitted to the National Radiology Data Registry (NRDR) Dose Index Registry (DIR) with the [employer] (A[employer]). RADIATION OPTIMIZATION: All CT scans at this facility use at least one of these dose optimization te chniques: automated exposure control; mA and/or kV adjustment per patient size (includes targeted exa ms where dose is matched to clinical indication); or iterative reconstruction.
== END 2022-04-21 03:31 ==
LOC: DI 03:12
PROVIDERS: PCP Nurse Practitioner Family; Visit Provider Student in an Organized Health Care Education/Training Program
DX: M75.101 Unspecified rotator cuff tear or rupture of right shoulder, not specified as traumatic (principal); M12.811 Other specific arthropathies, not elsewhere classified, right shoulder
CPT/HCPCS: 73200

== ENCOUNTER → 2022-05-12 13:00 | Outpatient (BNVA) | payer OTHER, SELFPAY | PROVIDERS: PCP Nurse Practitioner Family; Referring Provider Nurse Practitioner Family; Visit Provider Student in an Organized Health Care Education/Training Program ==

== ENCOUNTER 2022-06-24 01:29 | Outpatient (CLI) | payer OTHER, SELFPAY ==
--- NOTE | 2022-06-24 07:45 | DI.US_ITS ---
Exam(s) US HERNIA EXAM: US HERNIA CLINICAL HISTORY: Localized swelling to right upper groin,inguinal swelling,r19.09. TECHNIQUE: Ultrasound was performed using standard protocol. COMPARISON: CT CT CHEST PE CTA from 12/24/2020 FINDINGS: Sonographic assessment utilizing grayscale and color Doppler imaging was performed and targeted to th e area of clinical concern. There is a small fatty containing right inguinal hernia measuring 1.4 cm in length and 1.2 cm in widt h. Not increased with Valsalva. Normal appearing bilateral groin lymph nodes are noted. IMPRESSION: Small fatty containing right inguinal hernia. DATA REPOSITORY:
== END 2022-06-24 01:49 ==
LOC: DI 01:29
PROVIDERS: PCP Nurse Practitioner Family; Visit Provider Nurse Practitioner Family
DX: K40.90 Unilateral inguinal hernia, without obstruction or gangrene, not specified as recurrent (principal); R19.09 Other intra-abdominal and pelvic swelling, mass and lump
CPT/HCPCS: 76857

== ENCOUNTER 2022-06-24 11:50 | Outpatient (CLI) | payer OTHER, SELFPAY ==
[2022-06-24 23:55] LABS: PSA, Screening 2.2 ng/mL (<=6.5)
== END 2022-06-24 11:51 | disposition home or self-care (01) ==
LOC: LBO 11:51
PROVIDERS: PCP Nurse Practitioner Family; Visit Provider Nurse Practitioner Family
DX: N40.1 Benign prostatic hyperplasia with lower urinary tract symptoms (principal); N13.8 Other obstructive and reflux uropathy; Z12.5 Encounter for screening for malignant neoplasm of prostate
CPT/HCPCS: 36415; 84153

== ENCOUNTER → 2022-08-31 13:42 | Outpatient (BNVA) | payer OTHER, SELFPAY | PROVIDERS: PCP Nurse Practitioner Family; Referring Provider Nurse Practitioner Family; Visit Provider Student in an Organized Health Care Education/Training Program | DX: M75.101 Unspecified rotator cuff tear or rupture of right shoulder, not specified as traumatic (principal); M12.811 Other specific arthropathies, not elsewhere classified, right shoulder | CPT/HCPCS: 99213 ==

== ENCOUNTER → 2022-08-31 14:44 | Outpatient (BNVA) | payer OTHER, SELFPAY | PROVIDERS: PCP Nurse Practitioner Family; Referring Provider Nurse Practitioner Family; Visit Provider Nurse Practitioner Gerontology | DX: N40.1 Benign prostatic hyperplasia with lower urinary tract symptoms (principal); N13.8 Other obstructive and reflux uropathy; R33.9 Retention of urine, unspecified | CPT/HCPCS: 51798; 99214 ==

== ENCOUNTER 2022-10-29 11:46 | Outpatient (CLI) | payer OTHER, SELFPAY ==
--- NOTE | 2022-10-29 09:45 | DI.RAD_ITS ---
Exam(s) XR KNEE RT 3V AP,LAT,BLAKE EXAM: XR KNEE RT 3V AP,LAT,BLAKE CLINICAL HISTORY: HISTORY OF REVISION R TKA. TECHNIQUE: 2D digital imaging was performed. COMPARISON: CR XR KNEE RT 3V AP,LAT,BLAKE from 10/01/2021 FINDINGS: Five views. Components of the prosthesis is appear stable when compared to September 2021. No fractures evident. Chele ency subjacent to the tibial component is unchanged. Fragmented patella again noted. IMPRESSION: Similar unchanged appearance when compared to September 2021. DATA REPOSITORY: RADIATION DOSE DELIVERED:
== END 2022-10-29 11:47 | disposition home or self-care (01) ==
LOC: DIORS 11:47
PROVIDERS: PCP Nurse Practitioner Family; Referring Provider Nurse Practitioner Family; Visit Provider Student in an Organized Health Care Education/Training Program
DX: Z96.651 Presence of right artificial knee joint (principal); Z47.1 Aftercare following joint replacement surgery
CPT/HCPCS: 73562; 99213

== ENCOUNTER 2022-12-14 03:15 | Outpatient (CLI) | payer OTHER, SELFPAY ==
[2022-12-14 14:56] LABS: Hemoglobin A1C 5.6 % (<5.7)
[2022-12-14 16:38] LABS: Anion Gap 8.5 mmol/L (3-11); BUN 24 mg/dL (7-18); CO2 27.5 mmol/L (21.0-32.0); CREATININE 1.4 mg/dL (0.70-1.30); Calcium 9.2 mg/dL (8.5-10.1); Chloride 104 mmol/L (98-107); Estimated GFR 50.81 (mL/min/1.73m2); Glucose 116 mg/dL (74-106); Magnesium 1.8 mg/dL (1.8-2.4); Sodium 140 mmol/L (136-145)
== END 2022-12-14 03:16 | disposition home or self-care (01) ==
LOC: LBO 03:15
PROVIDERS: PCP Nurse Practitioner Family; Visit Provider Nurse Practitioner Family
DX: I10 Essential (primary) hypertension (principal); R73.03 Prediabetes; E83.42 Hypomagnesemia
CPT/HCPCS: 36415; 80048; 83036; 83735

== ENCOUNTER 2023-02-24 16:23 | Outpatient (CLI) | payer OTHER, SELFPAY ==
[2023-02-25 09:04] LABS: HIV-1/2 Ag & Ab Screen Negative (Negative)
[2023-02-25 10:09] LABS: Syphilis Serology (RPR) Negative (Negative)
[2023-02-25 10:18] LABS: HSV Type 1 Ab, IgG Negative (Negative); HSV Type 2 Ab, IgG Negative (Negative)
== END 2023-02-24 16:24 | disposition home or self-care (01) ==
LOC: LBO 16:24
PROVIDERS: PCP Nurse Practitioner Family; Visit Provider Nurse Practitioner Family
DX: N48.89 Other specified disorders of penis (principal)
CPT/HCPCS: 36415; 87389; 86592; 86695; 86696

== ENCOUNTER 2023-02-24 21:33 | Outpatient (REF) | payer OTHER, SELFPAY ==
[2023-02-26 16:00] LABS: Chlamydia Result Negative (Negative); GC Result Negative (Negative)
== END 2023-02-24 21:34 | disposition home or self-care (01) ==
LOC: LBN 21:33
PROVIDERS: PCP Nurse Practitioner Family; Visit Provider Nurse Practitioner Family
DX: N48.89 Other specified disorders of penis (principal)
CPT/HCPCS: 87491; 87591; 87070; 87205

== ENCOUNTER 2023-03-10 08:07 | Emergency (ER) | payer OTHER, SELFPAY ==
[2023-03-10] VITALS (29 sets, daily range): BP systolic 108–151; BP diastolic 59–132; PULSE 72–90; RESP 12–30; TEMP 35.9; O2SAT 90–98
--- NOTE | 2023-03-10 08:00 | RT.EKG_ITS ---
APPROVED REPORT Exam: Resting ECG Reason for Exam: Chest Pain Patient Location: E HR:75 bpm ECG Measurements Heart Rate 75 AXIS FL 297 P -39 QRSd 104 QRS -38 QT 400 T 44 QTc 446 Conclusion Sinus rhythm...normal P axis, V-rate 60- 99 Prolonged FL interval...FL >220, V-rate 50- 90 Left axis deviation...QRS axis (-30,-90)
[2023-03-10 08:27] LABS: Abs Immature Grans 0.03 10^3/uL (0.0-0.06); Absolute Basophil Count 0.08 10^3/uL (0.0-0.2); Absolute Lymphocyte Count 2.02 10^3/uL (1.2-3.4); Absolute Monocyte Count 0.64 10^3/uL (0.1-0.8); Absolute Neutrophil Count 4.91 10^3/uL (1.2-6.7); Eosinophils % 2.5; HCT 47.5 % (40.0-50.0); HGB 16.3 g/dL (13.5-17.5); Immature Grans % 0.4; Lymphocytes % 25.6; MCH 29.6 pg (27.0-33.0); MCHC 34.3 % (32.0-36.0); MCV 86 fL (80-95); MPV 9.7 fL (8.0-11.0); Monocytes % 8.1; Neutrophils % 62.4; Platelet Count 207 10^3/uL (130-400); RDW 12.9 % (11.8-14.1); RDW-SD 40.3 fL; WBC 7.88 10^3/uL (4.4-10.8)
--- NOTE | 2023-03-10 08:34 | ED.GENADUL_ITS ---
Discharge Plan Disposition Patient Disposition: Home Condition: Stable Discharge Details Clinical Impression: Shortness of breath, Jaw pain, COPD exacerbation Primary Care Provider: Alexandrea Trevino ED Provider: Kg Zheng Home Meds and New Rx's Prescriptions: Continued albuterol sulfate 90 mcg/actuation HFA aerosol inhaler 2 inh inhalation Q6H PRN (Reason: shortness of breath or wheezing) Qty: 3 4RF Trelegy Ellipta 100-62.5-25 mcg blister with device 1 inh inhalation DAILY Qty: 90 4RF finasteride 5 mg tablet 5 mg PO DAILY Qty: 90 3RF multivitamin 1 EACH tablet 1 tab PO DAILY (DME) blood-glucose meter [[employer] Ultra2 Meter] Kit See Rx Instructions .MEDSUPPLY Qty: 1 2RF Rx Instructions: Check blood sugar daily (DME) lancets [OneTouch Delica Plus Lancet] 33 gauge misc See Rx Instructions .MEDSUPPLY Qty: 100 4RF Rx Instructions: Check blood sugar daily (DME) OneTouch Ultra Blue Test Strip Strip See Rx Instructions .MEDSUPPLY Qty: 100 4RF Rx Instructions: Check blood sugar daily Dupixent Pen 200 mg/1.14 mL pen injector 200 mg subcut Q2W Qty: 2.28 12RF omeprazole 20 mg capsule,delayed release(DR/EC) 20 mg PO DAILY Qty: 90 3RF loratadine 10 mg tablet 10 mg PO DAILY Qty: 90 4RF methocarbamol 500 mg tablet 500 mg PO TID PRN (Reason: muscle pain) Qty: 30 0RF ipratropium-albuterol 0.5 mg-3 mg(2.5 mg base)/3 mL solution for nebulization See Rx Instructions .ROUTE .COMPLEX Qty: 180 12RF Dose Instruction: USE 1 AMPULE IN NEBULIZER 4 TIMES DAILY NEEDED FOR SHORTNESS OF BREATH AND FOR WHEEZING Rx Instructions: USE 1 AMPULE IN NEBULIZER 4 TIMES DAILY NEEDED FOR SHORTNESS OF BREATH AND FOR WHEEZING trazodone 100 mg tablet 100 mg PO HS Qty: 90 4RF tamsulosin 0.4 mg capsule 0.8 mg PO HS Qty: 180 3RF hydrochlorothiazide 12.5 mg capsule 12.5 mg PO DAILY Qty: 90 3RF potassium chloride 10 mEq capsule, extended release 10 meq PO DAILY Qty: 90 3RF Patient Comments: now taking 20 MEQ azithromycin 250 mg tablet 250 mg PO DAILY Qty: 90 3RF triamcinolone acetonide 0.1 % cream 1 applic topical BID PRN (Reason: rash) Qty: 80 0RF Rx Instructions: apply to rash on left arm twice a day as needed Discharge Instructions Instructions: Chest Pain (ED), COPD (Chronic Obstructive Pulmonary Disease) (ED) Additional Instructions: Use your albuterol neb treatment as prescribed. Please follow-up with your primary care physician. Call tomorrow. Additional outpatient diagnostic testing including cardiac stress test are indicated. Please discuss this with your doctor. Return to the ER immediately for any worsening or new concerning symptoms. Referrals: Alexandrea Trevino NP [Primary Care Provider] - Coral Rodriguez MD [ [facility] STAFF PHYSICIAN] - Discharge Data Discharge Date/Time-TO BE ENTERED AT DEPARTURE: 03/10/23 12:30 Medical Decision Making 837?- 82-year-old male with multiple medical problems including hypertension, hyperlipidemia, prediabetes, asthma COPD, A-fib, chronic kidney disease, first- degree AV block, here with intermittent jaw pain over the past couple days. Patient also with shortness of breath. Patient is tachypneic but saturating well. Hemodynamically stable. Suspect acute exacerbation of COPD but will consider pulmonary embolism. Plan to check D-dimer. Patient does have significant risk factors for ACS. Initial EKG was reviewed and interpreted by me: Please see report, no STEMI, first-degree AV block noted. Plan to check troponin and trend. 1045 --CT of the chest was interpreted by radiology:IMPRESSION: 1. No pulmonary arterial embolism. 2. Lingular subsegmental atelectasis. -- Repeat EKG was reviewed and interpreted by me: No significant changes. Please see report. 1201 --patient was reassessed and is remained pain-free here. Repeat delta troponin negative. Patient is hemodynamically stable. All results were discussed with the patient. Plan for discharge with close outpatient follow-up to include cardiac stress testing. Disposition decision was made weighing the risks and benefits of hospitalization versus outpatient treatment, the risk for further decompensation, and the patient's wishes. The patient was stable and requested discharge. Prior to discharge, my usual and customary return precautions were reviewed with the patient - this included follow-up instructions and reason to return to the emergency department if condition worsens, does not improve as expected, or other new concerns arise. Lab Data Lab results reviewed: Yes I reviewed the patient's lab results. Labs: Laboratory Tests Range/Units 03/10/23 03/10/23 08:15 11:15 WBC (4.4-10.8) 10^3/uL 7.88 RBC (4.36-5.78) 10^6/uL 5.50 Hgb (13.5-17.5) g/dL 16.3 Hct (40.0-50.0) % 47.5 MCV (80-95) fL 86 MCH (27.0-33.0) pg 29.6 MCHC (32.0-36.0) % 34.3 RDW (11.8-14.1) % 12.9 Plt Count (130-400) 10^3/uL 207 MPV (8.0-11.0) fL 9.7 Immature Gran % 0.4 Neutrophils % 62.4 Lymphocytes % 25.6 Monocytes % 8.1 Eosinophils % 2.5 Basophils % 1.0 Nucleated RBC % (0.0-0.3) % 0.0 Absolute Neutrophils (1.2-6.7) 10^3/uL 4.91 Absolute Lymphocytes (1.2-3.4) 10^3/uL 2.02 Absolute Monocytes (0.1-0.8) 10^3/uL 0.64 Absolute Eosinophils (0.0-0.7) 10^3/uL 0.20 Absolute Basophils (0.0-0.2) 10^3/uL 0.08 APTT (23.6-32.8) sec 30.8 D-Dimer (<500) ng/mlFEU 1801 H Sodium (136-145) mmol/L 138 Potassium (3.5-5.1) mmol/L 3.6 Chloride (98-107) mmol/L 103 Carbon Dioxide (21.0-32.0) mmol/L 26.1 Anion Gap (3-11) mmol/L 8.9 BUN (7-18) mg/dL 19 H Creatinine (0.70-1.30) mg/dL 1.5 H Est GFR (CKD-EPI 2020) (mL/min/1.73m2) 46.77 Glucose (74-106) mg/dL 136 H Calcium (8.5-10.1) mg/dL 9.5 Magnesium (1.8-2.4) mg/dL 1.9 Total Bilirubin (0.2-1.0) mg/dL 0.7 AST (15-37) U/L 19 ALT (16-63) U/L 21 Alkaline Phosphatase (46-116) U/L 118 H Troponin I (<or=60) ng/L < 50 < 50 Total Protein (6.4-8.2) g/dL 7.5 Albumin (3.4-5.0) g/dL 3.4 HPI General Mode of arrival: ambulatory . Date/Time Provider Initiated Documentation: 03/10/23 08:18 . Limitations to Documentation: no limitations . Information obtained by: patient . HPI Narrative: 82-year-old male with multiple medical problems including history of asthma COPD, paroxysmal atrial fibrillation, obstructive sleep apnea, hypertension, hyperlipidemia, prediabetes, first-degree AV block, presents today with chief complaint of jaw pain. Patient notes intermittent jaw pain. He states he had an episode of jaw pain a couple days ago when he was walking. Pain resolved at that time. He experienced jaw pain again this morning. It has again since resolved. He has no pain at this time. He does note some associated right shoulder pain although he has chronic shoulder pain due to arthritis. He has no associated chest pain but does note he had some chest heaviness this morning that he attributes to his COPD. He does note shortness of breath at this time that is atypical for this time of day. Patient denies leg swelling or calf pain. No associated nausea or vomiting. No abdominal pain. Related Data Home Medications Medication Instructions Recorded Confirmed multivitamin 1 tab PO DAILY 11/12/14 03/11/23 blood sugar diagnostic (SigmaFlowTouch #100 ea 10/17/20 03/11/23 Ultra Blue Test Strip) blood-glucose meter ([employer]FlowTouch #1 ea 10/17/20 03/11/23 Ultra2 Meter kit) lancets 33 gauge (SigmaFlowTouch Delica #100 ea 10/17/20 03/11/23 Plus Lancet) dupilumab 200 mg/1.14 mL 200 mg (1.14 mL) subcut Q2W Asthma 05/05/21 03/11/23 subcutaneous pen injector #2.28 mL (Dupixent) omeprazole 20 mg capsule,delayed 20 mg PO DAILY #90 tab-caps 06/01/21 03/11/23 release loratadine 10 mg tablet 10 mg PO DAILY #90 tabs 06/10/21 03/11/23 methocarbamol 500 mg tablet 500 mg PO TID PRN muscle pain #30 03/16/22 03/11/23 tabs albuterol sulfate 90 mcg/actuation 2 inh inhalation Q6H PRN shortness 06/10/22 03/11/23 aerosol inhaler of breath or wheezing #3 ea ipratropium 0.5 mg-albuterol 3 mg See Rx Instructions .Route 06/15/22 03/11/23 (2.5 mg base)/3 mL nebulization .COMPLEX #180 mL soln fluticasone fur. 100 mcg-umeclid 1 inh inhalation DAILY #90 ea 06/22/22 03/11/23 62.5 mcg-vilant 25 mcg inhalat.powder (Trelegy Ellipta) hydrochlorothiazide 12.5 mg capsule 12.5 mg PO DAILY #90 tab-caps 08/02/22 03/11/23 potassium chloride 10 mEq 10 meq PO DAILY #90 tab-caps 08/02/22 03/11/23 capsule,extended release tamsulosin 0.4 mg capsule 0.8 mg (2 x 0.4 mg) PO HS #180 08/02/22 03/11/23 tab-caps trazodone 100 mg tablet 100 mg PO HS #90 tab-caps 08/02/22 03/11/23 azithromycin 250 mg tablet 250 mg PO DAILY #90 tabs 08/12/22 03/11/23 finasteride 5 mg tablet 5 mg PO DAILY #90 tabs 08/31/22 03/11/23 triamcinolone acetonide 0.1 % 1 applic topical BID PRN rash #80 01/06/23 03/11/23 topical cream grams Previous Rx's Medication Instructions Recorded blood sugar diagnostic (SigmaFlowTouch #100 ea 10/17/20 Ultra Blue Test Strip) blood-glucose meter (OneTouch #1 ea 10/17/20 Ultra2 Meter kit) lancets 33 gauge (OneTouch Delica #100 ea 10/17/20 Plus Lancet) dupilumab 200 mg/1.14 mL 200 mg (1.14 mL) subcut Q2W Asthma 05/05/21 subcutaneous pen injector #2.28 mL (Cureatr) omeprazole 20 mg capsule,delayed 20 mg PO DAILY #90 tab-caps 06/01/21 release loratadine 10 mg tablet 10 mg PO DAILY #90 tabs 06/10/21 methocarbamol 500 mg tablet 500 mg PO TID PRN muscle pain #30 03/16/22 tabs albuterol sulfate 90 mcg/actuation 2 inh inhalation Q6H PRN shortness 06/10/22 aerosol inhaler of breath or wheezing #3 ea ipratropium 0.5 mg-albuterol 3 mg See Rx Instructions .Route 06/15/22 (2.5 mg base)/3 mL nebulization .COMPLEX #180 mL soln fluticasone fur. 100 mcg-umeclid 1 inh inhalation DAILY #90 ea 06/22/22 62.5 mcg-vilant 25 mcg inhalat.powder (Trelegy Ellipta) hydrochlorothiazide 12.5 mg capsule 12.5 mg PO DAILY #90 tab-caps 08/02/22 potassium chloride 10 mEq 10 meq PO DAILY #90 tab-caps 08/02/22 capsule,extended release tamsulosin 0.4 mg capsule 0.8 mg (2 x 0.4 mg) PO HS #180 08/02/22 tab-caps trazodone 100 mg tablet 100 mg PO HS #90 tab-caps 08/02/22 azithromycin 250 mg tablet 250 mg PO DAILY #90 tabs 08/12/22 finasteride 5 mg tablet 5 mg PO DAILY #90 tabs 08/31/22 triamcinolone acetonide 0.1 % 1 applic topical BID PRN rash #80 01/06/23 topical cream grams Allergies Allergy/AdvReac Type Severity Reaction Status Date / Time atorvastatin AdvReac Mild MUSCLE Verified 03/10/23 08:19 FATIGUE simvastatin AdvReac Mild MUSCLE Verified 03/10/23 08:19 FATIGUE morphine AdvReac Intermediate Uncoded 03/10/23 08:19 wood AdvReac Intermediate Uncoded 03/10/23 08:19 General Stated Complaint: Chest Pain AMERICO: 3 Review of Systems All systems reviewed & are unremarkable except as noted in HPI and below Constitutional Constitutional: Denies fever(s) Cardiovascular Cardiovascular: Reports as per HPI Respiratory Respiratory: Reports as per HPI PFS All Active Problems (Updated 03/10/23 @ 12:03 by Kg Zheng MD) COPD exacerbation (Acute) Jaw pain (Acute) Shortness of breath (Acute) Asthma-COPD overlap syndrome (Chronic) Followed by [facility] pulmonology Paroxysmal atrial fibrillation (Chronic) MASON (obstructive sleep apnea) (Chronic) Essential hypertension (Chronic) Hyperlipidemia (Chronic) Prediabetes (Chronic) Rotator cuff tear arthropathy of right shoulder (Chronic) CKD (chronic kidney disease) stage 3, GFR 30-59 ml/min (Chronic) 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) RIGHT SHOULDER: DEPO 03/04/22 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) Osteopenia (Chronic) Primary osteoarthritis of left knee (Chronic) First degree AV block (Chronic) Insomnia (Chronic) BPH w urinary obs/LUTS (Chronic) Essential tremor (Chronic) Ejaculatory disorder (Acute) Gastroesophageal reflux disease (Chronic) Morris de la Tourette's syndrome (Chronic) Dysphagia (Chronic) Osteoarthritis (Chronic) Pes valgus of left foot (Chronic) Pes valgus planus deformity Posterior tibial tendon dysfunction, left (Chronic) Allergic rhinitis (Chronic) Right inguinal hernia (Chronic) Onychogryphosis (Chronic) Medical History Nonsustained ventricular tachycardia Asymptomatic, 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 Type 2 diabetes mellitus Chronic obstructive pulmonary disease with (acute) exacerbation (09/2020) Osteomyelitis of left foot Status post hallux amputation Major depressive disorder Squamous cell carcinoma, face History of tobacco use Surgical History Status post left foot surgery Flatfoot correction History of revision of total replacement of right knee joint S/P nasal septoplasty S/P cholecystectomy History of carpal tunnel surgery of left wrist Status post total knee replacement, right Status post amputation of great toe Left foot Family History Mother , age 82 Cancer Father , age 60 Skin cancer Cancer Son No problems noted. Son No problems noted. Daughter No problems noted. Paternal Grandfather No problems noted. Paternal Grandmother No problems noted. Maternal Grandfather No problems noted. Maternal Grandmother Cancer Social History Smoking/Tobacco Use Status: Former Tobacco Use tobacco type: cigarettes, pipe and cigars Quit Date: 04/18/79 Second Hand Exposure: Yes Smoking risk assessment performed?: Yes Alcohol Intake: never Drug use: Never Substance use type: does not use Caregiver/Support person: No Household members: spouse and children Housing: house Do you need help understanding health information?: Never Pets and animals: Yes Pets and animals: cat(s) Sexually active: No Do you think of yourself as: straight/heterosexual Current gender identity: male What is your relationship status?: How often do you talk on the phone with friends or family?: once per week How often do you get together with friends or relatives?: decline to answer How often do you attend oriental orthodox or worship services?: decline to answer Do you belong to any clubs or organized social groups?: no Panel score (0-1 are the most socially isolated patients): 1 What type of physical activity do you participate in: none Duration: 15-30 minutes/day Frequency: does not exercise Alexandrea/Zoroastrian: None Special alexandrea needs: No Seatbelt use: always Drive intox or ride w/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: No Do you feel safe at home: Yes Do you feel safe in your relationship?: Yes Exam Const General: cooperative and no acute distress HENMT Mouth: moist mucous membranes Eyes Conjunctivae: normal conjunctivae Sclera: normal sclerae Neck Neck: trachea midline and supple Resp Effort & Inspection: no cough and tachypneic Auscultation: clear to auscultation bilaterally, no rales, no rhonchi and no whe ezes Cardio Rate: regular rate and not tachycardic Rhythm: regular rhythm Heart Sounds: murmur systolic II/ GI Palpation: soft, not firm, no guarding, no masses, not rigid and nontender Skin General skin exam: no rashes or lesions noted Neuro General: patient alert, patient awake, patient oriented x3 and tone normal Extrem General: no calf tenderness and no edema Psych Appearance: grossly normal Mental Status: mental status grossly normal Speech and Movement: speech and movement normal Course Vital Signs Vital signs: Vital Signs Temperature 35.9 C L 03/10/23 08:10 Pulse 79 03/10/23 08:10 Respiratory Rate 22 03/10/23 08:10 Blood Pressure 130/69 03/10/23 08:10 Pulse Oximetry 98 03/10/23 08:10 Temperature 35.9 C L 03/10/23 08:10 Temperature Source Tympanic 03/10/23 08:10 Pulse 79 03/10/23 08:10 Respiratory Rate 19 03/10/23 08:14 Respiratory Effort Short of Breath 03/10/23 08:14 Respiratory Depth Normal 03/10/23 08:14 Respiratory Pattern Normal 03/10/23 08:14 Blood Pressure 130/69 03/10/23 08:10 Blood Pressure Position Sitting 03/10/23 08:10 Pulse Oximetry 98 03/10/23 08:10 Oxygen Delivery Method Room Air 03/10/23 08:10 Oxygen Flow Rate 0 03/10/23 08:10 Pain Level 6 03/10/23 08:14 Lab/Test Results Lab/Test Results: Laboratory Tests Range/Units 03/10/23 08:15 WBC (4.4-10.8) 10^3/uL 7.88 RBC (4.36-5.78) 10^6/uL 5.50 Hgb (13.5-17.5) g/dL 16.3 Hct (40.0-50.0) % 47.5 MCV (80-95) fL 86 MCH (27.0-33.0) pg 29.6 MCHC (32.0-36.0) % 34.3 RDW (11.8-14.1) % 12.9 Plt Count (130-400) 10^3/uL 207 MPV (8.0-11.0) fL 9.7 Immature Gran % 0.4 Neutrophils % 62.4 Lymphocytes % 25.6 Monocytes % 8.1 Eosinophils % 2.5 Basophils % 1.0 Nucleated RBC % (0.0-0.3) % 0.0 Absolute Neutrophils (1.2-6.7) 10^3/uL 4.91 Absolute Lymphocytes (1.2-3.4) 10^3/uL 2.02 Absolute Monocytes (0.1-0.8) 10^3/uL 0.64 Absolute Eosinophils (0.0-0.7) 10^3/uL 0.20 Absolute Basophils (0.0-0.2) 10^3/uL 0.08
[2023-03-10] MEDS: Albuterol/Ipratropium 3 ML UPD VIAL UPD (08:38)
[2023-03-10 08:45] LABS: ALT 21 U/L (16-63); AST 19 U/L (15-37); Albumin 3.4 g/dL (3.4-5.0); Alkaline Phosphatase 118 U/L (46-116); Anion Gap 8.9 mmol/L (3-11); BUN 19 mg/dL (7-18); Bilirubin, Total 0.7 mg/dL (0.2-1.0); CO2 26.1 mmol/L (21.0-32.0); CREATININE 1.5 mg/dL (0.70-1.30); Calcium 9.5 mg/dL (8.5-10.1); Chloride 103 mmol/L (98-107); Estimated GFR 46.77 (mL/min/1.73m2); Glucose 136 mg/dL (74-106); Magnesium 1.9 mg/dL (1.8-2.4); Potassium 3.6 mmol/L (3.5-5.1); Sodium 138 mmol/L (136-145); Total Protein 7.5 g/dL (6.4-8.2); Troponin I < 50 ng/L (<or=60)
[2023-03-10 08:47] LABS: PTT Activated 30.8 sec (23.6-32.8)
[2023-03-10 09:21] LABS: D-Dimer 1801 ng/mlFEU (<500)
[2023-03-10] MEDS: Omnipaque 350 MG/ML 100 ML BTL IJ (10:02)
[2023-03-10] MEDS: Normal Saline - Diluent 50 ML VIAL IJ (10:15)
--- NOTE | 2023-03-10 10:15 | DI.CT_ITS ---
Exam(s) CT CHEST PE CTA EXAM: CT CHEST PE CTA CLINICAL HISTORY: shortness of breath, elevated ddimer. TECHNIQUE: Imaging Protocol: Axial CT angiography was performed with multi-slice acquisition and mu lti-planar and/or 3D reconstructions. CONTRAST MATERIAL: Intravenous: Omnipaque 350 contrast volume:100 mL COMPARISON: CT CT CHEST PE CTA from 12/24/2020 CT,NM,TMT NM MPI REST STRESS GRP from 10/06/2021 FINDINGS: Tracheobronchial tree: Patent where visualized. Pulmonary parenchyma: No consolidation or dominant measurable mass. No architectural distortion. Depe ndent atelectasis. There is scarring or atelectasis seen in the left lingula. Pulmonary Arteries: No evidence of filling defect to suggest pulmonary emboli. Mediastinum and Zaina: No dominant adenopathy or fluid collection. The esophagus is unremarkable. Visualized thyroid gland: Unremarkable. Pleura: No effusion or pneumothorax. Heart: The heart is not dilated. Three vessel coronary artery calcification. No pericardial effusion . Aorta: Thoracic aorta non-dilated. No evidence of dissection. Atherosclerosis. Upper abdomen: Status post cholecystectomy. Soft tissues: There is fatty infiltration of the paraspinal muscles. Bones: Within normal limits for the patient's age.Old right rib fracture deformities. There are old thoracic compression fracture deformities. No acute fracture is seen. IMPRESSION: 1. No evidence of a pulmonary embolism or thoracic aortic aneurysm. 2. Atelectasis. RADIATION DOSE DELIVERED: Total DLP DATA REPOSITORY: All CT scans at this facility are submitted to the National Radiology Data Registry (NRDR) Dose Index Registry (DIR) with the [employer] (ACR). RADIATION OPTIMIZATION: All CT scans at this facility use at least one of these dose optimization te chniques: automated exposure control; mA and/or kV adjustment per patient size (includes targeted exa ms where dose is matched to clinical indication); or iterative reconstruction.
--- NOTE | 2023-03-10 10:39 | DI.VRAD_ITS ---
PROCEDURE INFORMATION: Exam: CTA Chest With Contrast Exam date and time: 03/10/2023 10:07 AM Age: 82 years old Clinical indication: Shortness of breath; Patient HX: SOB, elevated ddimer TECHNIQUE: Imaging protocol: Computed tomographic angiography of the chest with contrast. Exam focused on the arteries. 3D rendering (Not supervised by radiologist): MIP and/or 3D reconstructed images were created by the technologist. Radiation optimization: All CT scans at this facility use at least one of these dose optimization techniques: automated exposure control; mA and/or kV adjustment per patient size (includes targeted exams where dose is matched to clinical indication); or iterative reconstruction. Contrast material: OMNIPAQUE 350; Contrast volume: 100 ml; Contrast route: INTRAVENOUS (IV); COMPARISON: CT CHEST PE CTA 12/24/2020 3:12 PM FINDINGS: Pulmonary arteries: No main, lobar or segmental pulmonary arterial embolism. Aorta: Unremarkable. No aortic aneurysm. Lungs: Platelike atelectasis in the lingula. No mass or consolidation. Pleural spaces: Unremarkable. No pneumothorax. No pleural effusion. Heart: Unremarkable. No cardiomegaly. No pericardial effusion. Lymph nodes: Unremarkable. No enlarged lymph nodes. Bones/joints: Unchanged T7 and T12 wedge compression fractures. No acute fracture. Soft tissues: Unremarkable. IMPRESSION: 1. No pulmonary arterial embolism. 2. Lingular subsegmental atelectasis. Dictated and Authenticated by: Noe Mahoney MD. Ordering:JODIE Saul MD
--- NOTE | 2023-03-10 11:00 | RT.EKG_ITS ---
APPROVED REPORT Exam: Resting ECG Reason for Exam: Chest Pain Patient Location: E HR:72 bpm ECG Measurements Heart Rate 72 AXIS AL [id number] P [id number] QRSd 104 QRS -36 QT 409 T 32 QTc 449 Conclusion Atrial fibrillation...V-rate 71- 74, irreg A-activity Multiple ventricular premature complexes...V complexes w/ short R-R intervls Left axis deviation...QRS axis (-30,-90)
[2023-03-10 11:41] LABS: Troponin I < 50 ng/L (<or=60)
[2023-03-10] MEDS: Aspirin 325 MG TAB PO (12:14)
== END 2023-03-10 12:30 | disposition home or self-care (01) ==
PROVIDERS: Emergency Provider Student in an Organized Health Care Education/Training Program; PCP Nurse Practitioner Family
DX: J44.1 Chronic obstructive pulmonary disease with (acute) exacerbation (principal); I10 Essential (primary) hypertension; I44.0 Atrioventricular block, first degree; I48.0 Paroxysmal atrial fibrillation; E78.5 Hyperlipidemia, unspecified; R68.84 Jaw pain; R06.02 Shortness of breath; R73.03 Prediabetes
CPT/HCPCS: 36415; 71275; 80053; 93005; 94640; 99284; 83735; 84484; 85025; 85379; 85730; 93010; J3490; J7620

== ENCOUNTER → 2023-03-15 15:04 | Outpatient (BNVA) | payer OTHER, SELFPAY | PROVIDERS: PCP Nurse Practitioner Family; Referring Provider Nurse Practitioner Family; Visit Provider Nurse Practitioner Gerontology | DX: N40.1 Benign prostatic hyperplasia with lower urinary tract symptoms (principal); N13.8 Other obstructive and reflux uropathy; R33.8 Other retention of urine; B37.42 Candidal balanitis | CPT/HCPCS: 51798; 99213 ==

== ENCOUNTER 2023-03-17 10:12 | Outpatient (CLI) | payer OTHER, SELFPAY ==
--- NOTE | 2023-03-17 10:30 | RT.EKG_ITS ---
APPROVED REPORT Exam: Resting ECG Reason for Exam: AFIB Patient Location: O HR:78 bpm ECG Measurements Heart Rate 78 AXIS IA 306 P -31 QRSd 103 QRS -36 QT 403 T 48 QTc 460 Conclusion Sinus rhythm...normal P axis, V-rate 50- 99 Prolonged IA interval...IA >220, V-rate 50- 90
[2023-03-17 11:41] LABS: INR 1.1 (0.9-1.1); Prothrombin Time 10.7 sec (9.1-11.1)
== END 2023-03-17 10:13 | disposition home or self-care (01) ==
LOC: DI.CARD 10:35
PROVIDERS: PCP Nurse Practitioner Family; Referring Provider Nurse Practitioner Family; Visit Provider Internal Medicine Cardiovascular Disease
DX: I48.0 Paroxysmal atrial fibrillation (principal)
CPT/HCPCS: 36415; 93010; 85610

== ENCOUNTER → 2023-03-22 10:10 | Outpatient (BNVA) | payer OTHER, SELFPAY | PROVIDERS: PCP Nurse Practitioner Family; Referring Provider Nurse Practitioner Family; Visit Provider Student in an Organized Health Care Education/Training Program | DX: J44.9 Chronic obstructive pulmonary disease, unspecified (principal); Z79.51 Long term (current) use of inhaled steroids; G47.33 Obstructive sleep apnea (adult) (pediatric) | CPT/HCPCS: 99214 ==

== ENCOUNTER 2023-05-02 07:39 | Emergency (ER) | payer OTHER, SELFPAY ==
[2023-05-02] VITALS (9 sets, daily range): BP systolic 111–131; BP diastolic 47–64; PULSE 78–89; RESP 14–19; TEMP 36.6; O2SAT 92–94
--- NOTE | 2023-05-02 07:45 | DI.RAD_ITS ---
Exam(s) XR CHEST 2V PA LATERAL EXAM: XR CHEST 2V PA LATERAL CLINICAL HISTORY: cough sob TECHNIQUE: 2D digital imaging was performed. COMPARISON: CR XR CHEST 2V PA LATERAL from 06/26/[address] CHEST PE CTA from 03/10/2023 FINDINGS: HEART: Normal size. Aorta: Not dilated. PULMONARY VASCULATURE: Normal. LUNGS: Chronic interstitial changes. PLEURAL SPACE: No pleural effusion or pneumothorax. BONE:Stable thoracic compression fractures. Soft tissues: Unremarkable. IMPRESSION: No acute abnormality. DATA REPOSITORY: RADIATION DOSE DELIVERED:
--- NOTE | 2023-05-02 07:45 | RT.EKG_ITS ---
APPROVED REPORT Exam: Resting ECG Reason for Exam: sob Patient Location: E HR:79 bpm ECG Measurements Heart Rate 79 AXIS VA [id number] P [id number] QRSd 110 QRS -40 QT 391 T 80 QTc 449 Conclusion Accelerated junctional rhythm...absent P waves, accele'd V-rate Left anterior fascicular block...axis(240,-40), init forces inf narrow complex, left axis, poor baseline due to motion
--- NOTE | 2023-05-02 08:00 | RT.EKG_ITS ---
APPROVED REPORT Exam: Resting ECG Reason for Exam: repeat, sob Patient Location: E HR:80 bpm ECG Measurements Heart Rate 80 AXIS TN [id number] P [id number] QRSd 105 QRS -64 QT 397 T [id number] QTc 458 Conclusion Atrial flutter with predominant 4:1 AV block...A-rate 319, multiple Ps LAD, consider left anterior fascicular block...axis(240,-40), S>R II III aVF Anteroseptal infarct, old...Q >40mS, V1-V2 regular rate, narrow complex, appears sinus despite comp read; non ischemic
--- NOTE | 2023-05-02 08:03 | W.ED.GENAD ---
HPI General Stated Complaint: RespSymp AMERICO: 3 Date/Time Provider Initiated Documentation: 05/02/23 07:49. HPI Narrative: 82-year-old male presents with upper respiratory symptoms over the past week, recent stent placement at [facility], denies chest pain, currently has intermittent dry cough and mild shortness of breath. Related Data Home Medications Medication Instructions Recorded Confirmed multivitamin 1 tab PO DAILY 11/12/14 04/26/23 blood sugar diagnostic (OneTouch #100 ea 10/17/20 04/26/23 Ultra Blue Test Strip) blood-glucose meter (TechPepperTouch #1 ea 10/17/20 04/26/23 Ultra2 Meter kit) lancets 33 gauge (TechPepperTouch Delica #100 ea 10/17/20 04/26/23 Plus Lancet) dupilumab 200 mg/1.14 mL 200 mg (1.14 mL) subcut Q2W Asthma 05/05/21 04/26/23 subcutaneous pen injector #2.28 mL (Tricentis) omeprazole 20 mg capsule,delayed 20 mg PO DAILY #90 tab-caps 06/01/21 04/26/23 release loratadine 10 mg tablet 10 mg PO DAILY #90 tabs 06/10/21 04/26/23 methocarbamol 500 mg tablet 500 mg PO TID PRN muscle pain #30 03/16/22 04/26/23 tabs albuterol sulfate 90 mcg/actuation 2 inh inhalation Q6H PRN shortness 06/10/22 04/26/23 aerosol inhaler of breath or wheezing #3 ea ipratropium 0.5 mg-albuterol 3 mg See Rx Instructions .Route 06/15/22 04/26/23 (2.5 mg base)/3 mL nebulization .COMPLEX #180 mL soln fluticasone fur. 100 mcg-umeclid 1 inh inhalation DAILY #90 ea 06/22/22 04/26/23 62.5 mcg-vilant 25 mcg inhalat.powder (Trelegy Ellipta) potassium chloride 10 mEq 10 meq PO DAILY #90 tab-caps 08/02/22 04/26/23 capsule,extended release tamsulosin 0.4 mg capsule 0.8 mg (2 x 0.4 mg) PO HS #180 08/02/22 04/26/23 tab-caps trazodone 100 mg tablet 100 mg PO HS #90 tab-caps 08/02/22 04/26/23 azithromycin 250 mg tablet 250 mg PO DAILY #90 tabs 08/12/22 04/26/23 finasteride 5 mg tablet 5 mg PO DAILY #90 tabs 08/31/22 04/26/23 triamcinolone acetonide 0.1 % 1 applic topical BID PRN rash #80 01/06/23 04/26/23 topical cream grams clopidogrel 75 mg tablet 75 mg PO DAILY 04/26/23 metoprolol succinate 25 mg 25 mg PO DAILY 04/26/23 tablet,extended release 24 hr rosuvastatin 10 mg tablet 10 mg PO DAILY 04/26/23 aspirin 81 mg tablet,delayed 81 mg PO DAILY 04/28/23 release (Adult Low Dose Aspirin) Previous Rx's Medication Instructions Recorded blood sugar diagnostic (TechPepperTouch #100 ea 10/17/20 Ultra Blue Test Strip) blood-glucose meter (TechPepperTouch #1 ea 10/17/20 Ultra2 Meter kit) lancets 33 gauge (OneTouch Delica #100 ea 10/17/20 Plus Lancet) dupilumab 200 mg/1.14 mL 200 mg (1.14 mL) subcut Q2W Asthma 05/05/21 subcutaneous pen injector #2.28 mL (Tricentis) omeprazole 20 mg capsule,delayed 20 mg PO DAILY #90 tab-caps 06/01/21 release loratadine 10 mg tablet 10 mg PO DAILY #90 tabs 06/10/21 methocarbamol 500 mg tablet 500 mg PO TID PRN muscle pain #30 03/16/22 tabs albuterol sulfate 90 mcg/actuation 2 inh inhalation Q6H PRN shortness 06/10/22 aerosol inhaler of breath or wheezing #3 ea ipratropium 0.5 mg-albuterol 3 mg See Rx Instructions .Route 06/15/22 (2.5 mg base)/3 mL nebulization .COMPLEX #180 mL soln fluticasone fur. 100 mcg-umeclid 1 inh inhalation DAILY #90 ea 06/22/22 62.5 mcg-vilant 25 mcg inhalat.powder (Trelegy Ellipta) potassium chloride 10 mEq 10 meq PO DAILY #90 tab-caps 08/02/22 capsule,extended release tamsulosin 0.4 mg capsule 0.8 mg (2 x 0.4 mg) PO HS #180 08/02/22 tab-caps trazodone 100 mg tablet 100 mg PO HS #90 tab-caps 08/02/22 azithromycin 250 mg tablet 250 mg PO DAILY #90 tabs 08/12/22 finasteride 5 mg tablet 5 mg PO DAILY #90 tabs 08/31/22 triamcinolone acetonide 0.1 % 1 applic topical BID PRN rash #80 01/06/23 topical cream grams Allergies Allergy/AdvReac Type Severity Reaction Status Date / Time atorvastatin AdvReac Mild MUSCLE Verified 03/22/23 10:16 FATIGUE simvastatin AdvReac Mild MUSCLE Verified 03/22/23 10:16 FATIGUE morphine AdvReac Intermediate Uncoded 03/22/23 10:16 wood AdvReac Intermediate Uncoded 03/22/23 10:16 Review of Systems Narrative: Review of Systems Constitutional: negative Eyes: negative ENT: negative Cardiovascular: negative Respiratory: Cough, shortness of breath Gastrointestinal: negative : negative Musculoskeletal: negative Skin: negative Neurologic: negative Psych: negative PFSH All Active Problems (Updated 05/02/23 @ 09:15 by Masoud oGnzalez MD) COPD exacerbation (Acute) Coronary artery disease (Chronic) S/P CAROLINE to ostial OM1 and LCX 05/11 Peripheral vascular disease (Chronic) Aortic valve stenosis (Chronic) Asthma-COPD overlap syndrome (Chronic) Followed by [facility] pulmonology Paroxysmal atrial fibrillation (Chronic) MASON (obstructive sleep apnea) (Chronic) Essential hypertension (Chronic) Hyperlipidemia (Chronic) Prediabetes (Chronic) Rotator cuff tear arthropathy of right shoulder (Chronic) CKD (chronic kidney disease) stage 3, GFR 30-59 ml/min (Chronic) 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) RIGHT SHOULDER: DEPO 03/04/22 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) Osteopenia (Chronic) Primary osteoarthritis of left knee (Chronic) First degree AV block (Chronic) Insomnia (Chronic) BPH w urinary obs/LUTS (Chronic) Essential tremor (Chronic) Ejaculatory disorder (Acute) Gastroesophageal reflux disease (Chronic) Morris de la Tourette's syndrome (Chronic) Dysphagia (Chronic) Osteoarthritis (Chronic) Pes valgus of left foot (Chronic) Pes valgus planus deformity Posterior tibial tendon dysfunction, left (Chronic) Allergic rhinitis (Chronic) Right inguinal hernia (Chronic) Onychogryphosis (Chronic) Medical History Nonsustained ventricular tachycardia Asymptomatic, noted on government guard October 2020 Type 2 diabetes mellitus Chronic obstructive pulmonary disease with (acute) exacerbation (09/2020) Osteomyelitis of left foot Status post hallux amputation Major depressive disorder Squamous cell carcinoma, face History of tobacco use Surgical History (Updated 04/28/23 @ 11:47 by Alexandrea Trevino NP) Status post coronary artery stent placement (04/23/23) Status post left foot surgery Flatfoot correction History of revision of total replacement of right knee joint S/P nasal septoplasty S/P cholecystectomy History of carpal tunnel surgery of left wrist Status post total knee replacement, right Status post amputation of great toe Left foot Family History Mother , age 82 Cancer Father , age 60 Skin cancer Cancer Son No problems noted. Son No problems noted. Daughter No problems noted. Paternal Grandfather No problems noted. Paternal Grandmother No problems noted. Maternal Grandfather No problems noted. Maternal Grandmother Cancer Social History Smoking/Tobacco Use Status: Former Tobacco Use tobacco type: cigarettes, pipe and cigars Quit Date: 04/18/79 Second Hand Exposure: Yes Smoking risk assessment performed?: Yes Alcohol Intake: never Drug use: Never Substance use type: does not use Caregiver/Support person: No Household members: spouse and children Housing: house Do you need help understanding health information?: Never Pets and animals: Yes Pets and animals: cat(s) Sexually active: No Do you think of yourself as: straight/heterosexual Current gender identity: male What is your relationship status?: How often do you talk on the phone with friends or family?: once per week How often do you get together with friends or relatives?: decline to answer How often do you attend episcopal or yazidi services?: decline to answer Do you belong to any clubs or organized social groups?: no Panel score (0-1 are the most socially isolated patients): 1 What type of physical activity do you participate in: none Duration: 15-30 minutes/day Frequency: does not exercise Alexandrea/Hinduism: None Special alxeandrea needs: No Seatbelt use: always Helmet use: No Drive intox or ride 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: No Do you feel safe at home: Yes Do you feel safe in your relationship?: Yes Exam Narrative Exam Narrative: Physical Examination General: alert, awake, cooperative, resting comfortably, no acute distress HEENT: normocephalic, atraumatic; PERRL, EOM intact, conjunctiva normal; no nasal discharge; moist mucous membranes, oral and pharyngeal mucosa normal, tolerating secretions Neck: supple, trachea midline; full ROM Chest: normal to inspection Respiratory: normal respiratory effort, speaking in full sentences, clear to auscultation, no wheezing, rales or rhonchi Cardiac: regular rate, regular rhythm, S1S2 intact, no murmurs rubs or gallops GI: abdomen soft, non-tender, non-distended; no palpable mass or hepatosplenomegaly Skin: no lesions, rashes or trauma appreciated Neuro: AAOx3, normal speech, moving all extremities Extremities: No peripheral edema Psych: Appropriate mood and affect Course Vital Signs Vital signs: Vital Signs Temperature 36.6 C 05/02/23 07:44 Pulse 78 05/02/23 07:44 Respiratory Rate 18 05/02/23 07:44 Blood Pressure 131/56 L 05/02/23 07:44 Pulse Oximetry 93 05/02/23 07:44 Temperature 36.6 C 05/02/23 07:52 Temperature Source Oral 05/02/23 07:52 Pulse 78 05/02/23 07:52 Respiratory Rate 18 05/02/23 07:52 Respiratory Effort Normal 05/02/23 07:52 Respiratory Depth Normal 05/02/23 07:52 Blood Pressure 131/56 L 05/02/23 07:52 Blood Pressure Position Sitting 05/02/23 07:52 Pulse Oximetry 93 05/02/23 07:52 Oxygen Delivery Method Room Air 05/02/23 07:52 Oxygen Flow Rate 0 05/02/23 07:52 Medical Decision Making 82-year-old male history of COPD, recent coronary stent placement at [facility], presents with 1 week of respiratory symptoms cough nonproductive, mild shortness of breath. Patient alert oriented interactive no respiratory distress. Hemodynamically stable. Afebrile nontoxic. Lungs clear bilaterally, no peripheral edema, ambulatory without assistance. EKG poor baseline due to coughing and motion artifact, will repeat EKG. Consider viral URI such as influenza COVID versus pneumonia versus COPD exacerbation low suspicion for ACS or CHF at this time given history and physical. Lower suspicion for PE aortic pathology or pneumothorax. Will obtain chest x-ray, EKG, trial of nebs and dexamethasone. Close reassessment of symptoms. Viral swab. 9:14 patient resting comfortably, feeling much better after nebs and steroids; ekg sinus rhythm, chest xray clear Quality:SDOH Health Related Social Needs: No Data to Display Discharge Plan Disposition Patient Disposition: Home Condition: Improving Discharge Details Chief Complaint: RespSymp Clinical Impression: COPD exacerbation Primary Care Provider: Alexandrea Trevino ED Provider: Masoud Gonzalez Home Meds and New Rx's Prescriptions: No Action albuterol sulfate 90 mcg/actuation HFA aerosol inhaler 2 inh inhalation Q6H PRN (Reason: shortness of breath or wheezing) Qty: 3 4RF Trelegy Ellipta 100-62.5-25 mcg blister with device 1 inh inhalation DAILY Qty: 90 4RF finasteride 5 mg tablet 5 mg PO DAILY Qty: 90 3RF multivitamin 1 EACH tablet 1 tab PO DAILY (DME) blood-glucose meter [OneTouch Ultra2 Meter] Kit See Rx Instructions .MEDSUPPLY Qty: 1 2RF Rx Instructions: Check blood sugar daily (DME) lancets [OneTouch Delica Plus Lancet] 33 gauge misc See Rx Instructions .MEDSUPPLY Qty: 100 4RF Rx Instructions: Check blood sugar daily (DME) OneTouch Ultra Blue Test Strip Strip See Rx Instructions .MEDSUPPLY Qty: 100 4RF Rx Instructions: Check blood sugar daily Dupixent Pen 200 mg/1.14 mL pen injector 200 mg subcut Q2W Qty: 2.28 12RF omeprazole 20 mg capsule,delayed release(DR/EC) 20 mg PO DAILY Qty: 90 3RF loratadine 10 mg tablet 10 mg PO DAILY Qty: 90 4RF methocarbamol 500 mg tablet 500 mg PO TID PRN (Reason: muscle pain) Qty: 30 0RF ipratropium-albuterol 0.5 mg-3 mg(2.5 mg base)/3 mL solution for nebulization See Rx Instructions .ROUTE .COMPLEX Qty: 180 12RF Dose Instruction: USE 1 AMPULE IN NEBULIZER 4 TIMES DAILY NEEDED FOR SHORTNESS OF BREATH AND FOR WHEEZING Rx Instructions: USE 1 AMPULE IN NEBULIZER 4 TIMES DAILY NEEDED FOR SHORTNESS OF BREATH AND FOR WHEEZING trazodone 100 mg tablet 100 mg PO HS Qty: 90 4RF tamsulosin 0.4 mg capsule 0.8 mg PO HS Qty: 180 3RF potassium chloride 10 mEq capsule, extended release 10 meq PO DAILY Qty: 90 3RF Patient Comments: now taking 20 MEQ azithromycin 250 mg tablet 250 mg PO DAILY Qty: 90 3RF triamcinolone acetonide 0.1 % cream 1 applic topical BID PRN (Reason: rash) Qty: 80 0RF Rx Instructions: apply to rash on left arm twice a day as needed clopidogrel 75 mg tablet 75 mg PO DAILY metoprolol succinate 25 mg tablet extended release 24 hr 25 mg PO DAILY rosuvastatin 10 mg tablet 10 mg PO DAILY aspirin [Adult Low Dose Aspirin] 81 mg tablet,delayed release (DR/EC) 81 mg PO DAILY Discharge Instructions Instructions: COPD (Chronic Obstructive Pulmonary Disease) (ED)
[2023-05-02] MEDS: Dexamethasone 10 MG/ML VIAL PO (08:07)
[2023-05-02] MEDS: Albuterol/Ipratropium 3 ML UPD VIAL UPD (08:08)
== END 2023-05-02 09:25 | disposition home or self-care (01) ==
PROVIDERS: Emergency Provider Emergency Medicine; PCP Nurse Practitioner Family
DX: R05.1 Acute cough (principal); J44.1 Chronic obstructive pulmonary disease with (acute) exacerbation; R11.0 Nausea; R06.02 Shortness of breath; I25.10 Atherosclerotic heart disease of native coronary artery without angina pectoris; Z95.5 Presence of coronary angioplasty implant and graft
CPT/HCPCS: 93005; 94640; 99283; 71046; 93010; J1100; J7620

== ENCOUNTER 2023-05-10 08:17 | Emergency (ER) | payer OTHER, SELFPAY ==
[2023-05-10 08:26] VITALS: BP 136/64; PULSE 74; RESP 18; TEMP 36.7; O2SAT 94
[2023-05-10] MEDS: Ketorolac 15 MG/ML VIAL IVP (09:47)
--- NOTE | 2023-05-10 09:56 | W.ED.GENAD ---
HPI General Date/Time Provider Initiated Documentation: 05/10/23 09:13. HPI Narrative: 82-year-old male history of COPD, A-fib, coronary stents on aspirin Plavix presents with several days of left wrist pain swelling, denies any recent injury, denies fevers or chills. History of arthritis over the last several years in that wrist intermittent in nature. Denies history of gout however there is family history of gout. Related Data Home Medications Medication Instructions Recorded Confirmed multivitamin 1 tab PO DAILY 11/12/14 05/10/23 blood sugar diagnostic (SOLEM ElectroniqueTouch #100 ea 10/17/20 05/10/23 Ultra Blue Test Strip) blood-glucose meter (SOLEM ElectroniqueTouch #1 ea 10/17/20 05/10/23 Ultra2 Meter kit) lancets 33 gauge (SOLEM ElectroniqueTouch Delica #100 ea 10/17/20 05/10/23 Plus Lancet) dupilumab 200 mg/1.14 mL 200 mg (1.14 mL) subcut Q2W Asthma 05/05/21 05/10/23 subcutaneous pen injector #2.28 mL ([facility]) omeprazole 20 mg capsule,delayed 20 mg PO DAILY #90 tab-caps 06/01/21 05/10/23 release loratadine 10 mg tablet 10 mg PO DAILY #90 tabs 06/10/21 05/10/23 methocarbamol 500 mg tablet 500 mg PO TID PRN muscle pain #30 03/16/22 05/10/23 tabs albuterol sulfate 90 mcg/actuation 2 inh inhalation Q6H PRN shortness 06/10/22 05/10/23 aerosol inhaler of breath or wheezing #3 ea ipratropium 0.5 mg-albuterol 3 mg See Rx Instructions .Route 06/15/22 05/10/23 (2.5 mg base)/3 mL nebulization .COMPLEX #180 mL soln fluticasone fur. 100 mcg-umeclid 1 inh inhalation DAILY #90 ea 06/22/22 05/10/23 62.5 mcg-vilant 25 mcg inhalat.powder (Trelegy Ellipta) potassium chloride 10 mEq 10 meq PO DAILY #90 tab-caps 08/02/22 05/10/23 capsule,extended release tamsulosin 0.4 mg capsule 0.8 mg (2 x 0.4 mg) PO HS #180 08/02/22 05/10/23 tab-caps trazodone 100 mg tablet 100 mg PO HS #90 tab-caps 08/02/22 05/10/23 azithromycin 250 mg tablet 250 mg PO DAILY #90 tabs 08/12/22 05/10/23 finasteride 5 mg tablet 5 mg PO DAILY #90 tabs 08/31/22 05/10/23 triamcinolone acetonide 0.1 % 1 applic topical BID PRN rash #80 01/06/23 05/10/23 topical cream grams clopidogrel 75 mg tablet 75 mg PO DAILY 04/26/23 05/10/23 metoprolol succinate 25 mg 25 mg PO DAILY 04/26/23 05/10/23 tablet,extended release 24 hr rosuvastatin 10 mg tablet 10 mg PO DAILY 04/26/23 05/10/23 aspirin 81 mg tablet,delayed 81 mg PO DAILY 04/28/23 05/10/23 release (Adult Low Dose Aspirin) Previous Rx's Medication Instructions Recorded blood sugar diagnostic (SOLEM ElectroniqueTouch #100 ea 10/17/20 Ultra Blue Test Strip) blood-glucose meter (Windfall Systemsuch #1 ea 10/17/20 Ultra2 Meter kit) lancets 33 gauge (SOLEM ElectroniqueTouch Delica #100 ea 10/17/20 Plus Lancet) dupilumab 200 mg/1.14 mL 200 mg (1.14 mL) subcut Q2W Asthma 05/05/21 subcutaneous pen injector #2.28 mL ([facility]) omeprazole 20 mg capsule,delayed 20 mg PO DAILY #90 tab-caps 06/01/21 release loratadine 10 mg tablet 10 mg PO DAILY #90 tabs 06/10/21 methocarbamol 500 mg tablet 500 mg PO TID PRN muscle pain #30 03/16/22 tabs albuterol sulfate 90 mcg/actuation 2 inh inhalation Q6H PRN shortness 06/10/22 aerosol inhaler of breath or wheezing #3 ea ipratropium 0.5 mg-albuterol 3 mg See Rx Instructions .Route 06/15/22 (2.5 mg base)/3 mL nebulization .COMPLEX #180 mL soln fluticasone fur. 100 mcg-umeclid 1 inh inhalation DAILY #90 ea 06/22/22 62.5 mcg-vilant 25 mcg inhalat.powder (Trelegy Ellipta) potassium chloride 10 mEq 10 meq PO DAILY #90 tab-caps 08/02/22 capsule,extended release tamsulosin 0.4 mg capsule 0.8 mg (2 x 0.4 mg) PO HS #180 08/02/22 tab-caps trazodone 100 mg tablet 100 mg PO HS #90 tab-caps 08/02/22 azithromycin 250 mg tablet 250 mg PO DAILY #90 tabs 08/12/22 finasteride 5 mg tablet 5 mg PO DAILY #90 tabs 08/31/22 triamcinolone acetonide 0.1 % 1 applic topical BID PRN rash #80 01/06/23 topical cream grams Allergies Allergy/AdvReac Type Severity Reaction Status Date / Time atorvastatin AdvReac Mild MUSCLE Verified 05/10/23 08:28 FATIGUE simvastatin AdvReac Mild MUSCLE Verified 05/10/23 08:28 FATIGUE morphine AdvReac Intermediate Uncoded 05/10/23 08:28 wood AdvReac Intermediate Uncoded 05/10/23 08:28 General Stated Complaint: Orthopedic MAERICO: 4 Review of Systems Narrative: Review of Systems Constitutional: negative Eyes: negative ENT: negative Cardiovascular: negative Respiratory: negative Gastrointestinal: negative : negative Musculoskeletal: Left wrist pain Skin: negative Neurologic: negative Psych: negative Exam Narrative Exam Narrative: Physical Examination General: alert, awake, cooperative, resting comfortably, no acute distress HEENT: normocephalic, atraumatic; PERRL, EOM intact, conjunctiva normal; no nasal discharge; moist mucous membranes, oral and pharyngeal mucosa normal, tolerating secretions Neck: supple, trachea midline; full ROM Chest: normal to inspection Respiratory: normal respiratory effort, speaking in full sentences Skin: See extremity Neuro: AAOx3, normal speech, moving all extremities Extremities: Mild swelling overlying dorsal wrist radial aspect mild warmth, flexion and extension intact with mild discomfort, radial pulse intact, flexion extension of fingers intact, median radial and ulnar nerve distribution exam intact, no signs of deformity, no palpable crepitus no evidence of lymphangitic rash Psych: Appropriate mood and affect Course Vital Signs Vital signs: Vital Signs Temperature 36.7 C 05/10/23 08:26 Pulse 74 05/10/23 08:26 Respiratory Rate 18 05/10/23 08:26 Blood Pressure 136/64 05/10/23 08:26 Pulse Oximetry 94 01/23/24 08:26 Temperature 36.7 C 05/10/23 08:26 Temperature Source Skin 05/10/23 08:26 Pulse 74 05/10/23 08:26 Respiratory Rate 18 05/10/23 08:26 Respiratory Effort Normal, Non-Labored 05/10/23 09:15 Blood Pressure 136/64 05/10/23 08:26 Blood Pressure Position Sitting 05/10/23 08:26 Pulse Oximetry 94 05/10/23 08:26 Oxygen Delivery Method Room Air 05/10/23 08:26 Oxygen Flow Rate 0 05/10/23 08:26 Pain Level 4 05/10/23 09:47 Lab/Test Results Lab/Test Results: 05/10/23 09:32 Blood Blood Culture - Pending 05/10/23 09:13 Blood Blood Culture - Pending Medical Decision Making 82-year-old male history of COPD coronary disease, coronary stent, on aspirin Plavix presents with intermittent wrist pain over the last several years left side, with worsening wrist pain over the last several days noted to have mild swelling and warmth to dorsal aspect of distal wrist radial aspect of left upper extremity, range of motion intact with mild discomfort, no crepitus or deformity noted, neurovascular exam of limb intact, likely mild effusion to wrist. Patient is afebrile nontoxic. Consider recurrent osteoarthritis versus crystalline arthritis such as gout or pseudogout 13: 54 patient resting more comfortably after Toradol. Range of motion intact without severe pain. X-ray showing degenerative changes of wrist joint. Mildly elevated ESR and CRP, negative procalcitonin, normal white count, afebrile. Consider more likely osteoarthritis versus gout versus Lyme, lower suspicion for septic joint at this time. Will await results of culture and tick panel. Home care instructions given ice elevation ibuprofen Tylenol splinting as needed. Strict return precautions given for worsening symptoms Quality:SDOH Health Related Social Needs: No Data to Display PFSH All Active Problems (Updated 05/10/23 @ 13:56 by Masoud Gonzalez MD) Wrist pain (Acute) COPD exacerbation (Acute) Coronary artery disease (Chronic) S/P CAROLINE to ostial OM1 and LCX 05/11 Peripheral vascular disease (Chronic) Aortic valve stenosis (Chronic) Asthma-COPD overlap syndrome (Chronic) Followed by [facility] pulmonology Paroxysmal atrial fibrillation (Chronic) MASON (obstructive sleep apnea) (Chronic) Essential hypertension (Chronic) Hyperlipidemia (Chronic) Prediabetes (Chronic) Rotator cuff tear arthropathy of right shoulder (Chronic) CKD (chronic kidney disease) stage 3, GFR 30-59 ml/min (Chronic) 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) RIGHT SHOULDER: DEPO 03/04/22 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) Osteopenia (Chronic) Primary osteoarthritis of left knee (Chronic) First degree AV block (Chronic) Insomnia (Chronic) BPH w urinary obs/LUTS (Chronic) Essential tremor (Chronic) Ejaculatory disorder (Acute) Gastroesophageal reflux disease (Chronic) Morris de la Tourette's syndrome (Chronic) Dysphagia (Chronic) Osteoarthritis (Chronic) Pes valgus of left foot (Chronic) Pes valgus planus deformity Posterior tibial tendon dysfunction, left (Chronic) Allergic rhinitis (Chronic) Right inguinal hernia (Chronic) Onychogryphosis (Chronic) Medical History Nonsustained ventricular tachycardia Asymptomatic, noted on quality assurance monitor October 2020 Type 2 diabetes mellitus Chronic obstructive pulmonary disease with (acute) exacerbation (09/2020) Osteomyelitis of left foot Status post hallux amputation Major depressive disorder Squamous cell carcinoma, face History of tobacco use Surgical History (Updated 04/28/23 @ 11:47 by Alexandrea Trevino NP) Status post coronary artery stent placement (04/23/23) Status post left foot surgery Flatfoot correction History of revision of total replacement of right knee joint S/P nasal septoplasty S/P cholecystectomy History of carpal tunnel surgery of left wrist Status post total knee replacement, right Status post amputation of great toe Left foot Family History Mother , age 82 Cancer Father , age 60 Skin cancer Cancer Son No problems noted. Son No problems noted. Daughter No problems noted. Paternal Grandfather No problems noted. Paternal Grandmother No problems noted. Maternal Grandfather No problems noted. Maternal Grandmother Cancer Social History Smoking/Tobacco Use Status: Former Tobacco Use tobacco type: cigarettes, pipe and cigars Quit Date: 04/18/79 Second Hand Exposure: Yes Smoking risk assessment performed?: Yes Alcohol Intake: never Drug use: Never Substance use type: does not use Caregiver/Support person: No Household members: spouse and children Housing: house Do you need help understanding health information?: Never Pets and animals: Yes Pets and animals: cat(s) Sexually active: No Do you think of yourself as: straight/heterosexual Current gender identity: male What is your relationship status?: How often do you talk on the phone with friends or family?: once per week How often do you get together with friends or relatives?: decline to answer How often do you attend presybeterian or anabaptism services?: decline to answer Do you belong to any clubs or organized social groups?: no Panel score (0-1 are the most socially isolated patients): 1 What type of physical activity do you participate in: none Duration: 15-30 minutes/day Frequency: does not exercise Alexandrea/Islam: None Special alexandrea needs: No Seatbelt use: always Helmet use: No Drive intox or ride w/intox transfer driver: No Do you feel safe at home: Yes Do you feel safe in your relationship?: Yes Discharge Plan Disposition Patient Disposition: Home Condition: Improving Discharge Details Chief Complaint: Orthopedic Clinical Impression: Wrist pain Primary Care Provider: Alexandrea Trevino ED Provider: Masoud Gonzalez Meds and New Rx's Prescriptions: No Action albuterol sulfate 90 mcg/actuation HFA aerosol inhaler 2 inh inhalation Q6H PRN (Reason: shortness of breath or wheezing) Qty: 3 4RF Trelegy Ellipta 100-62.5-25 mcg blister with device 1 inh inhalation DAILY Qty: 90 4RF finasteride 5 mg tablet 5 mg PO DAILY Qty: 90 3RF multivitamin 1 EACH tablet 1 tab PO DAILY (DME) blood-glucose meter [OneTouch Ultra2 Meter] Kit See Rx Instructions .MEDSUPPLY Qty: 1 2RF Rx Instructions: Check blood sugar daily (DME) lancets [OneTouch Delica Plus Lancet] 33 gauge misc See Rx Instructions .MEDSUPPLY Qty: 100 4RF Rx Instructions: Check blood sugar daily (DME) OneTouch Ultra Blue Test Strip Strip See Rx Instructions .MEDSUPPLY Qty: 100 4RF Rx Instructions: Check blood sugar daily Dupixent Pen 200 mg/1.14 mL pen injector 200 mg subcut Q2W Qty: 2.28 12RF omeprazole 20 mg capsule,delayed release(DR/EC) 20 mg PO DAILY Qty: 90 3RF loratadine 10 mg tablet 10 mg PO DAILY Qty: 90 4RF methocarbamol 500 mg tablet 500 mg PO TID PRN (Reason: muscle pain) Qty: 30 0RF ipratropium-albuterol 0.5 mg-3 mg(2.5 mg base)/3 mL solution for nebulization See Rx Instructions .ROUTE .COMPLEX Qty: 180 12RF Dose Instruction: USE 1 AMPULE IN NEBULIZER 4 TIMES DAILY NEEDED FOR SHORTNESS OF BREATH AND FOR WHEEZING Rx Instructions: USE 1 AMPULE IN NEBULIZER 4 TIMES DAILY NEEDED FOR SHORTNESS OF BREATH AND FOR WHEEZING trazodone 100 mg tablet 100 mg PO HS Qty: 90 4RF tamsulosin 0.4 mg capsule 0.8 mg PO HS Qty: 180 3RF potassium chloride 10 mEq capsule, extended release 10 meq PO DAILY Qty: 90 3RF Patient Comments: now taking 20 MEQ azithromycin 250 mg tablet 250 mg PO DAILY Qty: 90 3RF triamcinolone acetonide 0.1 % cream 1 applic topical BID PRN (Reason: rash) Qty: 80 0RF Rx Instructions: apply to rash on left arm twice a day as needed clopidogrel 75 mg tablet 75 mg PO DAILY metoprolol succinate 25 mg tablet extended release 24 hr 25 mg PO DAILY rosuvastatin 10 mg tablet 10 mg PO DAILY aspirin [Adult Low Dose Aspirin] 81 mg tablet,delayed release (DR/EC) 81 mg PO DAILY Discharge Instructions Instructions: Osteoarthritis (ED) Additional Instructions: Continue with ice elevation ibuprofen and/or acetaminophen as needed for pain and swelling, splint as needed for discomfort. Please return to the emergency department for any worsening symptoms such as but not limited to fevers chills worsening pain swelling redness inability to move wrist or other abnormal symptoms
[2023-05-10 09:57] LABS: ESR 23 mm/hr (0-20)
[2023-05-10 10:02] LABS: Abs Immature Grans 0.14 10^3/uL (0.0-0.06); Absolute Basophil Count 0.07 10^3/uL (0.0-0.2); Absolute Eosinophil Count 0.28 10^3/uL (0.0-0.7); Absolute Lymphocyte Count 1.21 10^3/uL (1.2-3.4); Absolute Monocyte Count 1.04 10^3/uL (0.1-0.8); Absolute Neutrophil Count 7.95 10^3/uL (1.2-6.7); Basophils % 0.7; Eosinophils % 2.6; HCT 43.5 % (40.0-50.0); HGB 14.9 g/dL (13.5-17.5); Immature Grans % 1.3; Lymphocytes % 11.3; MCHC 34.3 % (32.0-36.0); MCV 88 fL (80-95); MPV 9.4 fL (8.0-11.0); Monocytes % 9.7; Neutrophils % 74.4; Platelet Count 203 10^3/uL (130-400); RBC 4.97 10^6/uL (4.36-5.78); RDW 13.1 % (11.8-14.1); RDW-SD 41.6 fL; WBC 10.69 10^3/uL (4.4-10.8)
--- NOTE | 2023-05-10 10:20 | DI.RAD_ITS ---
Exam(s) XR WRIST LT COMPLETE EXAM: XR WRIST LT COMPLETE CLINICAL HISTORY: left wrist swelling and pain. TECHNIQUE: 2D digital imaging was performed of the left wrist. Three images were obtained. PA, obl ique and lateral views were obtained. COMPARISON: There are no priors for comparison. FINDINGS: BONES: No acute fracture is present. No bony destructive lesion is seen. JOINTS: The carpal bones are normally aligned. There are mild degenerative changes seen at the 1st CM C joint. There is also mild narrowing of the radiocarpal joint. SOFT TISSUE: Normal. IMPRESSION: 1. No acute fracture or dislocation. 2. Mild degenerative changes of the left wrist. DATA REPOSITORY: RADIATION DOSE DELIVERED:
[2023-05-10 10:49] LABS: ALT 20 U/L (16-63); AST 15 U/L (15-37); Albumin 2.7 g/dL (3.4-5.0); Alkaline Phosphatase 98 U/L (46-116); Anion Gap 8.4 mmol/L (3-11); BUN 20 mg/dL (7-18); Bilirubin, Total 0.7 mg/dL (0.2-1.0); C-Reactive Protein 2.37 mg/dL (0.0-0.3); CO2 27.6 mmol/L (21.0-32.0); CREATININE 1.4 mg/dL (0.70-1.30); Calcium 8.7 mg/dL (8.5-10.1); Chloride 103 mmol/L (98-107); Estimated GFR 50.81 (mL/min/1.73m2); Glucose 152 mg/dL (74-106); Potassium 4.2 mmol/L (3.5-5.1); Sodium 139 mmol/L (136-145); Total Protein 6.7 g/dL (6.4-8.2); Uric Acid 5.9 mg/dL (3.5-7.2)
[2023-05-10 10:49] LABS: Procalcitonin < 0.1 ng/mL
[2023-05-11 09:52] LABS: Lyme Ab w Rflx to Lyme Confirm Negative (Negative)
[2023-05-12 19:09] LABS: Anaplasma phagocytophilum Negative (Negative); B. miyamotoi PCR Negative (Negative); Babesia divergens/MO-1 Negative (Negative); Babesia duncani Negative (Negative); Babesia microti Negative (Negative); Ehrlichia chaffeensis Negative (Negative); Ehrlichia ewingii/canis Negative (Negative); Ehrlichia muris eauclairensis Negative (Negative)
== END 2023-05-10 14:34 | disposition home or self-care (01) ==
PROVIDERS: Emergency Provider Emergency Medicine; PCP Nurse Practitioner Family
DX: M25.532 Pain in left wrist (principal); I25.10 Atherosclerotic heart disease of native coronary artery without angina pectoris; I48.0 Paroxysmal atrial fibrillation; I12.9 Hypertensive chronic kidney disease with stage 1 through stage 4 chronic kidney disease, or unspecified chronic kidney disease; N18.30 Chronic kidney disease, stage 3 unspecified; Z95.5 Presence of coronary angioplasty implant and graft; Z79.82 Long term (current) use of aspirin; Z79.02 Long term (current) use of antithrombotics/antiplatelets; Z87.891 Personal history of nicotine dependence
CPT/HCPCS: 36415; 80053; 84145; 85652; 87040; 87798; 96374; 99283; 73110; 84550; 85025; 86140; 86618; J1885

== ENCOUNTER 2023-06-13 13:00 | Outpatient (RCR) | payer OTHER, MEDICARE, SELFPAY | END 2023-06-16 23:59 | disposition home or self-care (01) | LOC: CR 13:00 | PROVIDERS: PCP Nurse Practitioner Family; Visit Provider Internal Medicine Cardiovascular Disease | DX: I35.0 Nonrheumatic aortic (valve) stenosis (principal); Z95.2 Presence of prosthetic heart valve; Z51.89 Encounter for other specified aftercare | CPT/HCPCS: S9472 ==

== ENCOUNTER 2023-07-15 12:55 | Outpatient (RCR) | payer OTHER, SELFPAY | END 2023-07-17 23:59 | disposition home or self-care (01) | LOC: CR 12:55 | PROVIDERS: PCP Nurse Practitioner Family; Visit Provider Internal Medicine Cardiovascular Disease | DX: I35.0 Nonrheumatic aortic (valve) stenosis (principal); Z95.2 Presence of prosthetic heart valve; Z51.89 Encounter for other specified aftercare | CPT/HCPCS: S9472 ==

== ENCOUNTER → 2023-07-20 13:58 | Outpatient (BNVA) | payer OTHER, SELFPAY | PROVIDERS: PCP Nurse Practitioner Family; Referring Provider Nurse Practitioner Family; Visit Provider Nurse Practitioner Gerontology | DX: N40.1 Benign prostatic hyperplasia with lower urinary tract symptoms (principal); N13.8 Other obstructive and reflux uropathy; R33.8 Other retention of urine; B37.42 Candidal balanitis | CPT/HCPCS: 51798; 99213 ==

== ENCOUNTER → 2023-08-08 12:41 | Outpatient (CLI) | payer OTHER, SELFPAY ==
--- NOTE | 2023-08-08 11:45 | DI.RAD_ITS ---
Exam(s) XR HAND LT COMPLETE XR WRIST LT COMPLETE EXAM: XR HAND LT COMPLETE and XR wrist LT complete CLINICAL HISTORY: sore R22.32 MASS LEFT HAND. TECHNIQUE: 2D digital imaging was performed of the left hand. Six views were obtained. AP, lateral and oblique views were obtained. COMPARISON: No priors for comparison. FINDINGS: BONES: No acute fracture is present. No bony destructive lesion is seen. JOINTS: No dislocation present. There is widening of the scapholunate distance measuring 7 mm consist ent with scapholunate ligament tear. There is no proximal migration of the capitate at this time. T here is marked narrowing of the lateral radiocarpal joint with [id number]. There are very mild deg enerative changes seen in the interphalangeal joints of the hand.. SOFT TISSUE: Generalized soft tissue swelling of the hand and wrist. IMPRESSION: 1. If there is continued concern for soft tissue mass, an MRI may be obtained for further evaluation. 2. Marked degenerative changes seen at the radio carpal joint laterally. 3. Findings most suggestive of scapholunate ligament tear. DATA REPOSITORY: RADIATION DOSE DELIVERED:
== END ==
PROVIDERS: PCP Nurse Practitioner Family; Visit Provider Nurse Practitioner Family
DX: R22.32 Localized swelling, mass and lump, left upper limb (principal); M25.532 Pain in left wrist
CPT/HCPCS: 73110; 73130

== ENCOUNTER 2023-08-15 13:36 | Outpatient (RCR) | payer OTHER, SELFPAY | END 2023-08-16 23:59 | disposition home or self-care (01) | LOC: CR 13:36 | PROVIDERS: PCP Nurse Practitioner Family; Visit Provider Internal Medicine Cardiovascular Disease | DX: I25.10 Atherosclerotic heart disease of native coronary artery without angina pectoris (principal); I44.0 Atrioventricular block, first degree; Z51.89 Encounter for other specified aftercare | CPT/HCPCS: S9472 ==

== ENCOUNTER → 2023-08-22 13:55 | Outpatient (BNVA) | payer OTHER, SELFPAY | PROVIDERS: PCP Nurse Practitioner Family; Referring Provider Nurse Practitioner Family; Visit Provider Nurse Practitioner Gerontology | DX: N40.1 Benign prostatic hyperplasia with lower urinary tract symptoms (principal); N13.8 Other obstructive and reflux uropathy; R33.8 Other retention of urine; B37.42 Candidal balanitis | CPT/HCPCS: 51798; 99213 ==

== ENCOUNTER → 2023-09-02 10:12 | Outpatient (BNVA) | payer OTHER, SELFPAY | PROVIDERS: PCP Nurse Practitioner Family; Referring Provider Nurse Practitioner Family; Visit Provider Internal Medicine Cardiovascular Disease | DX: R00.1 Bradycardia, unspecified (principal); Z95.2 Presence of prosthetic heart valve; Z95.5 Presence of coronary angioplasty implant and graft | CPT/HCPCS: 99213 ==

== ENCOUNTER 2023-09-02 13:37 | Outpatient (RCR) | payer OTHER, SELFPAY | END 2023-09-16 23:59 | disposition home or self-care (01) | LOC: CR 13:37 | PROVIDERS: PCP Nurse Practitioner Family; Visit Provider Internal Medicine Cardiovascular Disease | DX: I25.10 Atherosclerotic heart disease of native coronary artery without angina pectoris (principal); Z51.89 Encounter for other specified aftercare | CPT/HCPCS: S9472 ==

== ENCOUNTER → 2023-09-20 09:08 | Outpatient (BNVA) | payer OTHER, SELFPAY | PROVIDERS: PCP Nurse Practitioner Family; Referring Provider Nurse Practitioner Family; Visit Provider Physician Assistant Surgical | DX: J44.9 Chronic obstructive pulmonary disease, unspecified (principal); G47.33 Obstructive sleep apnea (adult) (pediatric); M85.89 Other specified disorders of bone density and structure, multiple sites | CPT/HCPCS: 99214 ==

== ENCOUNTER → 2023-09-26 12:56 | Outpatient (BNVA) | payer OTHER, SELFPAY | PROVIDERS: PCP Nurse Practitioner Family; Referring Provider Nurse Practitioner Family | DX: R22.32 Localized swelling, mass and lump, left upper limb (principal); M19.032 Primary osteoarthritis, left wrist; M25.332 Other instability, left wrist | CPT/HCPCS: 99213 ==

== ENCOUNTER 2023-09-26 16:31 | Outpatient (CLI) | payer OTHER, SELFPAY ==
[2023-09-26 15:00] LABS: BUN 27 mg/dL (7-18); CREATININE 1.3 mg/dL (0.70-1.30); Chloride 104 mmol/L (98-107); Estimated GFR 55.19 (mL/min/1.73m2); Glucose 98 mg/dL (74-106); Potassium 3.9 mmol/L (3.5-5.1); Sodium 141 mmol/L (136-145); Vitamin D 25 Total 56.2 ng/mL (30-100)
[2023-09-26 23:00] LABS: Hepatitis C Ab w Rflx HCV PCR Negative (Negative)
== END 2023-09-26 16:32 | disposition home or self-care (01) ==
LOC: LBO 16:31
PROVIDERS: PCP Nurse Practitioner Family; Visit Provider Nurse Practitioner Family
DX: Z00.00 Encounter for general adult medical examination without abnormal findings (principal); E55.9 Vitamin D deficiency, unspecified
CPT/HCPCS: 36415; 80048; 82306; 86803

== ENCOUNTER 2023-10-06 07:33 | Outpatient (CLI) | payer OTHER, SELFPAY ==
--- NOTE | 2023-10-07 14:44 | W.CARDEVENT ---
Date of service: 10/07/23 Time of Service: 14:44 Cardiac Event Recorder Referring Provider:: Fab Rodriguez Indications:: Bradycardia Cardiac Event Note: This is a cardiac event monitor. Patient was monitored for 20 days and 20 hours Predominant rhythm was sinus with first-degree AV block. Average heart rate was 74.. Minimum heart rate was 5 beats post range0, maximum heart rate was 106 PVCs were seen. There were multiple brief self-limited runs of nonsustained ventricular tachycardia. These were generally 4-5 beats in duration There was no definitive atrial fibrillation. Strips labeled atrial fibrillation had excessive artifact. There was no high-grade AV block, no pauses greater than 3 seconds
== END 2023-10-06 07:34 | disposition home or self-care (01) ==
LOC: CARDOPNVT 07:33
PROVIDERS: PCP Nurse Practitioner Family; Visit Provider Internal Medicine Cardiovascular Disease
DX: I44.0 Atrioventricular block, first degree (principal); I49.3 Ventricular premature depolarization
CPT/HCPCS: 93272

== ENCOUNTER → 2023-10-06 12:59 | Outpatient (BNVA) | payer OTHER, SELFPAY | PROVIDERS: PCP Nurse Practitioner Family; Referring Provider Nurse Practitioner Family; Visit Provider Nurse Practitioner Gerontology | DX: N40.1 Benign prostatic hyperplasia with lower urinary tract symptoms (principal); N13.8 Other obstructive and reflux uropathy; R33.8 Other retention of urine; B37.42 Candidal balanitis | CPT/HCPCS: 51798; 99213 ==

== ENCOUNTER → 2023-10-24 13:50 | Outpatient (CLI) | payer OTHER, SELFPAY ==
--- NOTE | 2023-10-24 14:00 | DI.RAD_ITS ---
Exam(s) XR CHEST 2V PA LATERAL EXAM: XR CHEST 2V PA LATERAL CLINICAL HISTORY: DYSPNEA ON EXERTION, R06.09 TECHNIQUE: 2D digital imaging was performed. Two views. COMPARISON: CR XR CHEST 2V PA LATERAL from 05/02/2023 FINDINGS: HEART: Normal size. Now status post TAVR. Aorta: Not dilated. PULMONARY VASCULATURE: Normal. MEDIASTINUM: Unremarkable. LUNGS: No infiltrate. Mild chronic interstitial changes. PLEURAL SPACE: No pleural effusion or pneumothorax. BONE:Stable mid and lower thoracic compression fractures. SOFT TISSUES: Unremarkable. IMPRESSION: No acute abnormality. DATA REPOSITORY: RADIATION DOSE DELIVERED:
== END ==
PROVIDERS: PCP Nurse Practitioner Family; Visit Provider Nurse Practitioner Family
DX: R06.09 Other forms of dyspnea (principal)
CPT/HCPCS: 71046

== ENCOUNTER 2023-11-01 05:01 | Outpatient (CLI) | payer OTHER, SELFPAY ==
[2023-11-01] MEDS: Levalbuterol HFA 15 GM INH 4 PUFF IH (09:22)
[2023-11-01] MEDS: Inhaler, Assist Device 1 EACH MC (09:23)
--- NOTE | 2023-11-08 15:21 | W.PFT ---
Date of service: 11/01/23 Time of Service: 08:00 Pulmonary Function Test Result Requesting Provider Alexandrea Trevino Indications: Asthma?COPD overlap syndrome Interpretation Spirometry: Abnormal FEV1/FVC Lung Volumes: Normal Diffusion Capacity: Normal Impression Spirometry showed decreased FEV1/FVC. Normal FEV1 and FVC. Lung volumes normal trapping. Normal DLCO. Flow-volume curve suggests. Impression Mild obstructive ventilatory defect with normal lung volumes normal diffusion. Clinical Correlation therefore is recommended.
== END 2023-11-01 05:02 | disposition home or self-care (01) ==
LOC: RT 05:01
PROVIDERS: PCP Nurse Practitioner Family; Visit Provider Nurse Practitioner Family
DX: J44.9 Chronic obstructive pulmonary disease, unspecified (principal); R06.09 Other forms of dyspnea
CPT/HCPCS: 00123; 94060; 94726; 94729

== ENCOUNTER 2023-11-17 08:39 | Outpatient (CLI) | payer OTHER, SELFPAY ==
--- NOTE | 2023-11-17 08:30 | RT.EKG_ITS ---
APPROVED REPORT Exam: Resting ECG Reason for Exam: SOB Patient Location: O HR:80 bpm ECG Measurements Heart Rate 80 AXIS CA 322 P -25 QRSd 104 QRS -40 QT 392 T 65 QTc 453 Conclusion Sinus rhythm...normal P axis, V-rate 50- 99 Atrial premature complex...SV complex w/ short R-R interval Prolonged CA interval...CA >220, V-rate 50- 90 Left anterior fascicular block...axis(240,-40), init forces inf LVH with secondary repolarization abnormality...multi-LVH criteria, abnrm ST-T
== END 2023-11-17 08:40 | disposition home or self-care (01) ==
LOC: DI.CARD 08:41
PROVIDERS: PCP Nurse Practitioner Family; Visit Provider Internal Medicine Cardiovascular Disease
DX: I48.0 Paroxysmal atrial fibrillation (principal); I25.10 Atherosclerotic heart disease of native coronary artery without angina pectoris; R06.09 Other forms of dyspnea; I49.1 Atrial premature depolarization; I44.4 Left anterior fascicular block; I42.2 Other hypertrophic cardiomyopathy; Z95.2 Presence of prosthetic heart valve
CPT/HCPCS: 93010

== ENCOUNTER → 2023-11-17 10:36 | Outpatient (BNVA) | payer OTHER, SELFPAY | PROVIDERS: PCP Nurse Practitioner Family; Visit Provider Internal Medicine Cardiovascular Disease | DX: Z95.2 Presence of prosthetic heart valve (principal); I44.4 Left anterior fascicular block; R94.31 Abnormal electrocardiogram [ECG] [EKG]; R06.09 Other forms of dyspnea; I48.0 Paroxysmal atrial fibrillation; I25.10 Atherosclerotic heart disease of native coronary artery without angina pectoris | CPT/HCPCS: 93005; 99213 ==

== ENCOUNTER → 2023-12-01 10:06 | Outpatient (BNVA) | payer OTHER, SELFPAY | PROVIDERS: PCP Nurse Practitioner Family; Referring Provider Nurse Practitioner Family; Visit Provider Internal Medicine Cardiovascular Disease | DX: J44.9 Chronic obstructive pulmonary disease, unspecified (principal); Z95.2 Presence of prosthetic heart valve; I25.10 Atherosclerotic heart disease of native coronary artery without angina pectoris; I48.0 Paroxysmal atrial fibrillation; R06.09 Other forms of dyspnea | CPT/HCPCS: 99213 ==

== ENCOUNTER → 2023-12-22 10:18 | Outpatient (BNVA) | payer OTHER, SELFPAY | PROVIDERS: PCP Nurse Practitioner Family; Referring Provider Nurse Practitioner Family; Visit Provider Physician Assistant Surgical | DX: J44.9 Chronic obstructive pulmonary disease, unspecified (principal); G47.33 Obstructive sleep apnea (adult) (pediatric) | CPT/HCPCS: 99214 ==

== ENCOUNTER → 2024-01-05 14:42 | Outpatient (BNVA) | payer MEDICARE, SELFPAY | PROVIDERS: PCP Nurse Practitioner Family; Visit Provider Nurse Practitioner Gerontology | DX: N40.1 Benign prostatic hyperplasia with lower urinary tract symptoms (principal); N13.8 Other obstructive and reflux uropathy; R33.8 Other retention of urine; B37.42 Candidal balanitis | CPT/HCPCS: 99213 ==

== ENCOUNTER → 2024-01-27 08:02 | Outpatient (BNVA) | payer MEDICARE, SELFPAY | PROVIDERS: PCP Nurse Practitioner Family; Referring Provider Nurse Practitioner Family; Visit Provider Physician Assistant | DX: R22.32 Localized swelling, mass and lump, left upper limb (principal); M19.032 Primary osteoarthritis, left wrist; M25.332 Other instability, left wrist | CPT/HCPCS: 99213 ==

== ENCOUNTER 2024-02-15 00:41 | Outpatient (CLI) | payer MEDICARE, SELFPAY ==
--- NOTE | 2024-02-15 12:55 | DI.MRI_ITS ---
Exam(s) MR UPPER JOINT LT WO EXAM: MR UPPER JOINT LT WO CLINICAL HISTORY: PAIN,OA LT WRIST,SCAPHOLUNATE DISSOCIATION LT WRIST, M25.332,M19.032. TECHNIQUE: Multiplanar multisequence MRI was performed. COMPARISON: None. FINDINGS: BONES: There there are no fractures evident but there is bone edema evident within the scaphoid, skyler te, and triquetrum bones of the proximal carpal row as well as degenerative cysts in the scaphoid, harleen lori, and capitate bones. There are also erosions on the medial aspect of the proximal half of the c apitate as well as in the dorsal aspect of the lunate. JOINTS: There is advanced osteoarthritic degenerative change within the radiocarpal joint with advanc ed articular cartilage loss. There is diffuse synovitis evident. Scapholunate distance is significa ntly increased, measuring 8 mm with discontinuity of the scapholunate ligament. TENDONS: Flexors: There is prominent amount of fluid within the carpal tunnel as well as tenosynovitis of the flexor tendons therein. This tenosynovitis extends to the distal palm level. Extensors: There is significant tenosynovitis of the extensor digitorum tendons over the dorsal aspec t of the wrist, with sparing of the extensor pollicis longus and the extensor carpi ulnaris.. There is also no tenosynovitis of the extensor carpi radialis longus and brevis tendons.. Also no evidence of de Quervain tenosynovitis of the abductor pollicis longus and extensor pollicis brevis tendons. Also no involvement of the flexor carpi radialis tendon nor of the flexor carpi ulnaris tendon. Carpal tunnel:As above. Abundant fluid. MUSCLES: There is some diffuse increased signal evident within the pronator quadratus muscle. MEDIAN NERVE: Unremarkable on this noncontrast examination. SOFT TISSUES: LIGAMENTS: Scapholunate ligament: Significant widening of the scapholunate distance consistent with tear of the scapholunate ligament Lunotriquetral ligament: Edematous consistent with sprain TRIANGULAR FIBROCARTILAGE: Exhibits degenerative thinning. OTHER: There is fluid evident within the distal radioulnar joint. There is no significant ulnar vari ance. There is no evidence of ulna-lunate impaction. IMPRESSION: 1. There is diffuse degenerative change throughout the carpal row bones as well as joint effusions an d diffuse synovitis. 2. High-grade tear of the scapholunate ligament with significant widening of the scapholunate distanc e. There is also sprain signal within the lunotriquetral ligament 3. Prominent tenosynovitis of both extensor and flexor tendons, as described individually above. Ther e are, however, no tendon tears evident. 4. Degenerative changes of the triangle fibrocartilage complex. DATA REPOSITORY:
--- NOTE | 2024-02-15 19:05 | DI.VRAD_ITS ---
PROCEDURE INFORMATION: Exam: MR Left Upper Extremity Joint Without Contrast; Wrist Exam date and time: 02/15/2024 12:18 PM Age: 83 years old Clinical indication: Weakness; Wrist; Left TECHNIQUE: Imaging protocol: Magnetic resonance imaging of the left upper extremity without contrast. Exam focused on the wrist. COMPARISON: CR XR WRIST LT COMPLETE 08/08/2023 12:16 PM FINDINGS: Bones/joints: Osseous edema noted throughout multiple carpal bones with subchondral cystic formation seen throughout, consistent with osteoarthritic disease. Edema also noted in the distal radius. There is a large joint effusion noted with extends above and below the wrist involving the flexor and extensor compartments. Scapholunate ligament: There is widening of the scapholunate joint noted and the scapholunate ligament is not well seen, suggestive of tear. Lunotriquetral ligament: Edema noted in this region, suggestive of tear. Triangular fibrocartilage complex: There is thinning of the TFCC suggestive of degeneration. No definite tear. Flexor compartment tendons: Edema noted within the tendons. No tear. Extensor compartment tendons: Edema noted within the tendons. No tear. Soft tissues: No evidence of significant subcutaneous soft tissue abnormality. IMPRESSION: 1. Significant degenerative changes noted throughout the wrist with osteoarthritic changes in the carpal bones and radius and a large joint effusion noted. 2. Scapholunate joint separation with tear of the scapholunate ligament. 3. Edema noted within lunate triquetral ligament suggestive of partial tear or sprain. 4. Thinning of the triangular fibrocartilage complex suggestive of degeneration. 5. Edema within flexor and extensor tendons suggestive of tendinitis. Dictated and Authenticated by: Devora Cristina MD. Ordering:COMFORT Campbell MD
== END 2024-02-15 01:01 ==
LOC: DI 00:41
PROVIDERS: PCP Nurse Practitioner Family; Visit Provider Student in an Organized Health Care Education/Training Program
DX: S63.512A Sprain of carpal joint of left wrist, initial encounter; X58.XXXA Exposure to other specified factors, initial encounter
CPT/HCPCS: 73221

== ENCOUNTER → 2024-02-23 13:04 | Outpatient (BNVA) | payer MEDICARE, SELFPAY | PROVIDERS: PCP Nurse Practitioner Family; Referring Provider Nurse Practitioner Family; Visit Provider Student in an Organized Health Care Education/Training Program | DX: M25.331 Other instability, right wrist (principal); M19.031 Primary osteoarthritis, right wrist; M65.931 Unspecified synovitis and tenosynovitis, right forearm | CPT/HCPCS: 99213 ==

== ENCOUNTER → 2024-03-02 09:59 | Outpatient (BNVA) | payer MEDICARE, SELFPAY | PROVIDERS: PCP Nurse Practitioner Family; Visit Provider Internal Medicine Cardiovascular Disease | DX: Z95.2 Presence of prosthetic heart valve (principal); I25.10 Atherosclerotic heart disease of native coronary artery without angina pectoris; R06.09 Other forms of dyspnea | CPT/HCPCS: 99213 ==

== ENCOUNTER 2024-06-02 11:51 | Emergency (ER) | payer MEDICARE, SELFPAY ==
[2024-06-02 11:57] VITALS: BP 153/69; PULSE 85; RESP 20; TEMP 37.1; O2SAT 93
[2024-06-02 12:00] VITALS: BP 153/69; PULSE 85; RESP 20; TEMP 37.1; O2SAT 93
--- NOTE | 2024-06-02 12:12 | ED.GENADUL_ITS ---
Discharge Plan Disposition Patient Disposition: Home Condition: Stable Discharge Details Clinical Impression: TMJ arthralgia, Masticatory myalgia Primary Care Provider: Alexandrea Trevino ED Provider: Scarlett Moyer Home Meds and New Rx's Prescriptions: Continued albuterol sulfate 90 mcg/actuation HFA aerosol inhaler 2 inh inhalation Q6H PRN (Reason: shortness of breath or wheezing) Qty: 3 4RF pantoprazole 40 mg tablet,delayed release (DR/EC) 40 mg PO DAILY azithromycin 250 mg tablet 250 mg PO DAILY Qty: 90 3RF potassium chloride 20 mEq tablet extended release 20 meq PO .M,W,F trazodone 100 mg tablet 100 mg PO HS Qty: 90 3RF torsemide 20 mg tablet 20 mg PO DAILY Qty: 30 8RF multivitamin 1 EACH tablet 1 tab PO DAILY loratadine 10 mg tablet 10 mg PO DAILY Qty: 90 4RF ipratropium-albuterol 0.5 mg-3 mg(2.5 mg base)/3 mL solution for nebulization See Rx Instructions .ROUTE .COMPLEX Qty: 180 12RF Dose Instruction: USE 1 AMPULE IN NEBULIZER 4 TIMES DAILY NEEDED FOR SHORTNESS OF BREATH AND FOR WHEEZING Rx Instructions: USE 1 AMPULE IN NEBULIZER 4 TIMES DAILY NEEDED FOR SHORTNESS OF BREATH AND FOR WHEEZING clopidogrel 75 mg tablet 75 mg PO DAILY aspirin [Adult Low Dose Aspirin] 81 mg tablet,delayed release (DR/EC) 81 mg PO DAILY acetaminophen 500 mg capsule 1,000 mg PO Q6H PRN Rx Instructions: RX'd by [facility] [place] [facility] 05/13/23. -hb amoxicillin 500 mg capsule 2,000 mg PO ONCE PRN Rx Instructions: RX'd by [facility] [place] [facility] 05/13/23. Take 4 capsules PO once 30-60 minutes prior to dental procedures including cleanings. (Bacterial Endocarditis prevention) -hb finasteride 5 mg tablet 5 mg PO DAILY Qty: 90 3RF tamsulosin 0.4 mg capsule 0.8 mg PO HS Qty: 180 3RF Trelegy Ellipta 100-62.5-25 mcg blister with device 1 inh inhalation DAILY Qty: 90 4RF fluticasone propion-salmeterol [Advair Diskus] 250-50 mcg/dose blister with device 1 inh inhalation BID Qty: 60 12RF Dupixent Pen 200 mg/1.14 mL pen injector 200 mg subcut Q2W Qty: 2.28 12RF triamcinolone acetonide 0.1 % cream 1 applic topical BID PRN (Reason: rash) Qty: 80 0RF Rx Instructions: apply pea-sized amount twice a day as needed Discharge Instructions Instructions: Temporomandibular Joint (TMJ) Disorders (DC) Additional Instructions: Please alternate ice and heat. Please continue to take Tylenol or ibuprofen every 4-6 hours as needed for pain and swelling. I do believe that this is an inflammation of the muscles surrounding your TMJ joint. This could be due to arthritis. If any worsening pain or ear pain develops please see your PCP or urgent care. You may use the muscle relaxers which you were given here to see if this helps improve your pain. Do not operate heavy machinery as these may make you sleepy. Referrals: Alexandrea Trevino NP [Primary Care Provider] - 5 days HPI General Mode of arrival: ambulatory . Date/Time Provider Initiated Documentation: 06/02/24 11:55 . Limitations to Documentation: no limitations . Information obtained by: patient, RN notes reviewed and old records reviewed . HPI Narrative: 83-year-old male presents to the ER with a chief complaint of the left side facial tenderness with palpation and mild swelling. He does have pain when he opens and closes his jaw. It is tender with palpation preauricularly. He denies any ear pain or throat pain. Denies any known trauma to the area. No fever or chills. Related Data Home Medications ?Medication ?Instructions ?Recorded ?Confirmed multivitamin 1 tab PO DAILY 11/12/14 06/02/24 loratadine 10 mg tablet 10 mg PO DAILY #90 tabs 06/10/21 06/02/24 albuterol sulfate 90 mcg/actuation 2 inh inhalation Q6H PRN shortness 06/10/22 06/02/24 aerosol inhaler of breath or wheezing #3 ea ipratropium 0.5 mg-albuterol 3 mg See Rx Instructions .Route 06/15/22 06/02/24 (2.5 mg base)/3 mL nebulization .COMPLEX #180 mL soln clopidogrel 75 mg tablet 75 mg PO DAILY 04/26/23 06/02/24 aspirin 81 mg tablet,delayed 81 mg PO DAILY 04/28/23 06/02/24 release (Adult Low Dose Aspirin) acetaminophen 500 mg capsule 1,000 mg PO Q6H PRN 05/20/23 06/02/24 amoxicillin 500 mg capsule 2,000 mg PO ONCE PRN 05/20/23 06/02/24 finasteride 5 mg tablet 5 mg PO DAILY #90 tabs 06/06/23 06/02/24 pantoprazole 40 mg tablet,delayed 40 mg PO DAILY 06/13/23 06/02/24 release trazodone 100 mg tablet 100 mg PO HS #90 tabs 06/30/23 06/02/24 tamsulosin 0.4 mg capsule 0.8 mg (2 x 0.4 mg) PO HS #180 07/20/23 06/02/24 tab-caps fluticasone fur. 100 mcg-umeclid 1 inh inhalation DAILY #90 ea 08/31/23 06/02/24 62.5 mcg-vilant 25 mcg inhalat.powder (Trelegy Ellipta) fluticasone 250 mcg-salmeterol 50 1 inh inhalation BID #60 ea 09/19/23 06/02/24 mcg/dose blistr powdr for inhalation (Advair Diskus) torsemide 20 mg tablet 20 mg PO DAILY #30 tabs 11/17/23 06/02/24 potassium chloride 20 mEq 20 meq PO .M,W,F 12/12/23 06/02/24 tablet,extended release azithromycin 250 mg tablet 250 mg PO DAILY #90 tabs 12/22/23 06/02/24 dupilumab 200 mg/1.14 mL 200 mg (1.14 mL) subcut Q2W Asthma 03/05/24 06/02/24 subcutaneous pen injector #2.28 mL (Dupixent) triamcinolone acetonide 0.1 % 1 applic topical BID PRN rash #80 04/05/24 06/02/24 topical cream grams Previous Rx's ?Medication ?Instructions ?Recorded loratadine 10 mg tablet 10 mg PO DAILY #90 tabs 06/10/21 albuterol sulfate 90 mcg/actuation 2 inh inhalation Q6H PRN shortness 06/10/22 aerosol inhaler of breath or wheezing #3 ea ipratropium 0.5 mg-albuterol 3 mg See Rx Instructions .Route 06/15/22 (2.5 mg base)/3 mL nebulization .COMPLEX #180 mL soln finasteride 5 mg tablet 5 mg PO DAILY #90 tabs 06/06/23 trazodone 100 mg tablet 100 mg PO HS #90 tabs 06/30/23 tamsulosin 0.4 mg capsule 0.8 mg (2 x 0.4 mg) PO HS #180 07/20/23 tab-caps fluticasone fur. 100 mcg-umeclid 1 inh inhalation DAILY #90 ea 08/31/23 62.5 mcg-vilant 25 mcg inhalat.powder (Trelegy Ellipta) fluticasone 250 mcg-salmeterol 50 1 inh inhalation BID #60 ea 09/19/23 mcg/dose blistr powdr for inhalation (Advair Diskus) torsemide 20 mg tablet 20 mg PO DAILY #30 tabs 11/17/23 azithromycin 250 mg tablet 250 mg PO DAILY #90 tabs 12/22/23 dupilumab 200 mg/1.14 mL 200 mg (1.14 mL) subcut Q2W Asthma 03/05/24 subcutaneous pen injector #2.28 mL (Applicasa) triamcinolone acetonide 0.1 % 1 applic topical BID PRN rash #80 04/05/24 topical cream grams Allergies Allergy/AdvReac Type Severity Reaction Status Date / Time atorvastatin AdvReac Mild MUSCLE Verified 06/02/24 11:59 FATIGUE simvastatin AdvReac Mild MUSCLE Verified 06/02/24 11:59 FATIGUE morphine AdvReac Intermediate Other (See Uncoded 06/02/24 11:59 Comment) wood AdvReac Intermediate Other (See Uncoded 06/02/24 11:59 Comment) General Stated Complaint: FacialProb AMERICO: 3 Review of Systems All systems reviewed & are unremarkable except as noted in HPI and below Constitutional Constitutional: Denies headache(s) ENT Ears, Nose, Mouth, and Throat: Reports as per HPI, Denies dental pain, Denies dysphagia, Denies vertigo, Denies dizziness, Denies ear discharge, Denies otalgia, Reports facial pain, Denies headache(s), Denies hearing loss and Denies tinnitus Gastrointestinal Gastrointestinal: Denies dysphagia Neurologic Neurologic: Denies vertigo, Denies dizziness and Denies headache(s) Exam Const General: cooperative, healthy appearing, well developed and well hydrated Nutritional Appearance: average body habitus Orientation: alert, awake and oriented x3 HENMT Head: normal to inspection and no palpable skull fracture Ears: hearing grossly normal bilaterally and external ears normal Face and sinus: sinuses nontender, face symmetric and tenderness on the left (pre-auricular) mandible (Over TMJ left) Face images: 2 1. Mild tenderness and mild swelling Mouth: oral mucosae normal, lip normal, tongue normal, oropharynx normal, moist mucous membranes, breath no malodorous, abnormal TMJ (Tenderness with jaw opening and closing), no trismus and No restricted motion Throat: posterior oropharynx normal Course Vital Signs Vital signs: Vital Signs Temperature 37.1 C 06/02/24 11:57 Pulse 85 06/02/24 11:57 Respiratory Rate 20 06/02/24 11:57 Blood Pressure 153/69 H 06/02/24 11:57 Pulse Oximetry 93 06/02/24 11:57 Temperature 37.1 C 06/02/24 12:00 Temperature Source Oral 06/02/24 12:00 Pulse 85 06/02/24 12:00 Respiratory Rate 20 06/02/24 12:00 Blood Pressure 153/69 H 06/02/24 12:00 Pulse Oximetry 93 06/02/24 12:00 Oxygen Delivery Method Room Air 06/02/24 12:00 Oxygen Flow Rate 0 06/02/24 12:00 Medical Decision Making 83-year-old male presents to the ER with a chief complaint of the left side facial tenderness with palpation and mild swelling. He does have pain when he opens and closes his jaw. It is tender with palpation preauricularly. He denies any ear pain or throat pain. Denies any known trauma to the area. No fever or chills. This is suspicious for TMJ myofascial pain, other differential diagnosis includes not limited to otitis media, tooth abscess however that is not seen on exam. Will give Flexeril, 3 tabs, instruct to continue using NSAIDs such as Tylenol as patient has been taking at home. Will discuss decrease chewing gum, to avoid tooth grinding and tooth clenching or excessive jaw opening. Soft diet and alternating Tylenol and ibuprofen. Will have patient follow-up with PCP if no better in 1 to 2 weeks. Strict return instructions discussed. This text was generated using [employer] system, please disregard any oddities of phrase or misspellings. Medical Records Medical records reviewed: Yes I reviewed the patient's medical records. 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) Mass of left hand (Chronic) Coronary artery disease (Chronic) S/P CAROLINE to ostial OM1 and proximal branch of LCX 04/23/23 Peripheral vascular disease (Chronic) Asthma-COPD overlap syndrome (Chronic) Followed by [facility] pulmonology Paroxysmal atrial fibrillation (Chronic) Remote hx of one episode during respiratory distress MASON (obstructive sleep apnea) (Chronic) CPAP nightly Essential hypertension (Chronic) Hyperlipidemia (Chronic) CKD (chronic kidney disease) stage 3, GFR 30-59 ml/min (Chronic) Loosening of prosthesis of right total knee replacement (Chronic) Osteopenia (Chronic) Primary osteoarthritis of left knee (Chronic) 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) RIGHT SHOULDER: DEPO 03/04/22 First degree AV block (Chronic) Insomnia (Chronic) BPH w urinary obs/LUTS (Chronic) Essential tremor (Chronic) Ejaculatory disorder (Chronic) Gastroesophageal reflux disease (Chronic) Morris de la Tourette's syndrome (Chronic) Dysphagia (Chronic) Osteoarthritis (Chronic) Pes valgus of left foot (Chronic) Pes valgus planus deformity Posterior tibial tendon dysfunction, left (Chronic) Allergic rhinitis (Chronic) Right inguinal hernia (Chronic) Onychogryphosis (Chronic) Ganglion cyst of tendon sheath of left hand (Chronic) Medical History Aortic valve stenosis S/p TAVR 05/11. Abx prophylaxis needed prior to dental procedures per [facility] [place] Cards Nonsustained ventricular tachycardia Asymptomatic, noted on cafeteria monitor October 2020 Type 2 diabetes mellitus Osteomyelitis of left foot Status post hallux amputation Major depressive disorder Squamous cell carcinoma, face History of tobacco use Surgical History S/P TAVR (transcatheter aortic valve replacement) (05/11/23) Status post coronary artery stent placement (04/23/23) Status post left foot surgery Flatfoot correction History of revision of total replacement of right knee joint S/P nasal septoplasty S/P cholecystectomy History of carpal tunnel surgery of left wrist Status post total knee replacement, right Status post amputation of great toe Left foot Family History Mother , age 82 Cancer Father , age 60 Skin cancer Cancer Son No problems noted. Son No problems noted. Daughter No problems noted. Paternal Grandfather No problems noted. Paternal Grandmother No problems noted. Maternal Grandfather No problems noted. Maternal Grandmother Cancer Social History Smoking/Tobacco Use Status: Former Tobacco Use tobacco type: cigarettes, pipe and cigars Quit Date: 04/18/79 Pack-years: 20 Tobacco: How many years used: 20 Second Hand Exposure: Yes Smoking risk assessment performed?: Yes Alcohol Intake: never Drug use: Never Substance use type: does not use Adopted: No Caregiver/Support person: No Household members: children Housing: house Number of Children: 3 number of grandchildren: 3 Communication Needs: None Education Level: high school Do you need help understanding health information?: Never current occupation: Retired Pets and animals: Yes Pets and animals: cat(s) Sexually active: No Do you think of yourself as: straight/heterosexual Current gender identity: male What is your relationship status?: How often do you talk on the phone with friends or family?: twice per week How often do you get together with friends or relatives?: once per week How often do you attend cheondoism or baptism services?: decline to answer Do you belong to any clubs or organized social groups?: no Panel score (0-1 are the most socially isolated patients): 1 What type of physical activity do you participate in: none Duration: decline to answer Frequency: does not exercise Alexandrea/Samaritan: Non sabianism Special alexandrea needs: No Seatbelt use: always Helmet use: No Drive intox or ride w/intox school bus driver/mechanic: No Victim of physical abuse: No Victim of emotional abuse: No Victim of sexual abuse: No
[2024-06-02] MEDS: Cyclobenzaprine 10 MG TAB, 3 TABS/BTL PO (12:26)
[2024-06-02 12:28] VITALS: BP 140/70; PULSE 77; RESP 18; O2SAT 96
[2024-06-02 12:30] VITALS: BP 153/69; PULSE 85; RESP 20; TEMP 37.1; O2SAT 93
== END 2024-06-02 12:30 | disposition home or self-care (01) ==
LOC: ER 13:14
PROVIDERS: Emergency Provider Registered Nurse Emergency; PCP Nurse Practitioner Family
DX: M79.11 Myalgia of mastication muscle (principal); M26.622 Arthralgia of left temporomandibular joint; I25.10 Atherosclerotic heart disease of native coronary artery without angina pectoris; E11.22 Type 2 diabetes mellitus with diabetic chronic kidney disease; I12.9 Hypertensive chronic kidney disease with stage 1 through stage 4 chronic kidney disease, or unspecified chronic kidney disease; N18.30 Chronic kidney disease, stage 3 unspecified; Z95.5 Presence of coronary angioplasty implant and graft; Z95.2 Presence of prosthetic heart valve; Z79.01 Long term (current) use of anticoagulants; Z79.82 Long term (current) use of aspirin; Z79.85 Long-term (current) use of injectable non-insulin antidiabetic drugs; Z87.891 Personal history of nicotine dependence
CPT/HCPCS: 99283

== ENCOUNTER → 2024-06-18 08:13 | Outpatient (BNVA) | payer MEDICARE, SELFPAY | PROVIDERS: PCP Nurse Practitioner Family; Referring Provider Nurse Practitioner Family; Visit Provider Student in an Organized Health Care Education/Training Program | DX: M19.032 Primary osteoarthritis, left wrist (principal); M25.332 Other instability, left wrist; M65.932 Unspecified synovitis and tenosynovitis, left forearm | CPT/HCPCS: 20610; 99214; J1010 ==

== ENCOUNTER → 2024-06-19 08:14 | Outpatient (BNVA) | payer MEDICARE, SELFPAY | PROVIDERS: PCP Nurse Practitioner Family; Referring Provider Nurse Practitioner Family; Visit Provider Physician Assistant Surgical | DX: J44.9 Chronic obstructive pulmonary disease, unspecified (principal); G47.33 Obstructive sleep apnea (adult) (pediatric); M85.89 Other specified disorders of bone density and structure, multiple sites | CPT/HCPCS: 99214 ==

== ENCOUNTER → 2024-07-05 14:49 | Outpatient (BNVA) | payer MEDICARE, SELFPAY | PROVIDERS: PCP Nurse Practitioner Family; Visit Provider Nurse Practitioner Gerontology | DX: N13.8 Other obstructive and reflux uropathy (principal); R33.9 Retention of urine, unspecified; B37.42 Candidal balanitis | CPT/HCPCS: 51798; 99213 ==

== ENCOUNTER 2024-07-05 15:41 | Outpatient (CLI) | payer MEDICARE, SELFPAY ==
[2024-07-05 16:32] LABS: Anion Gap 6.4 mmol/L (3-11); BUN 27 mg/dL (7-18); CO2 32.6 mmol/L (21.0-32.0); CREATININE 1.4 mg/dL (0.70-1.30); Calcium 9.7 mg/dL (8.5-10.1); Chloride 105 mmol/L (98-107); Estimated GFR 50.49 (mL/min/1.73m2); Glucose 96 mg/dL (74-106); Potassium 3.4 mmol/L (3.5-5.1); Sodium 144 mmol/L (136-145)
== END 2024-07-05 15:42 | disposition home or self-care (01) ==
LOC: LBO 15:43
PROVIDERS: PCP Nurse Practitioner Family; Visit Provider Nurse Practitioner Family
DX: I25.10 Atherosclerotic heart disease of native coronary artery without angina pectoris (principal); R39.9 Unspecified symptoms and signs involving the genitourinary system; N40.1 Benign prostatic hyperplasia with lower urinary tract symptoms; N13.8 Other obstructive and reflux uropathy; R33.9 Retention of urine, unspecified; B37.42 Candidal balanitis
CPT/HCPCS: 36415; 80048

== ENCOUNTER → 2024-07-06 09:39 | Outpatient (BNVA) | payer MEDICARE, SELFPAY | PROVIDERS: PCP Nurse Practitioner Family; Referring Provider Nurse Practitioner Family; Visit Provider Internal Medicine Cardiovascular Disease | DX: I25.10 Atherosclerotic heart disease of native coronary artery without angina pectoris (principal); Z95.2 Presence of prosthetic heart valve | CPT/HCPCS: 99214 ==

== ENCOUNTER 2024-08-08 02:11 | Outpatient (CLI) | payer MEDICARE, SELFPAY ==
--- NOTE | 2024-08-08 14:45 | DI.US_ITS ---
APPROVED REPORT EXAM: Comprehensive 2D, Doppler, and color-flow Echocardiogram Patient Location: Out-Patient City Superintendent Of Schools: Migel Fournier RDCS (AE) Indications: TAVR Other Information Study Quality: Adequate. Technically limited study due to body habitus. Conclusion Mildly dilated left ventricle. Ejection fraction is 55 to 60%. There are no segmental wall motion a bnormalities Normal right ventricular size and function Moderately enlarged left atrium. Normal right atrial size Patient is status post transcatheter aortic valve replacement. Mean gradient across the valve is les s than 5 mmHg. There is trace aortic regurgitation Ascending aorta measures 3.83 cm Wall motion Left Ventricle Left ventricle is mildly dilated. The left ventricular systolic function is normal. The left ventricu lar ejection fraction is within the normal range. There is normal left ventricular wall thickness. Th ere is normal LV segmental wall motion. There is no ventricular septal defect visualized. LVEF is 55- 60%. Right Ventricle The right ventricle is normal size. The right ventricular systolic function is normal. Atria Left atrium is moderately dilated. The right atrium size is normal. The interatrial septum is intact with no evidence for an atrial septal defect. Aortic Valve S/P TAVR. There is no aortic valvular stenosis. Trace aortic regurgitation Mitral Valve Mild mitral annular calcification. No evidence of mitral valve stenosis. Trace mitral regurgitation. Tricuspid Valve The tricuspid valve is normal in structure. There is no tricuspid valve stenosis. Trace tricuspid reg urgitation. Pulmonic Valve The pulmonary valve is normal in structure. There is no pulmonic valvular stenosis. Mild pulmonic reg urgitation. Great Vessels The aortic root is normal in size. The ascending aorta is mildly dilated. Aortic arch is normal in ca liber. IVC is normal in size and collapses >50% with inspiration. Pericardium There is no pericardial effusion. 2D Dimensions IVSD d PLAX 1.11 cm M: 0.6-1.2 Ao Root d 3.22 cm M: 3.1 - 3.7 LVPW d PLAX 1.10 cm M: 0.6 - 1.2 Ao Asc Diam d 3.83 cm M: 2.6 - 3.4 LVID d PLAX 6.38 cm M: 4.2 - 5.8 LVDs 4.52 cm M: 2.5 - 4.0 LV EF Teichholz 54.7 % FS 29.05 % LV EDV (Teich) 206.8 mL LV ESV (Teich) 93.6 mL Stroke Vol Index (Teich) 50.31 M-Mode TAPSE 1.73 cm (M/F) >1.7 Auto EF LV EDV A4C 157.7 mL LV EDV A2C 191.3 mL LV EDV BP 179.3 mL LV ESV A4C 71.1 mL LV ESV A2C 87.0 mL LV ESV BP 77.7 mL LVEF(%) A4C 54.9 % LVEF(%) A2C 54.5 % LVEF(%) BP 56.6 % LV SV A4C 86.6 ml LV SV A2C 104.3 ml LV SV BP 101.5 ml LV CO A4C 6.2 L/min LV CO A2C 6.7 L/min LV CO BP 6.5 L/min HR A4C 71.72 BPM HR A2C 64.29 BPM LV EDV Index (BP) LA Volume LA Length A4C 4.9 cm LA Length A2C 5.6 cm LA Area A4C s 15.64 cm2 LA Area A2C s 18.35 cm2 LA Vol A4C A-L 42.66 mL LA Vol A2C A-L 50.87 mL LA Vol Biplane A-L 50.1 mL LA Vol/BSA A4C A-L LA Vol/BSA A2C A-L LA Vol/BSA BP A-L 22.2 mL/m2 LA Vol A4C MOD 42.7 mL LA Vol A2C MOD 49.0 mL LA Vol BP MOD 48.6 mL RA Volume RA Area A4C 8.0 cm2 RA ESV A4C (A-L) 10.2mL RA Vol/BSA A4C A-L RA Length A4C 5.3 cm RA ESV A4C (MOD) 9.5mL LV Diastology MV E' medial 0.062 (>0.07 m/s) MV E Vmax 0.68 (0.4-1.3 m/s) MV E/E' MED 11.00 (<14) MV A Vmax 0.80 (0.4-1.3 m/s) MV E' lateral 0.089 (>0.1 m/s) E/A Ratio 0.9 MV E/E' LAT 7.69 (<14) MV E' Average 0.076 m/s MV E/E'(average) 9.05 Aortic Valve AoV Vmax 1.46 m/s LVOT Vmax 0.64 m/s AoV Peak Grad 8.6 mmHg LVOT Peak Grad 1.6 mmHg AoV Area (Vmax) 2.04 cm2 LVOT VTI 0.187 m AoV VTI 0.334 m LVOT Mean Grad 1.0 mmHg AoV Mean Javed. 0.97 m/s LVOT SV 87.94 mL AoV Mean Grad 4.4 mmHg LVOT Diam s 2.40 cm AoV Area (VTI) 2.63 cm2 AV Regurg Peak Gr. 8.56 mmHg Velocity Ratio 0.44 Mitral Valve MV DT 234 (160-240 msec) Pulmonary Valve PV Vmax 1.03 (0.5-1.5 m/s) RVOT Vmax 0.70 m/s PV Peak Grad 4.2 mmHg RVOT Peak Gr. 2.0 mmHg PV Mean Javed 0.67 m/s RVOT VTI 0.155 m PV Mean Grad 2.1 mmHg RVOT Mean Gr. 1.4 mmHg
== END 2024-08-08 02:31 ==
LOC: DI 02:11
PROVIDERS: PCP Nurse Practitioner Family; Visit Provider Internal Medicine Cardiovascular Disease
DX: Z95.2 Presence of prosthetic heart valve (principal); I51.7 Cardiomegaly
CPT/HCPCS: 93306

== ENCOUNTER 2024-09-11 02:45 | Outpatient (CLI) | payer MEDICARE, SELFPAY | END 2024-09-11 02:46 | disposition home or self-care (01) | LOC: RT 02:45 | PROVIDERS: PCP Nurse Practitioner Family; Visit Provider Physician Assistant Surgical | DX: J44.89 Other specified chronic obstructive pulmonary disease (principal) | CPT/HCPCS: 94618 ==

== ENCOUNTER 2024-10-11 09:42 | Outpatient (CLI) | payer MEDICARE, SELFPAY ==
--- NOTE | 2024-10-11 10:30 | DI.US_ITS ---
Exam(s) US SOFT TISSUE EXTREMITY EXAM: US SOFT TISSUE EXTREMITY CLINICAL HISTORY: M79.89Other specified soft tissue disorder,Hand Swelling,evlautate pathlogy. TECHNIQUE: Ultrasound was performed using standard protocol. COMPARISON: CR XR HAND LT COMPLETE from 08/08/2023 MR MR UPPER JOINT LT WO from 02/15/2024 FINDINGS: Sonographic assessment utilizing grayscale and color Doppler imaging was performed and targeted to the area of clinical concern. Dorsal aspect of the hand with scanned. There is fluid surrounding the tendons at the dorsal aspect of the hand, consistent with tenosynovitis. IMPRESSION: There is fluid surrounding the tendons at the dorsal aspect of the hand, consistent with tenosynovitis. DATA REPOSITORY:
== END 2024-10-11 10:02 ==
LOC: DI 09:42
PROVIDERS: PCP Nurse Practitioner Family; Visit Provider Nurse Practitioner Family
DX: M79.89 Other specified soft tissue disorders (principal)
CPT/HCPCS: 76881

== ENCOUNTER → 2024-11-12 13:53 | Outpatient (BNVA) | payer MEDICARE, SELFPAY | PROVIDERS: PCP Nurse Practitioner Family; Referring Provider Nurse Practitioner Family; Visit Provider Physician Assistant | DX: M65.932 Unspecified synovitis and tenosynovitis, left forearm (principal); M25.332 Other instability, left wrist; M19.032 Primary osteoarthritis, left wrist | CPT/HCPCS: 99213 ==

== ENCOUNTER 2024-12-12 10:25 | Emergency (ER) | payer MEDICARE, SELFPAY ==
[2024-12-12] VITALS (28 sets, daily range): BP systolic 124–169; BP diastolic 65–103; PULSE 57–83; RESP 12–24; TEMP 36.4; O2SAT 92–98
--- NOTE | 2024-12-12 10:15 | RT.EKG_ITS ---
APPROVED REPORT Exam: Resting ECG Reason for Exam: Dizziness Patient Location: E HR:67 bpm ECG Measurements Heart Rate 67 AXIS ID 65 P 0 QRSd 106 QRS -25 QT 428 T 32 QTc 450 Conclusion Sinus rhythm...normal P axis, V-rate 60- 99 Multiple ventricular premature complexes...V complexes w/ short R-R intervls Anteroseptal infarct, old...Q >40mS, V1-V2 Sinus rhythm, multiple PVC, baseline artifact. LVH. When compared to 11/17/23 no longer in firsdt degree heart block. WD
[2024-12-12 11:21] LABS: Abs Immature Grans 0.02 10^3/uL (0.0-0.06); HCT 44.5 % (40.0-50.0); HGB 15.0 g/dL (13.5-17.5); Immature Grans % 0.3 %; MCH 29.3 pg (27.0-33.0); MCHC 33.7 % (32.0-36.0); MCV 87 fL (80-95); MPV 9.5 fL (8.0-11.0); Platelet Count 205 10^3/uL (130-400); RBC 5.12 10^6/uL (4.36-5.78); RDW 13.2 % (11.8-14.1); RDW-SD 42.0 fL; WBC 6.92 10^3/uL (4.4-10.8)
--- NOTE | 2024-12-12 11:28 | IN_ITS ---
PT Notes Visit Reasons: [place]-Dizziness Physical Therapy Inpatient Initial Evaluation Date: 12/12/2024 Referring Doctor: BEBE Ambrocio PT Orders: PT CONSULT: vestibular, fernanda, +gregoria hallpike Precautions: Fall. Standard. Activity as tolerated. Patient Profile/Admitting Diagnosis: Patient is an 84-year old male who presented to the ED on 12/13/2024 with report of dizziness. BEBE Hankins reached out to this provider for assessment and management of symptoms of R BPPV. PMHX: All Active Problems (Updated 12/12/24 @ 14:29 by BEBE Ambrocio) Dizziness (Acute) Extensor tenosynovitis of left wrist (Acute) Coronary artery disease (Chronic) S/P CAROLINE to ostial OM1 and proximal branch of LCX 04/23/23 CAROLINE to ostial LAD, and ostial distal LCX and angioplasty distal LM lesion 07/2023. 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) Loosening of prosthesis of right total knee replacement (Chronic) Primary osteoarthritis of left knee (Chronic) 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) RIGHT SHOULDER: DEPO 03/04/22BPH w urinary obs/LUTS (Chronic) Essential tremor (Chronic) Ejaculatory disorder (Chronic) Insomnia (Chronic) Gastroesophageal reflux disease (Chronic) Morris de la Tourette's syndrome (Chronic) Dysphagia (Chronic) Osteoarthritis (Chronic) Pes valgus of left foot (Chronic) Pes valgus planus deformityPosterior tibial tendon dysfunction, left (Chronic) Allergic rhinitis (Chronic) Right inguinal hernia (Chronic) Onychogryphosis (Chronic) Medical History Aortic valve stenosis S/p TAVR 05/11. Abx prophylaxis needed prior to dental procedures per [facility] Cards Nonsustained ventricular tachycardia Asymptomatic, noted on cardiac technologist October 2020Type 2 diabetes mellitus Osteomyelitis of left foot Status post hallux amputationMajor depressive disorder Squamous cell carcinoma, face History of tobacco use Surgical History S/P TAVR (transcatheter aortic valve replacement) (05/11/23) Status post coronary artery stent placement (04/23/23) Status post left foot surgery Flatfoot correctionHistory of revision of total replacement of right knee joint S/P nasal septoplasty S/P cholecystectomy History of carpal tunnel surgery of left wrist Status post total knee replacement, right Status post amputation of great toe Left foot Social History/Home Situation: Lives with grandson in a private home. Grandson works during the day. Indpendent with all aspects of ADLs, uses a SPC. Equipment Owned/DME: SPC Subjective: Patient expressed that he has not been taking his Torsemide as he should because of how inconvenient it can be. In the past seeral weeks before this week, he has been intemittently taking said medication however for this past week, he took Torsemide religiously for the whole week. Yesterday his dizziness started but was worse today which prompted him to go to the ED. He did verbalize that his dizziness was similar to the ones he had before. Complained of stiffness in neck but denied any lightheadeness nor spinning while being tested for BPPV maneuvers. Said that he's been feeling more weak and unstable lately. He did feel lightheaded when he was asked to turn his head to the R after all BPPV maneuvers were done. He did not feel strong enough to push through with mobility assessment due to fatigue and politely refused the walking assessment, was agreeable to doing OOB activities later today. Onset: Yesterday, 12/11/2024 but no dizzness complaint today on examination Quality: Off-balance sensation at onset Duration: On and off since yesterday, none reported during [place]-Hallpike and Supine Head Roll test Previous Episodes: Over a year ago Exacerbating Factors: Standing up Headache: None Neck ache: Yes, patient verbalized stiffness through Gregoria-Hallpike and Supine Head Roll test Nausea/Vomitting: None Hearing Loss: None Tinnitus: None Fullness in Ear:None Imbalance: Yes Red Flags: Visual changes: None Dysphagia or Dysarthria: NOne Facial Weakness: None Incoordination: None Prior Level of Function: Independent with all ADLs Current Level of Function: Refused getting out of bed due to fatigue Previous Treatment: With OP PT vestibular therapist in 2023 OBJECTIVE: Posture: Observation: Mental Status: A and O x 4 Vital Signs: Closely monitored by nursing staff ROM: Cervical ROM: WFL but with stiffness at end of range Right Upper Extremity: Shoulder Flexion WFL. Shoulder abduction WFL. Elbow flexion WFL. Wrist flexion WFL. Functional opening and closing of hand WFL. Left Upper Extremity: Shoulder Flexion allowed up to 90 degres only. Shoulder abduction allowed up to 30 degrees only. Elbow flexion WFL. Wrist flexion WFL. Functional opening and closing of hand WFL. Right Lower Extremity: Hip flexion WFL. Hip abduction WFL. Knee flexion 20 degrees to 90 degrees. Knee extension -20 degrees. Ankle dorsiflexion to neutral only. Ankle plantarflexion WFL. Left Lower Extremity: Hip flexion WFL. Hip abduction WFL. Knee flexion 20 degrees to 90 degrees. Knee extension -20 degrees. Ankle dorsiflexion to neutral only. Ankle plantarflexion WFL. Strength: Cervical muscle strength: 3/5 Right Upper Extremity: Shoulder flexors 4-/5. Shoulder abductors 4-/5. Elbow flexors 4-/5. Elbow extensors 4-/5. Operations Agent strong. Left Upper Extremity: Shoulder flexors 3-/5. Shoulder abductors 3-/5. Elbow flexors 3-/5. Elbow extensors 4-/5. Operations Agent strong. Right Lower Extremity: Hip flexors 4-/5. Hip abductors 4-/5. Knee flexors /5. Knee extensors 5/5. Ankle dorsiflexors 5/5. Ankle plantarflexors 5/5. Left Lower Extremity:Hip flexors 4-/5. Hip abductors 4-/5. Knee flexors /5. Knee extensors 5/5. Ankle dorsiflexors 5/5. Ankle plantarflexors 5/5. Bed Mobility/Transfers: Minimal cueing provided for use of B hands as needed for support, movement sequence, AD management, and posture to reduce fall risk and minimize pain report Rolling moderate assist Supine to sit moderate assist with definite use of B hands for support Sit to supine moderate assist with definite use of B hands for support Sit to stand refused due to fatigue Stand to sit refused due to fatigue Gait: Refused by patient due to fatigue Special Tests: Rhomberg: Not tested Coordination: Intact Fine Motor: Intact Visual Tracking: Smooth but slow pursuit in B sides, no resting nystagmus seen Head Thrust: Negative Gregoria-Halpike: Negative, reported stiffness in posterior neck muscles only, no vertical/horizontal/torsional nystagmus observed; patient reported being lightheaded with head turn to R in semi browning's position Supine Roll Test: Negative, reported stiffness in posterior neck muscles only Balance: Static Sitting: Good Dynamic Sitting: Good Static Standing: Good Dynamic Standing: Fair Special Tests: Mobility Limitations Standardized Measure [facility] AM-PAC 6 clicks Basic Mobility Inpatient Short Form: Raw Score: 18 CMS Score: 47% deficit Informed Consent/Education: Patient was instructed in purpose of PT consult and plan of care. Agreeable to proceed with performance of R Fernanda maneuver for this session. MANUAL THERAPY: -Gentle STM to B lev scapulae and upper traps with good response NEURO RE-ED: -R Gregoria-hallpike done as patient reported lightheadedness with head turned to R ASSESSMENT: No nystagmus nor lightheadedness were provoked with BPPV testing maneuvers today. Patient did report stiffness in posterior neck muscles with testing. Lightheadedness did happen with head turning to R which coincided with tesing of BEBE Hankins of a nystagmus with R [place]-Hallpike. A R Fernanda was therefore performed but with no immediate effect. Patient's report of dizziness may also be attributed to use of Torsemide continuously this week which was presented to BEBE Hankins as well. Apparent mobility decline observed for this admission which was also presented to BEBE Hankins. Patient demonstrated clinical signs and symptoms consistent with curre nt/admitting diagnoses that have resulted to mobility limitations, gait instability, generalized weakness, and overall ADL decline as demonstrated by the following impairment level findings: 1. Impaired sitting/standing balance 2. Impaired activity tolerance 3. A sense of generalized weakness Impairments are contributing to the following functional limitations: 1. Increased completion time for mobility ADL performance 2. Increased risk for falls Patient is assessed as a 27489 low complexity based on the following: History: 84-year-old male with past medical history as indicated above Examination: Demonstrable impairment above Presentation: Evolving Decision Makin low complexity Goals: N/A. PT evalaution and patient education/training only. Plan of Care/Treatment Plan: N/A. PT evalaution only with plan to reassess in the PM for safety with ambulation DISCHARGE RECOMMENDATIONS: PT to address ongoing weakness and balance issues. TREATMENT CODE/TIME: 32056 x 20 minutes for 1 unit, 69780 x 40 minutes for 3 units (11:28-12:28). Thank you for the opportunity to participate in the care of this patient. Zuly Queen PT, DPT, CLT [facility] [place], [place]
[2024-12-12] MEDS: Meclizine 25 MG TAB PO (11:33)
[2024-12-12 11:45] LABS: ALT 27 U/L (16-63); AST 21 U/L (15-37); Albumin 3.3 g/dL (3.4-5.0); Alkaline Phosphatase 121 U/L (46-116); Anion Gap 6.9 mmol/L (3-11); BUN 24 mg/dL (7-18); Bilirubin, Total 1.0 mg/dL (0.2-1.0); CO2 32.1 mmol/L (21.0-32.0); Calcium 9.4 mg/dL (8.5-10.1); Chloride 103 mmol/L (98-107); Estimated GFR 54.85 (mL/min/1.73m2); Glucose 105 mg/dL (74-106); Magnesium 2.2 mg/dL (1.8-2.4); Potassium 3.6 mmol/L (3.5-5.1); Sodium 142 mmol/L (136-145); TSH (W/Ref FT4) 3.23 uIU/mL (0.36-3.74); Total Protein 7.7 g/dL (6.4-8.2); Troponin I 21 ng/L (<or=76)
--- NOTE | 2024-12-12 12:15 | DI.CT_ITS ---
Exam(s) CT BRAIN NECK CTA EXAM: CT BRAIN NECK CTA CLINICAL HISTORY: dizziness. TECHNIQUE: Imaging Protocol: Axial CT angiography was performed with multi- slice acquisition and multi-planar and/or 3D reconstructions. CONTRAST MATERIAL: Intravenous: Omnipaque 350 contrast volume:70 mL COMPARISON: CT SINUS CT WITHOUT CONTRAST from 08/08/[address] FACIAL W from 12/28/2018 FINDINGS: CT Head W/O and W: Ventricles and Extra axial spaces: Normal in size and morphology for the patient's age. Hemorrhage: None. Cerebral parenchyma: There is no evidence of an acute territorial infarct. No acute mass effect is present. Midline shift: None. Brainstem/Cerebellum: Normal. Calvarium: Normal. Visualized Paranasal sinuses/Mastoids: There is opacification of the left maxillary sinus with thickening of the wall consistent chronic sinusitis. Soft Tissues: Unremarkable. Enhancement: Unremarkable. CTA Neck W: Common Carotid: Right: No dissection, occlusion or significant stenosis. Left: No dissection, occlusion or significant stenosis. External Carotid: Right: No occlusion or significant stenosis. Left: No occlusion or significant stenosis. Internal Carotid: Right: Atherosclerotic calcification is seen in the proximal internal carotid artery with approximately 50 percent stenosis. Left: Atherosclerotic calcification is seen in the proximal left internal carotid artery with less than 50 percent stenosis. There is no occlusion or dissection. Vertebral Artery: Right: No dissection, occlusion or significant stenosis. Left: No dissection, occlusion or significant stenosis. Atherosclerotic calcification is seen at the origin of the left vertebral artery without significant stenosis. Lung Apices: Coronary artery calcifications are present. Bones: Within normal limits for the patient's age. Soft Tissues: Normal. Thyroid gland: Unremarkable. CTA Brain W: Internal Carotid Arteries: Atherosclerotic calcification is seen in the cavernous portions of the internal carotid artery without significant stenosis. No occlusion or aneurysm is seen. Anterior Cerebral Arteries: Right: No aneurysm, occlusion or significant stenosis. Left: No aneurysm, occlusion or significant stenosis. Middle Cerebral Arteries: Right: No aneurysm, occlusion or significant stenosis. Left: No aneurysm, occlusion or significant stenosis. Posterior Cerebral Arteries: Right: No aneurysm, occlusion or significant stenosis. Left: No aneurysm, occlusion or significant stenosis. Vertebral Arteries: Right: No aneurysm, occlusion or significant stenosis. Left: No aneurysm, occlusion or significant stenosis. Basilar Artery: No aneurysm, occlusion or significant stenosis. IMPRESSION: 1. No large vessel occlusion or significant stenosis on the CT angiography of the head. 2. No acute intracranial process. 3. Atherosclerotic calcification at the origins of both internal carotid arteries with 50 percent stenosis on the right and less than 50 percent stenosis on the left. RADIATION DOSE DELIVERED: 2,117.39mGy.cm Total DLP DATA REPOSITORY: All CT scans at this facility are submitted to the National Radiology Data Registry (NRDR) Dose Index Registry (DIR) with the [employer] (A[employer]). RADIATION OPTIMIZATION: All CT scans at this facility use at least one of these dose optimization techniques: automated exposure control; mA and/or kV adjustment per patient size (includes targeted exams where dose is matched to clinical indication); or iterative reconstruction.
--- NOTE | 2024-12-12 12:15 | DI.RAD_ITS ---
Exam(s) XR CHEST 2V PA LATERAL EXAM: XR CHEST 2V PA LATERAL CLINICAL HISTORY: shortness ofbreath TECHNIQUE: 2D digital imaging was performed of the chest. Two images were obtained. AP and lateral views were obtained. COMPARISON: CR XR CHEST 2V PA LATERAL from 05/02/2023 CR XR CHEST 2V PA LATERAL from 10/24/2023 FINDINGS: MEDIASTINUM: Normal. HEART: Normal. There is an aortic valve replacement. PULMONARY VASCULATURE: Normal. LUNGS: There is atelectasis in the right lung base. The lungs are otherwise clear. PLEURAL SPACE: No pleural effusion or pneumothorax. BONE:Within normal limits for the patient's age. Stable thoracic compression fracture deformities. OTHER FINDINGS:Normal. IMPRESSION: Right basilar atelectasis. DATA REPOSITORY: RADIATION DOSE DELIVERED:
[2024-12-12 12:36] LABS: Troponin I 22 ng/L (<or=76)
[2024-12-12] MEDS: Omnipaque 350 MG/ML 100 ML BTL IJ (13:09)
[2024-12-12] MEDS: Normal Saline - Diluent 50 ML VIAL IJ (13:09)
[2024-12-12] MEDS: Normal Saline Flush 10 ML SYR IVP (13:10)
[2024-12-12 13:12] LABS: Glucose Negative (Negative)
--- NOTE | 2024-12-12 15:20 | W.ED.GENAD ---
Discharge Plan Disposition Patient Disposition: Home Condition: Stable Discharge Details Clinical Impression: Dizziness Primary Care Provider: Alexandrea Trevino ED Provider: Nhi Hatch Home Meds and New Rx's Prescriptions: New meclizine 25 mg tablet 25 mg PO BID PRNQty: 10 0RF Continued albuterol sulfate 90 mcg/actuation HFA aerosol inhaler 2 inh inhalation Q6H PRN (Reason: shortness of breath or wheezing) Qty: 3 4RF cholecalciferol (vitamin D3) 25 mcg (1,000 unit) capsule 25 mcg PO DAILY trazodone 100 mg tablet 100 mg PO HS Qty: 90 3RF tamsulosin 0.4 mg capsule 0.8 mg PO HS Qty: 180 3RF finasteride 5 mg tablet 5 mg PO DAILY Qty: 90 3RF aspirin [Adult Low Dose Aspirin] 81 mg tablet,delayed release (DR/EC) 81 mg PO DAILY Qty: 90 3RF loratadine 10 mg tablet 10 mg PO DAILY PRN (Reason: allergy symptoms) Qty: 90 3RF pantoprazole 20 mg tablet,delayed release (DR/EC) 20 mg PO DAILY Qty: 90 3RF multivitamin 1 EACH tablet 1 tab PO DAILY ipratropium-albuterol 0.5 mg-3 mg(2.5 mg base)/3 mL solution for nebulization See Rx Instructions .ROUTE .COMPLEX Qty: 180 12RF Dose Instruction: USE 1 AMPULE IN NEBULIZER 4 TIMES DAILY NEEDED FOR SHORTNESS OF BREATH AND FOR WHEEZING Rx Instructions: USE 1 AMPULE IN NEBULIZER 4 TIMES DAILY NEEDED FOR SHORTNESS OF BREATH AND FOR WHEEZING amoxicillin 500 mg capsule 2,000 mg PO ONCE PRN Rx Instructions: RX'd by [facility] Cardiology 05/13/23. Take 4 capsules PO once 30-60 minutes prior to dental procedures including cleanings. (Bacterial Endocarditis prevention) -hb Dupixent Pen 200 mg/1.14 mL pen injector 200 mg subcut Q2W Qty: 2.28 12RF triamcinolone acetonide 0.1 % cream 1 applic topical BID PRN (Reason: rash) Qty: 80 0RF Rx Instructions: apply pea-sized amount twice a day as needed potassium chloride 20 mEq tablet extended release 20 meq PO .M,W,F Qty: 50 3RF fluticasone propion-salmeterol [Advair Diskus] 250-50 mcg/dose blister with device 1 inh inhalation BID Qty: 60 12RF clopidogrel 75 mg tablet 75 mg PO DAILY Patient Comments: TAKE 1 TABLET BY MOUTH ONCE DAILY azithromycin 250 mg tablet 500 mg PO .3 times weekly Discharge Instructions Instructions: Vertigo ED Additional Instructions: Take meclizine as needed for dizziness May take this every 8 hours Sure you are staying hydrated and take your torsemide as prescribed Use caution when going from sitting to standing give yourself some extra time Follow-up with your doctor at your scheduled appointment tomorrow and return earlier should you have new or worsening complaints Referrals: Alexandrea Trevino NP [Primary Care Provider, Medicine] HPI General Date/Time Provider Initiated Documentation: 12/12/24 10:26. HPI Narrative: Male with peripheral vascular disease, TAVR, COPD, atrial fibrillation, chronic kidney disease, and hyperlipidemia presenting with dizziness. Dizziness was intermittent yesterday, now constant. Did not take morning medications due to dizziness. No chest pain, baseline shortness of breath. Takes torsemide intermittently due to frequent urination. No falls or injuries. History of vertigo, similar to previous episodes treated with Hans maneuver. No medications taken today. No dizziness at rest, exacerbated by head movement, room spinning sensation. No headache, changes in speech or sensation, trauma. Related Data Home Medications ?Medication ?Instructions ?Recorded ?Confirmed multivitamin 1 tab PO DAILY 11/12/14 12/12/24 albuterol sulfate 90 mcg/actuation 2 inh inhalation Q6H PRN shortness 06/10/22 12/12/24 aerosol inhaler of breath or wheezing #3 ea ipratropium 0.5 mg-albuterol 3 mg See Rx Instructions .Route 06/15/22 12/12/24 (2.5 mg base)/3 mL nebulization .COMPLEX #180 mL soln amoxicillin 500 mg capsule 2,000 mg PO ONCE PRN 05/20/23 12/12/24 dupilumab 200 mg/1.14 mL 200 mg (1.14 mL) subcut Q2W Asthma 03/05/24 12/12/24 subcutaneous pen injector #2.28 mL ([facility]) triamcinolone acetonide 0.1 % 1 applic topical BID PRN rash #80 04/05/24 12/12/24 topical cream grams aspirin 81 mg tablet,delayed 81 mg PO DAILY #90 tabs 06/14/24 12/12/24 release (Adult Low Dose Aspirin) cholecalciferol (vitamin D3) 25 25 mcg PO DAILY 06/14/24 12/12/24 mcg (1,000 unit) capsule finasteride 5 mg tablet 5 mg PO DAILY #90 tabs 06/14/24 12/12/24 loratadine 10 mg tablet 10 mg PO DAILY PRN allergy 06/14/24 12/12/24 symptoms #90 tabs tamsulosin 0.4 mg capsule 0.8 mg (2 x 0.4 mg) PO HS #180 caps 06/14/24 12/12/24 trazodone 100 mg tablet 100 mg PO HS #90 tabs 06/14/24 12/12/24 pantoprazole 20 mg tablet,delayed 20 mg PO DAILY #90 tabs 06/18/24 12/12/24 release potassium chloride 20 mEq 20 meq PO .M,W,F #50 tabs 07/16/24 12/12/24 tablet,extended release fluticasone 250 mcg-salmeterol 50 1 inh inhalation BID #60 ea 12/03/24 12/12/24 mcg/dose blistr powdr for inhalation (Advair Diskus) azithromycin 250 mg tablet 500 mg PO .3 times weekly 12/12/24 12/12/24 clopidogrel 75 mg tablet 75 mg PO DAILY 12/12/24 12/12/24 meclizine 25 mg tablet 25 mg PO BID PRN #10 tabs 12/12/24 Previous Rx's ?Medication ?Instructions ?Recorded albuterol sulfate 90 mcg/actuation 2 inh inhalation Q6H PRN shortness 06/10/22 aerosol inhaler of breath or wheezing #3 ea ipratropium 0.5 mg-albuterol 3 mg See Rx Instructions .Route 06/15/22 (2.5 mg base)/3 mL nebulization .COMPLEX #180 mL soln dupilumab 200 mg/1.14 mL 200 mg (1.14 mL) subcut Q2W Asthma 03/05/24 subcutaneous pen injector #2.28 mL (Dupixalgrano) triamcinolone acetonide 0.1 % 1 applic topical BID PRN rash #80 04/05/24 topical cream grams aspirin 81 mg tablet,delayed 81 mg PO DAILY #90 tabs 06/14/24 release (Adult Low Dose Aspirin) finasteride 5 mg tablet 5 mg PO DAILY #90 tabs 06/14/24 loratadine 10 mg tablet 10 mg PO DAILY PRN allergy 06/14/24 symptoms #90 tabs tamsulosin 0.4 mg capsule 0.8 mg (2 x 0.4 mg) PO HS #180 caps 06/14/24 trazodone 100 mg tablet 100 mg PO HS #90 tabs 06/14/24 pantoprazole 20 mg tablet,delayed 20 mg PO DAILY #90 tabs 06/18/24 release potassium chloride 20 mEq 20 meq PO .M,W,F #50 tabs 07/16/24 tablet,extended release fluticasone 250 mcg-salmeterol 50 1 inh inhalation BID #60 ea 12/03/24 mcg/dose blistr powdr for inhalation (Advair Diskus) meclizine 25 mg tablet 25 mg PO BID PRN #10 tabs 12/12/24 Allergies Allergy/AdvReac Type Severity Reaction Status Date / Time morphine Allergy Constipatio Verified 12/12/24 10:29 n atorvastatin AdvReac Mild MUSCLE Verified 12/12/24 10:29 FATIGUE simvastatin AdvReac Mild MUSCLE Verified 12/12/24 10:29 FATIGUE General Stated Complaint: Dizzy/Sync AMERICO: 3 Exam Narrative Exam Narrative: General Appearance: Alert, oriented, no acute distress, answering questions appropriately. Vital signs: Within normal limits. HEENT: Mild right beating nystagmus, positive [place]-Hallpike on the right. Cardiac murmur noted sinus rhythm Respiratory: Within normal limits. No respiratory distress Extremities. 2+ edema nontender Skin: Warm and dry, no rash. Neurological: Cranial nerves II-XII intact. Negative [id number], heel rachel, pronator drift tests. About her steady gait no ataxia Course Vital Signs Vital signs: Vital Signs Temperature 36.4 C 12/12/24 10:27 Pulse 69 12/12/24 10:27 Respiratory Rate 16 12/12/24 10:27 Blood Pressure 159/89 H 12/12/24 10:27 Pulse Oximetry 98 12/12/24 10:27 Temperature 36.4 C 12/12/24 10:27 Pulse 76 12/12/24 14:31 Pulse 68 12/12/24 12:10 Respiratory Rate 18 12/12/24 12:10 Respiratory Effort Normal 12/12/24 11:30 Respiratory Depth Normal 12/12/24 11:30 Respiratory Pattern Normal 12/12/24 11:30 Blood Pressure 149/79 H 12/12/24 14:31 Blood Pressure Mean 97 12/12/24 14:31 Pulse Oximetry 95 12/12/24 14:31 Pain Level 0 12/12/24 10:27 Lab/Test Results Lab/Test Results: Laboratory Tests Range/Units 12/12/24 12/12/24 11:05 12:05 WBC (4.4-10.8) 10^3/uL 6.92 RBC (4.36-5.78) 10^6/uL 5.12 Hgb (13.5-17.5) g/dL 15.0 Hct (40.0-50.0) % 44.5 MCV (80-95) fL 87 MCH (27.0-33.0) pg 29.3 MCHC (32.0-36.0) % 33.7 RDW (11.8-14.1) % 13.2 Plt Count (130-400) 10^3/uL 205 MPV (8.0-11.0) fL 9.5 Immature Gran % % 0.3 Neutrophils % % 68.2 Lymphocytes % % 20.7 Monocytes % % 7.9 Eosinophils % % 2.2 Basophils % % 0.7 Nucleated RBC % (0.0-0.3) % 0.0 Absolute Neutrophils (1.2-6.7) 10^3/uL 4.72 Absolute Lymphocytes (1.2-3.4) 10^3/uL 1.43 Absolute Monocytes (0.1-0.8) 10^3/uL 0.55 Absolute Eosinophils (0.0-0.7) 10^3/uL 0.15 Absolute Basophils (0.0-0.2) 10^3/uL 0.05 Sodium (136-145) mmol/L 142 Potassium (3.5-5.1) mmol/L 3.6 Chloride (98-107) mmol/L 103 Carbon Dioxide (21.0-32.0) mmol/L 32.1 H Anion Gap (3-11) mmol/L 6.9 BUN (7-18) mg/dL 24 H Creatinine (0.70-1.30) mg/dL 1.3 Est GFR (CKD-EPI 2020) (mL/min/1.73m2) 54.85 Glucose (74-106) mg/dL 105 Calcium (8.5-10.1) mg/dL 9.4 Magnesium (1.8-2.4) mg/dL 2.2 Total Bilirubin (0.2-1.0) mg/dL 1.0 AST (15-37) U/L 21 ALT (16-63) U/L 27 Alkaline Phosphatase (46-116) U/L 121 H Troponin I (<or=76) ng/L 21 22 Total Protein (6.4-8.2) g/dL 7.7 Albumin (3.4-5.0) g/dL 3.3 L TSH (0.36-3.74) uIU/mL 3.23 Urine Color (Yellow) Yellow Urine Clarity (Clear) Clear Urine pH (5-8) 7.0 Ur Specific [place] (1.005-1.025) 1.015 Urine Protein (Neg-Trace) mg/dL Negative Urine Ketones (Negative) mg/dL Negative Urine Blood (Negative) Negative Urine Nitrite (Negative) Negative Urine Bilirubin (Negative) Negative Urine Urobilinogen (Up to 0.2) mg/dL 0.2 Ur Leukocyte Esterase (Negative) Negative Urine Glucose (Negative) mg/dL Negative Medical Decision Making - Imaging: - CTA head and neck: negative - Testing: - EKG: nonischemic Initial Assessment: Intermittent dizziness yesterday, now constant. History of vertigo, similar to previous episodes. Denies chest pain, falls, injuries, headache, speech or sensation change, trauma. Mild right beating nystagmus, positive [place]-Hallpike on the right. Differential Diagnosis: - BPPV: History of vertigo, positive [place]-Hallpike. Hans maneuver performed. Meclizine administered. - Stroke: Negative HINTS exam. CTA head and neck negative. EKG nonischemic. ED Course: PT performed Hans maneuver. 25 mg meclizine administered. Oral fluids given. CTA head and neck negative. Ambulatory with steady gait, mild lightheadedness. Final Assessment: Hans maneuver improved dizziness. Meclizine administered. CTA head and neck negative. Ambulatory with steady gait, mild lightheadedness. Clinical Impression: - BPPV - Chronic kidney disease - Atrial fibrillation - Hyperlipidemia - Peripheral vascular disease - TAVR - COPD Disposition: Discharge: Home. Encouraged to keep appointment with doctor tomorrow at 0900 hours. Return precautions reviewed. Follow-Up: Appointment with doctor tomorrow at 0900 hours. Patient Education: Return precautions reviewed. [facility] All Active Problems (Updated 12/12/24 @ 14:29 by BEBE Ambrocio) Dizziness (Acute) Extensor tenosynovitis of left wrist (Acute) Coronary artery disease (Chronic) S/P CAROLINE to ostial OM1 and proximal branch of LCX 04/23/23 CAROLINE to ostial LAD, and ostial distal LCX and angioplasty distal LM lesion 07/2023. Peripheral vascular disease (Chronic) Asthma-COPD overlap syndrome (Chronic) Followed by 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 of prosthesis of right total knee replacement (Chronic) Primary osteoarthritis of left knee (Chronic) 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) RIGHT SHOULDER: DEPO 03/04/22 BPH w urinary obs/LUTS (Chronic) Essential tremor (Chronic) Ejaculatory disorder (Chronic) Insomnia (Chronic) Gastroesophageal reflux disease (Chronic) Morris de la Tourette's syndrome (Chronic) Dysphagia (Chronic) Osteoarthritis (Chronic) Pes valgus of left foot (Chronic) Pes valgus planus deformity Posterior tibial tendon dysfunction, left (Chronic) Allergic rhinitis (Chronic) Right inguinal hernia (Chronic) Onychogryphosis (Chronic) Medical History Aortic valve stenosis S/p TAVR 05/11. Abx prophylaxis needed prior to dental procedures per [facility] Cards Nonsustained ventricular tachycardia Asymptomatic, noted on residential monitor October 2020 Type 2 diabetes mellitus Osteomyelitis of left foot Status post hallux amputation Major depressive disorder Squamous cell carcinoma, face History of tobacco use Surgical History S/P TAVR (transcatheter aortic valve replacement) (05/11/23) Status post coronary artery stent placement (04/23/23) Status post left foot surgery Flatfoot correction History of revision of total replacement of right knee joint S/P nasal septoplasty S/P cholecystectomy History of carpal tunnel surgery of left wrist Status post total knee replacement, right Status post amputation of great toe Left foot Family History Mother , age 82 Cancer Father , age 60 Skin cancer Cancer Son No problems noted. Son No problems noted. Daughter No problems noted. Paternal Grandfather No problems noted. Paternal Grandmother No problems noted. Maternal Grandfather No problems noted. Maternal Grandmother Cancer Social History Smoking/Tobacco Use Status: Former Tobacco Use tobacco type: cigarettes, pipe and cigars Quit Date: 04/18/79 Pack-years: 20 Tobacco: How many years used: 20 Second Hand Exposure: Yes Smoking risk assessment performed?: Yes Alcohol Intake: never Drug use: Never Substance use type: does not use Adopted: No Caregiver/Support person: No Household members: children Housing: house Number of Children: 3 number of grandchildren: 3 Communication Needs: None Education Level: high school Do you need help understanding health information?: Never current occupation: Retired Pets and animals: Yes Pets and animals: cat(s) Sexually active: No Do you think of yourself as: straight/heterosexual Current gender identity: male What is your relationship status?: How often do you talk on the phone with friends or family?: twice per week How often do you get together with friends or relatives?: once per week How often do you attend confucianism or yarsani services?: decline to answer Do you belong to any clubs or organized social groups?: no Panel score (0-1 are the most socially isolated patients): 1 What type of physical activity do you participate in: none Duration: decline to answer Frequency: does not exercise Alexandrea/Zoroastrianism: Non druze Special alexandrea needs: No Seatbelt use: always Helmet use: No Drive intox or ride w/intox hazmat 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
[2024-12-13 10:19] LABS: Lyme Ab w Rflx to Lyme Confirm Negative (Negative)
[2024-12-14 21:20] LABS: B. miyamotoi PCR Negative (Negative); Babesia divergens/MO-1 Negative (Negative); Ehrlichia muris eauclairensis Negative (Negative)
== END 2024-12-12 14:54 | disposition home or self-care (01) ==
PROVIDERS: Emergency Provider Physician Assistant; PCP Nurse Practitioner Family
DX: R42 Dizziness and giddiness (principal); I10 Essential (primary) hypertension; Z86.79 Personal history of other diseases of the circulatory system
CPT/HCPCS: 99284; 99285; 36415; 70496; 70498; 80053; 87798; 93005; 97112; 97162; 71046; 81003; 83735; 84443; 84484; 85025; 86618; 93010; J3490

== ENCOUNTER → 2025-01-09 13:15 | Outpatient (BNVA) | payer MEDICARE, SELFPAY | PROVIDERS: PCP Nurse Practitioner Family; Referring Provider Nurse Practitioner Family; Visit Provider Registered Nurse | DX: I25.10 Atherosclerotic heart disease of native coronary artery without angina pectoris (principal); Z79.02 Long term (current) use of antithrombotics/antiplatelets | CPT/HCPCS: 99214 ==

== ENCOUNTER → 2025-01-09 14:08 | Outpatient (BNVA) | payer MEDICARE, SELFPAY | PROVIDERS: PCP Nurse Practitioner Family; Referring Provider Nurse Practitioner Family; Visit Provider Physician Assistant Surgical | DX: J44.9 Chronic obstructive pulmonary disease, unspecified (principal); G47.33 Obstructive sleep apnea (adult) (pediatric); M85.88 Other specified disorders of bone density and structure, other site; Z87.891 Personal history of nicotine dependence | CPT/HCPCS: 99214 ==

== ENCOUNTER 2025-02-19 17:12 | Emergency (ER) | payer MEDICARE, SELFPAY ==
--- NOTE | 2025-02-19 17:15 | RT.EKG_ITS ---
APPROVED REPORT Exam: Resting ECG Reason for Exam: vertigo Patient Location: E HR:73 bpm ECG Measurements Heart Rate 73 AXIS MD 282 P -63 QRSd 101 QRS -36 QT 412 T 56 QTc 455 Conclusion Sinus or ectopic atrial rhythm...P axis (-45,135) Prolonged MD interval...MD >220, V-rate 50- 90 Left axis deviation...QRS axis (-30,-90) Anteroseptal infarct, old...Q >40mS, V1-V2 NSR @ 73 Borderline left axis Prolong MD No acute ST changes
[2025-02-19 17:25] VITALS: BP 119/70; PULSE 69; RESP 20; TEMP 37; O2SAT 93
--- NOTE | 2025-02-19 18:30 | DI.RAD_ITS ---
Exam(s) XR CHEST 2V PA LATERAL EXAM: XR CHEST 2V PA LATERAL CLINICAL HISTORY: URI. TECHNIQUE: 2D digital imaging was performed. COMPARISON: CR XR CHEST 2V PA LATERAL from 10/24/2023 CR XR CHEST 2V PA LATERAL from 12/12/2024 FINDINGS: 2 views: Heart size upper normal. Aortic valve TAVR is again noted. The mediastinum is not widened. Left lung is clear. There is platelike atelectasis again noted in the right lung base. No pleural effusions. No pulmonary edema. Two symmetrical appearing nodular densities on both sides most probably the breast nipples. IMPRESSION: No acute pulmonary findings.Persistent atelectasis in the right lung base. Aortic valve TAVR. No pulmonary edema. DATA REPOSITORY: RADIATION DOSE DELIVERED:
--- NOTE | 2025-02-19 18:41 | W.ED.GENAD ---
Discharge Plan Disposition Patient Disposition: Home Condition: Stable Discharge Details Clinical Impression: COVID-19 Primary Care Provider: Alexandrea Trevino ED Provider: Scarlett Moyer Home Meds and New Rx's Prescriptions: New molnupiravir 200 mg capsule 800 mg PO Q12H 5 Days Qty: 40 0RF Rx Instructions: Please take 4 capsules twice a day for the next 5 days No Action albuterol sulfate 90 mcg/actuation HFA aerosol inhaler 2 inh inhalation Q6H PRN (Reason: shortness of breath or wheezing) Qty: 3 4RF cholecalciferol (vitamin D3) 25 mcg (1,000 unit) capsule 25 mcg PO DAILY trazodone 100 mg tablet 100 mg PO HS Qty: 90 3RF tamsulosin 0.4 mg capsule 0.8 mg PO HS Qty: 180 3RF finasteride 5 mg tablet 5 mg PO DAILY Qty: 90 3RF aspirin [Adult Low Dose Aspirin] 81 mg tablet,delayed release (DR/EC) 81 mg PO DAILY Qty: 90 3RF loratadine 10 mg tablet 10 mg PO DAILY PRN (Reason: allergy symptoms) Qty: 90 3RF pantoprazole 20 mg tablet,delayed release (DR/EC) 20 mg PO DAILY Qty: 90 3RF rosuvastatin 10 mg tablet 10 mg PO DAILY Patient Comments: TAKE 1 TABLET BY MOUTH ONCE DAILY torsemide 20 mg tablet 20 mg PO DAILY Patient Comments: TAKE 1 TABLET BY MOUTH ONCE DAILY multivitamin 1 EACH tablet 1 tab PO DAILY ipratropium-albuterol 0.5 mg-3 mg(2.5 mg base)/3 mL solution for nebulization See Rx Instructions .ROUTE .COMPLEX Qty: 180 12RF Dose Instruction: USE 1 AMPULE IN NEBULIZER 4 TIMES DAILY NEEDED FOR SHORTNESS OF BREATH AND FOR WHEEZING Rx Instructions: USE 1 AMPULE IN NEBULIZER 4 TIMES DAILY NEEDED FOR SHORTNESS OF BREATH AND FOR WHEEZING amoxicillin 500 mg capsule 2,000 mg PO ONCE PRN Rx Instructions: [place] [facility] [place] [facility] [place]. Take 4 capsules PO once 30-60 minutes prior to dental procedures including cleanings. (Bacterial Endocarditis prevention) -hb Dupixent Pen 200 mg/1.14 mL pen injector 200 mg subcut Q2W Qty: 2.28 12RF triamcinolone acetonide 0.1 % cream 1 applic topical BID PRN (Reason: rash) Qty: 80 0RF Rx Instructions: apply pea-sized amount twice a day as needed potassium chloride 20 mEq tablet extended release 20 meq PO .M,W,F Qty: 50 3RF fluticasone propion-salmeterol [Advair Diskus] 250-50 mcg/dose blister with device 1 inh inhalation BID Qty: 60 12RF clopidogrel 75 mg tablet 75 mg PO DAILY Patient Comments: TAKE 1 TABLET BY MOUTH ONCE DAILY azithromycin 250 mg tablet 500 mg PO .3 times weekly Discharge Instructions Instructions: COVID-19 ED, Lowering the risk of spreading infection Additional Instructions: At this time you have tested positive for COVID, no evidence of pneumonia noted on the x-ray. I am going to give you treatment for COVID with molnupiravir which you take 4 tablets twice a day for the next 5 days due to your comorbidities and age. Please use the albuterol inhaler 1 or 2 puffs every 4-6 hours as needed for wheezing or shortness of breath. Please take a multivitamin with zinc, increase oral fluids. Increase vitamin C intake. Please quarantine and wear mask for the next 10 days. You may purchase an [id number] oximeter and make sure that your oxygenation stays above 90%. Follow up with primary care provider in 7-10 days. Return to ED sooner if any worsening shortness of breath, productive cough, fever greater than 100.8 or concerns. Please take Tylenol or Ibuprofen with food every 4-6 hours as needed for pain and swelling. Stand Alone Forms: Portal Information Referrals: Alexandrea Trevino NP [Primary Care Provider, Medicine] - 2 weeks Referral Note: ER follow-up, call for an appointment Clinical Impression: COVID-19 Discharge Data Discharge Date/Time-TO BE ENTERED AT DEPARTURE: 02/19/25 19:48 HPI General Mode of arrival: ambulatory. Date/Time Provider Initiated Documentation: 02/19/25 17:38. Limitations to Documentation: no limitations. Information obtained by: patient, family, RN notes reviewed and old records reviewed. HPI Narrative: 84-year-old male presents to the ER with a chief complaint of an episode of dizziness and vertigo this afternoon. Patient reports that he was coughing and URI type symptoms over the last few days. Reports that he went to go lay down and had an episode of dizziness. Denies any recent head injuries, no headache at this time the vertigo has resolved. He does have what looks to be a bilateral conjunctivitis. No focal neuro motor deficits noted. He is alert and oriented x 3. Lungs are clear to auscultation bilaterally. He was seen here for similar in November and was prescribed meclizine at that time he had lab work done and a CT and EKG which was all within normal limits. He does have a past medical history of a TAVR, coronary stent placement, left knee replacement, cholecystectomy, coronary artery disease, type 2 diabetes, aortic valve stenosis. Related Data Home Medications Medication Instructions Recorded Confirmed multivitamin 1 tab PO DAILY 11/12/14 02/19/25 albuterol sulfate 90 mcg/actuation 2 inh inhalation Q6H PRN shortness 06/10/22 02/19/25 aerosol inhaler of breath or wheezing #3 ea ipratropium 0.5 mg-albuterol 3 mg See Rx Instructions .Route 06/15/22 02/19/25 (2.5 mg base)/3 mL nebulization .COMPLEX #180 mL soln amoxicillin 500 mg capsule 2,000 mg PO ONCE PRN 05/20/23 02/19/25 Held on 02/19/25. Instructions: Pt Stopped/Never Started dupilumab 200 mg/1.14 mL 200 mg (1.14 mL) subcut Q2W Asthma 03/05/24 02/19/25 subcutaneous pen injector #2.28 mL ([facility]) triamcinolone acetonide 0.1 % 1 applic topical BID PRN rash #80 04/05/24 02/19/25 topical cream grams aspirin 81 mg tablet,delayed 81 mg PO DAILY #90 tabs 06/14/24 02/19/25 release (Adult Low Dose Aspirin) cholecalciferol (vitamin D3) 25 25 mcg PO DAILY 06/14/24 02/19/25 mcg (1,000 unit) capsule finasteride 5 mg tablet 5 mg PO DAILY #90 tabs 06/14/24 02/19/25 loratadine 10 mg tablet 10 mg PO DAILY PRN allergy 06/14/24 02/19/25 symptoms #90 tabs tamsulosin 0.4 mg capsule 0.8 mg (2 x 0.4 mg) PO HS #180 caps 06/14/24 02/19/25 trazodone 100 mg tablet 100 mg PO HS #90 tabs 06/14/24 02/19/25 pantoprazole 20 mg tablet,delayed 20 mg PO DAILY #90 tabs 06/18/24 02/19/25 release potassium chloride 20 mEq 20 meq PO .M,W,F #50 tabs 07/16/24 02/19/25 tablet,extended release Held on 12/21/24. Instructions: holding torsemide fluticasone 250 mcg-salmeterol 50 1 inh inhalation BID #60 ea 12/03/24 02/19/25 mcg/dose blistr powdr for inhalation (Advair Diskus) azithromycin 250 mg tablet 500 mg PO .3 times weekly 12/12/24 02/19/25 clopidogrel 75 mg tablet 75 mg PO DAILY 12/12/24 02/19/25 rosuvastatin 10 mg tablet 10 mg PO DAILY 12/21/24 02/19/25 torsemide 20 mg tablet 20 mg PO DAILY 12/21/24 02/19/25 Held on 12/21/24. Instructions: side effects - dry mouth, dizziness molnupiravir 200 mg capsule (EUA) 800 mg (4 x 200 mg) PO Q12H Covid 02/19/25 5 days #40 caps Previous Rx's Medication Instructions Recorded albuterol sulfate 90 mcg/actuation 2 inh inhalation Q6H PRN shortness 06/10/22 aerosol inhaler of breath or wheezing #3 ea ipratropium 0.5 mg-albuterol 3 mg See Rx Instructions .Route 06/15/22 (2.5 mg base)/3 mL nebulization .COMPLEX #180 mL soln dupilumab 200 mg/1.14 mL 200 mg (1.14 mL) subcut Q2W Asthma 03/05/24 subcutaneous pen injector #2.28 mL ([facility]) triamcinolone acetonide 0.1 % 1 applic topical BID PRN rash #80 04/05/24 topical cream grams aspirin 81 mg tablet,delayed 81 mg PO DAILY #90 tabs 06/14/24 release (Adult Low Dose Aspirin) finasteride 5 mg tablet 5 mg PO DAILY #90 tabs 06/14/24 loratadine 10 mg tablet 10 mg PO DAILY PRN allergy 06/14/24 symptoms #90 tabs tamsulosin 0.4 mg capsule 0.8 mg (2 x 0.4 mg) PO HS #180 caps 06/14/24 trazodone 100 mg tablet 100 mg PO HS #90 tabs 06/14/24 pantoprazole 20 mg tablet,delayed 20 mg PO DAILY #90 tabs 06/18/24 release potassium chloride 20 mEq 20 meq PO .M,W,F #50 tabs 07/16/24 tablet,extended release Held on 12/21/24. Instructions: holding torsemide fluticasone 250 mcg-salmeterol 50 1 inh inhalation BID #60 ea 12/03/24 mcg/dose blistr powdr for inhalation (Advair Diskus) molnupiravir 200 mg capsule (EUA) 800 mg (4 x 200 mg) PO Q12H Covid 02/19/25 5 days #40 caps Allergies Allergy/AdvReac Type Severity Reaction Status Date / Time morphine Allergy Constipatio Verified 02/19/25 17:31 n atorvastatin AdvReac Mild MUSCLE Verified 02/19/25 17:31 FATIGUE simvastatin AdvReac Mild MUSCLE Verified 02/19/25 17:31 FATIGUE General Stated Complaint: Dizzy/Sync AMERICO: 3 Review of Systems All systems reviewed & are unremarkable except as noted in HPI and below ENT Ears, Nose, Mouth, and Throat: Reports vertigo and Reports dizziness Neurologic Neurologic: Reports as per HPI, Reports vertigo and Reports dizziness Exam Narrative Exam Narrative: Constitutional: Alert and oriented x3. Appears stated age. Normal body habitus. Head: Normocephalic, no trauma. Eyes: Pupils PERRL, Red reflex noted, EOM's intact. Eyelids symmetrical without lesions, does have some purulent discharge bilaterally and surrounding erythema. ENT: Bilateral TM's WNL, External ear normal to inspection, no mastoid TTP, swelling, or erythema, Nasal turbinates WNL, no nasal discharge. Normal dentition, Posterior pharynx WNL, no exudate. Chest: RRR, Normal S1, S2, distal pulses intact. Resp: Lungs clear to auscultation bilaterally, no wheezes, rales, or rhonchi. Congested Abdomen: Soft, non-distended, Normoactive bowel sounds all 4 quads. Musculoskeletal: Normal gait, Moves all 4 extremities without difficulty. Skin: No suspicious rashes or lesions. Capillary refill less than 2 sec. Neurologic: Cranial nerves II-XII intact. Alert and oriented x 3. Motor: No deficits noted. Sensory: Intact bilaterally all 4 extremities. Hematologic/Lymphatic: No ecchymosis, no lymphadenopathy. Course Vital Signs Vital signs: Vital Signs Temperature 37.0 C 02/19/25 17: Pulse 69 02/19/25 17:25 Respiratory Rate 20 02/19/25 17: Blood Pressure 119/70 02/19/25 17: Pulse Oximetry 93 02/19/25 17: Temperature 37.0 C 02/19/25 17: Temperature Source Oral 02/19/25 17: Pulse 69 02/19/25 17: Respiratory Rate 20 02/19/25 17: Blood Pressure 119/70 02/19/25 17: Blood Pressure Position Sitting 02/19/25 17: Pulse Oximetry 93 02/19/25 17:25 Oxygen Delivery Method Room Air 02/19/25: Oxygen Flow Rate 0 02/19/25 17: Pain Level 0 02/19/25 17:25 Medical Decision Making 84-year-old male presents to the ER with a chief complaint of an episode of dizziness and vertigo this afternoon. Patient reports that he was coughing and URI type symptoms over the last few days. Reports that he went to go lay down and had an episode of dizziness. Denies any recent head injuries, no headache at this time the vertigo has resolved. He does have what looks to be a bilateral conjunctivitis. No focal neuro motor deficits noted. He is alert and oriented x 3. Lungs are clear to auscultation bilaterally. He was seen here for similar in November and was prescribed meclizine at that time he had lab work done and a CT and EKG which was all within normal limits. He does have a past medical history of a TAVR, coronary stent placement, left knee replacement, cholecystectomy, coronary artery disease, type 2 diabetes, aortic valve stenosis. EKG is within normal limits, reviewed by ED physician old EKG available for review. Fluvid swab ordered, chest x-ray and will give 12.5 mg clozapine and p.o. fluids. I did consider labs however no evidence for nausea vomiting diarrhea no chest pain no recent head injuries. At this time head CT not indicated. Patient just had a head CT a few months ago. Will continue to observe. 1907: COVID positive chest x-ray pending, will give provider due to age and risk factors, will give an albuterol inhaler to go home with. No evidence of obvious pneumonia noted on the preliminary x-ray. Will discuss home care and forward procedures. This text was generated using Offermatic dictation system, please disregard any oddities of phrase or misspellings. Imaging Data Radiologic Study: Imaging: X-Ray Radiologist's impression: PROCEDURE INFORMATION: Exam: XR Chest Exam date and time: 02/19/2025 7:04 PM Age: 84 years old Clinical indication: Other: Uri TECHNIQUE: Imaging protocol: Radiologic exam of the chest. Views: 2 views. COMPARISON: CR XR CHEST 2V PA LATERAL 12/12/2024 1:02 PM FINDINGS: Lungs: No airspace consolidation. There are diffuse interstitial markings throughout both lungs. Pleural spaces: No pleural effusion or pneumothorax. Heart/Mediastinum: The heart is normal size. Bones/joints: Unremarkable. IMPRESSION: 1. Interstitial markings throughout the lungs which may be associated with mild fluid overload. 2. No acute airspace consolidation. Thank you for allowing us to participate in the care of your patient. Dictated and Authenticated by: Romelia Zamarripa MD Lab Data Lab results reviewed: Yes I reviewed the patient's lab results. Labs: Laboratory Tests Range/Units 02/19/25 18:18 COVID-19 Source Nasopharynx SARS-CoV-2 (PCR) (Negative) Positive A Influenza Type A (PCR) (Negative) Negative Influenza Type B (PCR) (Negative) Negative RSV (PCR) (Negative) Negative PFSH All Active Problems (Updated 02/19/25 @ 19:29 by Scarlett Moyer NP) COVID-19 (Acute) Extensor tenosynovitis of left wrist (Acute) Coronary artery disease (Chronic) S/P CAROLINE to ostial OM1 and proximal branch of LCX 04/23/23 CAROLINE to ostial LAD, and ostial distal LCX and angioplasty distal LM lesion 07/2023. Peripheral vascular disease (Chronic) Asthma-COPD overlap syndrome (Chronic) Followed by 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) Loosening of prosthesis of right total knee replacement (Chronic) Primary osteoarthritis of left knee (Chronic) 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) RIGHT SHOULDER: DEPO 03/04/22 BPH w urinary obs/LUTS (Chronic) Essential tremor (Chronic) Ejaculatory disorder (Chronic) Insomnia (Chronic) Gastroesophageal reflux disease (Chronic) Morris de la Tourette's syndrome (Chronic) Dysphagia (Chronic) Osteoarthritis (Chronic) Pes valgus of left foot (Chronic) Pes valgus planus deformity Posterior tibial tendon dysfunction, left (Chronic) Allergic rhinitis (Chronic) Right inguinal hernia (Chronic) Onychogryphosis (Chronic) Medical History Aortic valve stenosis S/p TAVR 05/11. Abx prophylaxis needed prior to dental procedures [place] [facility] [place] Nonsustained ventricular tachycardia Asymptomatic, noted on youth nutritional monitor October 2020 Type 2 diabetes mellitus Osteomyelitis of left foot Status post hallux amputation Major depressive disorder Squamous cell carcinoma, face History of tobacco use Surgical History S/P TAVR (transcatheter aortic valve replacement) (05/11/23) Status post coronary artery stent placement (04/23/23) Status post left foot surgery Flatfoot correction History of revision of total replacement of right knee joint S/P nasal septoplasty S/P cholecystectomy History of carpal tunnel surgery of left wrist Status post total knee replacement, right Status post amputation of great toe Left foot Family History Mother , age 82 Cancer Father , age 60 Skin cancer Cancer Son No problems noted. Son No problems noted. Daughter No problems noted. Paternal Grandfather No problems noted. Paternal Grandmother No problems noted. Maternal Grandfather No problems noted. Maternal Grandmother Cancer Social History Smoking/Tobacco Use Status: Former Tobacco Use tobacco type: cigarettes, pipe and cigars Quit Date: 04/18/79 Pack-years: 20 Tobacco: How many years used: 20 Second Hand Exposure: Yes Smoking risk assessment performed?: Yes Alcohol Intake: never Drug use: Never Substance use type: does not use Adopted: No Caregiver/Support person: No Household members: children Housing: house Number of Children: 3 number of grandchildren: 3 Communication Needs: None Education Level: high school Do you need help understanding health information?: Never current occupation: Retired Pets and animals: Yes Pets and animals: cat(s) Sexually active: No Do you think of yourself as: straight/heterosexual Current gender identity: male What is your relationship status?: How often do you talk on the phone with friends or family?: twice per week How often do you get together with friends or relatives?: once per week How often do you attend bahai or pentecostalism services?: decline to answer Do you belong to any clubs or organized social groups?: no Panel score (0-1 are the most socially isolated patients): 1 What type of physical activity do you participate in: none Duration: decline to answer Frequency: does not exercise Alexandrea/Buddhist: Non yazidi Special alexandrea needs: No Seatbelt use: always Helmet use: No Drive intox or ride w/intox 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
[2025-02-19 18:59] LABS: RSV PCR Negative (Negative)
[2025-02-19 19:07] LABS: COVID-19 PCR Positive (Negative)
[2025-02-19] MEDS: Meclizine 12.5 MG TAB PO (19:26)
--- NOTE | 2025-02-19 19:43 | DI.VRAD_ITS ---
PROCEDURE INFORMATION: Exam: XR Chest Exam date and time: 02/19/2025 7:04 PM Age: 84 years old Clinical indication: Other: Uri TECHNIQUE: Imaging protocol: Radiologic exam of the chest. Views: 2 views. COMPARISON: CR XR CHEST 2V PA LATERAL 12/12/2024 1:02 PM FINDINGS: Lungs: No airspace consolidation. There are diffuse interstitial markings throughout both lungs. Pleural spaces: No pleural effusion or pneumothorax. Heart/Mediastinum: The heart is normal size. Bones/joints: Unremarkable. IMPRESSION: 1. Interstitial markings throughout the lungs which may be associated with mild fluid overload. 2. No acute airspace consolidation. Dictated and Authenticated by: Romelia Zamarripa MD. Orderin Comfort Pantoja MD
[2025-02-19] MEDS: Albuterol HFA 8 GM 60 PUFF INH IH (19:47)
[2025-02-19 19:48] VITALS: PULSE 74; RESP 16; TEMP 36.6; O2SAT 94
== END 2025-02-19 19:48 | disposition home or self-care (01) ==
PROVIDERS: Emergency Provider Registered Nurse Emergency; PCP Nurse Practitioner Family
DX: U07.1 COVID-19 (principal); Z11.52 Encounter for screening for COVID-19
CPT/HCPCS: 99283 ×2; 87637; 93005; 71046; 93010